=== PATIENT | male | born 1960 | race African-American/Black ===

== ENCOUNTER 2017-10-31 07:05 | Day surgery (SDC) | END 2017-10-31 13:10 | disposition home or self-care (01) ==

== ENCOUNTER 2017-12-18 07:07 | Day surgery (SDC) | END 2017-12-18 14:07 | disposition home or self-care (01) ==

== ENCOUNTER 2018-04-20 05:42 | Inpatient (IN) | END 2018-04-23 11:38 | disposition home health service (06) | DRG 291 ==

== ENCOUNTER 2018-04-30 14:33 | Emergency (ER) | END 2018-04-30 17:45 | disposition home or self-care (01) ==

== ENCOUNTER 2018-05-12 17:09 | Emergency (ER) | END 2018-05-12 18:34 | disposition left against medical advice (07) ==

== ENCOUNTER 2018-05-13 12:03 | Inpatient (IN) | END 2018-05-15 13:28 | disposition home or self-care (01) | DRG 64 ==

== ENCOUNTER 2018-07-08 15:55 | Inpatient (IN) | payer BC ==
[~2018-07-08] VITALS: Ht 170.2 cm; Wt 121.0 kg
[~2018-07-08 15:55] MED LIST: ATOR-2 PO; CAPE500T17 PO; CARAS PO; CARV3.1260 PO; CLOP75TA19 PO; FURO40TA4 PO; LEVO500T48 PO; PANT40TA4 PO; POTA10TA37 PO; TEMA15CA PO; TRA100 PO
[2018-07-08 20:19] VITALS: PULSE 95
--- NOTE | 2018-07-08 20:56 | HP ---
Date/Time of Note Date/Time of Note DATE: 07/08/18 TIME: 20:54 Assessment/Plan VTE Prophylaxis Pharmacological prophylaxis: heparin Assessment/Plan Hospital Course This is a 57-year-old male who was being admitted to the telemetry floor for: #1 acute on chronic systolic CHF exacerbation: At the current time we will continue IV diuresis with Lasix 40 mg daily. Monitor urine output. Strict I's and O's. Fluid restriction. #2 Ischemic cardia myopathy: Patient has an ejection fraction of approximately 25% which was considered to be likely chemo induced. This echo rating is based on the transfer documentation as an echo had been performed at the transferring facility in April. #3 AICD/pacemaker: Was interrogated at the transferring facility and there was no reported dysfunction. #4 colon cancer: With metastasis to the liver, follow-up with hematology as an outpatient. 5. Transaminitis: Likely secondary to underlying liver metastasis and passive congestion, continue diuresis, hold any chemical chemical DVT prophylaxis at the current time given patient's underlying liver disease. 6. Hallucinations: At the current time will give patient Haldol IM 5 mg. May need to give a dose of risperidone 1 mg p.o. as well. We will need to consult psychiatry in the a.m. 7. Chronic kidney disease: Appears to be stage III. Avoid nephrotoxic agents, avoid NSAIDs continue to monitor next 8. Obesity: We will check hemoglobin A1c, lipid panel, TSH 9. History of a pulmonary nodule: Follow-up as outpatient DVT GI prophylaxis: heparin, Protonix HPI/ROS Admit Date/Time Admit Date/Time Jul 08, 2018 at 19:53 Hx of Present Illness Chief complaint: Shortness of breath This is a 57-year-old male with a past medical history of CAD s/p PCI, HTN, ischemic CM, colon ca on PO chemo, h/o GI bleed, morbid obesity, and anemia, Acute left occipital lobe infarct who presented to [facility] with complaints of shortness of breath on 07/06/2018. Patient had reported at that time that he was having shortness of breath times 1 day and palpitations and some possible chest pain. He had been on lower doses of Lasix according to him prior. He was reporting chest pressure and orthopnea but denied any fevers or cough, he did state that he was only able to walk approximately 30 feet before getting shortness of breath. 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 rodrigo lynn. He was admitted in the hospital and started on diuresis and given daily potassium and Spironolactone. He was continued on his home medications. Patient also had his pacemaker interrogated and there was no reported dysfunction. Patient was subsequently transferred to [facility] for insurance purposes. Currently at the bedside the patient is reporting hearing voices in his head. His is with him at the bedside who states that approximately 1 week ago he started reporting that he was noises in his head. His denies that this has occurred before. He does have a history of stage IV cancer which is being treated for. He has a history of general anxiety as well and was on home temazepam Xanax and trazodone. Pertinent laboratory findings from the transfer facility please see chart for full details Hemoglobin 10.7 Magnesium 1.6 Potassium 3.7 Creatinine 1.3 is 9 next INR 1.93 platelets 294 next Chest x-ray: Enlarged cardiac silhouette, vascular prominence consistent with mild pulmonary venous hypertension Bilateral lower extremity ultrasound no evidence of DVT Allergies: NKDA Medications: See SEP ROS Const: As per HPI Eyes : No pain discharge or redness or change in visual acuity ENT: No pain, sore throat, congestion, congestion, dysphagia or discharge Respiratory: As per HPI Cardiovascular: As per HPI GI : no change in appetite, abdominal pain, nausea, vomiting, diarrhea, constipation, or change in the color his stool Genitourinary: No dysuria, hematuria, flank pain , discharge or CVA tenderness Musculoskeletal: No joint pain, back pain, neck pain, restricted range of motion in neck or joints Skin: No rash, bruising or hives Neuro: No headache, dizziness, syncope, seizure, focal weakness Endocrine: No polyuria, polydipsia, temperature intolerance Psych: As per HPI, denies any suicidal thoughts or homicidal thoughts PMH/Family/Social Past Medical History coronary artery disease, hypertension, ischemic CM, Colon Ca with mets to liver, GI bleed, obesity, anemia, CVA Coded Allergies: No Known Allergy (Unverified , 05/13/18) Past Surgical History portacath placement, AICD placement, angioplasty, colon resection, cholecystectomy, hernia repair Past Surgical Hx: other Family History Significant Family History: no pertinent family hx Social History Alcohol Use: none Smoking Status: Never smoker Drug Use: none Exam/Review of Systems Exam Exam General: Patient is currently lying in bed, he contently reports that he wants noises in his head. HEENT: Atraumatic, normocephalic. The pupils are equal, round and reactive. Extraocular motor are intact Neck: Supple with full range of motion. No rigidity or meningismus Chest: Nontender Lungs: Crackles/rales at the bases bilaterally Heart: Normal S1-S2, Regular rhythm and rate. Questionable JVD Abdomen: Obese, soft , nontender, nondistended , bowel sounds are present. No guarding no rebound tenderness , No masses or organomegaly. No costovertebral temporal angle mass Extremities: Normal to inspection, no edema no cyanosis Neurologic: He is alert and oriented, he is reporting noises in his head and he wants him to stop, speech normal, cranial nerves II through XII are intact, motor and sensory are intact, GEORGIE ORTIZ Jul 08, 2018 20:56
[2018-07-08 21:00] VITALS: Ht 170.2 cm; Wt 121.0 kg
[2018-07-08] MEDS ORDERED: ONDANSETRON 4 MG INJ IV PRN (21:00)
[2018-07-08] MEDS ORDERED: DOCUSATE SODIUM 100 MG CAP PO PRN (21:00)
[2018-07-08] MEDS ORDERED: BISACODYL (EC) 5 MG TAB PO PRN (21:00)
[2018-07-08] MEDS ORDERED: NACL 0.9% 3 ML SYG IV SCH (21:00)
[2018-07-08] MEDS ORDERED: BENA40TA56 PO (21:45)
[2018-07-08] MEDS ORDERED: TRAM50TA PO (21:45)
[2018-07-08] MEDS ORDERED: DIAZ5TAB4 PO (21:45)
[2018-07-08] MEDS ORDERED: SPIR100T4 PO (21:45)
[2018-07-08] MEDS ORDERED: ZOLP10TA PO (21:45)
[2018-07-08] MEDS: DIAZEPAM 5 MG TAB PO PRN (22:42)
[2018-07-08 23:55] VITALS: BP 124/79; RESP 18
[2018-07-09] VITALS (47 sets, daily range): BP systolic 75–187; BP diastolic 50–120; PULSE 78–130; RESP 18–52
[2018-07-09] MEDS ORDERED: HALOPERIDOL 5 MG INJ IM ONE ×2 (00:30→02:00)
[2018-07-09] MEDS ORDERED: RISPERIDONE 1 MG TAB PO ONE (01:00)
[2018-07-09] MEDS ORDERED: LORAZEPAM 2 MG INJ IV ONE ×3 (02:00→20:30)
[2018-07-09] MEDS ORDERED: ACETYLCYSTEINE 20% 4 ML VIAL NEB ONE (03:46)
[2018-07-09] MEDS: FUROSEMIDE 40 MG INJ IV SCH (03:54)
[2018-07-09] MEDS: LEVALBUTEROL (NEB) 1.25 MG/0.5 ML AMP HHN PRN (03:59)
--- NOTE | 2018-07-09 04:44 | QN ---
Documentation Comment Patient became noticeably agitated and continued to hallucinate from before. He was given Haldol followed with Ativan. It did help him settle down for a short period of time. He later on continue to become agitated and he was given 1 mg of risperidone. Patient kept trying to get out of bed. Sometime later patient was noted to be more agitated and respiratory distress. He was given a breathing treatment as well. He maintained his saturations near 97% on 2 L. However given his increased work of breathing and agitation patient was brought down to the ICU. I did speak to the Natalie who stated that he was doing very similar things at the transferring facility where he was being given meds and still was fighting them. I did state that we may need to intubate the patient if his respiratory distress become worse and she is on board with him being full code. GEORGIE ORTIZ Jul 09, 2018 04:44
[2018-07-09] MEDS ORDERED: ALBUMIN HUMAN 25% 100 ML IV ONE (05:00)
[2018-07-09] MEDS ORDERED: FUROSEMIDE 40 MG INJ IV ONE ×2 (05:00→20:30)
--- NOTE | 2018-07-09 05:00 | NUR ---
Rechecked pt. sitter at bedside. Patient was short of breath, cold clammy skin, oxygen sat down to78 %. Called Dr. Yeung notified pt's condition with order to transfer to ICU. Report given to [facility] ICU,pt's cellphone and belongings endorsed.
--- NOTE | 2018-07-09 06:23 | NUR ---
Confused & kept trying to get out of bed; hospitalist was notified and restraint was ordered; tachypnea and tachycardia (HR 120S); on high flow FiO2 70%; crackles on bibasilar lungs without edema x4 extremities; urine output 500 ml in the last 2 hours; continue to monitor and provide total care.
[2018-07-09] MEDS: PANTOPRAZOLE (EC) 40 MG TAB PO SCH (07:05)
--- NOTE | 2018-07-09 07:46 | CONS ---
Date/Time of Note Date/Time of Note DATE: 07/09/18 TIME: 07:42 Assessment/Plan Assessment/Plan Additional Assessment/Plan Chest x-ray showing mild pulmonary edema. Mediport in right chest wall. Pacemaker in left chest wall. Assessment recommendations; 1. Patient with history of metastatic stage IV lung cancer admitted for CHF exacerbation with hypoxemia. Doing moderately well on high flow nasal cannula. Patient refusing to use BiPAP. 2. Anemia. 3. Chronic mild renal insufficiency. 4. Lung nodule of uncertain diagnosis at this point. 5. History of hypertension, CAD. 6. History of cardiac arrhythmia. 7. History of depression. Continue current supportive care. Continue diuretic regimen. Monitor for any clinical decompensation. The patient does decompensate he likely will need to be intubated. Consultation Date/Type/Reason Admit Date/Time Jul 08, 2018 at 19:53 Date of Consultation: Jul 09, 2018 Type of Consult Pulmonary/critical care Reason for Consultation Pulmonary consult requested for evaluation of shortness of breath. Patient transferred from another hospital for insurance reasons. History of presenting illness; patient is a 57-year-old male who has been transferred over from [facility] for further care. The patient was admitted over there for shortness of breath, patient had a chest x-ray done which showed congestive heart failure pattern with high BNP level. The time I saw the patient the patient is mildly tachypneic but did appear awake and alert and was able to answer questions. Past medical history; 1. Metastatic stage IV colon cancer. 2. History of cardiac arrhythmia, status post pacemaker placement. 3. History of chronic renal insufficiency. 4. History of pulmonary nodule of uncertain etiology at this time. 5. Chronic anemia. 6. History of CAD with intervention in the past. 7. History of hypertension. 8. History of herniorrhaphy and cholecystectomy. 9. History of depression. Medications; reviewed. Allergies; none. Social history; noncontributory. Occupational history; patient is on disability. Review of systems; denies any headache, seizures. Denies any chest pain, complains of mild shortness of breath. Complains of very scant cough without any sputum production. Denies any hemoptysis. Denies any abdominal pain, nausea vomiting. Complains of mild edema. Complains of chronic dyspnea on exertion. General exam; middle-aged male, appears overweight, on high flow nasal cannula. Appearing mildly tachypneic. Past Surgical History Past Surgical Hx: other Social History Alcohol Use: none Smoking Status: Never smoker Drug Use: none Exam/Review of Systems Vital Signs Vitals Vital Signs Date Temp Pulse Resp B/P (MAP) Pulse Ox O2 O2 Flow FiO2 Time Delivery Rate 07/09/18 122 28 166/112 87 High Flow 07:00 (130) 07/09/18 70 06:20 07/09/18 98.3 04:14 07/09/18 2.0 04:00 Intake and Output 07/08/18 07/08/18 07/09/18 1515:00 23:00 07:00 IntakeIntake Total 200 ml OutputOutput Total 150 ml BalanceBalance 50 ml Exam HEENT exam; supple neck, positive JVD. No lymphadenopathy. Midline trachea. No thyromegaly. Patient has fair dentition. No neck masses. Chest exam; diminished breath sounds bilaterally. S1-S2 audible, no murmurs. Regular rhythm. Pacemaker in left chest wall. Abdomen exam; soft, protuberant. No organomegaly. Bowel sounds audible. Nont doris. Extremity exam; trace peripheral edema. PLANT TECHNICIAN/CONTROL ROOM OPERATOR exam; no focal motor deficit. Medications Medications Current Medications IV Flush (NS 3 ml) 3 ml PER PROTOCOL IV ; Start 07/08/18 at 21:00 Ondansetron HCl (Zofran Inj) 4 mg Q6H PRN IV NAUSEA AND/OR VOMITING; Start 07/08/18 at 21:00 Acetaminophen (Tylenol Tab) 650 mg Q6H PRN PO PAIN LEVEL 1-3 OR FEVER; Start 07/08/18 at 21:00 Docusate Sodium (Colace) 100 mg Q12H PRN PO CONSTIPATION; Start 07/08/18 at 21:00 Bisacodyl (Dulcolax) 5 mg DAILY PRN PO CONSTIPATION; Start 07/08/18 at 21:00 Diazepam (Valium) 5 mg BID PRN PO ANXIETY Last administered on 07/08/18at 22:42; Admin Dose 5 MG; Start 07/08/18 at 23:00 Atorvastatin Calcium (Lipitor) 80 mg QHS PO ; Start 07/09/18 at 21:00 Benazepril HCl (Lotensin) 40 mg DAILY PO ; Start 07/09/18 at 09:00 Capecitabine (Xeloda) 1,500 mg BID PO ; Start 07/09/18 at 09:00 Carvedilol (Coreg) 3.125 mg BID PO ; Start 07/09/18 at 09:00 Clopidogrel Bisulfate (plaVIX) 75 mg DAILY PO ; Start 07/09/18 at 09:00 Pantoprazole (Protonix Tab) 40 mg AC BREAKFAST PO ; Start 07/09/18 at 07:00 Potassium Chloride (Klor-Con 10) 10 meq DAILY PO ; Start 07/09/18 at 09:00 Spironolactone (Aldactone) 25 mg DAILY PO ; Start 07/09/18 at 09:00 Sucralfate (Carafate Susp) 1 gm QID PO ; Start 07/09/18 at 09:00 Furosemide (Lasix) 40 mg DAILY@0600 IV Last administered on 07/09/18at 03:54; Admin Dose 40 MG; Start 07/09/18 at 04:00 Levalbuterol (Xopenex Neb) 1.25 mg Q4H RESP THERAPY PRN HHN SHORTNESS OF BREATH Last administered on 07/09/18at 03:59; Admin Dose 1.25 MG; Start 07/09/18 at 03:45 Results Result Diagram: 07/09/18 0400 07/09/18 0400 Results 24 hrs Laboratory Tests Test 07/08/18 21:28 07/09/18 04:00 07/09/18 04:22 07/09/18 04:26 White Blood 8.9 # 9.1 Count Red Blood Count 4.46 #L 4.52 L Hemoglobin 10.5 L 10.6 L Hematocrit 34.2 L 34.4 L Mean 76.7 L 76.1 L Corpuscular Volume Mean 23.5 L 23.5 L Corpuscular Hemoglobin Mean 30.7 L 30.8 L Corpuscular Hemoglobin Conc ent Red Cell 23.9 #H 23.8 H Distribution Width Platelet Count 340 # 363 Mean Platelet 10.6 H 10.4 Volume Immature 0.300 0.400 Granulocytes % Neutrophils % 70.8 83.1 H Lymphocytes % 14.6 L 6.9 L Monocytes % 12.9 H 8.4 Eosinophils % 1.1 0.8 Basophils % 0.3 0.4 Nucleated Red 0.0 0.0 Blood Cells % Immature 0.030 0.040 H Granulocytes # Neutrophils # 6.3 7.6 H Lymphocytes # 1.3 0.6 L Monocytes # 1.2 H 0.8 Eosinophils # 0.1 0.1 Basophils # 0.0 0.0 Nucleated Red 0.0 0.0 Blood Cells # Sodium Level 135 135 Potassium Level 3.7 3.9 Chloride Level 98 94 L Carbon Dioxide 27 28 Level Anion Gap 10 13 Blood Urea 28 H 28 H Nitrogen Creatinine 1.28 H 1.24 Est Glomerular > 60 > 60 Filtrat Rate mL/min Glucose Level 132 176 Calcium Level 9.1 9.3 Magnesium Level 2.0 1.7 B-Type 3340 H Natriuretic Peptide Hemoglobin A1c 6.0 H Total Bilirubin 1.6 H Direct 0.10 Bilirubin Indirect 1.5 H Bilirubin Aspartate Amino 82 H Transf (AST/SGO T) Alanine 41 Aminotransferas e (ALT/SGPT) Alkaline 232 H Phosphatase Creatine Kinase 123 Creatine Kinase 0.2 Index Creatinine 0.27 Kinase MB (Mass) Troponin I 0.031 Total Protein 6.5 Albumin 3.4 Globulin 3.10 Albumin/Globuli 1.09 n Ratio Triglycerides 53 Level Cholesterol 164 Level LDL 127 Cholesterol, Calculated HDL Cholesterol 26 L Cholesterol/HDL 6.3 Ratio Thyroid 2.530 Stimulating Hormone (TSH) Blood Gas Blood Specimen arterial Source Arterial Blood 07/09/2018 4:3 Date Drawn 0:14 AM Arterial Blood 7.466 H pH (Temp corrected ) Arterial Blood 31.6 L pCO2 (Temp correct) Arterial Blood 84.3 pO2 (Temp corrected ) Arterial Blood 22.3 HCO3 Arterial Blood -0.7 Base Excess Arterial Blood 96.3 Oxygen Saturati on Xu Test ACCEPTAB Arterial Blood Right Radial Gas Puncture Site Arterial 0.5 Blood Carboxyhe moglobin Arterial Blood 0.3 Methemoglobin Blood Gas A-a 597.1 H O2 Differential Oxyhemoglobin 95.5 Percent Blood Gas 37.0 Temperature Blood Gas MASK - NRB Modality FiO2 100.0 Blood Gas MI Notified Whom Blood Gas 07/09/2018 4:4 Notified Time 5:56 AM Bedside Glucose 195 Test 07/09/18 06:00 Blood Gas Blood arterial Specimen Source Arterial Blood 07/09/2018 6:00 Date Drawn :18 AM Arterial Blood 7.457 H pH (Temp corrected ) Arterial Blood 35.7 pCO2 (Temp correct) Arterial Blood 82.6 pO2 (Temp corrected ) Arterial Blood 24.6 HCO3 Arterial Blood 1.0 Base Excess Arterial Blood 95.5 Oxygen Saturati on Xu Test ACCEPTAB Arterial Blood Right Radial Gas Puncture Site Arterial 0.5 Blood Carboxyhe moglobin Arterial Blood 0.2 Methemoglobin Blood Gas A-a 450.3 H O2 Differential Oxyhemoglobin 94.8 Percent Blood Gas 37.0 Temperature Blood Gas 31 Actual Respiration Rat e Blood Gas HFNC Modality FiO2 80.0 Blood Gas PAUL DICKSON Notified Whom Blood Gas 07/09/2018 6:10 Notified Time :11 AM KATHI MCKEON Jul 09, 2018 07:46
--- NOTE | 2018-07-09 08:31 | CONS ---
Date/Time of Note Date/Time of Note DATE: 07/09/18 TIME: 08:05 Assessment/Plan Assessment/Plan Chief Complaint/Hosp Course 1. Acute hypoxemic hypercapnic respiratory failure 2. 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 Severe coronary artery disease with multivessel coronary artery disease 4. History of PCI of right coronary artery in April 2018 5. History of metastatic adeno CA of the colon 6. History of hypertension 7. History of noncompliance 8. History of GI bleed 9. Dyslipidemia 10. History of sick sinus syndrome s/p pacemaker Recommendations: Plavix to be continued as much as possible given his history of recent PCI Respiratory care as per pulmonary. Patient will be tried to be placed on BiPAP and if fails it may need to be intubated. CODE STATUS is still full code I would increase her diuretics to IV Lasix twice daily. Echocardiogram will be checked. Continue with ICU care. Continue with a statin beta-casie and AN inhibitor as tolerated. more than 43 minutes critical care time was for management treatment is critically ill patient excluding any procedures Thank you for his referral. We will continue to follow along with you. ANGEL CANCINO MD [facility] Consultation Date/Type/Reason Admit Date/Time Jul 08, 2018 at 19:53 Date of Consultation: Jul 09, 2018 Type of Consult cv Reason for Consultation CHF/ CAD Requesting Provider: GEORGIE ORTIZ Hx of Present Illness Interventional cardiology consultation note Chief complaint: Shortness of breath Reason for consult: Coronary artery disease, CHF History of present illness: Thank you for this referral. History was obtained from the patient, BUT mostly from review of the old chart discussion multiple physicians staff. This is a 57-year-old gentleman with history of coronary artery disease status post PCI of his right coronary artery in apr 2018 at [place], history of GI bleed after PCI status post endoscopy by GI, colon cancer history of congestive heart failure cardiomyopathy who was initially admitted to outside facility for shortness of breath. Patient was transferred to our facility for respiratory failure and congestive heart failure due to insurance reasons. Patient was no dwight to be in increasing hypoxemia and shortness of breath and was transferred to ICU at this point he complains of shortness of breath he has been desaturating has refused BiPAP At this point patient is unable to provide reliable history to me. Allergies: No known drug allergies Medications were reviewed as per medical reconciliation sheet Family history: No early coronary artery disease Social history: + Smoking in the past Past medical history: Coronary artery disease status post PCI right coronary artery in April 2018. He was also noted to have multivessel disease at that time. Patient had GI bleed and severe anemia after his angioplasty. Has undergone endoscopy with Dr. TOLBERT. Workup has shown apparently metastatic colon cancer Hypertension ischemic cardiomyopathy obesity history of colon cancer status post surgery Review of system as above only the best I could obtain Past Surgical History Past Surgical Hx: other Social History Alcohol Use: none Smoking Status: Never smoker Drug Use: none Exam/Review of Systems Vital Signs Vitals Vital Signs Date Temp Pulse Resp B/P (MAP) Pulse Ox O2 O2 Flow FiO2 Time Delivery Rate 07/09/18 122 28 166/112 87 High Flow 07:00 (130) 07/09/18 70 06:20 07/09/18 98.3 04:14 07/09/18 2.0 04:00 Intake and Output 07/08/18 07/08/18 07/09/18 1515:00 23:00 07:00 IntakeIntake Total 300 ml OutputOutput Total 650 ml BalanceBalance -350 ml Exam General: Obese gentleman in respiratory distress HEENT: NC/AT. pupils are equal. round. NECK: NO JVD. no stridor. CV: Tachycardic. systolic murmur; no gallop or rubs. PULM: Diffuse rhonchi. GI: SOFT, NT, ND, no rebound or guarding Extremity: + B/L LE edema. no clubbing. neuro: awake Psych: Appears anxious rectal: deferred : normal EKG was personally reviewed which shows: Sinus tachycardia nonspecific T wave ab normalities Chest x-ray was personally reviewed. My personal review shows congestive heart failure. Status post permanent pacemaker Medications Medications Current Medications IV Flush (NS 3 ml) 3 ml PER PROTOCOL IV ; Start 07/08/18 at 21:00 Ondansetron HCl (Zofran Inj) 4 mg Q6H PRN IV NAUSEA AND/OR VOMITING; Start 07/08/18 at 21:00 Acetaminophen (Tylenol Tab) 650 mg Q6H PRN PO PAIN LEVEL 1-3 OR FEVER; Start 07/08/18 at 21:00 Docusate Sodium (Colace) 100 mg Q12H PRN PO CONSTIPATION; Start 07/08/18 at 21:00 Bisacodyl (Dulcolax) 5 mg DAILY PRN PO CONSTIPATION; Start 07/08/18 at 21:00 Diazepam (Valium) 5 mg BID PRN PO ANXIETY Last administered on 07/08/18at 22:42; Admin Dose 5 MG; Start 07/08/18 at 23:00 Atorvastatin Calcium (Lipitor) 80 mg QHS PO ; Start 07/09/18 at 21:00 Benazepril HCl (Lotensin) 40 mg DAILY PO ; Start 07/09/18 at 09:00 Capecitabine (Xeloda) 1,500 mg BID PO ; Start 07/09/18 at 09:00 Carvedilol (Coreg) 3.125 mg BID PO ; Start 07/09/18 at 09:00 Clopidogrel Bisulfate (plaVIX) 75 mg DAILY PO ; Start 07/09/18 at 09:00 Pantoprazole (Protonix Tab) 40 mg AC BREAKFAST PO ; Start 07/09/18 at 07:00 Potassium Chloride (Klor-Con 10) 10 meq DAILY PO ; Start 07/09/18 at 09:00 Spironolactone (Aldactone) 25 mg DAILY PO ; Start 07/09/18 at 09:00 Sucralfate (Carafate Susp) 1 gm QID PO ; Start 07/09/18 at 09:00 Furosemide (Lasix) 40 mg DAILY@0600 IV Last administered on 07/09/18at 03:54; Admin Dose 40 MG; Start 07/09/18 at 04:00 Levalbuterol (Xopenex Neb) 1.25 mg Q4H RESP THERAPY PRN HHN SHORTNESS OF BREATH Last administered on 07/09/18at 03:59; Admin Dose 1.25 MG; Start 07/09/18 at 03:45 Results Result Diagram: 07/09/18 0400 07/09/18 0400 Results 24 hrs Laboratory Tests Test 07/08/18 21:28 07/09/18 04:00 07/09/18 04:22 07/09/18 04:26 White Blood 8.9 # 9.1 Count Red Blood Count 4.46 #L 4.52 L Hemoglobin 10.5 L 10.6 L Hematocrit 34.2 L 34.4 L Mean 76.7 L 76.1 L Corpuscular Volume Mean 23.5 L 23.5 L Corpuscular Hemoglobin Mean 30.7 L 30.8 L Corpuscular Hemoglobin Conc ent Red Cell 23.9 #H 23.8 H Distribution Width Platelet Count 340 # 363 Mean Platelet 10.6 H 10.4 Volume Immature 0.300 0.400 Granulocytes % Neutrophils % 70.8 83.1 H Lymphocytes % 14.6 L 6.9 L Monocytes % 12.9 H 8.4 Eosinophils % 1.1 0.8 Basophils % 0.3 0.4 Nucleated Red 0.0 0.0 Blood Cells % Immature 0.030 0.040 H Granulocytes # Neutrophils # 6.3 7.6 H Lymphocytes # 1.3 0.6 L Monocytes # 1.2 H 0.8 Eosinophils # 0.1 0.1 Basophils # 0.0 0.0 Nucleated Red 0.0 0.0 Blood Cells # Sodium Level 135 135 Potassium Level 3.7 3.9 Chloride Level 98 94 L Carbon Dioxide 27 28 Level Anion Gap 10 13 Blood Urea 28 H 28 H Nitrogen Creatinine 1.28 H 1.24 Est Glomerular > 60 > 60 Filtrat Rate mL/min Glucose Level 132 176 Calcium Level 9.1 9.3 Magnesium Level 2.0 1.7 B-Type 3340 H Natriuretic Peptide Hemoglobin A1c 6.0 H Total Bilirubin 1.6 H Direct 0.10 Bilirubin Indirect 1.5 H Bilirubin Aspartate Amino 82 H Transf (AST/SGO T) Alanine 41 Aminotransferas e (ALT/SGPT) Alkaline 232 H Phosphatase Creatine Kinase 123 Creatine Kinase 0.2 Index Creatinine 0.27 Kinase MB (Mass) Troponin I 0.031 Total Protein 6.5 Albumin 3.4 Globulin 3.10 Albumin/Globuli 1.09 n Ratio Triglycerides 53 Level Cholesterol 164 Level LDL 127 Cholesterol, Calculated HDL Cholesterol 26 L Cholesterol/HDL 6.3 Ratio Thyroid 2.530 Stimulating Hormone (TSH) Blood Gas Blood Specimen arterial Source Arterial Blood 07/09/2018 4:3 Date Drawn 0:14 AM Arterial Blood 7.466 H pH (Temp corrected ) Arterial Blood 31.6 L pCO2 (Temp correct) Arterial Blood 84.3 pO2 (Temp corrected ) Arterial Blood 22.3 HCO3 Arterial Blood -0.7 Base Excess Arterial Blood 96.3 Oxygen Saturati on Xu Test ACCEPTAB Arterial Blood Right Radial Gas Puncture Site Arterial 0.5 Blood Carboxyhe moglobin Arterial Blood 0.3 Methemoglobin Blood Gas A-a 597.1 H O2 Differential Oxyhemoglobin 95.5 Percent Blood Gas 37.0 Temperature Blood Gas MASK - NRB Modality FiO2 100.0 Blood Gas CA Notified Whom Blood Gas 07/09/2018 4:4 Notified Time 5:56 AM Bedside Glucose 195 Test 07/09/18 06:00 Blood Gas Blood arterial Specimen Source Arterial Blood 07/09/2018 6:00 Date Drawn :18 AM Arterial Blood 7.457 H pH (Temp corrected ) Arterial Blood 35.7 pCO2 (Temp correct) Arterial Blood 82.6 pO2 (Temp corrected ) Arterial Blood 24.6 HCO3 Arterial Blood 1.0 Base Excess Arterial Blood 95.5 Oxygen Saturati on Xu Test ACCEPTAB Arterial Blood Right Radial Gas Puncture Site Arterial 0.5 Blood Carboxyhe moglobin Arterial Blood 0.2 Methemoglobin Blood Gas A-a 450.3 H O2 Differential Oxyhemoglobin 94.8 Percent Blood Gas 37.0 Temperature Blood Gas 31 Actual Respiration Rat e Blood Gas HFNC Modality FiO2 80.0 Blood Gas PAUL DICKSON Notified Whom Blood Gas 07/09/2018 6:10 Notified Time :11 AM ANGEL CANCINO MD Jul 09, 2018 08:15
[2018-07-09] MEDS: CLOPIDOGREL 75 MG TAB PO SCH (08:36)
[2018-07-09] MEDS ORDERED: POTASSIUM CHLORIDE (SR) 10 MEQ TAB PO SCH (09:00)
[2018-07-09] MEDS: CAPECITABINE 500 MG TAB PO SCH ×2 (09:00→20:56)
[2018-07-09] MEDS: BENAZEPRIL 40 MG TAB PO SCH (09:00)
[2018-07-09] MEDS ORDERED: FUROSEMIDE 40 MG INJ IV SCH (09:00)
[2018-07-09] MEDS: SUCRALFATE (100 MG/ML) 10ML CUP PO SCH ×4 (09:00→20:55)
[2018-07-09] MEDS: SPIRONOLACTONE 50 MG TAB PO SCH (09:00)
--- NOTE | 2018-07-09 09:30 | NUR ---
CT SCAN DISCUSSED ORDER OF CT SCAN WITH DR LORA. EXPLAINED THAT PT IS NOT STABLE ENOUGH TO GO, HE IS ON 100% ON BIPAP AND UNABLE TO LAY FLAT AT THIS TIME. SHE STATED THAT SHE WOULD CANCEL THE ORDER.
--- NOTE | 2018-07-09 10:23 | PN ---
Date/Time of Note Date/Time of Note DATE: 07/09/18 TIME: 10:16 Assessment/Plan VTE Prophylaxis Risk score (from Ns)>0 risk: 10 SCD applied (from Ns): Yes Pharmacological prophylaxis: heparin Pharm contraindication: other (high bleeding risk) Lines/Catheters IV C[facility]ter Type (from [facility]): PORTACATH Urinary Cath still in place: Yes Reason Cath still needed: other (indicate) Assessment/Plan Assessment/Plan 57 yo M with history of metastatic stage IV colon cancer admitted for SOB and hypoxemia 1. Acute hypoxemic hypercapnic respiratory failure requiring Bipap 2. 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 H/o Severe coronary artery disease with multivessel coronary artery disease, ACS ruled out 4. History of PCI of right coronary artery in April 2018 5. History of metastatic adeno CA of the colon s/p resection on ?palliative chemo 6. History of hypertension 7. History of noncompliance 8. History of GI bleed 9. Dyslipidemia 10. History of sick sinus syndrome s/p pacemaker -pace maker interrogated yesteray 11. Recent acute occipital CVA on chronic CVA 12. PreDM hba1C 6.0 13. Acute confusion / delirium with reports of hallucinations PLAN: continue bipap Continue diuresis with Lasix per cardiology, patient also remains on Aldactone therapy Continue Plavix Continue Xeloda for colon cancer Continue bronchodilators as well as supportive care. Overall prognosis remains guarded, continue ICU support Oncology consult DC CT of the brain for now as patient remains fairly stable, instead patient may benefit from CT of the chest, abdomen to evaluate his resp failure and new onset transaminitis and hyperbilirubinemia. Note that ammonia level was normal. Will also get oncology consultation as well as Psych when patient is clinically stable Continue supportive care Critical care time >40mins Prognosis : Guarded, high intubation risk Critical care time greater than 40 minutes. Subjective 24 Hr Interval Summary Free Text/Dictation Finally consented to bipap therapy and is now sleeping comfortably, bipap in place Exam/Review of Systems Vital Signs Vitals Vital Signs Date Temp Pulse Resp B/P (MAP) Pulse Ox O2 O2 Flow FiO2 Time Delivery Rate 07/09/18 84 33 110/71 100 BIPAP 10:00 (84) 07/09/18 98.3 08:00 07/09/18 70 06:20 07/09/18 2.0 04:00 Intake and Output 07/08/18 07/08/18 07/09/18 1515:00 23:00 07:00 IntakeIntake Total 300 ml OutputOutput Total 450 ml BalanceBalance -150 ml Exam General: sleeping comfortably HEENT: Atraumatic, normocephalic. Neck: no JVD Chest: diminished, clear Heart: Normal S1-S2, Regular rhythm and rate. Abdomen: Obese, soft , nontender, nondistended , bowel sounds are present. No guarding no rebound tenderness , No masses or organomegaly. No costovertebral temporal angle mass Extremities: Normal to inspection, no edema no cyanosis Neurologic: detailed exam deffered Medications Medications Current Medications IV Flush (NS 3 ml) 3 ml PER PROTOCOL IV ; Start 07/08/18 at 21:00 Ondansetron HCl (Zofran Inj) 4 mg Q6H PRN IV NAUSEA AND/OR VOMITING; Start 07/08/18 at 21:00 Acetaminophen (Tylenol Tab) 650 mg Q6H PRN PO PAIN LEVEL 1-3 OR FEVER; Start 07/08/18 at 21:00 Docusate Sodium (Colace) 100 mg Q12H PRN PO CONSTIPATION; Start 07/08/18 at 21:00 Bisacodyl (Dulcolax) 5 mg DAILY PRN PO CONSTIPATION; Start 07/08/18 at 21:00 Diazepam (Valium) 5 mg BID PRN PO ANXIETY Last administered on 07/08/18at 22:42; Admin Dose 5 MG; Start 07/08/18 at 23:00 Atorvastatin Calcium (Lipitor) 80 mg QHS PO ; Start 07/09/18 at 21:00 Benazepril HCl (Lotensin) 40 mg DAILY PO ; Start 07/09/18 at 09:00 Capecitabine (Xeloda) 1,500 mg BID PO ; Start 07/09/18 at 09:00 Carvedilol (Coreg) 3.125 mg BID PO ; Start 07/09/18 at 09:00 Clopidogrel Bisulfate (plaVIX) 75 mg DAILY PO Last administered on 07/09/18at 08:36; Admin Dose 75 MG; Start 07/09/18 at 09:00 Pantoprazole (Protonix Tab) 40 mg AC BREAKFAST PO ; Start 07/09/18 at 07:00 Potassium Chloride (Klor-Con 10) 10 meq DAILY PO ; Start 07/09/18 at 09:00 Spironolactone (Aldactone) 25 mg DAILY PO ; Start 07/09/18 at 09:00 Sucralfate (Carafate Susp) 1 gm QID PO ; Start 07/09/18 at 09:00 Furosemide (Lasix) 40 mg DAILY@0600 IV Last administered on 07/09/18at 03:54; Admin Dose 40 MG; Start 07/09/18 at 04:00 Levalbuterol (Xopenex Neb) 1.25 mg Q4H RESP THERAPY PRN HHN SHORTNESS OF BREATH Last administered on 07/09/18at 03:59; Admin Dose 1.25 MG; Start 07/09/18 at 03:45 Results Result Diagram: 07/09/18 0400 07/09/18 0400 Results 24 hrs Laboratory Tests Test 07/08/18 21:28 07/09/18 04:00 07/09/18 04:22 07/09/18 04:26 White Blood 8.9 # 9.1 Count Red Blood Count 4.46 #L 4.52 L Hemoglobin 10.5 L 10.6 L Hematocrit 34.2 L 34.4 L Mean 76.7 L 76.1 L Corpuscular Volume Mean 23.5 L 23.5 L Corpuscular Hemoglobin Mean 30.7 L 30.8 L Corpuscular Hemoglobin Conc ent Red Cell 23.9 #H 23.8 H Distribution Width Platelet Count 340 # 363 Mean Platelet 10.6 H 10.4 Volume Immature 0.300 0.400 Granulocytes % Neutrophils % 70.8 83.1 H Lymphocytes % 14.6 L 6.9 L Monocytes % 12.9 H 8.4 Eosinophils % 1.1 0.8 Basophils % 0.3 0.4 Nucleated Red 0.0 0.0 Blood Cells % Immature 0.030 0.040 H Granulocytes # Neutrophils # 6.3 7.6 H Lymphocytes # 1.3 0.6 L Monocytes # 1.2 H 0.8 Eosinophils # 0.1 0.1 Basophils # 0.0 0.0 Nucleated Red 0.0 0.0 Blood Cells # Sodium Level 135 135 Potassium Level 3.7 3.9 Chloride Level 98 94 L Carbon Dioxide 27 28 Level Anion Gap 10 13 Blood Urea 28 H 28 H Nitrogen Creatinine 1.28 H 1.24 Est Glomerular > 60 > 60 Filtrat Rate mL/min Glucose Level 132 176 Calcium Level 9.1 9.3 Magnesium Level 2.0 1.7 B-Type 3340 H Natriuretic Peptide Hemoglobin A1c 6.0 H Total Bilirubin 1.6 H Direct 0.10 Bilirubin Indirect 1.5 H Bilirubin Aspartate Amino 82 H Transf (AST/SGO T) Alanine 41 Aminotransferas e (ALT/SGPT) Alkaline 232 H Phosphatase Creatine Kinase 123 Creatine Kinase 0.2 Index Creatinine 0.27 Kinase MB (Mass) Troponin I 0.031 Total Protein 6.5 Albumin 3.4 Globulin 3.10 Albumin/Globuli 1.09 n Ratio Triglycerides 53 Level Cholesterol 164 Level LDL 127 Cholesterol, Calculated HDL Cholesterol 26 L Cholesterol/HDL 6.3 Ratio Thyroid 2.530 Stimulating Hormone (TSH) Blood Gas Blood Specimen arterial Source Arterial Blood 07/09/2018 4:3 Date Drawn 0:14 AM Arterial Blood 7.466 H pH (Temp corrected ) Arterial Blood 31.6 L pCO2 (Temp correct) Arterial Blood 84.3 pO2 (Temp corrected ) Arterial Blood 22.3 HCO3 Arterial Blood -0.7 Base Excess Arterial Blood 96.3 Oxygen Saturati on Xu Test ACCEPTAB Arterial Blood Right Radial Gas Puncture Site Arterial 0.5 Blood Carboxyhe moglobin Arterial Blood 0.3 Methemoglobin Blood Gas A-a 597.1 H O2 Differential Oxyhemoglobin 95.5 Percent Blood Gas 37.0 Temperature Blood Gas MASK - NRB Modality FiO2 100.0 Blood Gas ID Notified Whom Blood Gas 07/09/2018 4:4 Notified Time 5:56 AM Bedside Glucose 195 Test 07/09/18 06:00 07/09/18 09:30 Blood Gas Blood arterial Blood Specimen arterial Source Arterial Blood 07/09/2018 6:00 07/09/2018 9:5 Date Drawn :18 AM 6:49 AM Arterial Blood 7.457 H 7.495 H pH (Temp corrected ) Arterial Blood 35.7 32.4 L pCO2 (Temp correct) Arterial Blood 82.6 391.6 H pO2 (Temp corrected ) Arterial Blood 24.6 24.4 HCO3 Arterial Blood 1.0 1.5 Base Excess Arterial Blood 95.5 99.8 H Oxygen Saturati on Xu Test ACCEPTAB ACCEPTAB Arterial Blood Right Radial Right Radial Gas Puncture Site Arterial 0.5 0.2 Blood Carboxyhe moglobin Arterial Blood 0.2 0.2 Methemoglobin Blood Gas A-a 450.3 H 289.0 H O2 Differential Oxyhemoglobin 94.8 99.4 H Percent Blood Gas 37.0 37.0 Temperature Blood Gas 31 37 Actual Respiration Rat e Blood Gas HFNC MASK - BIPAP Modality FiO2 80.0 100.0 Blood Gas MarckPAUL COLBERT TM Notified Whom Blood Gas 07/09/2018 6:10 07/09/2018 10: Notified Time :11 AM 05:38 AM Blood Gas 24.0 Respiration Rate Blood Gas 12 Pressure Support Blood Gas 20/8 IPAP/EPAP Ratio Imaging PROCEDURE: XR Chest. CLINICAL INDICATION: pain TECHNIQUE: Single portable view of the chest was obtained COMPARISON: Yesterday FINDINGS: There is moderate cardiomegaly with worsening pulmonary vascular congestion.. The heart, lungs and mediastinum are otherwise unchanged. There is a left-sided AICD in place. There is a right-sided chest wall port in place.. RPTAT: AA IMPRESSION: Moderate cardiomegaly with worsening pulmonary vascular congestion. Worsening bilateral upper lobe and lower lobe infiltrates. No other significant change. .Aravind Sanchez MD, MD Date Time Electronically viewed and signed by .Aravind Sanchez MD, MD on 07/09/2018 08:03 .S/ CC: GEORGIE ORTIZ [id number] ASIA LORA Jul 09, 2018 10:23
--- NOTE | 2018-07-09 10:41 | NUR ---
PHONE CALL RECEIVED PHONE CALL FROM PATIENTS . UPDATE GIVEN. SHE STATED THAT PTS PRIMARY DOCTOR HAD GIVEN PT A PRESCRIPTION TO GO SEE A PSYCHIATRIST LAST WEEK DUE TO "HAVING OR HAD A MENTAL BREAKDOWN" SHE STATED THAT THE PATIENT IS ADDICTED TO OXYGEN AT HOME. STATED THAT HE DOESN'T NEED IT BUT PANICS IF HE DOESN'T HAVE IT. I EXPLAINED THAT I WOULD LET DR LORA KNOW THIS AND MAYBE WE COULD HAVE HIM EVALUATED HERE. MESSAGED DR LORA ALL OF ABOVE.
--- NOTE | 2018-07-09 11:30 | NUR ---
NOTIFY NOTIFIED DR LORA OF PTS ONCOLOGIST: DR ANGELIQUE SOMERS
--- NOTE | 2018-07-09 12:00 | NUR ---
FAMILY PTS AND DAUGHTER AT BEDSIDE. UPDATE GIVEN. PT SLEEPING THEY DID NOT WANT TO WAKE PATIENT UP.
[2018-07-09] MEDS ORDERED: DIPHENHYDRAMINE 50 MG INJ IV ONE (13:30)
[2018-07-09] MEDS: DIAZEPAM 5 MG TAB PO PRN (15:45)
[2018-07-09] MEDS ORDERED: DIPHENHYDRAMINE 25 MG CAP PO PRN (16:30)
--- NOTE | 2018-07-09 19:49 | RADRPT ---
Echocardiogram Report Patient Name: JD MYERS Gender: Male Date: 1960 Study Date: 09-Jul-2018 Manager Bar: Jake Frances RDCS Location: 109 Ref. Physician: ANGEL CHAPARRO Quality: Adequate Procedures: Transthoracic echocardiogram with complete 2D, M-Mode, and doppler examination. Indications: Congestive Heart Failure. 2D/M Mode Doppler Measurement Value Normal Ranges Measurement Value Normal Ranges LVIDd 2D 5.7 3.5 - 5.6 cm AV Peak Reinier 1.3 m/sec LVIDs 2D 4.5 2.1 - 4.1 cm AV Peak PG 6.0 mmHg FS 2D 22.1 % LVOT Peak Reinier 1.0 m/sec LVPWd 2D 1.3 0.6 - 1.1 cm LVOT Peak PG 4.0 mmHg IVSd 2D 1.3 0.6 - 1.1 cm MV E Peak Reinier 0.7 m/sec IVS/LVPW 2D 1.0 MV A Peak Reinier 0.4 m/sec AoR Diam 2D 3.2 2.0 - 3.7 cm MV E/A 1.6 LA/Ao 2D 1 0 - 1 MV Decel Time 183 msec EDV 2D 189.0 cm3 MV E/A 1.6 ESV 2D 89.3 cm3 TR Peak Reinier 2.3 m/sec LA Dimen 2D 3.9 2.3 - 4.0 cm TR Peak PG 21.0 mmHg RVSP 31.0 mmHg RA Pressure 10.0 Findings Left Ventricle: Mild concentric left ventricular hypertrophy. Mild enlargement of left ventricle cavity. Moderate global left ventricular systolic dysfunction. Ejection fraction is visually estimated at 2530 %. Right Ventricle: Normal right ventricular size. Mild right ventricular systolic dysfunction. Linear artifact in right ventricle suggestive of catheter, pacer lead, or ICD lead. Left Atrium: The left atrium is normal in size. Right Atrium: The right atrium is normal in size. Mitral Valve: Mild mitral leaflet calcification. Mild mitral annular calcification. Trace mitral regurgitation. Aortic Valve: No significant aortic stenosis or insufficiency. Aortic cusps appear mildly calcified. Tricuspid Valve: Normal appearance of the tricuspid valve. Estimated peak PA systolic pressure 31 mmHg. There is mild tricuspid regurgitation. Pulmonic Valve: Pulmonic valve not well visualized. Pericardium: Normal pericardium with no significant pericardial effusion. Aorta: Normal aortic root. IVC: Normal size and normal respiratory collapse consistent with normal right atrial pressure. Conclusions Mild concentric left ventricular hypertrophy. Mild enlargement of left ventricle cavity. Moderate global left ventricular systolic dysfunction. Ejection fraction is visually estimated at 25-30 %. Mild mitral leaflet calcification. Mild mitral annular calcification. Trace mitral regurgitation. No significant aortic stenosis or insufficiency. Aortic cusps appear mildly calcified. Normal appearance of the tricuspid valve. Estimated peak PA systolic pressure 31 mmHg. There is mild tricuspid regurgitation. Electronically Signed By: Angel Chaparro 09-Jul-2018 19:49:03 -0800 Patient Name: JD MYERS Study Date: 09-Jul-[id number]
[2018-07-09] MEDS ORDERED: LORAZEPAM 2 MG INJ ONE (20:19)
--- NOTE | 2018-07-09 20:21 | NUR ---
DR ORTIZ CONTACTED REGARDING PT'S SOB, UNABLE TO TOLERATE BIPAP, PT BREATHING RR 40-50'S. DR ORTIZ CAME TO SEE PT. ORDERS FOR ATIVAN 1 MG IV X1, AND STAT CXR AND ABG.
[2018-07-09] MEDS: CEFEPIME 1GM/50 ML (PMX) 50 ML IVPB SCH (20:23)
[2018-07-09] MEDS ORDERED: HEPARIN 5,000 UNIT/0.5 ML VIAL ONE (20:29)
[2018-07-09] MEDS: ATORVASTATIN 80 MG TAB PO SCH (20:56)
[2018-07-09] MEDS: HEPARIN 5,000 UNIT/1 ML VIAL SC SCH (21:00)
[2018-07-09] MEDS ORDERED: traZODone 100 MG TAB PO SCH (21:00)
[2018-07-09] MEDS ORDERED: PROPOFOL 100 ML ONE (21:21)
--- NOTE | 2018-07-09 21:30 | NUR ---
Dr Harvey contacted regarding the ABG results, CXR was done and pt only diuresed 40cc. pt still in distress RR 40's. agitated. Dr harvey contacted ER MD , RSI performed, with ETomidate and Succs, pt intubated with 7.5 ETT, 25 cm at the lip, AC 16, 500, 60%, PEEP 10. pt sedated with Propofol. family contacted by Dr Harvey, and I talked to regarding plan of care. titrating to RASS of -2.
--- NOTE | 2018-07-09 21:48 | EN ---
Date/Time of Note Date/Time of Note DATE: 07/09/18 TIME: 21:46 ER Progress Note I was called to the ICU for a patient in respiratory distress. When I entered the room I saw the patient was tachypneic and tachycardic and in moderate respiratory distress on the BiPAP. The patient was altered and his primary care physician Dr. Yeung had spoken with the patient's family members in regards to intubation. Patient's family members were comfortable with the plan for intubation. The patient was given 20 mg of etomidate, 100 mill grams of succinylcholine and I did intubate this patient without difficulty. Please see intubation note. The patient's oxygen saturation has improved and he is doing better clinically. Endotracheal Intubation by me: Pre assessment performed. See preceding note for details. Pre-oxygenation performed with 100% oxygen RSI: Performed w/o complication or hypoxic events. Medications as ordered. Blade: [Mac 4] ET Tube: 7.5 cm Depth: 23 cm at the lip Intubation confirmed by colorimetric CO2, equal breath sounds, quiet over the stomach. Chest X-ray 1V Interpreted by me: 3 cm above the tab ET tube. Normal soft tissue, No pneumothorax. RAYRAY AGUIRRE DO Jul 09, 2018 21:48
[2018-07-09] MEDS: PROPOFOL 100 ML IV SCH (21:50)
--- NOTE | 2018-07-09 22:43 | NUR ---
Dr harvey informed of results of CXR s/p intubation. change in vent settings, and stat CHEST CT noncontrast ordered.
[2018-07-09] MEDS ORDERED: MIDAZOLAM (DRIP) 50 mg/50 mL 50 ML IV ONE (23:45)
[2018-07-09] MEDS: MIDAZOLAM (DRIP) 50 mg/50 mL 50 ML IV SCH (23:56)
--- NOTE | 2018-07-09 23:56 | NUR ---
ORDERS RECEIVED TO ADD VERSED ON TOP OF PROPOFOL BECAUSE PATIENT BP DROPPING TO LOW 80S SBP WHEN ON PROPOFOL AND HE IS BREATHING AGAINST THE VENT. SO ORDERS RECEIVED FOR VERSED AND STARTED AT 5 MG/HR AND PROPOFOL AT 10MCG/KG/HR
[2018-07-10] VITALS (55 sets, daily range): BP systolic 87–122; BP diastolic 56–82; PULSE 74–107; RESP 0–28
--- NOTE | 2018-07-10 00:30 | NUR ---
CT SCAN OF CHEST ( NON CONTRAST) PT TRANSPORTED VIA ALS WITH RN AND RT, FOR CT SCAN OF CHEST. PT TOLERATED WELL WITHOUT INCIDENT. PT REMAINS ON PROPOFOL @ 10 , AND VERSED @ 5 MG/HR.
[2018-07-10] MEDS ORDERED: VANCOMYCIN IV PER PHARMACY XX SCH (04:00)
[2018-07-10] MEDS ORDERED: PIPER-TAZO 3.375 GM IV (PMX) 100 ML IVPB SCH (04:01)
[2018-07-10] MEDS: PROPOFOL 100 ML IV SCH ×2 (04:48→15:49)
[2018-07-10] MEDS: FUROSEMIDE 40 MG INJ IV SCH (06:14)
[2018-07-10] MEDS ORDERED: VANCOMYCIN 2 GM in SOD CHLORIDE 0.9% 500 ML IVPB ONE (07:00)
[2018-07-10] MEDS: PANTOPRAZOLE (EC) 40 MG TAB PO SCH (07:05)
[2018-07-10] MEDS: MIDAZOLAM (DRIP) 50 mg/50 mL 50 ML IV SCH ×2 (07:22→18:56)
--- NOTE | 2018-07-10 08:44 | CONS ---
Date/Time of Note Date/Time of Note DATE: 07/10/18 TIME: 08:40 Assessment/Plan Assessment/Plan Additional Assessment/Plan Chest x-ray showing bilateral infiltrates. Ventilator setting; AC of 18, tidal volume 500, PEEP of 5, 40% FiO2. Patient is currently on propofol 10 mics per kilogram per minute, Versed 5 mg/h. Assessment recommendations; 1 patient admitted with CHF exacerbation with superimposed pneumonia, required intubation yesterday. Patient failed BiPAP after initially tolerating it for 2 hours. 2. Stage IV colon cancer. 3. History of cardiac arrhythmia, status post pacemaker placement in the past. 4. Mild chronic renal insufficiency. 5. History of depression. 6. History of hypertension. 7. Anemia. Continue current supportive care. Obtain follow-up chest x-ray 24 hours. Start tube feeding. Prognosis is guarded. 35 minutes of critical care time was spent in evaluating the patient. Consultation Date/Type/Reason Admit Date/Time Jul 08, 2018 at 19:53 Initial Consult Date 07/09/18 Type of Consult Pulmonary/critical care Requesting Provider: GEORGIE ORTIZ 24 HR Interval Summary Free Text/Dictation Patient's condition remains critical. Had to be intubated yesterday for respiratory failure. General exam; middle-aged male, orally intubated, sedated, currently no distress. Exam/Review of Systems Vital Signs Vitals Vital Signs Date Temp Pulse Resp B/P (MAP) Pulse Ox O2 O2 Flow FiO2 Time Delivery Rate 07/10/18 77 16 98/68 (78) 96 06:00 07/10/18 40 04:47 07/10/18 98.0 04:00 07/09/18 Mechanical 23:45 Ventilator 07/09/18 2.0 04:00 Intake and Output 07/09/18 07/09/18 07/10/18 1515:00 23:00 07:00 IntakeIntake Total 100 ml 50 ml 387 ml OutputOutput Total 655 ml 305 ml 85 ml BalanceBalance -555 ml -255 ml 302 ml Exam HEENT exam; supple neck, positive JVD. Orally intubated. Pupils are small bilaterally. Patient has fair dentition. No neck masses. Chest exam; diminished but clear breath sounds. S1-S2 audible, no murmurs. Regular rhythm. MediPort in right chest wall. Abdomen exam; soft, no organomegaly. Bowel sounds audible. Extremity exam; no edema. 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 Medications Medications Current Medications IV Flush (NS 3 ml) 3 ml PER PROTOCOL IV ; Start 07/08/18 at 21:00 Ondansetron HCl (Zofran Inj) 4 mg Q6H PRN IV NAUSEA AND/OR VOMITING; Start 07/08/18 at 21:00 Acetaminophen (Tylenol Tab) 650 mg Q6H PRN PO PAIN LEVEL 1-3 OR FEVER; Start 07/08/18 at 21:00 Docusate Sodium (Colace) 100 mg Q12H PRN PO CONSTIPATION; Start 07/08/18 at 21:00 Bisacodyl (Dulcolax) 5 mg DAILY PRN PO CONSTIPATION; Start 07/08/18 at 21:00 Diazepam (Valium) 5 mg BID PRN PO ANXIETY Last administered on 07/09/18at 15: 45; Admin Dose 5 MG; Start 07/08/18 at 23:00 Atorvastatin Calcium (Lipitor) 80 mg QHS PO ; Start 07/09/18 at 21:00 Benazepril HCl (Lotensin) 40 mg DAILY PO ; Start 07/09/18 at 09:00 Capecitabine (Xeloda) 1,500 mg BID PO ; Start 07/09/18 at 09:00 Carvedilol (Coreg) 3.125 mg BID PO ; Start 07/09/18 at 09:00 Clopidogrel Bisulfate (plaVIX) 75 mg DAILY PO Last administered on 07/09/18at 08:36; Admin Dose 75 MG; Start 07/09/18 at 09:00 Pantoprazole (Protonix Tab) 40 mg AC BREAKFAST PO ; Start 07/09/18 at 07:00 Spironolactone (Aldactone) 25 mg DAILY PO ; Start 07/09/18 at 09:00 Sucralfate (Carafate Susp) 1 gm QID PO ; Start 07/09/18 at 09:00 Furosemide (Lasix) 40 mg DAILY@0600 IV Last administered on 07/10/18at 06:14; Admin Dose 40 MG; Start 07/09/18 at 04:00 Levalbuterol (Xopenex Neb) 1.25 mg Q4H RESP THERAPY PRN HHN SHORTNESS OF BREATH Last administered on 07/09/18at 03:59; Admin Dose 1.25 MG; Start 07/09/18 at 03:45 Cefepime HCl 50 ml @ 100 mls/hr Q12 IVPB Last administered on 07/09/18at 20:23; Admin Dose 100 MLS/HR; Start 07/09/18 at 21:00 Heparin Sodium (Porcine) (Heparin (5000 Units/1ml)) 5,000 unit BID SC Last administered on 07/09/18at 21:00; Admin Dose 5,000 UNIT; Start 07/09/18 at 21:00 Diphenhydramine HCl (Benadryl) 25 mg Q8H PRN PO ITCHING Last administered on 07/09/18at 17:11; Admin Dose 25 MG; Start 07/09/18 at 16:30 Propofol 100 ml @ 3.63 mls/hr Q12H IV Last administered on 07/10/18at 04:48; Admin Dose 7.26 MLS/HR; Start 07/09/18 at 22:00 Midazolam HCl 50 ml @ 1 mls/hr TITRATE IV Last administered on 07/10/18at 07:22; Admin Dose 5 MLS/HR; Start 07/10/18 at 00:00 Vancomycin HCl (Vanco Iv Per Pharmacy) VANCOMYCIN PER PHARMACY PER PROTOCOL XX ; Start 07/10/18 at 04:00 Piperacillin Sod/ Tazobactam Sod 100 ml @ 200 mls/hr Q6 IVPB Last administered on 07/10/18at 04:31; Admin Dose 200 MLS/HR; Start 07/10/18 at 04:01 Vancomycin HCl 2 gm/Sodium Chloride 500 ml @ 125 mls/hr ONCE ONCE IVPB Last administered on 07/10/18at 06:15; Admin Dose 125 MLS/HR; Start 07/10/18 at 07:00; Stop 07/10/18 at 10:59 Potassium Chloride (Potassium Chloride Pwd/Soln) 10 meq DAILY NGT ; Start 07/10/18 at 09:00 Vancomycin HCl 1.25 gm/Sodium Chloride 250 ml @ 83.333 mls/ hr Q12H IVPB ; Start 07/10/18 at 18:00 Miscellaneous Information (*Rx Drug Level Order Reminder*) VANC TR AT 1700 ONCE ONCE XX ; Start 07/11/18 at 17:00; Stop 07/11/18 at 17:01 Results Result Diagram: 07/10/18 0430 07/10/18 0430 Results 24 hrs Laboratory Tests Test 07/09/18 09:30 07/09/18 12:50 07/09/18 20:33 07/09/18 23:00 Blood Gas Blood arterial Blood Blood Specimen arterial arterial Source Arterial Blood 07/09/2018 9:56 07/09/2018 8:5 07/09/2018 11: Date Drawn :49 AM 5:10 PM 40:27 PM Arterial Blood 7.495 H 7.430 7.452 H pH (Temp corrected ) Arterial Blood 32.4 L 33.6 L 36.3 pCO2 (Temp correct) Arterial Blood 391.6 H 67.9 L 101.4 H pO2 (Temp corrected ) Arterial Blood 24.4 21.8 L 24.8 HCO3 Arterial Blood 1.5 -1.8 1.0 Base Excess Arterial Blood 99.8 H 92.6 L 97.5 Oxygen Saturati on Xu Test ACCEPTAB N/A ACCEPTAB Arterial Blood Right Radial Right Radial Right Radial Gas Puncture Site Arterial 0.2 0.6 0.3 Blood Carboxyhe moglobin Arterial Blood 0.2 0.2 0.2 Methemoglobin Blood Gas A-a 289.0 H 250.8 H 286.5 H O2 Differential Oxyhemoglobin 99.4 H 91.9 L 97.0 Percent Blood Gas 37.0 37.0 37.0 Temperature Blood Gas 24.0 24.0 18.0 Respiration Rate Blood Gas 37 43 24 Actual Respiration Rat e Blood Gas MASK - BIPAP MASK - BIPAP VENT - AC Modality FiO2 100.0 50.0 60.0 Blood Gas 12 Pressure Support Blood Gas 20/8 20/8 IPAP/EPAP Ratio Blood Gas S.H. ADALI Notified Whom Blood Gas 07/09/2018 10:0 07/09/2018 9:0 07/09/2018 11: Notified Time 5:38 AM 0:25 PM 53:24 PM Creatine Kinase 109 Creatine Kinase 0.3 Index Creatinine 0.28 Kinase MB (Mass) Troponin I 0.031 Blood Gas Tidal 458.0 500.0 Volume Blood Gas Low 5.0 PEEP Setting Test 07/10/18 04:30 07/10/18 07:00 White Blood 10.8 Count Red Blood Count 4.07 L Hemoglobin 9.4 L Hematocrit 31.1 L Mean 76.4 L Corpuscular Volume Mean 23.1 L Corpuscular Hemoglobin Mean 30.2 L Corpuscular Hemoglobin Conc ent Red Cell 23.8 H Distribution Width Platelet Count 336 Mean Platelet 10.5 H Volume Immature 0.600 H Granulocytes % Neutrophils % 83.7 H Lymphocytes % 6.8 L Monocytes % 8.7 Eosinophils % 0.0 Basophils % 0.2 Nucleated Red 0.0 Blood Cells % Immature 0.060 H Granulocytes # Neutrophils # 9.0 H Lymphocytes # 0.7 L Monocytes # 0.9 Eosinophils # 0.0 Basophils # 0.0 Nucleated Red 0.0 Blood Cells # Sodium Level 141 Potassium Level 3.6 Chloride Level 99 Carbon Dioxide 30 Level Anion Gap 12 Blood Urea 31 H Nitrogen Creatinine 1.26 H Est Glomerular > 60 Filtrat Rate mL/min Glucose Level 124 # Calcium Level 8.8 Phosphorus 5.0 H Level Magnesium Level 1.9 Total Bilirubin 1.2 Direct 0.00 Bilirubin Indirect 1.2 H Bilirubin Aspartate Amino 75 H Transf (AST/SGO T) Alanine 35 Aminotransferas e (ALT/SGPT) Alkaline 170 H Phosphatase Total Protein 6.2 Albumin 3.0 L Globulin 3.20 Albumin/Globuli 0.93 n Ratio Blood Gas Blood Specimen arterial Source Arterial Blood 07/10/2018 7:1 Date Drawn 3:36 AM Arterial Blood 7.466 H pH (Temp corrected ) Arterial Blood 39.7 pCO2 (Temp correct) Arterial Blood 98.9 pO2 (Temp corrected ) Arterial Blood 28.0 H HCO3 Arterial Blood 4.0 H Base Excess Arterial Blood 97.3 Oxygen Saturati on Xu Test ACCEPTAB Arterial Blood Right Radial Gas Puncture Site Arterial 0 Blood Carboxyhe moglobin Arterial Blood 0.2 Methemoglobin Blood Gas A-a 140.6 H O2 Differential Oxyhemoglobin 97.1 Percent Blood Gas 37.0 Temperature Blood Gas 18.0 Respiration Rate Blood Gas 19 Actual Respiration Rat e Blood Gas VENT - AC Modality FiO2 40.0 Blood Gas Tidal 500.0 Volume Blood Gas Low 5.0 PEEP Setting Blood Gas TM Notified Whom Blood Gas 07/10/2018 7:2 Notified Time 2:13 AM KATHI MCKEON Jul 10, 2018 08:44
--- NOTE | 2018-07-10 08:55 | PN ---
Date/Time of Note Date/Time of Note DATE: 07/10/18 TIME: 08:49 Assessment/Plan VTE Prophylaxis Risk score (from Nsg)>0 risk: 5 SCD applied (from Nsg): Yes Pharmacological prophylaxis: heparin Lines/Catheters IV Catheter Type (from Nrsg): PORTACATH Urinary Cath still in place: Yes Reason Cath still needed: other (indicate) Assessment/Plan Assessment/Plan 57 yo M with history of metastatic stage IV colon cancer admitted for SOB and hypoxemia 1. Acute hypoxemic hypercapnic respiratory failure -failed bipap, now intubated and vent dependent 2. 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 Maurisio Pneumonia with probable underlying pulmonary nodules 3. H/o Severe coronary artery disease with multivessel coronary artery disease, ACS ruled out 4. History of PCI of right coronary artery in April 2018 5. History of metastatic adeno CA of the colon s/p resection on ?palliative chemo, ?liver mets 6. History of hypertension 7. History of noncompliance 8. History of GI bleed 9. Dyslipidemia 10. History of sick sinus syndrome s/p pacemaker -pace maker interrogated 07/08/18 at [facility] 11. Recent acute occipital CVA on chronic CVA 12. PreDM hba1C 6.0 13. Acute confusion / delirium with reports of hallucinations -likely effect of recent CVA and chronic disease PLAN: Vent management and weaning as tolerated, Continue diuresis with Lasix per cardiology, patient also remains on Aldactone therapy Continue Plavix Continue Xeloda for colon cancer Continue bronchodilators as well as supportive care. Overall prognosis remains guarded, continue ICU support Oncology consult DC CT of the brain for now as patient remains fairly stable, Chest CT noted, will get CT abd/pelvis Will also get oncology consultation as well as Psych when patient is clinically stable Continue supportive care Critical care time >40mins Subjective 24 Hr Interval Summary Free Text/Dictation patient was intuabted yesterday due to worsening resp status. Currently comfortably sedated Exam/Review of Systems Vital Signs Vitals Vital Signs Date Temp Pulse Resp B/P (MAP) Pulse Ox O2 O2 Flow FiO2 Time Delivery Rate 07/10/18 77 16 98/68 (78) 96 06:00 07/10/18 40 04:47 07/10/18 98.0 04:00 07/09/18 Mechanical 23:45 Ventilator 07/09/18 2.0 04:00 Intake and Output 07/09/18 07/09/18 07/10/18 1515:00 23:00 07:00 IntakeIntake Total 100 ml 50 ml 387 ml OutputOutput Total 655 ml 305 ml 85 ml BalanceBalance -555 ml -255 ml 302 ml Exam GENERAL: Intubated and comfortably sedated HEENT: BRITTNI, Intubated, Vent settings noted , LUNGS: diffusely diminished and coarse BS HEART: S1, S2. No murmur, gallops or rubs. Tachycardic ABDOMEN: Soft, non distended, Normoactive bowel sounds. GENITOURINARY: Normal male external genitalia, Winters to bedside drainage EXTREMITIES: Mild 1+ nonpitting edema bilaterally, also some hand edema bilaterally NEUROLOGIC: The patient is currently sedated. SKIN: Otherwise, unremarkable. Medications Medications Current Medications IV Flush (NS 3 ml) 3 ml PER PROTOCOL IV ; Start 07/08/18 at 21:00 Ondansetron HCl (Zofran Inj) 4 mg Q6H PRN IV NAUSEA AND/OR VOMITING; Start 07/08/18 at 21:00 Acetaminophen (Tylenol Tab) 650 mg Q6H PRN PO PAIN LEVEL 1-3 OR FEVER; Start 07/08/18 at 21:00 Docusate Sodium (Colace) 100 mg Q12H PRN PO CONSTIPATION; Start 07/08/18 at 21:00 Bisacodyl (Dulcolax) 5 mg DAILY PRN PO CONSTIPATION; Start 07/08/18 at 21:00 Diazepam (Valium) 5 mg BID PRN PO ANXIETY Last administered on 07/09/18at 15:45; Admin Dose 5 MG; Start 07/08/18 at 23:00 Atorvastatin Calcium (Lipitor) 80 mg QHS PO ; Start 07/09/18 at 21:00 Benazepril HCl (Lotensin) 40 mg DAILY PO ; Start 07/09/18 at 09:00 Capecitabine (Xeloda) 1,500 mg BID PO ; Start 07/09/18 at 09:00 Carvedilol (Coreg) 3.125 mg BID PO ; Start 07/09/18 at 09:00 Clopidogrel Bisulfate (plaVIX) 75 mg DAILY PO Last administered on 07/09/18at 08:36; Admin Dose 75 MG; Start 07/09/18 at 09:00 Pantoprazole (Protonix Tab) 40 mg AC BREAKFAST PO ; Start 07/09/18 at 07:00 Spironolactone (Aldactone) 25 mg DAILY PO ; Start 07/09/18 at 09:00 Sucralfate (Carafate Susp) 1 gm QID PO ; Start 07/09/18 at 09:00 Furosemide (Lasix) 40 mg DAILY@0600 IV Last administered on 07/10/18at 06:14; Admin Dose 40 MG; Start 07/09/18 at 04:00 Levalbuterol (Xopenex Neb) 1.25 mg Q4H RESP THERAPY PRN HHN SHORTNESS OF BREATH Last administered on 07/09/18 03:59; Admin Dose 1.25 MG; Start 07/09/18 at 03:45 Cefepime HCl 50 ml @ 100 mls/hr Q12 IVPB Last administered on 07/09/18at 20:23; Admin Dose 100 MLS/HR; Start 07/09/18 at 21:00 Heparin Sodium (Porcine) (Heparin (5000 Units/1ml)) 5,000 unit BID SC Last administered on 07/09/18at 21:00; Admin Dose 5,000 UNIT; Start 07/09/18 at 21: 00 Diphenhydramine HCl (Benadryl) 25 mg Q8H PRN PO ITCHING Last administered on 07/09/18at 17:11; Admin Dose 25 MG; Start 07/09/18 at 16:30 Propofol 100 ml @ 3.63 mls/hr Q12H IV Last administered on 07/10/18at 04:48; Admin Dose 7.26 MLS/HR; Start 07/09/18 at 22:00 Midazolam HCl 50 ml @ 1 mls/hr TITRATE IV Last administered on 07/10/18at 07:22; Admin Dose 5 MLS/HR; Start 07/10/18 at 00:00 Vancomycin HCl (Vanco Iv Per Pharmacy) VANCOMYCIN PER PHARMACY PER PROTOCOL XX ; Start 07/10/18 at 04:00 Piperacillin Sod/ Tazobactam Sod 100 ml @ 200 mls/hr Q6 IVPB Last administered on 07/10/18at 04:31; Admin Dose 200 MLS/HR; Start 07/10/18 at 04:01 Vancomycin HCl 2 gm/Sodium Chloride 500 ml @ 125 mls/hr ONCE ONCE IVPB Last administered on 07/10/18at 06:15; Admin Dose 125 MLS/HR; Start 07/10/18 at 07:00; Stop 07/10/18 at 10:59 Potassium Chloride (Potassium Chloride Pwd/Soln) 10 meq DAILY NGT ; Start 07/10/18 at 09:00 Vancomycin HCl 1.25 gm/Sodium Chloride 250 ml @ 83.333 mls/ hr Q12H IVPB ; Start 07/10/18 at 18:00 Miscellaneous Information (*Rx Drug Level Order Reminder*) VANC TR AT 1700 ONCE ONCE XX ; Start 07/11/18 at 17:00; Stop 07/11/18 at 17:01 Results Result Diagram: 07/10/18 0430 07/10/18 0430 Results 24 hrs Laboratory Tests Test 07/09/18 09:30 07/09/18 12:50 07/09/18 20:33 07/09/18 23:00 Blood Gas Blood arterial Blood Blood Specimen arterial arterial Source Arterial Blood 07/09/2018 9:56 07/09/2018 8:5 07/09/2018 11: Date Drawn :49 AM 5:10 PM 40:27 PM Arterial Blood 7.495 H 7.430 7.452 H pH (Temp corrected ) Arterial Blood 32.4 L 33.6 L 36.3 pCO2 (Temp correct) Arterial Blood 391.6 H 67.9 L 101.4 H pO2 (Temp corrected ) Arterial Blood 24.4 21.8 L 24.8 HCO3 Arterial Blood 1.5 -1.8 1.0 Base Excess Arterial Blood 99.8 H 92.6 L 97.5 Oxygen Saturati on Xu Test ACCEPTAB N/A ACCEPTAB Arterial Blood Right Radial Right Radial Right Radial Gas Puncture Site Arterial 0.2 0.6 0.3 Blood Carboxyhe moglobin Arterial Blood 0.2 0.2 0.2 Methemoglobin Blood Gas A-a 289.0 H 250.8 H 286.5 H O2 Differential Oxyhemoglobin 99.4 H 91.9 L 97.0 Percent Blood Gas 37.0 37.0 37.0 Temperature Blood Gas 24.0 24.0 18.0 Respiration Rate Blood Gas 37 43 24 Actual Respiration Rat e Blood Gas MASK - BIPAP MASK - BIPAP VENT - AC Modality FiO2 100.0 50.0 60.0 Blood Gas 12 Pressure Support Blood Gas 16/03 20/8 IPAP/EPAP Ratio Blood Gas TM S.H. ADALI Notified Whom Blood Gas 07/09/2018 10:0 07/09/2018 9:0 07/09/2018 11: Notified Time 5:38 AM 0:25 PM 53:24 PM Creatine Kinase 109 Creatine Kinase 0.3 Index Creatinine 0.28 Kinase MB (Mass) Troponin I 0.031 Blood Gas Tidal 458.0 500.0 Volume Blood Gas Low 5.0 PEEP Setting Test 07/10/18 04:30 07/10/18 07:00 White Blood 10.8 Count Red Blood Count 4.07 L Hemoglobin 9.4 L Hematocrit 31.1 L Mean 76.4 L Corpuscular Volume Mean 23.1 L Corpuscular Hemoglobin Mean 30.2 L Corpuscular Hemoglobin Conc ent Red Cell 23.8 H Distribution Width Platelet Count 336 Mean Platelet 10.5 H Volume Immature 0.600 H Granulocytes % Neutrophils % 83.7 H Lymphocytes % 6.8 L Monocytes % 8.7 Eosinophils % 0.0 Basophils % 0.2 Nucleated Red 0.0 Blood Cells % Immature 0.060 H Granulocytes # Neutrophils # 9.0 H Lymphocytes # 0.7 L Monocytes # 0.9 Eosinophils # 0.0 Basophils # 0.0 Nucleated Red 0.0 Blood Cells # Sodium Level 141 Potassium Level 3.6 Chloride Level 99 Carbon Dioxide 30 Level Anion Gap 12 Blood Urea 31 H Nitrogen Creatinine 1.26 H Est Glomerular > 60 Filtrat Rate mL/min Glucose Level 124 # Calcium Level 8.8 Phosphorus 5.0 H Level Magnesium Level 1.9 Total Bilirubin 1.2 Direct 0.00 Bilirubin Indirect 1.2 H Bilirubin Aspartate Amino 75 H Transf (AST/SGO T) Alanine 35 Aminotransferas e (ALT/SGPT) Alkaline 170 H Phosphatase Total Protein 6.2 Albumin 3.0 L Globulin 3.20 Albumin/Globuli 0.93 n Ratio Blood Gas Blood Specimen arterial Source Arterial Blood 07/10/2018 7:1 Date Drawn 3:36 AM Arterial Blood 7.466 H pH (Temp corrected ) Arterial Blood 39.7 pCO2 (Temp correct) Arterial Blood 98.9 pO2 (Temp corrected ) Arterial Blood 28.0 H HCO3 Arterial Blood 4.0 H Base Excess Arterial Blood 97.3 Oxygen Saturati on Xu Test ACCEPTAB Arterial Blood Right Radial Gas Puncture Site Arterial 0 Blood Carboxyhe moglobin Arterial Blood 0.2 Methemoglobin Blood Gas A-a 140.6 H O2 Differential Oxyhemoglobin 97.1 Percent Blood Gas 37.0 Temperature Blood Gas 18.0 Respiration Rate Blood Gas 19 Actual Respiration Rat e Blood Gas VENT - AC Modality FiO2 40.0 Blood Gas Tidal 500.0 Volume Blood Gas Low 5.0 PEEP Setting Blood Gas TM Notified Whom Blood Gas 07/10/2018 7:2 Notified Time 2:13 AM ASIA LORA Jul 10, 2018 08:55
[2018-07-10] MEDS: CAPECITABINE 500 MG TAB PO SCH ×2 (09:00→21:00)
[2018-07-10] MEDS: BENAZEPRIL 40 MG TAB PO SCH (09:00)
[2018-07-10] MEDS ORDERED: HEPARIN 5,000 UNIT/0.5 ML VIAL ONE ×2 (09:20→21:58)
[2018-07-10] MEDS: CEFEPIME 1GM/50 ML (PMX) 50 ML IVPB SCH ×2 (09:33→22:04)
[2018-07-10] MEDS: POTASSIUM CHLORIDE 20 MEQ POWDER FOR ORAL SOLN NGT SCH (09:34)
[2018-07-10] MEDS: CLOPIDOGREL 75 MG TAB PO SCH (09:35)
[2018-07-10] MEDS: SUCRALFATE (100 MG/ML) 10ML CUP PO SCH ×4 (09:35→22:03)
[2018-07-10] MEDS: SPIRONOLACTONE 50 MG TAB PO SCH (09:35)
[2018-07-10] MEDS: HEPARIN 5,000 UNIT/1 ML VIAL SC SCH ×2 (09:36→22:05)
--- NOTE | 2018-07-10 10:03 | NUR ---
XELODA NOT GIVEN THIS AM DUE NOT BEING ABLE TO CRUSH MEDS PER [address] LORA NOTIFIED.
--- NOTE | 2018-07-10 11:24 | CONS ---
Date/Time of Note Date/Time of Note DATE: 07/10/18 TIME: 11:09 Assessment/Plan Assessment/Plan Chief Complaint/Hosp Course 57 yo man with Stage IV colon cancer who is admitted for ischemic heart disease and CHF. There may be an element of pneumonitis as well. His says that the tumors have shrunk and that the CEA has come down modestly as well. However, his heart failure has been a serious problem and he goes to the ER about twice a week. Unfortunately the cardiac issues have been difficult to treat and are unlikely to improve significantly. We discussed that if any family wants to see him alive, they should come soon. She relates that he has been progressively more depressed since the cardiac problems occured and he realized that he was not going to get back to being the same as before the illness. I have told her that his prognosis is very poor and that she should talk to the glueline worker. However, I would consider a NO CODE status. No treatment for the colon cancer is suggested since this issue is not the significant problem now. Consultation Date/Type/Reason Admit Date/Time Jul 08, 2018 at 19:53 Date of Consultation: Jul 10, 2018 Type of Consult Oncology Reason for Consultation Colon Cancer Requesting Provider: ASIA LORA Hx of Present Illness 57 yo man with history of colon cancer. He is intubated and sedated but is well informed. She relates that he had surgery for colon cancer about a year ago. He was found to have hepatic and carly metastases and received oxaliplatin and Xeloda beginning about September. In March he was found to have heart failure and sick sinus syndrome. Pacemaker has been placed and the oxaliplatin stopped. (Oxaliplatin as a cause of cardiac failure is rare but was felt to be the cause in his case.) His says that the ejection fraction was down to 15%. Xeloda has been continued as a single agent. Since the cardiac issues were discovered, his also says that his behavior has become erratic and he is confused more. Other medical problems included hypertension, obesity, and mild azotemia. Past Surgical History Past Surgical Hx: other Social History Alcohol Use: none Smoking Status: Never smoker Drug Use: none Exam/Review of Systems Vital Signs Vitals Vital Signs Date Temp Pulse Resp B/P (MAP) Pulse Ox O2 O2 Flow FiO2 Time Delivery Rate 07/10/18 74 18 102/71 98 Mechanical 10:00 (81) Ventilator 07/10/18 98.2 08:00 07/10/18 40 04:47 07/09/18 2.0 04:00 Intake and Output 07/09/18 07/09/18 07/10/18 1515:00 23:00 07:00 IntakeIntake Total 100 ml 50 ml 387 ml OutputOutput Total 655 ml 305 ml 85 ml BalanceBalance -555 ml -255 ml 302 ml Exam Constitutional: other (sedated and on a respirator.) Head: normocephalic Eyes: other (pallor) ENMT: other (ET tube in place) Respiratory: clear to auscultation, diminished breath sounds Cardiovascular: regular rate and rhythm Gastrointestinal: soft, non-tender Neurological: other (sedated) Medications Medications Current Medications IV Flush (NS 3 ml) 3 ml PER PROTOCOL IV ; Start 07/08/18 at 21:00 Ondansetron HCl (Zofran Inj) 4 mg Q6H PRN IV NAUSEA AND/OR VOMITING; Start 07/08/18 at 21:00 Acetaminophen (Tylenol Tab) 650 mg Q6H PRN PO PAIN LEVEL 1-3 OR FEVER; Start 07/08/18 at 21:00 Docusate Sodium (Colace) 100 mg Q12H PRN PO CONSTIPATION; Start 07/08/18 at 21:00 Bisacodyl (Dulcolax) 5 mg DAILY PRN PO CONSTIPATION; Start 07/08/18 at 21:00 Diazepam (Valium) 5 mg BID PRN PO ANXIETY Last administered on 07/09/18at 15:45; Admin Dose 5 MG; Start 07/08/18 at 23:00 Atorvastatin Calcium (Lipitor) 80 mg QHS PO ; Start 07/09/18 at 21:00 Benazepril HCl (Lotensin) 40 mg DAILY PO ; Start 07/09/18 at 09:00 Capecitabine (Xeloda) 1,500 mg BID PO ; Start 07/09/18 at 09:00 Carvedilol (Coreg) 3.125 mg BID PO ; Start 07/09/18 at 09:00 Clopidogrel Bisulfate (plaVIX) 75 mg DAILY PO Last administered on 07/10/18at 09:35; Admin Dose 75 MG; Start 07/09/18 at 09:00 Pantoprazole (Protonix Tab) 40 mg AC BREAKFAST PO ; Start 07/09/18 at 07:00 Spironolactone (Aldactone) 25 mg DAILY PO Last administered on 07/10/18 09:35; Admin Dose 25 MG; Start 07/09/18 at 09:00 Sucralfate (Carafate Susp) 1 gm QID PO Last administered on 07/10/18 09:35; Admin Dose 1 GM; Start 07/09/18 at 09:00 Furosemide (Lasix) 40 mg DAILY@0600 IV Last administered on 07/10/18 06:14; Admin Dose 40 MG; Start 07/09/18 at 04:00 Levalbuterol (Xopenex Neb) 1.25 mg Q4H RESP THERAPY PRN HHN SHORTNESS OF BREATH Last administered on 07/09/18 03:59; Admin Dose 1.25 MG; Start 07/09/18 at 03:45 Cefepime HCl 50 ml @ 100 mls/hr Q12 IVPB Last administered on 07/10/18 09:33; Admin Dose 100 MLS/HR; Start 07/09/18 at 21:00 Heparin Sodium (Porcine) (Heparin (5000 Units/1ml)) 5,000 unit BID SC Last administered on 07/10/18 09:36; Admin Dose 5,000 UNIT; Start 07/09/18 at 21:00 Diphenhydramine HCl (Benadryl) 25 mg Q8H PRN PO ITCHING Last administered on 07/09/18 17:11; Admin Dose 25 MG; Start 07/09/18 at 16:30 Propofol 100 ml @ 3.63 mls/hr Q12H IV Last administered on 07/10/18 04:48; Admin Dose 7.26 MLS/HR; Start 07/09/18 at 22:00 Midazolam HCl 50 ml @ 1 mls/hr TITRATE IV Last administered on 07/10/18 07:22; Admin Dose 5 MLS/HR; Start 07/10/18 at 00:00 Vancomycin HCl (Vanco Iv Per Pharmacy) VANCOMYCIN PER PHARMACY PER PROTOCOL XX ; Start 07/10/18 at 04:00 Potassium Chloride (Potassium Chloride Pwd/Soln) 10 meq DAILY NGT Last administered on 07/10/18 09:34; Admin Dose 10 MEQ; Start 07/10/18 at 09:00 Vancomycin HCl 1.25 gm/Sodium Chloride 250 ml @ 83.333 mls/ hr Q12H IVPB ; Start 07/10/18 at 18:00 Miscellaneous Information (*Rx Drug Level Order Reminder*) VANC TR AT 1700 ONCE ONCE XX ; Start 07/11/18 at 17:00; Stop 07/11/18 at 17:01 Results Result Diagram: 07/10/18 0430 07/10/18 0430 Results 24 hrs Laboratory Tests Test 07/09/18 12:50 07/09/18 20:33 07/09/18 23:00 07/10/18 04:30 Creatine Kinase 109 Creatine Kinase 0.3 Index Creatinine 0.28 Kinase MB (Mass) Troponin I 0.031 Blood Gas Blood Blood Specimen arterial arterial Source Arterial Blood 07/09/2018 8:5 07/09/2018 11: Date Drawn 5:10 PM 40:27 PM Arterial Blood 7.430 7.452 H pH (Temp corrected ) Arterial Blood 33.6 L 36.3 pCO2 (Temp correct) Arterial Blood 67.9 L 101.4 H pO2 (Temp corrected ) Arterial Blood 21.8 L 24.8 HCO3 Arterial Blood -1.8 1.0 Base Excess Arterial Blood 92.6 L 97.5 Oxygen Saturati on Xu Test N/A ACCEPTAB Arterial Blood Right Radial Right Radial Gas Puncture Site Arterial 0.6 0.3 Blood Carboxyhe moglobin Arterial Blood 0.2 0.2 Methemoglobin Blood Gas A-a 250.8 H 286.5 H O2 Differential Oxyhemoglobin 91.9 L 97.0 Percent Blood Gas 37.0 37.0 Temperature Blood Gas 24.0 18.0 Respiration Rate Blood Gas 43 24 Actual Respiration Rat e Blood Gas MASK - BIPAP VENT - AC Modality FiO2 50.0 60.0 Blood Gas Tidal 458.0 500.0 Volume Blood Gas 20/8 IPAP/EPAP Ratio Blood Gas S.H. ADALI Notified Whom Blood Gas 07/09/2018 9:0 07/09/2018 11: Notified Time 0:25 PM 53:24 PM Blood Gas Low 5.0 PEEP Setting White Blood 10.8 Count Red Blood Count 4.07 L Hemoglobin 9.4 L Hematocrit 31.1 L Mean 76.4 L Corpuscular Volume Mean 23.1 L Corpuscular Hemoglobin Mean 30.2 L Corpuscular Hemoglobin Conc ent Red Cell 23.8 H Distribution Width Platelet Count 336 Mean Platelet 10.5 H Volume Immature 0.600 H Granulocytes % Neutrophils % 83.7 H Lymphocytes % 6.8 L Monocytes % 8.7 Eosinophils % 0.0 Basophils % 0.2 Nucleated Red 0.0 Blood Cells % Immature 0.060 H Granulocytes # Neutrophils # 9.0 H Lymphocytes # 0.7 L Monocytes # 0.9 Eosinophils # 0.0 Basophils # 0.0 Nucleated Red 0.0 Blood Cells # Sodium Level 141 Potassium Level 3.6 Chloride Level 99 Carbon Dioxide 30 Level Anion Gap 12 Blood Urea 31 H Nitrogen Creatinine 1.26 H Est Glomerular > 60 Filtrat Rate mL/min Glucose Level 124 # Calcium Level 8.8 Phosphorus 5.0 H Level Magnesium Level 1.9 Total Bilirubin 1.2 Direct 0.00 Bilirubin Indirect 1.2 H Bilirubin Aspartate Amino 75 H Transf (AST/SGO T) Alanine 35 Aminotransferas e (ALT/SGPT) Alkaline 170 H Phosphatase Total Protein 6.2 Albumin 3.0 L Globulin 3.20 Albumin/Globuli 0.93 n Ratio Test 07/10/18 07:00 Blood Gas Blood arterial Specimen Source Arterial Blood 07/10/2018 7:13 Date Drawn :36 AM Arterial Blood 7.466 H pH (Temp corrected ) Arterial Blood 39.7 pCO2 (Temp correct) Arterial Blood 98.9 pO2 (Temp corrected ) Arterial Blood 28.0 H HCO3 Arterial Blood 4.0 H Base Excess Arterial Blood 97.3 Oxygen Saturati on Xu Test ACCEPTAB Arterial Blood Right Radial Gas Puncture Site Arterial 0 Blood Carboxyhe moglobin Arterial Blood 0.2 Methemoglobin Blood Gas A-a 140.6 H O2 Differential Oxyhemoglobin 97.1 Percent Blood Gas 37.0 Temperature Blood Gas 18.0 Respiration Rate Blood Gas 19 Actual Respiration Rat e Blood Gas VENT - AC Modality FiO2 40.0 Blood Gas Tidal 500.0 Volume Blood Gas Low 5.0 PEEP Setting Blood Gas TM Notified Whom Blood Gas 07/10/2018 7:22 Notified Time :13 AM MARIA INES GOLDSTEIN MD Jul 10, 2018 11:24
--- NOTE | 2018-07-10 11:49 | NUR ---
NUTRITION NOTE: PATIENT ORALLY INTUBATED, SEDATED WITH LIPID BASED PROPOFOL PROVIDING 1.1 SANGEETHA/ML. HGB AIC 6.0, POC GLUCOSE WNL. OBESE. IF REMAIN INTUBATED AND MEDICALLY ABLE TO START TUBE FEEDING, MAY CONSIDER REPLETE @ 20 ML/HR TO GOAL OF 50 MLHR, INCREASED BY 10 ML Q 8 HOURS. WATER FLUSHES 50 ML Q 6 HOURS OR PER .
--- NOTE | 2018-07-10 12:30 | NUR ---
SS NOTE: CONSULT PT'S REQUESTED TO SPEAK WITH SW. THIS SW MET WITH PT'S , AARON MYERS . CALLED PT'S MOTHER, GILDARDO THEODORE AND HAD HER ON THE SPEAKER PHONE DURING THE MEETING. PT'S MOTHER REQUESTED UPDATE ON PT'S CONDITION. PT'S EXPLAINED TO HER THAT SPOKE WITH HER AND EXPLAINED THAT AT THIS TIME, PT'S MAIN CONCERN IS HIS HEART FAILURE AND PNA. PT IS CURRENTLY INTUBATED AND WILL NEED TIME TO COME OFF THE VENTILATOR. PT'S MOTHER INQUIRED WHEN PT WILL BE EXTUBATED. SW EXPLAINED THAT MD AND NURSES WILL CONTINUOUSLY EVALUATE PT AND WHEN PT IS READY, THEY WILL SLOWLY WEAN HIM OFF THE VENT. PT'S MOTHER REPORTED THAT SHE WILL BE VISITING PT ON FRIDAY AND PLANS TO STAY FOR FEW DAYS. SW WILL F/U TO MEET WITH PT'S MOTHER WHEN SHE ARRIVES. SW MET WITH PT'S ALONE. EXPRESSED FEELING STRESSED. STATED THAT PT HAS BEEN FEELING HOPELESS. STATED THAT PT HAS NOT BEEN GETTING A LOT OF SUPPORT FROM HIS MOTHER AND THAT HAS EFFECTED THE WAY HE FEELS ABOUT HIS OWN TREATMENT. PER , PT AND FAMILY HAVE STARTED ATTENDING SUPPORT GROUPS AT "[facility]". PROVIDED MORE HX ON PT'S RELATIONSHIP WITH HIS MOTHER AND HOW IT HAS EFFECTED HIM AND THEIR RELATIONSHIP. STATED THAT AT THIS TIME SHE WANTS TO FIGHT FOR PT TO GET BETTER. STATED THAT SHE DOES NOT FEEL THAT "THIS IS THE END FOR HIM". SW PROVIDED EMOTIONAL SUPPORT. EXPLAINED TO THAT PLAN AT THIS TIME WOULD BE TO TRY TO WEAN PT OFF THE VENT. REPORTED THAT THEIR 20Y/O DTR IS FINISHING HER FINALS THIS WEEK AND AFTER THAT SHE WILL BE MORE PRESENT. SW ENCOURAGED TO CONTINUE SPEAKING WITH THE DOCTORS ABOUT THE PT'S TREATMENT PLANS. NO OTHER ISSUES PRESENT AT THIS TIME. SW WILL CONTINUE TO F/U WITH PT AND FAMILY FOR SUPPORT AND INFO.
[2018-07-10] MEDS: VANCOMYCIN 1.25 GM in SOD CHLORIDE 0.9% 250 ML IVPB SCH (17:43)
--- NOTE | 2018-07-10 18:23 | CONS ---
Date/Time of Note Date/Time of Note DATE: 07/10/18 TIME: 18:18 Consult Date/Type/Reason Admit Date/Time Jul 08, 2018 at 19:53 Initial Consult Date 07/10/18 Requesting Provider: ASIA LORA Subjective Interventional cardiology follow-up progress note Subjective: Discussed with the staff and physicians. Events noted. Patient had to be intubated on 07/09/2018 due to increasing and worsening respiratory failure. He is currently intubated on the vent. He is hypotensive with blood pressure has remained stable enough not to be on pressors Patient has been mostly in sinus rhythm. Objective: General: Obese gentleman status post intubation on the vent now HEENT: NC/AT. pupils are equal. round. NECK: NO JVD. no stridor. CV: Regular rate and rhythm. systolic murmur; no gallop or rubs. PULM: Diffuse rhonchi. GI: SOFT, NT, ND, no rebound or guarding Extremity: + B/L LE edema. no clubbing. neuro: Sedated Psych: Calm rectal: deferred : normal EKG was personally reviewed which shows: Sinus tachycardia nonspecific T wave abnormalities Cardiogram done 07/09/2018 which was personally reviewed shows: Mild concentric left ventricular hypertrophy. Mild enlargement of left ventricle cavity. Moderate global left ventricular systolic dysfunction. Ejection fraction is visually estimated at 25-30 %. Mild mitral leaflet calcification. Mild mitral annular calcification. Trace mitral regurgitation. No significant aortic stenosis or insufficiency. Aortic cusps appear mildly calcified. Normal appearance of the tricuspid valve. Estimated peak PA systolic pressure 31 mmHg. There is mild tricuspid regurgitation. Chest CT done 07/10/2018 shows: Multifocal areas of consolidation throughout the lungs bilaterally, most notable within the upper lobes. Findings are likely infectious in nature. Please note that this obscures previously seen pulmonary nodules on prior CT. Objective Vital Signs Date Temp Pulse Resp B/P (MAP) Pulse Ox O2 O2 Flow FiO2 Time Delivery Rate 07/10/18 21 103/63 98 Mechanical 18:00 (76) Ventilator 07/10/18 88 40 17:16 07/10/18 98.3 16:00 07/09/18 2.0 04:00 Intake and Output 07/09/18 07/09/18 07/10/18 1414:59 22:59 06:59 IntakeIntake Total 200 ml 50 ml 219 ml OutputOutput Total 890 ml 340 ml 115 ml BalanceBalance -690 ml -290 ml 104 ml Results/Medications Result Diagram: 07/10/18 0430 07/10/18 0430 Results 24 hrs Laboratory Tests Test 07/09/18 20:33 07/09/18 23:00 07/10/18 04:30 07/10/18 07:00 Blood Gas Blood arterial Blood Blood Specimen arterial arterial Source Arterial Blood 07/09/2018 8:55 07/09/2018 11: 07/10/2018 7:1 Date Drawn :10 PM 40:27 PM 3:36 AM Arterial Blood 7.430 7.452 H 7.466 H pH (Temp corrected ) Arterial Blood 33.6 L 36.3 39.7 pCO2 (Temp correct) Arterial Blood 67.9 L 101.4 H 98.9 pO2 (Temp corrected ) Arterial Blood 21.8 L 24.8 28.0 H HCO3 Arterial Blood -1.8 1.0 4.0 H Base Excess Arterial Blood 92.6 L 97.5 97.3 Oxygen Saturati on Xu Test N/A ACCEPTAB ACCEPTAB Arterial Blood Right Radial Right Radial Right Radial Gas Puncture Site Arterial 0.6 0.3 0 Blood Carboxyhe moglobin Arterial Blood 0.2 0.2 0.2 Methemoglobin Blood Gas A-a 250.8 H 286.5 H 140.6 H O2 Differential Oxyhemoglobin 91.9 L 97.0 97.1 Percent Blood Gas 37.0 37.0 37.0 Temperature Blood Gas 24.0 18.0 18.0 Respiration Rate Blood Gas 43 24 19 Actual Respiration Rat e Blood Gas MASK - BIPAP VENT - AC VENT - AC Modality FiO2 50.0 60.0 40.0 Blood Gas Tidal 458.0 500.0 500.0 Volume Blood Gas 20/8 IPAP/EPAP Ratio Blood Gas S.H. ADALI TM Notified Whom Blood Gas 07/09/2018 9:00 07/09/2018 11: 07/10/2018 7:2 Notified Time :25 PM 53:24 PM 2:13 AM Blood Gas Low 5.0 5.0 PEEP Setting White Blood 10.8 Count Red Blood Count 4.07 L Hemoglobin 9.4 L Hematocrit 31.1 L Mean 76.4 L Corpuscular Volume Mean 23.1 L Corpuscular Hemoglobin Mean 30.2 L Corpuscular Hemoglobin Conc ent Red Cell 23.8 H Distribution Width Platelet Count 336 Mean Platelet 10.5 H Volume Immature 0.600 H Granulocytes % Neutrophils % 83.7 H Lymphocytes % 6.8 L Monocytes % 8.7 Eosinophils % 0.0 Basophils % 0.2 Nucleated Red 0.0 Blood Cells % Immature 0.060 H Granulocytes # Neutrophils # 9.0 H Lymphocytes # 0.7 L Monocytes # 0.9 Eosinophils # 0.0 Basophils # 0.0 Nucleated Red 0.0 Blood Cells # Sodium Level 141 Potassium Level 3.6 Chloride Level 99 Carbon Dioxide 30 Level Anion Gap 12 Blood Urea 31 H Nitrogen Creatinine 1.26 H Est Glomerular > 60 Filtrat Rate mL/min Glucose Level 124 # Calcium Level 8.8 Phosphorus 5.0 H Level Magnesium Level 1.9 Total Bilirubin 1.2 Direct 0.00 Bilirubin Indirect 1.2 H Bilirubin Aspartate Amino 75 H Transf (AST/SGO T) Alanine 35 Aminotransferas e (ALT/SGPT) Alkaline 170 H Phosphatase Total Protein 6.2 Albumin 3.0 L Globulin 3.20 Albumin/Globuli 0.93 n Ratio Medications Current Medications IV Flush (NS 3 ml) 3 ml PER PROTOCOL IV ; Start 07/08/18 at 21:00 Ondansetron HCl (Zofran Inj) 4 mg Q6H PRN IV NAUSEA AND/OR VOMITING; Start 07/08/18 at 21:00 Acetaminophen (Tylenol Tab) 650 mg Q6H PRN PO PAIN LEVEL 1-3 OR FEVER; Start 07/08/18 at 21:00 Docusate Sodium (Colace) 100 mg Q12H PRN PO CONSTIPATION; Start 07/08/18 at 21:00 Bisacodyl (Dulcolax) 5 mg DAILY PRN PO CONSTIPATION; Start 07/08/18 at 21:00 Diazepam (Valium) 5 mg BID PRN PO ANXIETY Last administered on 07/09/18at 15:45; Admin Dose 5 MG; Start 07/08/18 at 23:00 Atorvastatin Calcium (Lipitor) 80 mg QHS PO ; Start 07/09/18 at 21:00 Benazepril HCl (Lotensin) 40 mg DAILY PO ; Start 07/09/18 at 09:00 Capecitabine (Xeloda) 1,500 mg BID PO ; Start 07/09/18 at 09:00 Carvedilol (Coreg) 3.125 mg BID PO ; Start 07/09/18 at 09:00 Clopidogrel Bisulfate (plaVIX) 75 mg DAILY PO Last administered on 07/10/18 09:35; Admin Dose 75 MG; Start 07/09/18 at 09:00 Pantoprazole (Protonix Tab) 40 mg AC BREAKFAST PO ; Start 07/09/18 at 07:00 Spironolactone (Aldactone) 25 mg DAILY PO Last administered on 07/10/18 09:35; Admin Dose 25 MG; Start 07/09/18 at 09:00 Sucralfate (Carafate Susp) 1 gm QID PO Last administered on 07/10/18 17:42; Admin Dose 1 GM; Start 07/09/18 at 09:00 Furosemide (Lasix) 40 mg DAILY@0600 IV Last administered on 07/10/18 06:14; Admin Dose 40 MG; Start 07/09/18 at 04:00 Levalbuterol (Xopenex Neb) 1.25 mg Q4H RESP THERAPY PRN HHN SHORTNESS OF BREATH Last administered on 07/09/18 03:59; Admin Dose 1.25 MG; Start 07/09/18 at 03:45 Cefepime HCl 50 ml @ 100 mls/hr Q12 IVPB Last administered on 07/10/18 09:33; Admin Dose 100 MLS/HR; Start 07/09/18 at 21:00 Heparin Sodium (Porcine) (Heparin (5000 Units/1ml)) 5,000 unit BID SC Last a dministered on 07/10/18 09:36; Admin Dose 5,000 UNIT; Start 07/09/18 at 21:00 Diphenhydramine HCl (Benadryl) 25 mg Q8H PRN PO ITCHING Last administered on 07/09/18 17:11; Admin Dose 25 MG; Start 07/09/18 at 16:30 Propofol 100 ml @ 3.63 mls/hr Q12H IV Last administered on 07/10/18 15:49; A dmin Dose 7.26 MLS/HR; Start 07/09/18 at 22:00 Midazolam HCl 50 ml @ 1 mls/hr TITRATE IV Last administered on 07/10/18 07:22; Admin Dose 5 MLS/HR; Start 07/10/18 at 00:00 Vancomycin HCl (Vanco Iv Per Pharmacy) VANCOMYCIN PER PHARMACY PER PROTOCOL XX ; Start 07/10/18 at 04:00 Potassium Chloride (Potassium Chloride Pwd/Soln) 10 meq DAILY NGT Last administered on 07/10/18at 09:34; Admin Dose 10 MEQ; Start 07/10/18 at 09:00 Vancomycin HCl 1.25 gm/Sodium Chloride 250 ml @ 83.333 mls/ hr Q12H IVPB Last administered on 07/10/18at 17:43; Admin Dose 83.333 MLS/HR; Start 07/10/18 at 18:00 Miscellaneous Information (*Rx Drug Level Order Reminder*) VANC TR AT 1700 ONCE ONCE XX ; Start 07/11/18 at 17:00; Stop 07/11/18 at 17:01 Assessment/Plan Chief Complaint/Hosp Course 1. Acute hypoxemic hypercapnic respiratory failure 2. 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 Severe coronary artery disease with multivessel coronary artery disease 4. History of PCI of right coronary artery in April 2018 5. History of metastatic adeno CA of the colon 6. History of hypertension 7. Extensive pneumonia 8. History of GI bleed 9. Dyslipidemia 10. History of sick sinus syndrome s/p pacemaker Recommendations: Plavix to be continued as much as possible given his history of recent PCI I will decrease the AN inhibitor dose to avoid hypotension Respiratory care as per pulmonary. Patient is currently on the vent and intubated Diuresis as tolerated Echocardiogram reviewed that showed severe LV dysfunction Continue with ICU care. Continue with a statin beta-casie and AN inhibitor as tolerated. more than 36 minutes critical care time was for management treatment is critically ill patient excluding any procedures Thank you for his referral. We will continue to follow along with you. ANGEL CANCINO MD [facility] ANGEL CANCINO MD Jul 10, 2018 18:23
--- NOTE | 2018-07-10 18:32 | NUR ---
EOSS: PATIENT SHIFT WAS UNEVENTFUL. PATIENT WENT TO CT TODAY AT 1230, PATIENT REMAINED STABLE DURING CT. PATIENT REMAINED STABLE AND VENTED DURING THIS SHIFT. PATIENT'S WAS AT BEDSIDE THIS AM AND SPOKE TO PATIENT'S MOTHER THIS AM WHO PLANS ON VISITING PATIENT FROM [place]. PATIENT CHECKED ON HOURLY AND PRN BY NURSING STAFF.
[2018-07-10] MEDS ORDERED: VANCOMYCIN 1.5 GM in SOD CHLORIDE 0.9% 250 ML IVPB SCH (19:00)
--- NOTE | 2018-07-10 19:53 | RADRPT ---
Vent Rate: 115 bpm RR Interval: 0 msec UT Interval: 172 msec QRS Duration: 90 msec QT Interval: 322 msec QTC Interval: 445 msec P-R-T Rufus: 44 - 25 - 55 degrees Sinus tachycardia Otherwise normal ECG Electronically Signed By: Aubrey Chaparro [id number]
[2018-07-10] MEDS: ATORVASTATIN 80 MG TAB PO SCH (22:03)
[2018-07-11] VITALS (54 sets, daily range): BP systolic 101–145; BP diastolic 60–101; PULSE 83–99; RESP 0–26
[2018-07-11] MEDS: PROPOFOL 100 ML IV SCH ×2 (03:50→22:00)
[2018-07-11] MEDS: MIDAZOLAM (DRIP) 50 mg/50 mL 50 ML IV SCH (03:50)
[2018-07-11] MEDS ORDERED: PANTOPRAZOLE 40 MG INJ IV SCH (06:00)
[2018-07-11] MEDS: FUROSEMIDE 40 MG INJ IV SCH (06:02)
[2018-07-11] MEDS: VANCOMYCIN 1.25 GM in SOD CHLORIDE 0.9% 250 ML IVPB SCH ×2 (06:02→18:00)
--- NOTE | 2018-07-11 06:58 | NUR ---
EOSS: PT remains orally intubated on sedation. VSS throughout shift. Bed bath completed. Repositioned q2h, bed brakes activated bed in lowest position.
--- NOTE | 2018-07-11 08:12 | CONS ---
Date/Time of Note Date/Time of Note DATE: 07/11/18 TIME: 08:11 Assessment/Plan Assessment/Plan Additional Assessment/Plan 1. Acute hypoxemic hypercapnic respiratory failure 2. 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 Severe coronary artery disease with multivessel coronary artery disease 4. History of PCI of right coronary artery in April 2018 5. History of metastatic adeno CA of the colon 6. History of hypertension 7. Extensive pneumonia 8. History of GI bleed 9. Dyslipidemia 10. History of sick sinus syndrome s/p pacemaker Recommendations: Plavix to be continued as much as possible given his history of recent PCI Respiratory care as per pulmonary. Patient is currently on the vent and intubated Diuresis as tolerated Echocardiogram showed severe LV dysfunction Continue with ICU care. Continue with a statin beta-casie and AN inhibitor as tolerated. Consultation Date/Type/Reason Admit Date/Time Jul 08, 2018 at 19:53 Initial Consult Date 07/10/18 Requesting Provider: ASIA LORA 24 HR Interval Summary Free Text/Dictation The patient with no change Exam/Review of Systems Vital Signs Vitals Vital Signs Date Temp Pulse Resp B/P (MAP) Pulse Ox O2 O2 Flow FiO2 Time Delivery Rate 07/11/18 86 11 112/66 97 Mechanical 06:00 (81) Ventilator 07/11/18 40 05:35 07/11/18 98.9 04:00 07/09/18 2.0 04:00 Intake and Output 07/10/18 07/10/18 07/11/18 1414:59 22:59 06:59 IntakeIntake Total 796.32 ml 150.82 ml 187.19 ml OutputOutput Total 325 ml 580 ml 330 ml BalanceBalance 471.32 ml -429.18 ml -142.81 ml Medications Medications Current Medications IV Flush (NS 3 ml) 3 ml PER PROTOCOL IV ; Start 07/08/18 at 21:00 Ondansetron HCl (Zofran Inj) 4 mg Q6H PRN IV NAUSEA AND/OR VOMITING; Start 07/08/18 at 21:00 Acetaminophen (Tylenol Tab) 650 mg Q6H PRN PO PAIN LEVEL 1-3 OR FEVER; Start 07/08/18 at 21:00 Docusate Sodium (Colace) 100 mg Q12H PRN PO CONSTIPATION; Start 07/08/18 at 21:00 Bisacodyl (Dulcolax) 5 mg DAILY PRN PO CONSTIPATION; Start 07/08/18 at 21:00 Diazepam (Valium) 5 mg BID PRN PO ANXIETY Last administered on 07/09/18at 15: 45; Admin Dose 5 MG; Start 07/08/18 at 23:00 Atorvastatin Calcium (Lipitor) 80 mg QHS PO Last administered on 07/10/18 22:03; Admin Dose 80 MG; Start 07/09/18 at 21:00 Capecitabine (Xeloda) 1,500 mg BID PO ; Start 07/09/18 at 09:00 Carvedilol (Coreg) 3.125 mg BID PO Last administered on 07/10/18 22:03; Admin Dose 3.125 MG; Start 07/09/18 at 09:00 Clopidogrel Bisulfate (plaVIX) 75 mg DAILY PO Last administered on 07/10/18 09:35; Admin Dose 75 MG; Start 07/09/18 at 09:00 Spironolactone (Aldactone) 25 mg DAILY PO Last administered on 07/10/18 09:35; Admin Dose 25 MG; Start 07/09/18 at 09:00 Sucralfate (Carafate Susp) 1 gm QID PO Last administered on 07/10/18 22:03; Admin Dose 1 GM; Start 07/09/18 at 09:00 Furosemide (Lasix) 40 mg DAILY@0600 IV Last administered on 07/11/18 06:02; Admin Dose 40 MG; Start 07/09/18 at 04:00 Levalbuterol (Xopenex Neb) 1.25 mg Q4H RESP THERAPY PRN HHN SHORTNESS OF BREATH Last administered on 07/09/18 03:59; Admin Dose 1.25 MG; Start 07/09/18 at 03:45 Cefepime HCl 50 ml @ 100 mls/hr Q12 IVPB Last administered on 07/10/18 22:0 4; Admin Dose 100 MLS/HR; Start 07/09/18 at 21:00 Heparin Sodium (Porcine) (Heparin (5000 Units/1ml)) 5,000 unit BID SC Last administered on 07/10/18 22:05; Admin Dose 5,000 UNIT; Start 07/09/18 at 21:00 Diphenhydramine HCl (Benadryl) 25 mg Q8H PRN PO ITCHING Last administered on 07/09/18at 17:11; Admin Dose 25 MG; Start 07/09/18 at 16:30 Propofol 100 ml @ 3.63 mls/hr Q12H IV Last administered on 07/11/18at 03:50; Admin Dose 3.63 MLS/HR; Start 07/09/18 at 22:00 Midazolam HCl 50 ml @ 1 mls/hr TITRATE IV Last administered on 07/11/18at 03:50; Admin Dose 5 MLS/HR; Start 07/10/18 at 00:00 Vancomycin HCl (Vanco Iv Per Pharmacy) VANCOMYCIN PER PHARMACY PER PROTOCOL XX ; Start 07/10/18 at 04:00 Potassium Chloride (Potassium Chloride Pwd/Soln) 10 meq DAILY NGT Last administered on 07/10/18at 09:34; Admin Dose 10 MEQ; Start 07/10/18 at 09:00 Vancomycin HCl 1.25 gm/Sodium Chloride 250 ml @ 83.333 mls/ hr Q12H IVPB Last administered on 07/11/18at 06:02; Admin Dose 83.333 MLS/HR; Start 07/10/18 at 18:00 Miscellaneous Information (*Rx Drug Level Order Reminder*) VANC TR AT 1700 ONCE ONCE XX ; Start 07/11/18 at 17:00; Stop 07/11/18 at 17:01 Benazepril HCl (Lotensin) 5 mg DAILY PO ; Start 07/11/18 at 09:00 Lansoprazole (Prevacid) 30 mg DAILY@06 NGT ; Start 07/12/18 at 06:00 Results Result Diagram: 07/11/18 0430 07/11/18 0430 Results 24 hrs Laboratory Tests Test 07/11/18 04:30 White Blood Count 10.9 H Red Blood Count 4.22 L Hemoglobin 9.8 L Hematocrit 32.7 L Mean Corpuscular Volume 77.5 L Mean Corpuscular Hemoglobin 23.2 L Mean Corpuscular Hemoglobin Concent 30.0 L Red Cell Distribution Width 23.6 H Platelet Count 353 Mean Platelet Volume 10.6 H Immature Granulocytes % 0.600 H Neutrophils % 77.1 H Lymphocytes % 8.4 L Monocytes % 12.6 H Eosinophils % 1.0 Basophils % 0.3 Nucleated Red Blood Cells % 0.0 Immature Granulocytes # 0.060 H Neutrophils # 8.4 H Lymphocytes # 0.9 Monocytes # 1.4 H Eosinophils # 0.1 Basophils # 0.0 Nucleated Red Blood Cells # 0.0 Sodium Level 141 Potassium Level 3.7 Chloride Level 102 Carbon Dioxide Level 29 Anion Gap 10 Blood Urea Nitrogen 38 H Creatinine 2.10 H Est Glomerular Filtrat Rate mL/min 40 L Glucose Level 97 Calcium Level 8.9 Total Bilirubin 1.6 H Direct Bilirubin 0.60 #H Indirect Bilirubin 1.0 Aspartate Amino Transf (AST/SGOT) 131 #H Alanine Aminotransferase (ALT/SGPT) 46 Alkaline Phosphatase 172 H Total Protein 6.1 Albumin 2.9 L Globulin 3.20 Albumin/Globulin Ratio 0.90 FIDENCIO SWAN MD Jul 11, 2018 08:12
[2018-07-11] MEDS ORDERED: HEPARIN 5,000 UNIT/0.5 ML VIAL ONE ×2 (08:28→20:23)
[2018-07-11] MEDS: CEFEPIME 1GM/50 ML (PMX) 50 ML IVPB SCH ×2 (08:41→21:12)
[2018-07-11] MEDS: POTASSIUM CHLORIDE 20 MEQ POWDER FOR ORAL SOLN NGT SCH (08:42)
[2018-07-11] MEDS: SPIRONOLACTONE 50 MG TAB PO SCH (08:43)
[2018-07-11] MEDS: SUCRALFATE (100 MG/ML) 10ML CUP PO SCH ×4 (08:43→21:12)
[2018-07-11] MEDS: CLOPIDOGREL 75 MG TAB PO SCH (08:44)
[2018-07-11] MEDS: HEPARIN 5,000 UNIT/1 ML VIAL SC SCH ×2 (08:45→21:16)
[2018-07-11] MEDS ORDERED: BENAZEPRIL 5 MG TAB PO SCH (09:00)
[2018-07-11] MEDS: CAPECITABINE 500 MG TAB PO SCH ×2 (09:00→21:00)
--- NOTE | 2018-07-11 10:07 | CONS ---
Date/Time of Note Date/Time of Note DATE: 07/11/18 TIME: 10:04 Assessment/Plan Assessment/Plan Additional Assessment/Plan Ventilator setting; AC of 18, tidal volume 500, PEEP of 5, 40% FiO2. Patient is currently on propofol 10 mics per kilogram per minute, Versed 5 mg/h. Assessment recommendations; 1. Patient with history of stage IV colon cancer admitted with respiratory failure due to bilateral pneumonia as well as pulmonary edema. Clinically improving. 2. History of cardiac arrhythmia, status post pacemaker placement in the past. 3. Chronic renal insufficiency. 4. Anemia. 5. History of hypertension. Hold further sedation. Once patient is awake he will be assessed for possible weaning from ventilator. Patient is unable to be extubated today, tube feeding will be started. 35 minutes of critical care time was spent evaluating the patient. Consultation Date/Type/Reason Admit Date/Time Jul 08, 2018 at 19:53 Initial Consult Date 07/09/18 Type of Consult Pulmonary/critical care Requesting Provider: ASIA LORA 24 HR Interval Summary Free Text/Dictation Patient's condition remains critical. Patient however has remained hemodynamically stable. General exam; middle-aged male, orally intubated, sedated, currently in no distress. Exam/Review of Systems Vital Signs Vitals Vital Signs Date Temp Pulse Resp B/P (MAP) Pulse Ox O2 O2 Flow FiO2 Time Delivery Rate 07/11/18 85 19 108/66 99 Mechanical 09:00 (80) Ventilator 07/11/18 99.9 08:00 07/11/18 40 05:35 07/09/18 2.0 04:00 Intake and Output 07/10/18 07/10/18 07/11/18 1515:00 23:00 07:00 IntakeIntake Total 640.58 ml 250.82 ml 87.19 ml OutputOutput Total 525 ml 430 ml 280 ml BalanceBalance 115.58 ml -179.18 ml -192.81 ml Exam HEENT exam; supple neck, no JVD. No lymphadenopathy. Midline trachea. No thyromegaly. Patient has fair dentition. Orally intubated. No neck masses. Chest exam; diminished but clear breath sounds. S1-S2 audible, no murmurs. Regular rhythm. MediPort in right chest wall. Abdomen exam; soft, no organomegaly. Nondistended. Bowel sounds audible. Extremity exam; no peripheral edema. INSERTING OPERATOR exam; patient is sedated. Medications Medications Current Medications IV Flush (NS 3 ml) 3 ml PER PROTOCOL IV ; Start 07/08/18 at 21:00 Ondansetron HCl (Zofran Inj) 4 mg Q6H PRN IV NAUSEA AND/OR VOMITING; Start 07/08/18 at 21:00 Acetaminophen (Tylenol Tab) 650 mg Q6H PRN PO PAIN LEVEL 1-3 OR FEVER; Start 07/08/18 at 21:00 Docusate Sodium (Colace) 100 mg Q12H PRN PO CONSTIPATION; Start 07/08/18 at 21:00 Bisacodyl (Dulcolax) 5 mg DAILY PRN PO CONSTIPATION; Start 07/08/18 at 21:00 Atorvastatin Calcium (Lipitor) 80 mg QHS PO Last administered on 07/10/18at 22:03; Admin Dose 80 MG; Start 07/09/18 at 21:00 Capecitabine (Xeloda) 1,500 mg BID PO ; Start 07/09/18 at 09:00 Carvedilol (Coreg) 3.125 mg BID PO Last administered on 07/11/18at 08:43; Admin Dose 3.125 MG; Start 07/09/18 at 09:00 Clopidogrel Bisulfate (plaVIX) 75 mg DAILY PO Last administered on 07/11/18at 08:44; Admin Dose 75 MG; Start 07/09/18 at 09:00 Spironolactone (Aldactone) 25 mg DAILY PO Last administered on 07/11/18at 08:43; Admin Dose 25 MG; Start 07/09/18 at 09:00 Sucralfate (Carafate Susp) 1 gm QID PO Last administered on 07/11/18at 08:43; Admin Dose 1 GM; Start 07/09/18 at 09:00 Furosemide (Lasix) 40 mg DAILY@0600 IV Last administered on 07/11/18at 06:02; Admin Dose 40 MG; Start 07/09/18 at 04:00 Levalbuterol (Xopenex Neb) 1.25 mg Q4H RESP THERAPY PRN HHN SHORTNESS OF BREATH Last administered on 07/09/18at 03:59; Admin Dose 1.25 MG; Start 07/09/18 at 03:45 Cefepime HCl 50 ml @ 100 mls/hr Q12 IVPB Last administered on 07/11/18at 08:41; Admin Dose 100 MLS/HR; Start 07/09/18 at 21:00 Heparin Sodium (Porcine) (Heparin (5000 Units/1ml)) 5,000 unit BID SC Last administered on 07/11/18at 08:45; Admin Dose 5,000 UNIT; Start 07/09/18 at 21:00 Diphenhydramine HCl (Benadryl) 25 mg Q8H PRN PO ITCHING Last administered on 07/09/18at 17:11; Admin Dose 25 MG; Start 07/09/18 at 16:30 Propofol 100 ml @ 3.63 mls/hr Q12H IV Last administered on 07/11/18at 03:50; Admin Dose 3.63 MLS/HR; Start 07/09/18 at 22:00 Midazolam HCl 50 ml @ 1 mls/hr TITRATE IV Last administered on 07/11/18at 03:50; Admin Dose 5 MLS/HR; Start 07/10/18 at 00:00 Vancomycin HCl (Vanco Iv Per Pharmacy) VANCOMYCIN PER PHARMACY PER PROTOCOL XX ; Start 07/10/18 at 04:00 Potassium Chloride (Potassium Chloride Pwd/Soln) 10 meq DAILY NGT Last administered on 07/11/18at 08:42; Admin Dose 10 MEQ; Start 07/10/18 at 09:00 Vancomycin HCl 1.25 gm/Sodium Chloride 250 ml @ 83.333 mls/ hr Q12H IVPB Last administered on 07/11/18at 06:02; Admin Dose 83.333 MLS/HR; Start 07/10/18 at 18:00 Miscellaneous Information (*Rx Drug Level Order Reminder*) VANC TR AT 1700 ONCE ONCE XX ; Start 07/11/18 at 17:00; Stop 07/11/18 at 17:01 Lansoprazole (Prevacid) 30 mg DAILY@06 NGT ; Start 07/12/18 at 06:00 Results Result Diagram: 07/11/18 0430 07/11/18 0430 Results 24 hrs Laboratory Tests Test 07/11/18 04:30 White Blood Count 10.9 H Red Blood Count 4.22 L Hemoglobin 9.8 L Hematocrit 32.7 L Mean Corpuscular Volume 77.5 L Mean Corpuscular Hemoglobin 23.2 L Mean Corpuscular Hemoglobin Concent 30.0 L Red Cell Distribution Width 23.6 H Platelet Count 353 Mean Platelet Volume 10.6 H Immature Granulocytes % 0.600 H Neutrophils % 77.1 H Lymphocytes % 8.4 L Monocytes % 12.6 H Eosinophils % 1.0 Basophils % 0.3 Nucleated Red Blood Cells % 0.0 Immature Granulocytes # 0.060 H Neutrophils # 8.4 H Lymphocytes # 0.9 Monocytes # 1.4 H Eosinophils # 0.1 Basophils # 0.0 Nucleated Red Blood Cells # 0.0 Sodium Level 141 Potassium Level 3.7 Chloride Level 102 Carbon Dioxide Level 29 Anion Gap 10 Blood Urea Nitrogen 38 H Creatinine 2.10 H Est Glomerular Filtrat Rate mL/min 40 L Glucose Level 97 Calcium Level 8.9 Total Bilirubin 1.6 H Direct Bilirubin 0.60 #H Indirect Bilirubin 1.0 Aspartate Amino Transf (AST/SGOT) 131 #H Alanine Aminotransferase (ALT/SGPT) 46 Alkaline Phosphatase 172 H Total Protein 6.1 Albumin 2.9 L Globulin 3.20 Albumin/Globulin Ratio 0.90 KATHI MCKEON Jul 11, 2018 10:07
--- NOTE | 2018-07-11 11:13 | PN ---
Date/Time of Note Date/Time of Note DATE: 07/11/18 TIME: 11:06 Assessment/Plan VTE Prophylaxis Risk score (from Ns)>0 risk: 11 SCD applied (from Ns): Yes Pharmacological prophylaxis: heparin Lines/Catheters IV Catheter Type (from [facility]): PORTACATH Urinary Cath still in place: Yes Reason Cath still needed: other (indicate) (coma) Assessment/Plan Hospital Course 57 yo man with Stage IV colon cancer who is admitted for ischemic heart disease and CHF. There may be an element of pneumonitis as well. His says that the tumors have shrunk and that the CEA has come down modestly as well. However, his heart failure has been a serious problem and he goes to the ER about twice a week. Unfortunately the cardiac issues have been difficult to treat and are unlikely to improve significantly. We discussed that if any family wants to see him alive, they should come soon. She relates that he has been progressively more depressed since the cardiac problems occured and he realized that he was not going to get back to being the same as before the illness. I have told her that his prognosis is very poor and that she should talk to the clay thrower. However, I would consider a NO CODE status. No treatment for the colon cancer is suggested since this issue is not the significant problem now. Assessment/Plan Pt remains unresponsive although sedation stopped a couple of hours ago. It is not clear whether his level of alertness is going to improve as drug sedation wears off or if this could be due to recent stroke/anoxic brain damage. Please note that his cancer had been slowly improving on chemotherapy but the cardiac function has been the reason for his frequent medical problems over the last four months, according to the . At this point, effort to see if he can be extubated is being made. If he does not improve, issues of CODE status should be addressed. I did start that discussion yesterday with his . Note that the cancer is not the reason for his deterioration, so input from others would be helpful. Perhaps his usual clay thrower would be willing to get involved. Subjective 24 Hr Interval Summary Free Text/Dictation Pt remains unresponsive. Discussed with nurse. Exam/Review of Systems Vital Signs Vitals Vital Signs Date Temp Pulse Resp B/P (MAP) Pulse Ox O2 O2 Flow FiO2 Time Delivery Rate 07/11/18 85 19 108/66 99 Mechanical 09:00 (80) Ventilator 07/11/18 40 08:00 07/11/18 99.9 08:00 07/09/18 2.0 04:00 Intake and Output 07/10/18 07/10/18 07/11/18 1515:00 23:00 07:00 IntakeIntake Total 640.58 ml 250.82 ml 87.19 ml OutputOutput Total 525 ml 430 ml 280 ml BalanceBalance 115.58 ml -179.18 ml -192.81 ml Exam Constitutional: other (obtunded.) Head: normocephalic Eyes: other (pallor) ENMT: intubated Neck: supple Respiratory: clear to auscultation Cardiovascular: regular rate and rhythm Gastrointestinal: soft, non-tender Neurological: unresponsive Medications Medications Current Medications IV Flush (NS 3 ml) 3 ml PER PROTOCOL IV ; Start 07/08/18 at 21:00 Ondansetron HCl (Zofran Inj) 4 mg Q6H PRN IV NAUSEA AND/OR VOMITING; Start 07/08/18 at 21:00 Acetaminophen (Tylenol Tab) 650 mg Q6H PRN PO PAIN LEVEL 1-3 OR FEVER; Start 07/08/18 at 21:00 Docusate Sodium (Colace) 100 mg Q12H PRN PO CONSTIPATION; Start 07/08/18 at 21:00 Bisacodyl (Dulcolax) 5 mg DAILY PRN PO CONSTIPATION; Start 07/08/18 at 21:00 Atorvastatin Calcium (Lipitor) 80 mg QHS PO Last administered on 07/10/18at 22:03; Admin Dose 80 MG; Start 07/09/18 at 21:00 Capecitabine (Xeloda) 1,500 mg BID PO ; Start 07/09/18 at 09:00 Carvedilol (Coreg) 3.125 mg BID PO Last administered on 07/11/18at 08:43; Admin Dose 3.125 MG; Start 07/09/18 at 09:00 Clopidogrel Bisulfate (plaVIX) 75 mg DAILY PO Last administered on 07/11/18at 08:44; Admin Dose 75 MG; Start 07/09/18 at 09:00 Spironolactone (Aldactone) 25 mg DAILY PO Last administered on 07/11/18at 08:43; Admin Dose 25 MG; Start 07/09/18 at 09:00 Sucralfate (Carafate Susp) 1 gm QID PO Last administered on 07/11/18 08:43; Admin Dose 1 GM; Start 07/09/18 at 09:00 Furosemide (Lasix) 40 mg DAILY@0600 IV Last administered on 07/11/18 06:02; Admin Dose 40 MG; Start 07/09/18 at 04:00 Levalbuterol (Xopenex Neb) 1.25 mg Q4H RESP THERAPY PRN HHN SHORTNESS OF BREATH Last administered on 07/09/18 03:59; Admin Dose 1.25 MG; Start 07/09/18 at 03:45 Cefepime HCl 50 ml @ 100 mls/hr Q12 IVPB Last administered on 07/11/18 08:41; Admin Dose 100 MLS/HR; Start 07/09/18 at 21:00 Heparin Sodium (Porcine) (Heparin (5000 Units/1ml)) 5,000 unit BID SC Last administered on 07/11/18 08:45; Admin Dose 5,000 UNIT; Start 07/09/18 at 21:00 Diphenhydramine HCl (Benadryl) 25 mg Q8H PRN PO ITCHING Last administered on 07/09/18 17:11; Admin Dose 25 MG; Start 07/09/18 at 16:30 Propofol 100 ml @ 3.63 mls/hr Q12H IV Last administered on 07/11/18 03:50; Admin Dose 3.63 MLS/HR; Start 07/09/18 at 22:00 Midazolam HCl 50 ml @ 1 mls/hr TITRATE IV Last administered on 07/11/18 03:50; Admin Dose 5 MLS/HR; Start 07/10/18 at 00:00 Vancomycin HCl (Vanco Iv Per Pharmacy) VANCOMYCIN PER PHARMACY PER PROTOCOL XX ; Start 07/10/18 at 04:00 Potassium Chloride (Potassium Chloride Pwd/Soln) 10 meq DAILY NGT Last administered on 07/11/18 08:42; Admin Dose 10 MEQ; Start 07/10/18 at 09:00 Vancomycin HCl 1.25 gm/Sodium Chloride 250 ml @ 83.333 mls/ hr Q12H IVPB Last administered on 07/11/18 06:02; Admin Dose 83.333 MLS/HR; Start 07/10/18 at 18:00 Miscellaneous Information (*Rx Drug Level Order Reminder*) VANC TR AT 1700 ONCE ONCE XX ; Start 07/11/18 at 17:00; Stop 07/11/18 at 17:01 Lansoprazole (Prevacid) 30 mg DAILY@06 NGT ; Start 07/12/18 at 06:00 Results Result Diagram: 07/11/18 0430 07/11/18 0430 Results 24 hrs Laboratory Tests Test 07/11/18 04:30 White Blood Count 10.9 H Red Blood Count 4.22 L Hemoglobin 9.8 L Hematocrit 32.7 L Mean Corpuscular Volume 77.5 L Mean Corpuscular Hemoglobin 23.2 L Mean Corpuscular Hemoglobin Concent 30.0 L Red Cell Distribution Width 23.6 H Platelet Count 353 Mean Platelet Volume 10.6 H Immature Granulocytes % 0.600 H Neutrophils % 77.1 H Lymphocytes % 8.4 L Monocytes % 12.6 H Eosinophils % 1.0 Basophils % 0.3 Nucleated Red Blood Cells % 0.0 Immature Granulocytes # 0.060 H Neutrophils # 8.4 H Lymphocytes # 0.9 Monocytes # 1.4 H Eosinophils # 0.1 Basophils # 0.0 Nucleated Red Blood Cells # 0.0 Sodium Level 141 Potassium Level 3.7 Chloride Level 102 Carbon Dioxide Level 29 Anion Gap 10 Blood Urea Nitrogen 38 H Creatinine 2.10 H Est Glomerular Filtrat Rate mL/min 40 L Glucose Level 97 Calcium Level 8.9 Total Bilirubin 1.6 H Direct Bilirubin 0.60 #H Indirect Bilirubin 1.0 Aspartate Amino Transf (AST/SGOT) 131 #H Alanine Aminotransferase (ALT/SGPT) 46 Alkaline Phosphatase 172 H Total Protein 6.1 Albumin 2.9 L Globulin 3.20 Albumin/Globulin Ratio 0.90 MARIA INES GOLDSTEIN MD Jul 11, 2018 11:13
--- NOTE | 2018-07-11 15:15 | PN ---
Date/Time of Note Date/Time of Note DATE: 07/11/18 TIME: 15:11 Assessment/Plan VTE Prophylaxis Risk score (from Nsg)>0 risk: 11 SCD applied (from Nsg): Yes Pharmacological prophylaxis: heparin Lines/Catheters IV Catheter Type (from Nrsg): PORTACATH Urinary Cath still in place: Yes Reason Cath still needed: other (indicate) (intubated) Assessment/Plan Assessment/Plan 57 yo M with history of metastatic stage IV colon cancer admitted for SOB and hypoxemia 1. Acute hypoxemic hypercapnic respiratory failure -failed bipap, now intubated and vent dependent 2. 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 Maurisio Pneumonia with probable underlying pulmonary nodules 3. H/o Severe coronary artery disease with multivessel coronary artery disease, ACS ruled out 4. History of PCI of right coronary artery in April 2018 5. History of metastatic adeno CA of the colon s/p resection on ?palliative chemo, ?liver mets 6. History of hypertension 7. History of noncompliance 8. History of GI bleed 9. Dyslipidemia 10. History of sick sinus syndrome s/p pacemaker -pace maker interrogated 07/08/18 at [facility] 11. Recent acute occipital CVA on chronic CVA 12. PreDM hba1C 6.0 13. Acute confusion / delirium with reports of hallucinations -likely effect of recent CVA and chronic disease PLAN: Vent management and weaning per pulmonary. Continue diuresis with Lasix per cardiology, patient also remains on Aldactone therapy Continue Plavix Continue Xeloda for colon cancer Continue bronchodilators as well as supportive care. Overall prognosis remains guarded, continue ICU support Oncology consult DC CT of the brain for now as patient remains fairly stable, Chest CT noted, will get CT abd/pelvis Patient has an advance directive; will review when brings it tomorrow. Continue supportive care Critical care time >40mins Subjective 24 Hr Interval Summary Free Text/Dictation No acute overnight events. Sedation stopped around 9:30 this morning On my exam 15:00 the patient is opening eyes to voice, moving both hands, not yet following commands. His mother and were at bedside. I updated them on his status. According to the ; patient had done an advance directive "where he wouldn't want everything done". No copy was sent from [facility], patient was full code there. says she will bring the paperwork tomorrow. Exam/Review of Systems Vital Signs Vitals Vital Signs Date Temp Pulse Resp B/P (MAP) Pulse Ox O2 O2 Flow FiO2 Time Delivery Rate 07/11/18 91 12:00 07/11/18 19 108/66 99 Mechanical 09:00 (80) Ventilator 07/11/18 40 08:00 07/11/18 99.9 08:00 07/09/18 2.0 04:00 Intake and Output 07/10/18 07/10/18 07/11/18 1515:00 23:00 07:00 IntakeIntake Total 640.58 ml 250.82 ml 87.19 ml OutputOutput Total 525 ml 430 ml 280 ml BalanceBalance 115.58 ml -179.18 ml -192.81 ml Exam GENERAL: Intubated and comfortably sedated HEENT: BRITTNI, Intubated, ET tube in place LUNGS: diffusely diminished and coarse BS HEART: S1, S2. No murmur, gallops or rubs. Tachycardic ABDOMEN: Soft, non distended, Normoactive bowel sounds. GENITOURINARY: Normal male external genitalia, Winters to bedside drainage EXTREMITIES: Mild 1+ nonpitting edema bilaterally, also some hand edema bilaterally NEUROLOGIC: The patient is currently sedated. SKIN: Otherwise, unremarkable. Medications Medications Current Medications IV Flush (NS 3 ml) 3 ml PER PROTOCOL IV ; Start 07/08/18 at 21:00 Ondansetron HCl (Zofran Inj) 4 mg Q6H PRN IV NAUSEA AND/OR VOMITING; Start 07/08/18 at 21:00 Acetaminophen (Tylenol Tab) 650 mg Q6H PRN PO PAIN LEVEL 1-3 OR FEVER; Start 07/08/18 at 21:00 Docusate Sodium (Colace) 100 mg Q12H PRN PO CONSTIPATION; Start 07/08/18 at 21:00 Bisacodyl (Dulcolax) 5 mg DAILY PRN PO CONSTIPATION; Start 07/08/18 at 21:00 Atorvastatin Calcium (Lipitor) 80 mg QHS PO Last administered on 07/10/18at 22:03; Admin Dose 80 MG; Start 07/09/18 at 21:00 Capecitabine (Xeloda) 1,500 mg BID PO ; Start 07/09/18 at 09:00 Carvedilol (Coreg) 3.125 mg BID PO Last administered on 07/11/18 08:43; Admin Dose 3.125 MG; Start 07/09/18 at 09:00 Clopidogrel Bisulfate (plaVIX) 75 mg DAILY PO Last administered on 07/11/18 08:44; Admin Dose 75 MG; Start 07/09/18 at 09:00 Spironolactone (Aldactone) 25 mg DAILY PO Last administered on 07/11/18 08:43; Admin Dose 25 MG; Start 07/09/18 at 09:00 Sucralfate (Carafate Susp) 1 gm QID PO Last administered on 07/11/18 12:41; Admin Dose 1 GM; Start 07/09/18 at 09:00 Furosemide (Lasix) 40 mg DAILY@0600 IV Last administered on 07/11/18 06:02; Admin Dose 40 MG; Start 07/09/18 at 04:00 Levalbuterol (Xopenex Neb) 1.25 mg Q4H RESP THERAPY PRN HHN SHORTNESS OF BREATH Last administered on 07/09/18 03:59; Admin Dose 1.25 MG; Start 07/09/18 at 03:45 Cefepime HCl 50 ml @ 100 mls/hr Q12 IVPB Last administered on 07/11/18 08:41; Admin Dose 100 MLS/HR; Start 07/09/18 at 21:00 Heparin Sodium (Porcine) (Heparin (5000 Units/1ml)) 5,000 unit BID SC Last administered on 07/11/18 08:45; Admin Dose 5,000 UNIT; Start 07/09/18 at 21:00 Diphenhydramine HCl (Benadryl) 25 mg Q8H PRN PO ITCHING Last administered on 1 09/09/17 17:11; Admin Dose 25 MG; Start 07/09/18 at 16:30 Propofol 100 ml @ 3.63 mls/hr Q12H IV Last administered on 07/11/18 03:50; Admin Dose 3.63 MLS/HR; Start 07/09/18 at 22:00 Midazolam HCl 50 ml @ 1 mls/hr TITRATE IV Last administered on 07/11/18 03:50; Admin Dose 5 MLS/HR; Start 07/10/18 at 00:00 Vancomycin HCl (Vanco Iv Per Pharmacy) VANCOMYCIN PER PHARMACY PER PROTOCOL XX ; Start 07/10/18 at 04:00 Potassium Chloride (Potassium Chloride Pwd/Soln) 10 meq DAILY NGT Last admini stered on 07/11/18at 08:42; Admin Dose 10 MEQ; Start 07/10/18 at 09:00 Vancomycin HCl 1.25 gm/Sodium Chloride 250 ml @ 83.333 mls/ hr Q12H IVPB Last administered on 07/11/18at 06:02; Admin Dose 83.333 MLS/HR; Start 07/10/18 at 18:00 Miscellaneous Information (*Rx Drug Level Order Reminder*) VANC TR AT 1700 ONCE ONCE XX ; Start 07/11/18 at 17:00; Stop 07/11/18 at 17:01 Lansoprazole (Prevacid) 30 mg DAILY@06 NGT ; Start 07/12/18 at 06:00 Results Result Diagram: 07/11/18 0430 07/11/18 0430 Results 24 hrs Laboratory Tests Test 07/11/18 04:30 White Blood Count 10.9 H Red Blood Count 4.22 L Hemoglobin 9.8 L Hematocrit 32.7 L Mean Corpuscular Volume 77.5 L Mean Corpuscular Hemoglobin 23.2 L Mean Corpuscular Hemoglobin Concent 30.0 L Red Cell Distribution Width 23.6 H Platelet Count 353 Mean Platelet Volume 10.6 H Immature Granulocytes % 0.600 H Neutrophils % 77.1 H Lymphocytes % 8.4 L Monocytes % 12.6 H Eosinophils % 1.0 Basophils % 0.3 Nucleated Red Blood Cells % 0.0 Immature Granulocytes # 0.060 H Neutrophils # 8.4 H Lymphocytes # 0.9 Monocytes # 1.4 H Eosinophils # 0.1 Basophils # 0.0 Nucleated Red Blood Cells # 0.0 Sodium Level 141 Potassium Level 3.7 Chloride Level 102 Carbon Dioxide Level 29 Anion Gap 10 Blood Urea Nitrogen 38 H Creatinine 2.10 H Est Glomerular Filtrat Rate mL/min 40 L Glucose Level 97 Calcium Level 8.9 Total Bilirubin 1.6 H Direct Bilirubin 0.60 #H Indirect Bilirubin 1.0 Aspartate Amino Transf (AST/SGOT) 131 #H Alanine Aminotransferase (ALT/SGPT) 46 Alkaline Phosphatase 172 H Total Protein 6.1 Albumin 2.9 L Globulin 3.20 Albumin/Globulin Ratio 0.90 KARI VALERA MD Jul 11, 2018 15:15
--- NOTE | 2018-07-11 18:20 | NUR ---
PHARMACY CALLED FOR TROUGH LEVEL OF 26.5, PHARMACY SAID TO HOLD 1800 DOSE AND THEY WILL CHANGE DOSAGE FOR THE NEW BAG.
--- NOTE | 2018-07-11 18:23 | NUR ---
EOSS: PATIENT REMAINED STABLE THROUGHOUT THIS SHIFT. WEANING TRAIL ORDER WAS PUT IN FOR THIS AM, SEDATION VACATION STARTED AT 0930 AND PATIENT HAS NOT BEEN AWAKE ENOUGH TO BEGIN CPAP TRIAL. WILL CONTINUE TO KEEP SEDATION OFF THROUGHOUT THE NIGHT TO SEE IF PATIENT WILL BE MORE AWAKE. PATIENT'S MOTHER AND AND CAME BY TODAY. STATED THAT PATIENT HAS AN ADVANCED DIRECTIVE AND THAT SHE WILL BRING IT BY THE NEXT TIME SHE COME TO VISIT. PATIENT CHECK ON HOURLY AND PRN BY NURSING STAFF.
--- NOTE | 2018-07-11 19:09 | NUR ---
VANCO PER RX PROTOCOL: DAY #2 S/O: TEMP = 99 SCR/BUN = 2.1/38 WBC = 10.9 VANCO TR = 26.5 A/P: PT NOT CLEARING VANCO 1.25GM Q 12HR ADEQUATELY, CHANGE VANCO TO 1.25GM Q 24HR TO ENHANCE CLEARANCE. SCR ELEVATED TODAY, MONITOR RENAL FUNCT CLOSELY. SCR/BUN TOMORROW AM TO CHECK RENAL FUNCT. WILL CONTINUE TO FOLLOW.
[2018-07-11] MEDS: ATORVASTATIN 80 MG TAB PO SCH (21:13)
[2018-07-12] VITALS (35 sets, daily range): BP systolic 88–142; BP diastolic 52–87; PULSE 84–103; RESP 6–29
--- NOTE | 2018-07-12 04:52 | NUR ---
Obtunded; VSS; bedrest; pt was calm and lying comfortably without any respiratory issue; clear lung sounds, no edema x4 extremities and hypoactive bowel sound; restraint maintained to prevent pulling out ETT and IV line; SR/ST HR<110 during shift; FiO2 lower from 40% to 30% at the beginning of shift; good urine output around 60ml/hr; continue to monitor and provide total care.
[2018-07-12] MEDS: LANSOPRAZOLE 30 MG CAP NGT SCH (05:24)
[2018-07-12] MEDS: FUROSEMIDE 40 MG INJ IV SCH (05:24)
[2018-07-12] MEDS ORDERED: HEPARIN 5,000 UNIT/0.5 ML VIAL ONE ×2 (08:34→21:49)
[2018-07-12] MEDS: POTASSIUM CHLORIDE 20 MEQ POWDER FOR ORAL SOLN NGT SCH (08:45)
[2018-07-12] MEDS: CLOPIDOGREL 75 MG TAB PO SCH (08:45)
[2018-07-12] MEDS: SUCRALFATE (100 MG/ML) 10ML CUP PO SCH ×4 (08:45→21:52)
[2018-07-12] MEDS: CEFEPIME 1GM/50 ML (PMX) 50 ML IVPB SCH ×2 (08:45→21:52)
[2018-07-12] MEDS: SPIRONOLACTONE 50 MG TAB PO SCH (08:46)
[2018-07-12] MEDS: CAPECITABINE 500 MG TAB PO SCH ×2 (08:47→21:55)
[2018-07-12] MEDS: HEPARIN 5,000 UNIT/1 ML VIAL SC SCH ×2 (08:48→21:55)
--- NOTE | 2018-07-12 09:59 | CONS ---
Date/Time of Note Date/Time of Note DATE: 07/12/18 TIME: 09:57 Assessment/Plan Assessment/Plan Additional Assessment/Plan Ventilator setting; AC of 18, tidal volume 500, PEEP of 5, 30% FiO2. Chest x-ray showing minimal patchy infiltrates. Assessment recommendations; 1. Patient with history of stage IV colon cancer admitted for severe sepsis and pneumonia, radiologically improved. 2. Chronic atrial fibrillation. Rate is well controlled. 3. Anemia. 4. Chronic renal insufficiency. Continue current supportive care. Weaning from ventilator to be initiated once patient's mental status improves further. Consultation Date/Type/Reason Admit Date/Time Jul 08, 2018 at 19:53 Initial Consult Date 07/09/18 Type of Consult Pulmonary/critical care Requesting Provider: ASIA LORA 24 HR Interval Summary Free Text/Dictation Patient's condition remains critical. Patient despite being off sedation for more than 24 hours is still very lethargic and difficult to arouse. Patient however has remained hemodynamically stable. General exam; middle-aged male, orally intubated, arousable, lethargic. Currently no distress. Orally intubated. Exam/Review of Systems Vital Signs Vitals Vital Signs Date Temp Pulse Resp B/P (MAP) Pulse Ox O2 O2 Flow FiO2 Time Delivery Rate 07/12/18 85 08:00 07/12/18 21 130/75 95 [place] 06:00 (93) l Ventilato r 07/12/18 30 05:30 07/12/18 100.3 00:00 07/09/18 2.0 04:00 Intake and Output 07/11/18 07/11/18 07/12/18 1414:59 22:59 06:59 IntakeIntake Total 42.91 ml 350 ml 0 ml OutputOutput Total 625 ml 530 ml 590 ml BalanceBalance -582.09 ml -180 ml -590 ml Exam HEENT exam; supple neck, no JVD. No lymphadenopathy. Midline trachea. No thyromegaly. Patient has fair dentition. Orally intubated. Pupils are small bilaterally. Chest exam; diminished but clear breath sounds. S1-S2 audible, no murmurs. Pacemaker in left chest wall. Abdomen exam; soft, no organomegaly. Bowel sounds audible. Extremity exam; no peripheral edema or clubbing. CORN GROWER exam; patient is arousable but lethargic. Medications Medications Current Medications IV Flush (NS 3 ml) 3 ml PER PROTOCOL IV ; Start 07/08/18 at 21:00 Ondansetron HCl (Zofran Inj) 4 mg Q6H PRN IV NAUSEA AND/OR VOMITING; Start 07/08/18 at 21:00 Acetaminophen (Tylenol Tab) 650 mg Q6H PRN PO PAIN LEVEL 1-3 OR FEVER; Start 07/08/18 at 21:00 Docusate Sodium (Colace) 100 mg Q12H PRN PO CONSTIPATION; Start 07/08/18 at 21:00 Bisacodyl (Dulcolax) 5 mg DAILY PRN PO CONSTIPATION; Start 07/08/18 at 21:00 Atorvastatin Calcium (Lipitor) 80 mg QHS PO Last administered on 07/11/18at 21:13; Admin Dose 80 MG; Start 07/09/18 at 21:00 Capecitabine (Xeloda) 1,500 mg BID PO Last administered on 07/12/18at 08:47; Admin Dose 1,500 MG; Start 07/09/18 at 09:00 Carvedilol (Coreg) 3.125 mg BID PO Last administered on 07/12/18at 08:46; Admin Dose 3.125 MG; Start 07/09/18 at 09:00 Clopidogrel Bisulfate (plaVIX) 75 mg DAILY PO Last administered on 07/12/18at 08:45; Admin Dose 75 MG; Start 07/09/18 at 09:00 Spironolactone (Aldactone) 25 mg DAILY PO Last administered on 07/12/18at 0 8:46; Admin Dose 25 MG; Start 07/09/18 at 09:00 Sucralfate (Carafate Susp) 1 gm QID PO Last administered on 07/12/18at 08:45; Admin Dose 1 GM; Start 07/09/18 at 09:00 Furosemide (Lasix) 40 mg DAILY@0600 IV Last administered on 07/12/18at 05:24; Admin Dose 40 MG; Start 07/09/18 at 04:00 Levalbuterol (Xopenex Neb) 1.25 mg Q4H RESP THERAPY PRN HHN SHORTNESS OF BREATH Last administered on 07/09/18at 03:59; Admin Dose 1.25 MG; Start 07/09/18 at 03:45 Cefepime HCl 50 ml @ 100 mls/hr Q12 IVPB Last administered on 07/12/18at 08:45; Admin Dose 100 MLS/HR; Start 07/09/18 at 21:00 Heparin Sodium (Porcine) (Heparin (5000 Units/1ml)) 5,000 unit BID SC Last administered on 07/12/18at 08:48; Admin Dose 5,000 UNIT; Start 07/09/18 at 21:00 Diphenhydramine HCl (Benadryl) 25 mg Q8H PRN PO ITCHING Last administered on 07/09/18at 17:11; Admin Dose 25 MG; Start 07/09/18 at 16:30 Propofol 100 ml @ 3.63 mls/hr Q12H IV Last administered on 07/11/18at 03:50; Admin Dose 3.63 MLS/HR; Start 07/09/18 at 22:00 Midazolam HCl 50 ml @ 1 mls/hr TITRATE IV Last administered on 07/11/18at 03:50; Admin Dose 5 MLS/HR; Start 07/10/18 at 00:00 Vancomycin HCl (Vanco Iv Per Pharmacy) VANCOMYCIN PER PHARMACY PER PROTOCOL XX ; Start 07/10/18 at 04:00 Potassium Chloride (Potassium Chloride Pwd/Soln) 10 meq DAILY NGT Last administered on 07/12/18at 08:45; Admin Dose 10 MEQ; Start 07/10/18 at 09:00 Lansoprazole (Prevacid) 30 mg DAILY@06 NGT Last administered on 07/12/18at 05:24; Admin Dose 30 MG; Start 07/12/18 at 06:00 Vancomycin HCl 1.25 gm/Sodium Chloride 250 ml @ 83.333 mls/ hr Q24H IVPB ; Start 07/12/18 at 10:00 Results Result Diagram: 07/12/18 0844 07/12/18 0844 Results 24 hrs Laboratory Tests Test 07/11/18 17:23 07/12/18 04:10 07/12/18 08:44 Vancomycin Level Trough 26.5 *H Blood Urea Nitrogen 43 H 43 H Creatinine 2.17 H 2.17 H White Blood Count 11.0 H Red Blood Count 4.28 L Hemoglobin 9.9 L Hematocrit 32.7 L Mean Corpuscular Volume 76.4 L Mean Corpuscular Hemoglobin 23.1 L Mean Corpuscular 30.3 L Hemoglobin Concent Red Cell Distribution Width 24.2 H Platelet Count 332 Mean Platelet Volume 9.8 Immature Granulocytes % 0.400 Neutrophils % 80.8 H Lymphocytes % 7.4 L Monocytes % 10.7 Eosinophils % 0.4 Basophils % 0.3 Nucleated Red Blood Cells % 0.0 Immature Granulocytes # 0.040 H Neutrophils # 8.9 H Lymphocytes # 0.8 Monocytes # 1.2 H Eosinophils # 0.0 Basophils # 0.0 Nucleated Red Blood Cells # 0.0 Sodium Level 142 Potassium Level 3.5 Chloride Level 104 Carbon Dioxide Level 31 Anion Gap 7 Est Glomerular Filtrat 38 L Rate mL/min Glucose Level 135 Calcium Level 9.1 Phosphorus Level 5.0 H Magnesium Level 2.2 Total Bilirubin 2.0 H Direct Bilirubin 0.90 #H Indirect Bilirubin 1.1 Aspartate Amino 82 H Transf (AST/SGOT) Alanine 37 Aminotransferase (ALT/SGPT) Alkaline Phosphatase 147 H Total Protein 6.3 Albumin 3.1 L Globulin 3.20 Albumin/Globulin Ratio 0.96 KATHI MCKEON Jul 12, 2018 09:58
--- NOTE | 2018-07-12 10:21 | PN ---
Date/Time of Note Date/Time of Note DATE: 07/12/18 TIME: 10:18 Assessment/Plan VTE Prophylaxis Risk score (from Nsg)>0 risk: 11 SCD applied (from Nsg): Yes Pharmacological prophylaxis: heparin Lines/Catheters IV Catheter Type (from Nrsg): Portacath Urinary Cath still in place: Yes Reason Cath still needed: other (indicate) (intubated) Assessment/Plan Assessment/Plan 57 yo M with history of metastatic stage IV colon cancer admitted for SOB and hypoxemia 1. Acute hypoxemic hypercapnic respiratory failure -failed bipap, now intubated and vent dependent 2. 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 Maurisio Pneumonia with probable underlying pulmonary nodules 3. H/o Severe coronary artery disease with multivessel coronary artery disease, ACS ruled out 4. History of PCI of right coronary artery in April 2018 5. History of metastatic adeno CA of the colon s/p resection on ?palliative chemo, ?liver mets 6. History of hypertension 7. History of noncompliance 8. History of GI bleed 9. Dyslipidemia 10. History of sick sinus syndrome s/p pacemaker -pace maker interrogated 07/08/18 at [facility] 11. Recent acute occipital CVA on chronic CVA 12. PreDM hba1C 6.0 13. Acute confusion / delirium with reports of hallucinations -likely effect of recent CVA and chronic disease - Currently off sedation x24 hours, awaiting return of mental status. 14. IESHA - This may represent contrast-induced nephropathy from CT 48 hours ago. - Appears still volume overloaded, will proceed with diuresis and watch carefully. PLAN: Vent management and weaning per pulmonary. Continue diuresis with Lasix per cardiology, patient also remains on Aldactone therapy Continue Plavix Continue Xeloda for colon cancer when extubated; currently holding as the med is not crushable. Continue bronchodilators as well as supportive care. Overall prognosis remains guarded, continue ICU support Oncology consult Patient has an advance directive; will review when brings it in. Continue supportive care Critical care time >40mins Subjective 24 Hr Interval Summary Free Text/Dictation Patient has been off sedation since 9:30 AM yesterday; still very somnolent. Opens eyes slowly to voice. Does not follow commands. Exam/Review of Systems Vital Signs Vitals Vital Signs Date Temp Pulse Resp B/P (MAP) Pulse Ox O2 O2 Flow FiO2 Time Delivery Rate 07/12/18 85 08:00 07/12/18 21 130/75 95 [place] 06:00 (93) l Ventilato r 07/12/18 30 05:30 07/12/18 100.3 00:00 07/09/18 2.0 04:00 Intake and Output 07/11/18 07/11/18 07/12/18 1515:00 23:00 07:00 IntakeIntake Total 30.65 ml 350 ml 0 ml OutputOutput Total 625 ml 615 ml 505 ml BalanceBalance -594.35 ml -265 ml -505 ml Exam GENERAL: Obese man Intubated, somnolent HEENT: BRITTNI, Intubated, ET tube in place LUNGS: diffusely diminished and coarse BS HEART: S1, S2. No murmur, gallops or rubs. Tachycardic ABDOMEN: Soft, non distended, Normoactive bowel sounds. GENITOURINARY: Normal male external genitalia, Winters to bedside drainage EXTREMITIES: Mild 1+ nonpitting edema bilaterally, also some hand edema bilaterally NEUROLOGIC: Off sedation; opens eyes to voice. Does not follow commands. Grimaces to sternal rub. SKIN: Otherwise, unremarkable. Medications Medications Current Medications IV Flush (NS 3 ml) 3 ml PER PROTOCOL IV ; Start 07/08/18 at 21:00 Ondansetron HCl (Zofran Inj) 4 mg Q6H PRN IV NAUSEA AND/OR VOMITING; Start 07/08/18 at 21:00 Acetaminophen (Tylenol Tab) 650 mg Q6H PRN PO PAIN LEVEL 1-3 OR FEVER; Start 07/08/18 at 21:00 Docusate Sodium (Colace) 100 mg Q12H PRN PO CONSTIPATION; Start 07/08/18 at 21:00 Bisacodyl (Dulcolax) 5 mg DAILY PRN PO CONSTIPATION; Start 07/08/18 at 21:00 Atorvastatin Calcium (Lipitor) 80 mg QHS PO Last administered on 07/11/18at 21:13; Admin Dose 80 MG; Start 07/09/18 at 21:00 Capecitabine (Xeloda) 1,500 mg BID PO Last administered on 07/12/18at 08:47; Admin Dose 1,500 MG; Start 07/09/18 at 09:00 Carvedilol (Coreg) 3.125 mg BID PO Last administered on 07/12/18 08:46; Admin Dose 3.125 MG; Start 07/09/18 at 09:00 Clopidogrel Bisulfate (plaVIX) 75 mg DAILY PO Last administered on 07/12/18 08:45; Admin Dose 75 MG; Start 07/09/18 at 09:00 Spironolactone (Aldactone) 25 mg DAILY PO Last administered on 07/12/18 08:46; Admin Dose 25 MG; Start 07/09/18 at 09:00 Sucralfate (Carafate Susp) 1 gm QID PO Last administered on 07/12/18 08:45; Admin Dose 1 GM; Start 07/09/18 at 09:00 Furosemide (Lasix) 40 mg DAILY@0600 IV Last administered on 07/12/18 05:24; Admin Dose 40 MG; Start 07/09/18 at 04:00 Levalbuterol (Xopenex Neb) 1.25 mg Q4H RESP THERAPY PRN HHN SHORTNESS OF BREATH Last administered on 07/09/18 03:59; Admin Dose 1.25 MG; Start 07/09/18 at 03:45 Cefepime HCl 50 ml @ 100 mls/hr Q12 IVPB Last administered on 07/12/18 08:45; Admin Dose 100 MLS/HR; Start 07/09/18 at 21:00 Heparin Sodium (Porcine) (Heparin (5000 Units/1ml)) 5,000 unit BID SC Last administered on 07/12/18 08:48; Admin Dose 5,000 UNIT; Start 07/09/18 at 21:00 Diphenhydramine HCl (Benadryl) 25 mg Q8H PRN PO ITCHING Last administered on 07/09/18 17:11; Admin Dose 25 MG; Start 07/09/18 at 16:30 Propofol 100 ml @ 3.63 mls/hr Q12H IV Last administered on 07/11/18 03:50; Admin Dose 3.63 MLS/HR; Start 07/09/18 at 22:00 Midazolam HCl 50 ml @ 1 mls/hr TITRATE IV Last administered on 07/11/18 03:50; Admin Dose 5 MLS/HR; Start 07/10/18 at 00:00 Vancomycin HCl (Vanco Iv Per Pharmacy) VANCOMYCIN PER PHARMACY PER PROTOCOL XX ; Start 07/10/18 at 04:00 Potassium Chloride (Potassium Chloride Pwd/Soln) 10 meq DAILY NGT Last administered on 07/12/18at 08:45; Admin Dose 10 MEQ; Start 07/10/18 at 09:00 Lansoprazole (Prevacid) 30 mg DAILY@06 NGT Last administered on 07/12/18at 05:24; Admin Dose 30 MG; Start 07/12/18 at 06:00 Vancomycin HCl 1.25 gm/Sodium Chloride 250 ml @ 83.333 mls/ hr Q24H IVPB ; Start 07/12/18 at 10:00 Results Result Diagram: 07/12/18 0844 07/12/18 0844 Results 24 hrs Laboratory Tests Test 07/11/18 17:23 07/12/18 04:10 07/12/18 08:44 Vancomycin Level Trough 26.5 *H Blood Urea Nitrogen 43 H 43 H Creatinine 2.17 H 2.17 H White Blood Count 11.0 H Red Blood Count 4.28 L Hemoglobin 9.9 L Hematocrit 32.7 L Mean Corpuscular Volume 76.4 L Mean Corpuscular Hemoglobin 23.1 L Mean Corpuscular 30.3 L Hemoglobin Concent Red Cell Distribution Width 24.2 H Platelet Count 332 Mean Platelet Volume 9.8 Immature Granulocytes % 0.400 Neutrophils % 80.8 H Lymphocytes % 7.4 L Monocytes % 10.7 Eosinophils % 0.4 Basophils % 0.3 Nucleated Red Blood Cells % 0.0 Immature Granulocytes # 0.040 H Neutrophils # 8.9 H Lymphocytes # 0.8 Monocytes # 1.2 H Eosinophils # 0.0 Basophils # 0.0 Nucleated Red Blood Cells # 0.0 Sodium Level 142 Potassium Level 3.5 Chloride Level 104 Carbon Dioxide Level 31 Anion Gap 7 Est Glomerular Filtrat 38 L Rate mL/min Glucose Level 135 Calcium Level 9.1 Phosphorus Level 5.0 H Magnesium Level 2.2 Total Bilirubin 2.0 H Direct Bilirubin 0.90 #H Indirect Bilirubin 1.1 Aspartate Amino 82 H Transf (AST/SGOT) Alanine 37 Aminotransferase (ALT/SGPT) Alkaline Phosphatase 147 H Total Protein 6.3 Albumin 3.1 L Globulin 3.20 Albumin/Globulin Ratio 0.96 KARI VALERA MD Jul 12, 2018 10:21
[2018-07-12] MEDS: VANCOMYCIN 1.25 GM in SOD CHLORIDE 0.9% 250 ML IVPB SCH (10:39)
--- NOTE | 2018-07-12 11:25 | CONS ---
Date/Time of Note Date/Time of Note DATE: 07/12/18 TIME: 11:23 Consultation Date/Type/Reason Admit Date/Time Jul 08, 2018 at 19:53 Initial Consult Date 07/10/18 Requesting Provider: ASIA LORA 24 HR Interval Summary Free Text/Dictation 1. Acute hypoxemic hypercapnic respiratory failure 2. 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 Severe coronary artery disease with multivessel coronary artery disease 4. History of PCI of right coronary artery in April 2018 5. History of metastatic adeno CA of the colon 6. History of hypertension 7. Extensive pneumonia 8. History of GI bleed 9. Dyslipidemia 10. History of sick sinus syndrome s/p pacemaker Recommendations: Plavix to be continued as much as possible given his history of recent PCI Respiratory care as per pulmonary. Patient is currently on the vent and intubated Diuresis as tolerated Echocardiogram showed severe LV dysfunction Continue with ICU care. conitnue lasix but xlose monitoring of renal function Exam/Review of Systems Vital Signs Vitals Vital Signs Date Temp Pulse Resp B/P (MAP) Pulse Ox O2 O2 Flow FiO2 Time Delivery Rate 07/12/18 85 08:00 07/12/18 21 130/75 95 Mechanica 06:00 (93) l Ventilato r 07/12/18 30 05:30 07/12/18 100.3 00:00 07/09/18 2.0 04:00 Intake and Output 07/11/18 07/11/18 07/12/18 1515:00 23:00 07:00 IntakeIntake Total 30.65 ml 350 ml 0 ml OutputOutput Total 625 ml 615 ml 505 ml BalanceBalance -594.35 ml -265 ml -505 ml Exam intubated decreased B/S Medications Medications Current Medications IV Flush (NS 3 ml) 3 ml PER PROTOCOL IV ; Start 07/08/18 at 21:00 Ondansetron HCl (Zofran Inj) 4 mg Q6H PRN IV NAUSEA AND/OR VOMITING; Start 07/08/18 at 21:00 Acetaminophen (Tylenol Tab) 650 mg Q6H PRN PO PAIN LEVEL 1-3 OR FEVER; Start 07/08/18 at 21:00 Docusate Sodium (Colace) 100 mg Q12H PRN PO CONSTIPATION; Start 07/08/18 at 21:00 Bisacodyl (Dulcolax) 5 mg DAILY PRN PO CONSTIPATION; Start 07/08/18 at 21:00 Atorvastatin Calcium (Lipitor) 80 mg QHS PO Last administered on 07/11/18 21:13; Admin Dose 80 MG; Start 07/09/18 at 21:00 Capecitabine (Xeloda) 1,500 mg BID PO Last administered on 07/12/18 08:47; Admin Dose 1,500 MG; Start 07/09/18 at 09:00 Carvedilol (Coreg) 3.125 mg BID PO Last administered on 07/12/18 08:46; Admin Dose 3.125 MG; Start 07/09/18 at 09:00 Clopidogrel Bisulfate (plaVIX) 75 mg DAILY PO Last administered on 07/12/18 08:45; Admin Dose 75 MG; Start 07/09/18 at 09:00 Spironolactone (Aldactone) 25 mg DAILY PO Last administered on 07/12/18 08:46; Admin Dose 25 MG; Start 07/09/18 at 09:00 Sucralfate (Carafate Susp) 1 gm QID PO Last administered on 07/12/18 08:45; Admin Dose 1 GM; Start 07/09/18 at 09:00 Furosemide (Lasix) 40 mg DAILY@0600 IV Last administered on 07/12/18 05:24; Admin Dose 40 MG; Start 07/09/18 at 04:00 Levalbuterol (Xopenex Neb) 1.25 mg Q4H RESP THERAPY PRN HHN SHORTNESS OF BREATH Last administered on 07/09/18 03:59; Admin Dose 1.25 MG; Start 07/09/18 at 03:45 Cefepime HCl 50 ml @ 100 mls/hr Q12 IVPB Last administered on 07/12/18 08:45; Admin Dose 100 MLS/HR; Start 07/09/18 at 21:00 Heparin Sodium (Porcine) (Heparin (5000 Units/1ml)) 5,000 unit BID SC Last administered on 07/12/18 08:48; Admin Dose 5,000 UNIT; Start 07/09/18 at 21:00 Diphenhydramine HCl (Benadryl) 25 mg Q8H PRN PO ITCHING Last administered on 12/13/18at 17:11; Admin Dose 25 MG; Start 07/09/18 at 16:30 Propofol 100 ml @ 3.63 mls/hr Q12H IV Last administered on 07/11/18at 03:50; Admin Dose 3.63 MLS/HR; Start 07/09/18 at 22:00 Midazolam HCl 50 ml @ 1 mls/hr TITRATE IV Last administered on 07/11/18at 03:50; Admin Dose 5 MLS/HR; Start 07/10/18 at 00:00 Vancomycin HCl (Vanco Iv Per Pharmacy) VANCOMYCIN PER PHARMACY PER PROTOCOL XX ; Start 07/10/18 at 04:00 Potassium Chloride (Potassium Chloride Pwd/Soln) 10 meq DAILY NGT Last administered on 07/12/18at 08:45; Admin Dose 10 MEQ; Start 07/10/18 at 09:00 Lansoprazole (Prevacid) 30 mg DAILY@06 NGT Last administered on 07/12/18at 05:24; Admin Dose 30 MG; Start 07/12/18 at 06:00 Vancomycin HCl 1.25 gm/Sodium Chloride 250 ml @ 83.333 mls/ hr Q24H IVPB Last administered on 07/12/18at 10:39; Admin Dose 83.333 MLS/HR; Start 07/12/18 at 10:00 Results Result Diagram: 07/12/18 0844 07/12/18 0844 Results 24 hrs Laboratory Tests Test 07/11/18 17:23 07/12/18 04:10 07/12/18 08:44 Vancomycin Level Trough 26.5 *H Blood Urea Nitrogen 43 H 43 H Creatinine 2.17 H 2.17 H White Blood Count 11.0 H Red Blood Count 4.28 L Hemoglobin 9.9 L Hematocrit 32.7 L Mean Corpuscular Volume 76.4 L Mean Corpuscular Hemoglobin 23.1 L Mean Corpuscular 30.3 L Hemoglobin Concent Red Cell Distribution Width 24.2 H Platelet Count 332 Mean Platelet Volume 9.8 Immature Granulocytes % 0.400 Neutrophils % 80.8 H Lymphocytes % 7.4 L Monocytes % 10.7 Eosinophils % 0.4 Basophils % 0.3 Nucleated Red Blood Cells % 0.0 Immature Granulocytes # 0.040 H Neutrophils # 8.9 H Lymphocytes # 0.8 Monocytes # 1.2 H Eosinophils # 0.0 Basophils # 0.0 Nucleated Red Blood Cells # 0.0 Sodium Level 142 Potassium Level 3.5 Chloride Level 104 Carbon Dioxide Level 31 Anion Gap 7 Est Glomerular Filtrat 38 L Rate mL/min Glucose Level 135 Calcium Level 9.1 Phosphorus Level 5.0 H Magnesium Level 2.2 Total Bilirubin 2.0 H Direct Bilirubin 0.90 #H Indirect Bilirubin 1.1 Aspartate Amino 82 H Transf (AST/SGOT) Alanine 37 Aminotransferase (ALT/SGPT) Alkaline Phosphatase 147 H Total Protein 6.3 Albumin 3.1 L Globulin 3.20 Albumin/Globulin Ratio 0.96 STAR GUTIÉRREZ MD Jul 12, 2018 11:25
--- NOTE | 2018-07-12 12:27 | PN ---
Date/Time of Note Date/Time of Note DATE: 07/12/18 TIME: 12:25 Assessment/Plan VTE Prophylaxis Risk score (from Nsg)>0 risk: 11 SCD applied (from Nsg): Yes Pharmacological prophylaxis: heparin Lines/Catheters IV Catheter Type (from Nrsg): Portacath Urinary Cath still in place: Yes Reason Cath still needed: other (indicate) (coma) Assessment/Plan Hospital Course 57 yo man with Stage IV colon cancer who is admitted for ischemic heart disease and CHF. There may be an element of pneumonitis as well. His says that the tumors have shrunk and that the CEA has come down modestly as well. However, his heart failure has been a serious problem and he goes to the ER about twice a week. Unfortunately the cardiac issues have been difficult to treat and are unlikely to improve significantly. We discussed that if any family wants to see him alive, they should come soon. She relates that he has been progressively more depressed since the cardiac problems occured and he realized that he was not going to get back to being the same as before the illness. I have told her that his prognosis is very poor and that she should talk to the industrial psychologist. However, I would consider a NO CODE status. No treatment for the colon cancer is suggested since this issue is not the significant problem now. Assessment/Plan Pt moves slightly to pain but is not awake. Extubation cannot occur yet. No oncologic plans. A rn long term care approach should be coordinated with his industrial psychologist. Subjective 24 Hr Interval Summary Free Text/Dictation Pt remains unresponsive Exam/Review of Systems Vital Signs Vitals Vital Signs Date Temp Pulse Resp B/P (MAP) Pulse Ox O2 O2 Flow FiO2 Time Delivery Rate 07/12/18 81 18 97 30 11:30 07/12/18 130/75 Mechanica 06:00 (93) l Ventilato r 07/12/18 100.3 00:00 07/09/18 2.0 04:00 Intake and Output 07/11/18 07/11/18 07/12/18 1515:00 23:00 07:00 IntakeIntake Total 30.65 ml 350 ml 0 ml OutputOutput Total 625 ml 615 ml 505 ml BalanceBalance -594.35 ml -265 ml -505 ml Exam Constitutional: other (unresponsive) Head: normocephalic Eyes: other (pallor) ENMT: intubated Respiratory: clear to auscultation, diminished breath sounds Cardiovascular: regular rate and rhythm Gastrointestinal: soft, non-tender Medications Medications Current Medications IV Flush (NS 3 ml) 3 ml PER PROTOCOL IV ; Start 07/08/18 at 21:00 Ondansetron HCl (Zofran Inj) 4 mg Q6H PRN IV NAUSEA AND/OR VOMITING; Start 07/08/18 at 21:00 Acetaminophen (Tylenol Tab) 650 mg Q6H PRN PO PAIN LEVEL 1-3 OR FEVER; Start 07/08/18 at 21:00 Docusate Sodium (Colace) 100 mg Q12H PRN PO CONSTIPATION; Start 07/08/18 at 21:00 Bisacodyl (Dulcolax) 5 mg DAILY PRN PO CONSTIPATION; Start 07/08/18 at 21:00 Atorvastatin Calcium (Lipitor) 80 mg QHS PO Last administered on 07/11/18at 21:13; Admin Dose 80 MG; Start 07/09/18 at 21:00 Capecitabine (Xeloda) 1,500 mg BID PO Last administered on 07/12/18at 08:47; Admin Dose 1,500 MG; Start 07/09/18 at 09:00 Carvedilol (Coreg) 3.125 mg BID PO Last administered on 07/12/18at 08:46; Admin Dose 3.125 MG; Start 07/09/18 at 09:00 Clopidogrel Bisulfate (plaVIX) 75 mg DAILY PO Last administered on 07/12/18at 08:45; Admin Dose 75 MG; Start 07/09/18 at 09:00 Spironolactone (Aldactone) 25 mg DAILY PO Last administered on 07/12/18at 08:46; Admin Dose 25 MG; Start 07/09/18 at 09:00 Sucralfate (Carafate Susp) 1 gm QID PO Last administered on 07/12/18 08:45; Admin Dose 1 GM; Start 07/09/18 at 09:00 Furosemide (Lasix) 40 mg DAILY@0600 IV Last administered on 07/12/18at 05:24; Admin Dose 40 MG; Start 07/09/18 at 04:00 Levalbuterol (Xopenex Neb) 1.25 mg Q4H RESP THERAPY PRN HHN SHORTNESS OF BREATH Last administered on 07/09/18 03:59; Admin Dose 1.25 MG; Start 07/09/18 at 03:45 Cefepime HCl 50 ml @ 100 mls/hr Q12 IVPB Last administered on 07/12/18at 08:45; Admin Dose 100 MLS/HR; Start 07/09/18 at 21:00 Heparin Sodium (Porcine) (Heparin (5000 Units/1ml)) 5,000 unit BID SC Last administered on 07/12/18at 08:48; Admin Dose 5,000 UNIT; Start 07/09/18 at 21:00 Diphenhydramine HCl (Benadryl) 25 mg Q8H PRN PO ITCHING Last administered on 07/09/18 17:11; Admin Dose 25 MG; Start 07/09/18 at 16:30 Propofol 100 ml @ 3.63 mls/hr Q12H IV Last administered on 07/11/18 03:50; Admin Dose 3.63 MLS/HR; Start 07/09/18 at 22:00 Midazolam HCl 50 ml @ 1 mls/hr TITRATE IV Last administered on 07/11/18at 03:50; Admin Dose 5 MLS/HR; Start 07/10/18 at 00:00 Vancomycin HCl (Vanco Iv Per Pharmacy) VANCOMYCIN PER PHARMACY PER PROTOCOL XX ; Start 07/10/18 at 04:00 Potassium Chloride (Potassium Chloride Pwd/Soln) 10 meq DAILY NGT Last administered on 07/12/18at 08:45; Admin Dose 10 MEQ; Start 07/10/18 at 09:00 Lansoprazole (Prevacid) 30 mg DAILY@06 NGT Last administered on 07/12/18at 0 5:24; Admin Dose 30 MG; Start 07/12/18 at 06:00 Vancomycin HCl 1.25 gm/Sodium Chloride 250 ml @ 83.333 mls/ hr Q24H IVPB Last administered on 07/12/18at 10:39; Admin Dose 83.333 MLS/HR; Start 07/12/18 at 10:00 Results Result Diagram: 07/12/18 0844 07/12/18 0844 Results 24 hrs Laboratory Tests Test 07/11/18 17:23 07/12/18 04:10 07/12/18 08:44 Vancomycin Level Trough 26.5 *H Blood Urea Nitrogen 43 H 43 H Creatinine 2.17 H 2.17 H White Blood Count 11.0 H Red Blood Count 4.28 L Hemoglobin 9.9 L Hematocrit 32.7 L Mean Corpuscular Volume 76.4 L Mean Corpuscular Hemoglobin 23.1 L Mean Corpuscular 30.3 L Hemoglobin Concent Red Cell Distribution Width 24.2 H Platelet Count 332 Mean Platelet Volume 9.8 Immature Granulocytes % 0.400 Neutrophils % 80.8 H Lymphocytes % 7.4 L Monocytes % 10.7 Eosinophils % 0.4 Basophils % 0.3 Nucleated Red Blood Cells % 0.0 Immature Granulocytes # 0.040 H Neutrophils # 8.9 H Lymphocytes # 0.8 Monocytes # 1.2 H Eosinophils # 0.0 Basophils # 0.0 Nucleated Red Blood Cells # 0.0 Sodium Level 142 Potassium Level 3.5 Chloride Level 104 Carbon Dioxide Level 31 Anion Gap 7 Est Glomerular Filtrat 38 L Rate mL/min Glucose Level 135 Calcium Level 9.1 Phosphorus Level 5.0 H Magnesium Level 2.2 Total Bilirubin 2.0 H Direct Bilirubin 0.90 #H Indirect Bilirubin 1.1 Aspartate Amino 82 H Transf (AST/SGOT) Alanine 37 Aminotransferase (ALT/SGPT) Alkaline Phosphatase 147 H Total Protein 6.3 Albumin 3.1 L Globulin 3.20 Albumin/Globulin Ratio 0.96 MARIA INES GOLDSTEIN MD Jul 12, 2018 12:27
--- NOTE | 2018-07-12 15:40 | NUR ---
NUTRITION CONSULT: PATIENT INTUBATED, PROPOFOL ON HOLD AT VISIT, PLAN START NGT FEEDING. CONSIDER PREVIOUS RECOMMENDATION TO START REPLETE @ 20 ML/HER WITH GOAL OF 50 ML/HR TO PROVIDE 1200 SANGEETHA/ 76 GM. PROT/ 1008 ML FREE WATER. WATER FLUSHES 50 ML Q 6 HOURS OR PER MD. NO MAINTENANCE IVF NOTED. URINE OUTPUT >1.0 LITER ON DIURETIC. BUN/S.CREAT ELEVATED POSSIBLE 2/2 DIURESIS. NO STOOLING SINCE 07/07, COLACE RXD PRN NOT GIVEN. PHOSPHATE BINDER MAYBE CONSIDERED IF PERSISTENT ELEVATED PHOSPHORUS.
--- NOTE | 2018-07-12 19:04 | NUR ---
EOSS: No significant events throughout shift. VSS. Tube feeds started. No residuals. low grade temp, Dr. More aware. Pt still lethargic/obtunded. Opens eyes to voice & will on occasion follow simple commands, but not consistent. POC updated & continued.
[2018-07-12] MEDS: ATORVASTATIN 80 MG TAB PO SCH (21:53)
[2018-07-13] VITALS (36 sets, daily range): BP systolic 88–149; BP diastolic 52–103; PULSE 82–113; RESP 17–54
[2018-07-13] MEDS: FUROSEMIDE 40 MG INJ IV SCH (05:07)
[2018-07-13] MEDS: LANSOPRAZOLE 30 MG CAP NGT SCH (05:08)
--- NOTE | 2018-07-13 06:47 | NUR ---
EOS: pt with sr thoughout the night. noted large amt of clear secretions. blood Temp 97.0 applied more blanketssugar 74 at midnight no coverage.
--- NOTE | 2018-07-13 08:48 | CONS ---
Date/Time of Note Date/Time of Note DATE: 07/13/18 TIME: 08:46 Assessment/Plan Assessment/Plan Additional Assessment/Plan Ventilator setting; AC of 18, tidal volume 500, PEEP of 5, 30% FiO2. Patient has been off sedation for more than 48 hours. Assessment recommendations; 1. Patient admitted for respiratory failure due to bilateral pneumonia and pulmonary edema with significant radiological improvement. 2. Stage IV colon cancer. 3. Chronic atrial fibrillation. 4. Prior placement of AICD. 5. Anemia. 6. Chronic renal insufficiency. 7. Encephalopathy with interval improvement. Switch the patient to CPAP mode with pressure support of 10. Meanwhile continue other supportive measures. Weaning from ventilator with depend upon how the patient handles CPAP mode. Overall prognosis is guarded. 35 minutes of critical care time was spent evaluating the patient. Consultation Date/Type/Reason Admit Date/Time Jul 08, 2018 at 19:53 Initial Consult Date 07/09/18 Type of Consult Pulmonary/critical care Requesting Provider: ASIA LORA 24 HR Interval Summary Free Text/Dictation Patient's condition is critical. Patient however is much more responsive now mentally. Has remained hemodynamically stable. General exam; middle-aged male, orally intubated, readily arousable. Currently no distress. Exam/Review of Systems Vital Signs Vitals Vital Signs Date Temp Pulse Resp B/P (MAP) Pulse Ox O2 O2 Flow FiO2 Time Delivery Rate 07/13/18 83 19 108/67 96 Mechanical 06:00 (81) Ventilator 07/13/18 30 05:30 07/13/18 99.4 04:00 Intake and Output 07/12/18 07/12/18 07/13/18 1515:00 23:00 07:00 IntakeIntake Total 550 ml 370 ml 310 ml OutputOutput Total 825 ml 440 ml 360 ml BalanceBalance -275 ml -70 ml -50 ml Exam H EENT exam; supple neck, no JVD. No lymphadenopathy. Midline trachea. No thyromegaly. Patient has fair dentition. Orally intubated. Pupils are small bilaterally. No neck masses. Chest exam; diminished but clear breath sounds. S1-S2 audible, no murmurs. Irregular rhythm. Pacemaker in left chest wall. Abdomen exam; soft, no organomegaly. Bowel sounds audible. Extremity exam; no peripheral edema or clubbing. Pulses 1+. 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 Opens eyes on command. Medications Medications Current Medications IV Flush (NS 3 ml) 3 ml PER PROTOCOL IV ; Start 07/08/18 at 21:00 Ondansetron HCl (Zofran Inj) 4 mg Q6H PRN IV NAUSEA AND/OR VOMITING; Start 07/08/18 at 21:00 Acetaminophen (Tylenol Tab) 650 mg Q6H PRN PO PAIN LEVEL 1-3 OR FEVER; Start 07/08/18 at 21:00 Docusate Sodium (Colace) 100 mg Q12H PRN PO CONSTIPATION; Start 07/08/18 at 21:00 Bisacodyl (Dulcolax) 5 mg DAILY PRN PO CONSTIPATION; Start 07/08/18 at 21:00 Atorvastatin Calcium (Lipitor) 80 mg QHS PO Last administered on 07/12/18 21:53; Admin Dose 80 MG; Start 07/09/18 at 21:00 Capecitabine (Xeloda) 1,500 mg BID PO Last administered on 07/12/18 21:55; Admin Dose 1,500 MG; Start 07/09/18 at 09:00 Carvedilol (Coreg) 3.125 mg BID PO Last administered on 07/12/18 21:53; Admin Dose 3.125 MG; Start 07/09/18 at 09:00 Clopidogrel Bisulfate (plaVIX) 75 mg DAILY PO Last administered on 07/12/18at 08:45; Admin Dose 75 MG; Start 07/09/18 at 09:00 Spironolactone (Aldactone) 25 mg DAILY PO Last administered on 07/12/18at 08:46; Admin Dose 25 MG; Start 07/09/18 at 09:00 Sucralfate (Carafate Susp) 1 gm QID PO Last administered on 07/12/18 21:52; Admin Dose 1 GM; Start 07/09/18 at 09:00 Furosemide (Lasix) 40 mg DAILY@0600 IV Last administered on 07/13/18 05:07; Admin Dose 40 MG; Start 07/09/18 at 04:00 Levalbuterol (Xopenex Neb) 1.25 mg Q4H RESP THERAPY PRN HHN SHORTNESS OF BREATH Last administered on 07/09/18at 03:59; Admin Dose 1.25 MG; Start 07/09/18 at 03:45 Cefepime HCl 50 ml @ 100 mls/hr Q12 IVPB Last administered on 07/12/18at 21:52; Admin Dose 100 MLS/HR; Start 07/09/18 at 21:00 Heparin Sodium (Porcine) (Heparin (5000 Units/1ml)) 5,000 unit BID SC Last administered on 07/12/18at 21:55; Admin Dose 5,000 UNIT; Start 07/09/18 at 21:00 Diphenhydramine HCl (Benadryl) 25 mg Q8H PRN PO ITCHING Last administered on at 17:11; Admin Dose 25 MG; Start 07/09/18 at 16:30 Propofol 100 ml @ 3.63 mls/hr Q12H IV Last administered on 07/11/18at 03:50; Admin Dose 3.63 MLS/HR; Start 07/09/18 at 22:00 Midazolam HCl 50 ml @ 1 mls/hr TITRATE IV Last administered on 07/11/18at 03:50; Admin Dose 5 MLS/HR; Start 07/10/18 at 00:00 Vancomycin HCl (Vanco Iv Per Pharmacy) VANCOMYCIN PER PHARMACY PER PROTOCOL XX ; Start 07/10/18 at 04:00 Potassium Chloride (Potassium Chloride Pwd/Soln) 10 meq DAILY NGT Last adminis tered on 07/12/18at 08:45; Admin Dose 10 MEQ; Start 07/10/18 at 09:00 Lansoprazole (Prevacid) 30 mg DAILY@06 NGT Last administered on 07/13/18at 05:08; Admin Dose 30 MG; Start 07/12/18 at 06:00 Vancomycin HCl 1.25 gm/Sodium Chloride 250 ml @ 83.333 mls/ hr Q24H IVPB Last administered on 07/12/18at 10:39; Admin Dose 83.333 MLS/HR; Start 07/12/18 at 10:00 Results Result Diagram: 07/13/18 0500 07/13/18 0500 Results 24 hrs Laboratory Tests Test 07/13/18 05:00 White Blood Count 10.0 Red Blood Count 4.30 L Hemoglobin 9.9 L Hematocrit 32.9 L Mean Corpuscular Volume 76.5 L Mean Corpuscular Hemoglobin 23.0 L Mean Corpuscular Hemoglobin Concent 30.1 L Red Cell Distribution Width 24.2 H Platelet Count 327 Mean Platelet Volume 10.2 Immature Granulocytes % 0.300 Neutrophils % 79.3 H Lymphocytes % 8.0 L Monocytes % 10.7 Eosinophils % 1.3 Basophils % 0.4 Nucleated Red Blood Cells % 0.0 Immature Granulocytes # 0.030 Neutrophils # 7.9 H Lymphocytes # 0.8 Monocytes # 1.1 H Eosinophils # 0.1 Basophils # 0.0 Nucleated Red Blood Cells # 0.0 Sodium Level 144 Potassium Level 3.6 Chloride Level 107 Carbon Dioxide Level 30 Anion Gap 7 Blood Urea Nitrogen 52 H Creatinine 2.06 H Est Glomerular Filtrat Rate mL/min 41 L Glucose Level 157 Calcium Level 9.2 Phosphorus Level 4.2 Magnesium Level 2.5 KATHI MCKEON Jul 13, 2018 08:48
[2018-07-13] MEDS ORDERED: HEPARIN 5,000 UNIT/0.5 ML VIAL ONE (08:52)
[2018-07-13] MEDS: CLOPIDOGREL 75 MG TAB PO SCH (09:02)
[2018-07-13] MEDS: CEFEPIME 1GM/50 ML (PMX) 50 ML IVPB SCH ×2 (09:02→20:48)
[2018-07-13] MEDS: POTASSIUM CHLORIDE 20 MEQ POWDER FOR ORAL SOLN NGT SCH (09:02)
[2018-07-13] MEDS: SUCRALFATE (100 MG/ML) 10ML CUP PO SCH ×4 (09:02→20:48)
[2018-07-13] MEDS: SPIRONOLACTONE 50 MG TAB PO SCH (09:03)
[2018-07-13] MEDS: CAPECITABINE 500 MG TAB PO SCH (09:05)
[2018-07-13] MEDS: HEPARIN 5,000 UNIT/1 ML VIAL SC SCH ×2 (09:05→20:53)
[2018-07-13] MEDS: VANCOMYCIN 1.25 GM in SOD CHLORIDE 0.9% 250 ML IVPB SCH (11:01)
--- NOTE | 2018-07-13 11:01 | PN ---
Date/Time of Note Date/Time of Note DATE: 07/13/18 TIME: 10:28 Assessment/Plan VTE Prophylaxis Risk score (from Nsg)>0 risk: 9 SCD applied (from Nsg): Yes Pharmacological prophylaxis: heparin Lines/Catheters IV Catheter Type (from Nrsg): port a cath Urinary Cath still in place: Yes Reason Cath still needed: urinary retention Assessment/Plan Hospital Course S: CPAP trial attempted this morning, but patient unable to pass. Off of sedation, more responsive today per nursing staff. Seen by pulmonary team this morning. O: VS - see below PE: GENERAL: Obese man intubated, somnolent HEENT: BRITTNI, Intubated, ET tube in place LUNGS: diffusely diminished and coarse BS HEART: S1, S2. No murmur, gallops or rubs. ABDOMEN: Soft, non distended, Normoactive bowel sounds. EXTREMITIES: Mild 1+ nonpitting edema bilaterally, also some hand edema bilaterally NEUROLOGIC: Off sedation; opens eyes to voice. Does not follow commands. Gr imaces to sternal rub. SKIN: Otherwise, unremarkable ECHO 07/09/18: Conclusions Mild concentric left ventricular hypertrophy. Mild enlargement of left ventricle cavity. Moderate global left ventricular systolic dysfunction. Ejection fraction is visually estimated at 25-30 %. Mild mitral leaflet calcification. Mild mitral annular calcification. Trace mitral regurgitation. No significant aortic stenosis or insufficiency. Aortic cusps appear mildly calcified. Normal appearance of the tricuspid valve. Estimated peak PA systolic pressure 31 mmHg. There is mild tricuspid regurgitation Assessment/Plan: 57 yo M with history of metastatic stage IV colon cancer admitted for SOB and hypoxemia, intubated. 1. Acute hypoxemic hypercapnic respiratory failure -failed bipap, now intubated and vent dependent. Secondary to CHF also with signs of Maurisio Pneumonia with probable underlying pulmonary nodules. -Continue vent management and weaning per pulmonary. -Continue broad-spectrum antibiotics for now, will add antifungal given Rosalina growth findings in the respiratory culture 2. Congestive heart failure acute on chronic secondary systolic and diastolic heart failure -patient has history of AICD - Continue diuresis with Lasix per cardiology, patient also remains on Aldactone therapy 3. H/o Severe coronary artery disease with multivessel coronary artery disease, ACS ruled out -Continue Plavix, follow-up cardiology rec's 4. History of PCI of right coronary artery in April 2018 - see # 3 5. History of metastatic adeno CA of the colon s/p resection -has been on Xeloda (palliative chemo?), ?liver mets -For now we will try to continue Xeloda for colon cancer when extubated; currently holding as the med is not crushable. -Follow hematology oncology recommendations 6. History of hypertension -Stable, continue Aldactone for now 7. History of noncompliance -Educate on the importance of taking medicines when patient is extubated 8. History of GI bleed -hemoglobin stable, no present signs of any upper or lower GI bleeding. -Monitor 9. Dyslipidemia - monitor 10. History of sick sinus syndrome s/p pacemaker-pace maker interrogated 07/08/18 [facility] -Monitor heart rate, follow-up cardiology recommendations 11. Recent acute occipital CVA on chronic CVA - monitor for now 12. PreDM hba1C 6.0 - monitor sugars 13. Acute confusion / delirium with reports of hallucinations -likely effect of recent CVA and chronic disease- Currently off sedation x 48 hours, awaiting return of mental status. - monitor 14. IESHA- This may represent contrast-induced nephropathy from CT 48-72 hours ago? (Although both CT scans performed on this admission appear to be done without contrast ) -there are some signs of volume overload as well -For now will proceed with diuresis and watch carefully, presently urine out put is adequate -Since creatinine is still somewhat elevated will obtain renal consult as well Dispo: Continue bronchodilators as well as supportive care. Overall prognosis remains guarded, continue ICU support. Apparently patient has an advance directive; will review when brings it in. Continue supportive care Critical care time today = 50 mins Exam/Review of Systems Vital Signs Vitals Vital Signs Date Temp Pulse Resp B/P (MAP) Pulse Ox O2 O2 Flow FiO2 Time Delivery Rate 07/13/18 102 08:00 07/13/18 19 108/67 96 Mechanical 06:00 (81) Ventilator 07/13/18 30 05:30 07/13/18 99.4 04:00 Intake and Output 07/12/18 07/12/18 07/13/18 1515:00 23:00 07:00 IntakeIntake Total 550 ml 370 ml 310 ml OutputOutput Total 825 ml 440 ml 360 ml BalanceBalance -275 ml -70 ml -50 ml Medications Medications Current Medications IV Flush (NS 3 ml) 3 ml PER PROTOCOL IV ; Start 07/08/18 at 21:00 Ondansetron HCl (Zofran Inj) 4 mg Q6H PRN IV NAUSEA AND/OR VOMITING; Start 07/08/18 at 21:00 Acetaminophen (Tylenol Tab) 650 mg Q6H PRN PO PAIN LEVEL 1-3 OR FEVER; Start 07/08/18 at 21:00 Docusate Sodium (Colace) 100 mg Q12H PRN PO CONSTIPATION; Start 07/08/18 at 21:00 Bisacodyl (Dulcolax) 5 mg DAILY PRN PO CONSTIPATION; Start 07/08/18 at 21:00 Atorvastatin Calcium (Lipitor) 80 mg QHS PO Last administered on 07/12/18at 21:53; Admin Dose 80 MG; Start 07/09/18 at 21:00 Capecitabine (Xeloda) 1,500 mg BID PO Last administered on 07/13/18 09:05; Admin Dose 1,500 MG; Start 07/09/18 at 09:00 Carvedilol (Coreg) 3.125 mg BID PO Last administered on 07/13/18at 09:03; Admin Dose 3.125 MG; Start 07/09/18 at 09:00 Clopidogrel Bisulfate (plaVIX) 75 mg DAILY PO Last administered on 07/13/18 09:02; Admin Dose 75 MG; Start 07/09/18 at 09:00 Spironolactone (Aldactone) 25 mg DAILY PO Last administered on 07/13/18at 09:03; Admin Dose 25 MG; Start 07/09/18 at 09:00 Sucralfate (Carafate Susp) 1 gm QID PO Last administered on 07/13/18at 09:02; Admin Dose 1 GM; Start 07/09/18 at 09:00 Furosemide (Lasix) 40 mg DAILY@0600 IV Last administered on 07/13/18 05:07; Admin Dose 40 MG; Start 07/09/18 at 04:00 Levalbuterol (Xopenex Neb) 1.25 mg Q4H RESP THERAPY PRN HHN SHORTNESS OF BREATH Last administered on 07/09/18at 03:59; Admin Dose 1.25 MG; Start 07/09/18 at 03:45 Cefepime HCl 50 ml @ 100 mls/hr Q12 IVPB Last administered on 12/17/18at 09:02; Admin Dose 100 MLS/HR; Start 07/09/18 at 21:00 Heparin Sodium (Porcine) (Heparin (5000 Units/1ml)) 5,000 unit BID SC Last administered on 07/13/18at 09:05; Admin Dose 5,000 UNIT; Start 07/09/18 at 21:00 Diphenhydramine HCl (Benadryl) 25 mg Q8H PRN PO ITCHING Last administered on 07/09/18at 17:11; Admin Dose 25 MG; Start 07/09/18 at 16:30 Propofol 100 ml @ 3.63 mls/hr Q12H IV Last administered on 07/11/18at 03:50; Admin Dose 3.63 MLS/HR; Start 07/09/18 at 22:00 Midazolam HCl 50 ml @ 1 mls/hr TITRATE IV Last administered on 07/11/18at 03:50; Admin Dose 5 MLS/HR; Start 07/10/18 at 00:00 Vancomycin HCl (Vanco Iv Per Pharmacy) VANCOMYCIN PER PHARMACY PER PROTOCOL XX ; Start 07/10/18 at 04:00 Potassium Chloride (Potassium Chloride Pwd/Soln) 10 meq DAILY NGT Last administered on 07/13/18at 09:02; Admin Dose 10 MEQ; Start 07/10/18 at 09:00 Lansoprazole (Prevacid) 30 mg DAILY@06 NGT Last administered on 07/13/18at 05:08; Admin Dose 30 MG; Start 07/12/18 at 06:00 Vancomycin HCl 1.25 gm/Sodium Chloride 250 ml @ 83.333 mls/ hr Q24H IVPB Last administered on 07/12/18at 10:39; Admin Dose 83.333 MLS/HR; Start 07/12/18 at 10:00 Results Result Diagram: 07/13/18 0500 07/13/18 0500 Results 24 hrs Laboratory Tests Test 07/13/18 05:00 White Blood Count 10.0 Red Blood Count 4.30 L Hemoglobin 9.9 L Hematocrit 32.9 L Mean Corpuscular Volume 76.5 L Mean Corpuscular Hemoglobin 23.0 L Mean Corpuscular Hemoglobin Concent 30.1 L Red Cell Distribution Width 24.2 H Platelet Count 327 Mean Platelet Volume 10.2 Immature Granulocytes % 0.300 Neutrophils % 79.3 H Lymphocytes % 8.0 L Monocytes % 10.7 Eosinophils % 1.3 Basophils % 0.4 Nucleated Red Blood Cells % 0.0 Immature Granulocytes # 0.030 Neutrophils # 7.9 H Lymphocytes # 0.8 Monocytes # 1.1 H Eosinophils # 0.1 Basophils # 0.0 Nucleated Red Blood Cells # 0.0 Sodium Level 144 Potassium Level 3.6 Chloride Level 107 Carbon Dioxide Level 30 Anion Gap 7 Blood Urea Nitrogen 52 H Creatinine 2.06 H Est Glomerular Filtrat Rate mL/min 41 L Glucose Level 157 Calcium Level 9.2 Phosphorus Level 4.2 Magnesium Level 2.5 RAÚL SOLIMAN Jul 13, 2018 10:39
--- NOTE | 2018-07-13 11:10 | NUR ---
CPAP TRIAL: Pt placed on CPAP at 10:50. Pt only tolerated for approx 11 minutes. RR in the high 50's low 60's. Pt placed back on AC setting.
[2018-07-13] MEDS: FLUCONAZOLE 100 MG/50 ML (PMX) 50 ML IVPB SCH (11:56)
--- NOTE | 2018-07-13 14:46 | CONS ---
DATE OF ADMISSION: 07/08/2018 DATE OF CONSULTATION: 07/13/2018 TYPE OF CONSULTATION: Nephrology. REASON FOR CONSULTATION: Acute kidney injury. REQUESTING PHYSICIAN: Raúl Soliman MD HISTORY OF PRESENT ILLNESS: This is a 57-year-old male with a past medical history of ischemic cardi omyopathy with ejection fraction 25%, history of arrhythmia, status post pacemaker, history of colon cancer with known mets to liver, history of chronic kidney disease with a previous baseline creatinin e of 1.3 m/dL, who presents to the [facility] with complaints of shortness of breat h on 07/06/2018. The patient upon arrival was having palpitations, shortness of breath. The patie nt was also complaining of chest pain and chest pressure. The patient in the Emergency Room was star dwight on diuretic therapy and admitted to telemetry. The patient while on the telemetry floor, decompe nsated requiring intubation and was transferred to intensive care unit. While in intensive care unit , the patient has been receiving diuretic therapy for underlying heart failure as well as antibiotic therapy for possible pneumonia. In terms of patient's renal history, on admission the patient noted to have a creatinine of 1.28 mg/d L. The patient's creatinine has increased to 2.2 mg/dL. During this time as stated above, the jeanna nt has been receiving diuretic therapy, antibiotic therapy for significant hemodynamic fluctuations. There have been no reports of hemoptysis, hematemesis or hematochezia. PAST MEDICAL HISTORY: 1. As stated above, history of coronary artery disease, hypertension, cardiomyopathy, colon cancer o n oral chemotherapy, history of GI bleed 2. History of morbid obesity. 3. Anemia. PAST SURGICAL HISTORY: Status post ICD placement, status post colon cancer resection, status post ch olecystectomy, status post hernia repair. FAMILY HISTORY: No family history of kidney disease. SOCIAL HISTORY: Does not actively drink, smoke or do drugs. MEDICATIONS: The patient's medications have been reviewed. REVIEW OF SYSTEMS: Unable to get accurate review of systems as patient is obtunded, intubated. Pert inent positives as obtained by reviewing medical records, speaking to hospital staff, stated in HPI, otherwise negative. PHYSICAL EXAMINATION: VITAL SIGNS: Blood pressure is 131/89, respiration 18, pulse 100, temperature 99.8. HEENT: Head is normocephalic. NECK: Supple. HEART: Regular rate. LUNGS: Show diminished breath sounds at the base. ABDOMEN: Soft, nontender to palpation without rebound or guarding. EXTREMITIES: Negative for clubbing, cyanosis, no edema. DERMATOLOGIC: No rashes. MUSCULOSKELETAL: No joint effusion. NEUROLOGIC: No focal deficits. MEDICATIONS: Have been reviewed. LABORATORY DATA: Shows sodium 144, potassium 3.6, chloride 106, BUN 52, creatinine 2.06. White coun t 10.0, hemoglobin 9.9, platelet count 242. Imaging studies were reviewed. CT scan of abdomen and pelvis was reviewed, showed evidence of bibasi lar infiltrates. CT scan of the chest on 07/10/2018 was reviewed, showed multifocal consolidations o f the lungs. ASSESSMENT AND PLAN: This is a 57-year-old male who presents with problem: 1. Nonoliguric acute kidney injury on top of chronic kidney disease with previous baseline creatinin e of 1.3 mg/dL. Etiology of acute kidney injury is multifactorial secondary to hemodynamics, diureti cs, possible tubular injury. Other possibilities including nephrotoxicity from chemotherapy, , interstitial nephritis are considerations. Less likely acute glomerulonephritis or vasculitis. Plan at this point is to check a UA with microanalysis. Will check urine electrolytes and calculate a FE Na, fraction excretion of urea. We will get a renal ultrasound to evaluate renal parenchyma. Would otherwise continue current treatment plan. Continue antibiotic therapy. We will consider deescalati ng diuretic therapy if renal function continues to decline. Otherwise, he will continue supportive c are, renally dose all meds, avoid nephrotoxins. 2. Anemia. Monitor hemoglobin and hematocrit levels, check iron panel, stool for occult blood. 3. Mineral bone disorder, monitor calcium and phosphorus levels. 4. Respiratory failure. The patient's vent settings and arterial blood gas was reviewed. Will cont inue to monitor. Follow up with pulmonary. 5. Acute systolic heart failure/ischemic cardiomyopathy. We will continue current medical managemen t. Continue diuretic therapy for now, monitor closely. Follow up with cardiology. 6. Sepsis secondary to bilateral pneumonia. Continue current antibiotic regimen. 7. History of coronary artery disease. Continue medical management. 8. History of metastatic adenocarcinoma of the colon, status post resection. The patient is on ____ _ chemotherapy. Continue to monitor closely. Follow up with oncology. 9. Hypertension. 10. Dysphagia. Continue tube feeding. 11. History of gastrointestinal bleed. 12. Dyslipidemia. Continue statin therapy. 13. History of sick sinus syndrome, status post pacemaker. 14. Acute cerebrovascular accident. Continue medical management. 15. Acute encephalopathy, possibly secondary to cerebrovascular accident. Continue to monitor. Thank you, Dr. Soliman for this interesting consult. Please note I spent over 40 minutes of critical care time with this patient. Dictated By: BROOK DEGROOT DO NR/NTS Conf#: [id number] DID#: [id number] CC: BROOKE FELDMAN MD; ASIA LORA MD; RAÚL SOLIMAN;*EndCC*
--- NOTE | 2018-07-13 18:10 | CONS ---
Date/Time of Note Date/Time of Note DATE: 07/13/18 TIME: 18:07 Consult Date/Type/Reason Admit Date/Time Jul 08, 2018 at 19:53 Initial Consult Date 07/10/18 Requesting Provider: ASIA LORA Subjective Interventional cardiology follow-up progress note Subjective: Discussed with the staff and physicians. d./w Better and follow commands now but is still remains intubated on the vent Patient has been mostly in sinus rhythm. Events noted. Patient had to be intubated on 07/09/2018 due to increasing and worsening respiratory failure. He is currently intubated on the vent. Objective: General: Obese gentleman status post intubation on the vent now HEENT: NC/AT. pupils are equal. round. NECK: NO JVD. no stridor. CV: Regular rate and rhythm. systolic murmur; no gallop or rubs. PULM: + rhonchi. GI: SOFT, NT, ND, no rebound or guarding Extremity: + B/L LE edema. no clubbing. neuro: Awake and follows commands Psych: Calm rectal: deferred : normal EKG was personally reviewed which shows: Sinus tachycardia nonspecific T wave abnormalities Cardiogram done 07/09/2018 which was personally reviewed shows: Mild concentric left ventricular hypertrophy. Mild enlargement of left ventricle cavity. Moderate global left ventricular systolic dysfunction. Ejection fraction is visually estimated at 25-30 %. Mild mitral leaflet calcification. Mild mitral annular calcification. Trace mitral regurgitation. No significant aortic stenosis or insufficiency. Aortic cusps appear mildly calcified. Normal appearance of the tricuspid valve. Estimated peak PA systolic pressure 31 mmHg. There is mild tricuspid regurgitation. Chest CT done 07/10/2018 shows: Multifocal areas of consolidation throughout the lungs bilaterally, most notable within the upper lobes. Findings are likely infectious in nature. Please note that this obscures previously seen pulmonary nodules on prior CT. Chest x-ray done on 07/12/2018 shows:Endotracheal tube and right-sided central venous port appear properly positioned. Bibasilar pulmonary opacities with small pleural effusions, left greater than right. Heart size is stable with cardiac pacer wires. Objective Vital Signs Date Temp Pulse Resp B/P (MAP) Pulse Ox O2 O2 Flow FiO2 Time Delivery Rate 07/13/18 102 28 99 30 17:10 07/13/18 131/89 Mechanical 11:00 (103) Ventilator 12/17/18 99.8 08:00 Intake and Output 07/12/18 07/12/18 07/13/18 1515:00 23:00 07:00 IntakeIntake Total 550 ml 370 ml 310 ml OutputOutput Total 825 ml 440 ml 360 ml BalanceBalance -275 ml -70 ml -50 ml Results/Medications Result Diagram: 07/13/18 0500 07/13/18 0500 Results 24 hrs Laboratory Tests Test 07/13/18 05:00 07/13/18 12:40 White Blood Count 10.0 Red Blood Count 4.30 L Hemoglobin 9.9 L Hematocrit 32.9 L Mean Corpuscular Volume 76.5 L Mean Corpuscular Hemoglobin 23.0 L Mean Corpuscular Hemoglobin Concent 30.1 L Red Cell Distribution Width 24.2 H Platelet Count 327 Mean Platelet Volume 10.2 Immature Granulocytes % 0.300 Neutrophils % 79.3 H Lymphocytes % 8.0 L Monocytes % 10.7 Eosinophils % 1.3 Basophils % 0.4 Nucleated Red Blood Cells % 0.0 Immature Granulocytes # 0.030 Neutrophils # 7.9 H Lymphocytes # 0.8 Monocytes # 1.1 H Eosinophils # 0.1 Basophils # 0.0 Nucleated Red Blood Cells # 0.0 Sodium Level 144 Potassium Level 3.6 Chloride Level 107 Carbon Dioxide Level 30 Anion Gap 7 Blood Urea Nitrogen 52 H Creatinine 2.06 H Est Glomerular Filtrat Rate mL/min 41 L Glucose Level 157 Calcium Level 9.2 Phosphorus Level 4.2 Magnesium Level 2.5 Urine Color LIVIA Urine Clarity CLOUDY A Urine pH 5.0 Urine Specific Plummer 1.014 Urine Ketones NEGATIVE Urine Nitrite NEGATIVE Urine Bilirubin NEGATIVE Urine Urobilinogen NEGATIVE Urine Leukocyte Esterase NEGATIVE Urine Microscopic RBC > 182 H Urine Microscopic WBC 9 H Urine Amorphous Crystals MODERATE Urine Bacteria FEW A Urine Mucus FEW A Urine Hemoglobin 3+ H Urine Random Creatinine 116.44 Urine Random Sodium < 13 L Urine Glucose NEGATIVE Urine Total Protein 62.0 H Medications Current Medications IV Flush (NS 3 ml) 3 ml PER PROTOCOL IV ; Start 07/08/18 at 21:00 Ondansetron HCl (Zofran Inj) 4 mg Q6H PRN IV NAUSEA AND/OR VOMITING; Start 07/08/18 at 21:00 Acetaminophen (Tylenol Tab) 650 mg Q6H PRN PO PAIN LEVEL 1-3 OR FEVER; Start 07/08/18 at 21:00 Docusate Sodium (Colace) 100 mg Q12H PRN PO CONSTIPATION; Start 07/08/18 at 21:00 Atorvastatin Calcium (Lipitor) 80 mg QHS PO Last administered on 07/12/18at 21:53; Admin Dose 80 MG; Start 07/09/18 at 21:00 Capecitabine (Xeloda) 1,500 mg BID PO Last administered on 07/13/18at 09:05; Admin Dose 1,500 MG; Start 07/09/18 at 09:00; Status Hold Carvedilol (Coreg) 3.125 mg BID PO Last administered on 07/13/18 09:03; Admin Dose 3.125 MG; Start 07/09/18 at 09:00 Clopidogrel Bisulfate (plaVIX) 75 mg DAILY PO Last administered on 07/13/18 09:02; Admin Dose 75 MG; Start 07/09/18 at 09:00 Spironolactone (Aldactone) 25 mg DAILY PO Last administered on 07/13/18 09:03; Admin Dose 25 MG; Start 07/09/18 at 09:00 Sucralfate (Carafate Susp) 1 gm QID PO Last administered on 07/13/18 16:59; Admin Dose 1 GM; Start 07/09/18 at 09:00 Furosemide (Lasix) 40 mg DAILY@0600 IV Last administered on 07/13/18 05:07; Admin Dose 40 MG; Start 07/09/18 at 04:00 Levalbuterol (Xopenex Neb) 1.25 mg Q4H RESP THERAPY PRN HHN SHORTNESS OF BREATH Last administered on 07/09/18at 03:59; Admin Dose 1.25 MG; Start 07/09/18 at 03:45 Cefepime HCl 50 ml @ 100 mls/hr Q12 IVPB Last administered on 07/13/18 09:02; Admin Dose 100 MLS/HR; Start 07/09/18 at 21:00 Heparin Sodium (Porcine) (Heparin (5000 Units/1ml)) 5,000 unit BID SC Last administered on 07/13/18 09:05; Admin Dose 5,000 UNIT; Start 07/09/18 at 21:00 Diphenhydramine HCl (Benadryl) 25 mg Q8H PRN PO ITCHING Last administered on 07/09/18at 17:11; Admin Dose 25 MG; Start 07/09/18 at 16:30 Propofol 100 ml @ 3.63 mls/hr Q12H IV Last administered on 07/11/18at 03:50; Admin Dose 3.63 MLS/HR; Start 07/09/18 at 22:00 Midazolam HCl 50 ml @ 1 mls/hr TITRATE IV Last administered on 07/11/18at 03:50; Admin Dose 5 MLS/HR; Start 07/10/18 at 00:00 Vancomycin HCl (Vanco Iv Per Pharmacy) VANCOMYCIN PER PHARMACY PER PROTOCOL XX ; Start 07/10/18 at 04:00 Potassium Chloride (Potassium Chloride Pwd/Soln) 10 meq DAILY NGT Last administered on 07/13/18at 09:02; Admin Dose 10 MEQ; Start 07/10/18 at 09:00 Lansoprazole (Prevacid) 30 mg DAILY@06 NGT Last administered on 07/13/18at 05:08; Admin Dose 30 MG; Start 07/12/18 at 06:00 Vancomycin HCl 1.25 gm/Sodium Chloride 250 ml @ 83.333 mls/ hr Q24H IVPB Last administered on 07/13/18at 11:01; Admin Dose 83.333 MLS/HR; Start 07/12/18 at 10:00 Fluconazole/ Sodium Chloride 50 ml @ 50 mls/hr Q24H IVPB Last administered on 07/13/18at 11:56; Admin Dose 50 MLS/HR; Start 07/13/18 at 11:00 Alprazolam (Xanax) 0.25 mg DAILY NGT ; Start 07/14/18 at 09:00 Alprazolam (Xanax) 0.25 mg QHS PRN PO ANXIETY; Start 07/13/18 at 15:30 Assessment/Plan Chief Complaint/Hosp Course 1. Acute hypoxemic hypercapnic respiratory failure 2. 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 Severe coronary artery disease with multivessel coronary artery disease 4. History of PCI of right coronary artery in April 2018 5. History of metastatic adeno CA of the colon 6. History of hypertension 7. Extensive pneumonia 8. History of GI bleed 9. Dyslipidemia 10. History of sick sinus syndrome s/p pacemaker 11. Acute renal failure Recommendations: Plavix to be continued as much as possible given his history of recent PCI off the AN inhibitor due to acute renal failure Respiratory care as per pulmonary. Patient is currently on the vent and intubated I will stop the Lasix given his acute renal failure monitor Echocardiogram reviewed that showed severe LV dysfunction Continue with ICU care. Continue with a statin beta-casie and AN inhibitor as tolerated. more than 35 minutes critical care time was for management treatment is critically ill patient excluding any procedures Thank you for his referral. We will continue to follow along with you. ANGEL CANCINO MD [facility] ANGEL CANCINO MD Jul 13, 2018 18:10
--- NOTE | 2018-07-13 19:41 | NUR ---
EOSS: NO SIGNIFICANT EVENTS THROUGHOUT SHIFT. VSS. PT MORE AWAKE, FOLLOWING COMMANDS. FAILED CPAP AFTER 11 MINUTES. FAMILY AWARE. WILL TRY AGAIN TOMORROW WITH CPAP. LOW GRADE TEMP, 99.8 T-MAX, AWARE. RENAL U/S PERFORMED, URINE SENT. POC UPDATED & CONTINUED.
[2018-07-13] MEDS: ATORVASTATIN 80 MG TAB PO SCH (20:49)
[2018-07-13] MEDS: PROPOFOL 100 ML IV SCH ×2 (20:55→22:00)
--- NOTE | 2018-07-13 22:40 | PN ---
DATE: 07/13/2018 SUBJECTIVE: The patient is said to have been more awake today. He has been off propofol. He is how ever now sleeping. The patient remains intubated and ventilator dependent. OBJECTIVE: GENERAL: The patient is a well-developed, chronically ill-appearing male, in no acute distress. VITAL SIGNS: Temperature 99 axillary, pulse 98 per minute and regular, respirations 20, blood pressu re 112/69, pulse oximetry 97% with FiO2 of 30%. SKIN: No ecchymosis. No petechiae or rashes. HEENT: Normocephalic. No evidence of trauma. Pupils equal, round, react to light and accommodation . Sclerae are minimally icteric. The patient does have an endotracheal tube in place. NECK: There is a mild jugular venous distention. CHEST: Diffuse rhonchi. HEART: Regular sinus rhythm. No S3, S4, or murmurs. No rubs. ABDOMEN: Soft. No masses. No ascites. EXTREMITIES: There is 1+ bilateral lower extremity edema. No clubbing or cyanosis. NEUROLOGIC: No focal neurologic abnormalities. LABORATORY DATA: Sodium 144, potassium 3.6, creatinine 2.06, BUN 41, calcium 9.2. White blood cell count 10,000 with an absolute neutrophil count of 7900, hemoglobin 9.9, hematocrit 32.9, MCV 76.5, an d platelet count is 327,000. ASSESSMENT: 1. Ischemic cardiomyopathy, likely related to use of oxaliplatin, causing congestive heart failure. 2. Respiratory failure, may be secondary to congestive heart failure, but should also consider pneum onitis caused by oxaliplatin as well. At this time, there are no new oncologic therapies suggested. The patient may be able to tolerate ot her agents such as capecitabine. Other underlying genomic studies are unknown. It is not clear if the patient is KRAS wild type or in fact does have high microsatellite instability. In the latter case, the patient may be a candidate for a "checkpoint inhibitor." However, this would certainly be contraindicated if the patient already has a drug-induced pneumonitis. Dictated By: HALEY GUADARRAMA MD SR/NTS Conf#: [id number] DID#: [id number] CC: ASIA LORA MD;*EndCC*
[2018-07-14] VITALS (40 sets, daily range): BP systolic 103–156; BP diastolic 67–108; PULSE 88–119; RESP 12–35
[2018-07-14] MEDS: LANSOPRAZOLE 30 MG CAP NGT SCH (05:01)
--- NOTE | 2018-07-14 05:49 | NUR ---
EOSS: no significant change of condition. with low grade fever T99.2 , cooling measures provided. suctioned ETT with moderate thin secretions, oral care provided, pt. still on restraint bilateral soft limb , restraint care provided. pt. still has episodes of trying to pull out tubes and lines. no BM. pt. with deepika cath at right chest , asymptomatic. all needs attended, all nursing care rendered.
--- NOTE | 2018-07-14 07:15 | CONS ---
Date/Time of Note Date/Time of Note DATE: 07/14/18 TIME: 07:12 Consult Date/Type/Reason Admit Date/Time Jul 08, 2018 at 19:53 Initial Consult Date 07/10/18 Type of Consultation: cv Requesting Provider: ASIA LORA Subjective Interventional cardiology follow-up progress note Subjective: Discussed with the staff and physicians. tele was reviewed. pt remains in NSR with demand pacing his neuro status is stable and and follow commands now but is still remains intubated on the vent min secretions failed weaning yesterday Events noted. Patient had to be intubated on 07/09/2018 due to increasing and worsening respiratory failure. He is currently intubated on the vent. Objective: General: Obese gentleman status post intubation on the vent now HEENT: NC/AT. pupils are equal. round. NECK: NO JVD. no stridor. CV: Regular rate and rhythm. systolic murmur; no gallop or rubs. PULM: + rhonchi. GI: SOFT, NT, ND, no rebound or guarding Extremity: + B/L LE edema. no clubbing. neuro: Awake and follows commands Psych: Calm rectal: deferred : normal EKG was personally reviewed which shows: Sinus tachycardia nonspecific T wave abnormalities Cardiogram done 07/09/2018 which was personally reviewed shows: Mild concentric left ventricular hypertrophy. Mild enlargement of left ventricle cavity. Moderate global left ventricular systolic dysfunction. Ejection fraction is visually estimated at 25-30 %. Mild mitral leaflet calcification. Mild mitral annular calcification. Trace mitral regurgitation. No significant aortic stenosis or insufficiency. Aortic cusps appear mildly calcified. Normal appearance of the tricuspid valve. Estimated peak PA systolic pressure 31 mmHg. There is mild tricuspid regurgitation. Chest CT done 07/10/2018 shows: Multifocal areas of consolidation throughout the lungs bilaterally, most notable within the upper lobes. Findings are likely infectious in nature. Please note that this obscures previously seen pulmonary nodules on prior CT. Chest x-ray done on 07/12/2018 shows:Endotracheal tube and right-sided central venous port appear properly positioned. Bibasilar pulmonary opacities with small pleural effusions, left greater than right. Heart size is stable with cardiac pacer wires. Objective Vital Signs Date Temp Pulse Resp B/P (MAP) Pulse Ox O2 O2 Flow FiO2 Time Delivery Rate 07/14/18 91 18 121/69 94 Mechanical 05:00 (86) Ventilator 07/14/18 30 04:55 07/14/18 99.2 04:00 Intake and Output 07/13/18 07/13/18 07/14/18 1515:00 23:00 07:00 IntakeIntake Total 890 ml 560 ml 350 ml OutputOutput Total 525 ml 520 ml 350 ml BalanceBalance 365 ml 40 ml 0 ml Results/Medications Result Diagram: 07/14/18 0500 07/14/18 0500 Results 24 hrs Laboratory Tests Test 07/13/18 12:40 07/14/18 05:00 Urine Color LIVIA Urine Clarity CLOUDY A Urine pH 5.0 Urine Specific [place] 1.014 Urine Ketones NEGATIVE Urine Nitrite NEGATIVE Urine Bilirubin NEGATIVE Urine Urobilinogen NEGATIVE Urine Leukocyte Esterase NEGATIVE Urine Microscopic RBC > 182 H Urine Microscopic WBC 9 H Urine Amorphous Crystals MODERATE Urine Bacteria FEW A Urine Mucus FEW A Urine Hemoglobin 3+ H Urine Random Creatinine 116.44 Urine Random Sodium < 13 L Urine Glucose NEGATIVE Urine Total Protein 62.0 H White Blood Count 9.9 Red Blood Count 3.99 L Hemoglobin 9.2 L Hematocrit 31.3 L Mean Corpuscular Volume 78.4 L Mean Corpuscular Hemoglobin 23.1 L Mean Corpuscular Hemoglobin Concent 29.4 L Red Cell Distribution Width 24.0 H Platelet Count 323 Mean Platelet Volume 10.5 H Immature Granulocytes % 0.300 Neutrophils % 77.4 H Lymphocytes % 9.7 L Monocytes % 10.4 Eosinophils % 1.8 Basophils % 0.4 Nucleated Red Blood Cells % 0.0 Immature Granulocytes # 0.030 Neutrophils # 7.7 H Lymphocytes # 1.0 Monocytes # 1.0 H Eosinophils # 0.2 Basophils # 0.0 Nucleated Red Blood Cells # 0.0 Sodium Level 147 H Potassium Level 3.8 Chloride Level 109 Carbon Dioxide Level 31 Anion Gap 7 Blood Urea Nitrogen 55 H Creatinine 1.86 H Est Glomerular Filtrat Rate mL/min 46 L Glucose Level 152 Calcium Level 9.3 Medications Current Medications IV Flush (NS 3 ml) 3 ml PER PROTOCOL IV ; Start 07/08/18 at 21:00 Ondansetron HCl (Zofran Inj) 4 mg Q6H PRN IV NAUSEA AND/OR VOMITING; Start 07/08/18 at 21:00 Acetaminophen (Tylenol Tab) 650 mg Q6H PRN PO PAIN LEVEL 1-3 OR FEVER; Start 07/08/18 at 21:00 Docusate Sodium (Colace) 100 mg Q12H PRN PO CONSTIPATION; Start 07/08/18 at 21:00 Atorvastatin Calcium (Lipitor) 80 mg QHS PO Last administered on 07/13/18 20:49; Admin Dose 80 MG; Start 07/09/18 at 21:00 Capecitabine (Xeloda) 1,500 mg BID PO Last administered on 07/13/18 09:05; Admin Dose 1,500 MG; Start 07/09/18 at 09:00; Status Hold Carvedilol (Coreg) 3.125 mg BID PO Last administered on 07/13/18 20:54; Admin Dose 3.125 MG; Start 07/09/18 at 09:00 Clopidogrel Bisulfate (plaVIX) 75 mg DAILY PO Last administered on 07/13/18 09:02; Admin Dose 75 MG; Start 07/09/18 at 09:00 Spironolactone (Aldactone) 25 mg DAILY PO Last administered on 07/13/18 09:03; Admin Dose 25 MG; Start 07/09/18 at 09:00 Sucralfate (Carafate Susp) 1 gm QID PO Last administered on 07/13/18 20:48; Admin Dose 1 GM; Start 07/09/18 at 09:00 Levalbuterol (Xopenex Neb) 1.25 mg Q4H RESP THERAPY PRN HHN SHORTNESS OF BREATH Last administered on 07/09/18 03:59; Admin Dose 1.25 MG; Start 07/09/18 at 03:45 Cefepime HCl 50 ml @ 100 mls/hr Q12 IVPB Last administered on 07/13/18 20:48; Admin Dose 100 MLS/HR; Start 07/09/18 at 21:00 Heparin Sodium (Porcine) (Heparin (5000 Units/1ml)) 5,000 unit BID SC Last administered on 07/13/18 20:53; Admin Dose 5,000 UNIT; Start 07/09/18 at 21:00 Diphenhydramine HCl (Benadryl) 25 mg Q8H PRN PO ITCHING Last administered on 07/09/18 17:11; Admin Dose 25 MG; Start 07/09/18 at 16:30 Propofol 100 ml @ 3.63 mls/hr Q12H IV Last administered on 07/11/18at 03:50; Admin Dose 3.63 MLS/HR; Start 07/09/18 at 22:00 Midazolam HCl 50 ml @ 1 mls/hr TITRATE IV Last administered on 07/11/18at 03:50; Admin Dose 5 MLS/HR; Start 07/10/18 at 00:00 Vancomycin HCl (Vanco Iv Per Pharmacy) VANCOMYCIN PER PHARMACY PER PROTOCOL XX ; Start 07/10/18 at 04:00 Lansoprazole (Prevacid) 30 mg DAILY@06 NGT Last administered on 07/14/18at 05:01; Admin Dose 30 MG; Start 07/12/18 at 06:00 Vancomycin HCl 1.25 gm/Sodium Chloride 250 ml @ 83.333 mls/ hr Q24H IVPB Last administered on 07/13/18at 11:01; Admin Dose 83.333 MLS/HR; Start 07/12/18 at 10:00 Fluconazole/ Sodium Chloride 50 ml @ 50 mls/hr Q24H IVPB Last administered on 07/13/18at 11:56; Admin Dose 50 MLS/HR; Start 07/13/18 at 11:00 Alprazolam (Xanax) 0.25 mg DAILY NGT ; Start 07/14/18 at 09:00 Alprazolam (Xanax) 0.25 mg QHS PRN PO ANXIETY; Start 07/13/18 at 15:30 Assessment/Plan Chief Complaint/Hosp Course 1. Acute hypoxemic hypercapnic respiratory failure 2. 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 Severe coronary artery disease with multivessel coronary artery disease 4. History of PCI of right coronary artery in April 2018 5. History of metastatic adeno CA of the colon 6. History of hypertension 7. Extensive pneumonia 8. History of GI bleed 9. Dyslipidemia 10. History of sick sinus syndrome s/p pacemaker 11. Acute renal failure Recommendations: Plavix to be continued as much as possible given his history of recent PCI off the AN inhibitor due to acute renal failure Respiratory care as per pulmonary. Patient is currently on the vent and intubated. weaning as / if tolerated I have stopped the Lasix given his acute renal failure. will monitor and resume prn Echocardiogram reviewed that showed severe LV dysfunction Continue with ICU care. Continue with a statin beta-casie and AN inhibitor as tolerated. more than 33 minutes critical care time was for management treatment is critically ill patient excluding any procedures Thank you for his referral. We will continue to follow along with you. ANGEL CANCINO MD [facility] ANGEL CANCINO MD Jul 14, 2018 07:15
--- NOTE | 2018-07-14 07:58 | PN ---
DATE: 07/14/2018 SUBJECTIVE: The patient remains in serous, but stable condition. The patient is on full ventilatory support. The patient had adequate urinary output. OBJECTIVE: VITAL SIGNS: Blood pressure is 156/104, pulse 102, respirations 14, saturating 98%. HEENT: Head is normocephalic. NECK: Supple. HEART: Regular rate. LUNGS: Show diminished breath sounds at the base. ABDOMEN: Soft, nontender to palpation. No rebound or guarding. EXTREMITIES: Negative for clubbing, cyanosis, no edema. DERMATOLOGIC: No rashes. MUSCULOSKELETAL: No joint effusion. NEUROLOGIC: No change in exam. MEDICATIONS: Reviewed. LABORATORY DATA: Shows white count 9.9, hemoglobin 9.2, platelet count is 323. Sodium is 147, potas sium 3.8, BUN 55, creatinine 1.86. The patient's urine study shows FENa less than 1%, protein creati nine ratio approximately 500 mg per gram of creatinine. The patient's renal ultrasound was unremarka ble. ASSESSMENT AND PLAN: 1. Nonoliguric acute kidney injury on top of chronic kidney disease with a previous baseline creatin ine of 1.3 mg/dL. Etiology of acute kidney injury is secondary to hemodynamics, diuretics, possible cardiorenal syndrome. The patient's FENa is less than 1% suggestive of prerenal etiology. The patie nt appears euvolemic on exam. Renal function has improved in the last 24 hours after diuretics were deescalated. Recommendation would be to continue current treatment plan. Continue to hold diuretic therapy. Continue antibiotic therapy. Otherwise, continue to renally dose all medicines, avoid neph rotoxins. 2. Hypernatremia. The patient has a free water deficit approximately 2 liters. We will increase fr ee water flushes at 200 mL q.4h. 3. Anemia. Continue to monitor hemoglobin and hematocrit levels. Check iron panel. 4. Mineral bone disorder, monitor calcium and phosphorus levels. 5. Ventilator-dependent respiratory failure. Vent settings and ABG was reviewed. Continue to monit or. Follow up with Cardiology. 6. Acute systolic heart failure, ischemic cardiomyopathy. The patient has ejection fraction of 20-2 5%. The patient appears compensated. Continue to monitor, holding diuretic therapy. 7. Sepsis secondary to bilateral pneumonia. Continue current antibiotic regimen. 8. History of coronary artery disease. Continue medical management. 9. Metastatic adenocarcinoma of the colon, status post resection. The patient is on chemotherapy. Monitor closely. 10. Dysphagia. Continue tube feeding. 11. Hypertension. 12. History of gastrointestinal bleed. 13. Dyslipidemic. Continue statin therapy. 14. Sick sinus syndrome, status post pacemaker. 15. Acute cerebrovascular accident. Continue medical management. 16. Acute encephalopathy, possibly due to cerebrovascular accident. Continue to monitor. Please note I spent over 40 minutes of critical care time with this patient. Dictated By: BROOK DEGROOT DO NR/NTS Conf#: [id number] DID#: [id number] CC: BROOKE FELDMAN MD; RAÚL SOLIMAN; ASIA LORA MD;*EndCC*
--- NOTE | 2018-07-14 08:09 | PN ---
Date/Time of Note Date/Time of Note DATE: 07/14/18 TIME: 08:05 Assessment/Plan VTE Prophylaxis Risk score (from Ns)>0 risk: 9 SCD applied (from Ns): Yes Pharmacological prophylaxis: heparin Lines/Catheters IV Catheter Type (from [facility]): deepika cath Urinary Cath still in place: Yes Reason Cath still needed: other (indicate) (coma) Assessment/Plan Hospital Course 57 yo man with Stage IV colon cancer who is admitted for ischemic heart disease and CHF. There may be an element of pneumonitis as well. His says that the tumors have shrunk and that the CEA has come down modestly as well. However, his heart failure has been a serious problem and he goes to the ER about twice a week. Unfortunately the cardiac issues have been difficult to treat and are unlikely to improve significantly. We discussed that if any family wants to see him alive, they should come soon. She relates that he has been progressively more depressed since the cardiac problems occured and he realized that he was not going to get back to being the same as before the illness. I have told her that his prognosis is very poor and that she should talk to the fire prevention bureau captain. However, I would consider a NO CODE status. No treatment for the colon cancer is suggested since this issue is not the significant problem now. Assessment/Plan Pt remains on respirator having fail effort to wean off respirator yesterday. Note that Xeloda has been held until PO intake can be done. However, his clinical deterioration is due to cardiac issues and not his cancer. Continue current plans but prognosis is grim. Subjective 24 Hr Interval Summary Free Text/Dictation Pt intubated and non-responsive Exam/Review of Systems Vital Signs Vitals Vital Signs Date Temp Pulse Resp B/P (MAP) Pulse Ox O2 O2 Flow FiO2 Time Delivery Rate 07/14/18 102 14 156/104 99 Mechanical 07:00 (121) Ventilator 07/14/18 30 04:55 07/14/18 99.2 04:00 Intake and Output 07/13/18 07/13/18 07/14/18 1515:00 23:00 07:00 IntakeIntake Total 890 ml 560 ml 450 ml OutputOutput Total 525 ml 520 ml 550 ml BalanceBalance 365 ml 40 ml -100 ml Exam Constitutional: other (intubated) Head: normocephalic Eyes: other (pallor) ENMT: other (ET tube in place) Neck: supple Respiratory: other (on respirator support) Cardiovascular: regular rate and rhythm Gastrointestinal: soft, non-tender Lymph: nl lymph nodes Medications Medications Current Medications IV Flush (NS 3 ml) 3 ml PER PROTOCOL IV ; Start 07/08/18 at 21:00 Ondansetron HCl (Zofran Inj) 4 mg Q6H PRN IV NAUSEA AND/OR VOMITING; Start 07/08/18 at 21:00 Acetaminophen (Tylenol Tab) 650 mg Q6H PRN PO PAIN LEVEL 1-3 OR FEVER; Start 07/08/18 at 21:00 Docusate Sodium (Colace) 100 mg Q12H PRN PO CONSTIPATION; Start 07/08/18 at 21:00 Atorvastatin Calcium (Lipitor) 80 mg QHS PO Last administered on 07/13/18at 20:49; Admin Dose 80 MG; Start 07/09/18 at 21:00 Capecitabine (Xeloda) 1,500 mg BID PO Last administered on 07/13/18 09:05; Admin Dose 1,500 MG; Start 07/09/18 at 09:00; Status Hold Carvedilol (Coreg) 3.125 mg BID PO Last administered on 07/13/18 20:54; Admin Dose 3.125 MG; Start 07/09/18 at 09:00 Clopidogrel Bisulfate (plaVIX) 75 mg DAILY PO Last administered on 07/13/18 09:02; Admin Dose 75 MG; Start 07/09/18 at 09:00 Spironolactone (Aldactone) 25 mg DAILY PO Last administered on 07/13/18 09:03; Admin Dose 25 MG; Start 07/09/18 at 09:00 Sucralfate (Carafate Susp) 1 gm QID PO Last administered on 07/13/18 20:48; Admin Dose 1 GM; Start 07/09/18 at 09:00 Levalbuterol (Xopenex Neb) 1.25 mg Q4H RESP THERAPY PRN HHN SHORTNESS OF BREATH Last administered on 07/09/18 03:59; Admin Dose 1.25 MG; Start 07/09/18 at 03:45 Cefepime HCl 50 ml @ 100 mls/hr Q12 IVPB Last administered on 12/17/18at 20:48; Admin Dose 100 MLS/HR; Start 07/09/18 at 21:00 Heparin Sodium (Porcine) (Heparin (5000 Units/1ml)) 5,000 unit BID SC Last administered on 07/13/18at 20:53; Admin Dose 5,000 UNIT; Start 07/09/18 at 21:00 Diphenhydramine HCl (Benadryl) 25 mg Q8H PRN PO ITCHING Last administered on 07/09/18at 17:11; Admin Dose 25 MG; Start 07/09/18 at 16:30 Propofol 100 ml @ 3.63 mls/hr Q12H IV Last administered on 07/11/18at 03:50; Admin Dose 3.63 MLS/HR; Start 07/09/18 at 22:00 Midazolam HCl 50 ml @ 1 mls/hr TITRATE IV Last administered on 07/11/18at 03:50; Admin Dose 5 MLS/HR; Start 07/10/18 at 00:00 Vancomycin HCl (Vanco Iv Per Pharmacy) VANCOMYCIN PER PHARMACY PER PROTOCOL XX ; Start 07/10/18 at 04:00 Lansoprazole (Prevacid) 30 mg DAILY@06 NGT Last administered on 07/14/18at 05:01; Admin Dose 30 MG; Start 07/12/18 at 06:00 Vancomycin HCl 1.25 gm/Sodium Chloride 250 ml @ 83.333 mls/ hr Q24H IVPB Last administered on 07/13/18at 11:01; Admin Dose 83.333 MLS/HR; Start 07/12/18 at 10:00 Fluconazole/ Sodium Chloride 50 ml @ 50 mls/hr Q24H IVPB Last administered on 07/13/18at 11:56; Admin Dose 50 MLS/HR; Start 07/13/18 at 11:00 Alprazolam (Xanax) 0.25 mg DAILY NGT ; Start 07/14/18 at 09:00 Alprazolam (Xanax) 0.25 mg QHS PRN PO ANXIETY; Start 07/13/18 at 15:30 Results Result Diagram: 07/14/18 0500 07/14/18 0500 Results 24 hrs Laboratory Tests Test 07/13/18 12:40 07/14/18 05:00 Urine Color LIVIA Urine Clarity CLOUDY A Urine pH 5.0 Urine Specific [place] 1.014 Urine Ketones NEGATIVE Urine Nitrite NEGATIVE Urine Bilirubin NEGATIVE Urine Urobilinogen NEGATIVE Urine Leukocyte Esterase NEGATIVE Urine Microscopic RBC > 182 H Urine Microscopic WBC 9 H Urine Amorphous Crystals MODERATE Urine Bacteria FEW A Urine Mucus FEW A Urine Hemoglobin 3+ H Urine Random Creatinine 116.44 Urine Random Sodium < 13 L Urine Glucose NEGATIVE Urine Total Protein 62.0 H White Blood Count 9.9 Red Blood Count 3.99 L Hemoglobin 9.2 L Hematocrit 31.3 L Mean Corpuscular Volume 78.4 L Mean Corpuscular Hemoglobin 23.1 L Mean Corpuscular Hemoglobin Concent 29.4 L Red Cell Distribution Width 24.0 H Platelet Count 323 Mean Platelet Volume 10.5 H Immature Granulocytes % 0.300 Neutrophils % 77.4 H Lymphocytes % 9.7 L Monocytes % 10.4 Eosinophils % 1.8 Basophils % 0.4 Nucleated Red Blood Cells % 0.0 Immature Granulocytes # 0.030 Neutrophils # 7.7 H Lymphocytes # 1.0 Monocytes # 1.0 H Eosinophils # 0.2 Basophils # 0.0 Nucleated Red Blood Cells # 0.0 Sodium Level 147 H Potassium Level 3.8 Chloride Level 109 Carbon Dioxide Level 31 Anion Gap 7 Blood Urea Nitrogen 55 H Creatinine 1.86 H Est Glomerular Filtrat Rate mL/min 46 L Glucose Level 152 Calcium Level 9.3 MARIA INES GOLDSTEIN MD Jul 14, 2018 08:09
--- NOTE | 2018-07-14 09:25 | CONS ---
Date/Time of Note Date/Time of Note DATE: 07/14/18 TIME: 09:23 Assessment/Plan Assessment/Plan Additional Assessment/Plan Ventilator setting; AC of 18, tidal volume 500, PEEP of 5, 30% FiO2. Assessment recommendations; 1. Patient with history of stage IV colon cancer admitted for pneumonia as well as cardiomyopathy with significant radiological and clinical improvement. Patient however failed a CPAP trial yesterday. 2. Anemia. 3. Mild chronic renal insufficiency. 4. History of cardiac arrhythmia. Status post placement of AICD in the past. 5. History of hypertension. 6. Chronic atrial fibrillation. 7. Critical illness neuropathy/myopathy. Switch the patient to SIMV mode with a rate of 12, pressure support of 10 as tolerated. Another weaning trial will be performed in 24 hours. Meanwhile continue current supportive care. Prognosis is guarded. Consultation Date/Type/Reason Admit Date/Time Jul 08, 2018 at 19:53 Initial Consult Date 07/09/18 Type of Consult Pulmonary/critical care Requesting Provider: ASIA LORA 24 HR Interval Summary Free Text/Dictation Patient's condition remains critical but has improved in the sense that the patient is more awake and responsive. Patient has remained hemodynamically stable. General exam; middle-aged male, orally intubated, responsive, currently in no distress. Exam/Review of Systems Vital Signs Vitals Vital Signs Date Temp Pulse Resp B/P (MAP) Pulse Ox O2 O2 Flow FiO2 Time Delivery Rate 07/14/18 88 19 109/71 100 Mechanical 09:00 (84) Ventilator 07/14/18 30 08:00 07/14/18 99.6 08:00 Intake and Output 07/13/18 07/13/18 07/14/18 1515:00 23:00 07:00 IntakeIntake Total 890 ml 560 ml 450 ml OutputOutput Total 525 ml 520 ml 550 ml BalanceBalance 365 ml 40 ml -100 ml Exam HEENT exam; supple neck, positive JVD. No lymphadenopathy. Midline trachea. No thyromegaly. Orally intubated. Patient has fair dentition. No neck masses. Chest exam; diminished but clear breath sounds. S1-S2 audible, no murmurs. Regular rhythm. Abdomen exam; soft, no organomegaly. Bowel sounds audible. Nontender. Extremity exam; no edema or clubbing. SPLUNK DEVELOPER exam; no focal deficit. Medications Medications Current Medications IV Flush (NS 3 ml) 3 ml PER PROTOCOL IV ; Start 07/08/18 at 21:00 Ondansetron HCl (Zofran Inj) 4 mg Q6H PRN IV NAUSEA AND/OR VOMITING; Start 07/08/18 at 21:00 Acetaminophen (Tylenol Tab) 650 mg Q6H PRN PO PAIN LEVEL 1-3 OR FEVER; Start 07/08/18 at 21:00 Docusate Sodium (Colace) 100 mg Q12H PRN PO CONSTIPATION; Start 07/08/18 at 21:00 Atorvastatin Calcium (Lipitor) 80 mg QHS PO Last administered on 07/13/18at 20:49; Admin Dose 80 MG; Start 07/09/18 at 21:00 Capecitabine (Xeloda) 1,500 mg BID PO Last administered on 07/13/18 09:05; Admin Dose 1,500 MG; Start 07/09/18 at 09:00; Status Hold Carvedilol (Coreg) 3.125 mg BID PO Last administered on 07/13/18at 20:54; Admin Dose 3.125 MG; Start 07/09/18 at 09:00 Clopidogrel Bisulfate (plaVIX) 75 mg DAILY PO Last administered on 07/13/18 09:02; Admin Dose 75 MG; Start 07/09/18 at 09:00 Spironolactone (Aldactone) 25 mg DAILY PO Last administered on 07/13/18 09:03; Admin Dose 25 MG; Start 07/09/18 at 09:00 Sucralfate (Carafate Susp) 1 gm QID PO Last administered on 07/13/18at 20:48; Admin Dose 1 GM; Start 07/09/18 at 09:00 Levalbuterol (Xopenex Neb) 1.25 mg Q4H RESP THERAPY PRN HHN SHORTNESS OF BREATH Last administered on 07/09/18 03:59; Admin Dose 1.25 MG; Start 07/09/18 at 03:45 Cefepime HCl 50 ml @ 100 mls/hr Q12 IVPB Last administered on 07/13/18 20:48; Admin Dose 100 MLS/HR; Start 07/09/18 at 21:00 Heparin Sodium (Porcine) (Heparin (5000 Units/1ml)) 5,000 unit BID SC Last administered on 07/13/18at 20:53; Admin Dose 5,000 UNIT; Start 07/09/18 at 21:00 Diphenhydramine HCl (Benadryl) 25 mg Q8H PRN PO ITCHING Last administered on 07/09/18at 17:11; Admin Dose 25 MG; Start 07/09/18 at 16:30 Propofol 100 ml @ 3.63 mls/hr Q12H IV Last administered on 07/11/18at 03:50; Admin Dose 3.63 MLS/HR; Start 07/09/18 at 22:00 Midazolam HCl 50 ml @ 1 mls/hr TITRATE IV Last administered on 07/11/18at 03:50; Admin Dose 5 MLS/HR; Start 07/10/18 at 00:00 Vancomycin HCl (Vanco Iv Per Pharmacy) VANCOMYCIN PER PHARMACY PER PROTOCOL XX ; Start 07/10/18 at 04:00 Lansoprazole (Prevacid) 30 mg DAILY@06 NGT Last administered on 07/14/18at 05:01; Admin Dose 30 MG; Start 07/12/18 at 06:00 Vancomycin HCl 1.25 gm/Sodium Chloride 250 ml @ 83.333 mls/ hr Q24H IVPB Last administered on 07/13/18at 11:01; Admin Dose 83.333 MLS/HR; Start 07/12/18 at 10:00 Fluconazole/ Sodium Chloride 50 ml @ 50 mls/hr Q24H IVPB Last administered on 07/13/18at 11:56; Admin Dose 50 MLS/HR; Start 07/13/18 at 11:00 Alprazolam (Xanax) 0.25 mg DAILY NGT ; Start 07/14/18 at 09:00 Alprazolam (Xanax) 0.25 mg QHS PRN PO ANXIETY; Start 07/13/18 at 15:30 Results Result Diagram: 07/14/18 0500 07/14/18 0500 Results 24 hrs Laboratory Tests Test 07/13/18 12:40 07/14/18 05:00 07/14/18 05:10 Urine Color LIVIA Urine Clarity CLOUDY A Urine pH 5.0 Urine Specific [place] 1.014 Urine Ketones NEGATIVE Urine Nitrite NEGATIVE Urine Bilirubin NEGATIVE Urine Urobilinogen NEGATIVE Urine Leukocyte Esterase NEGATIVE Urine Microscopic RBC > 182 H Urine Microscopic WBC 9 H Urine Amorphous Crystals MODERATE Urine Bacteria FEW A Urine Mucus FEW A Urine Hemoglobin 3+ H Urine Random Creatinine 116.44 Urine Random Sodium < 13 L Urine Glucose NEGATIVE Urine Total Protein 62.0 H White Blood Count 9.9 Red Blood Count 3.99 L Hemoglobin 9.2 L Hematocrit 31.3 L Mean Corpuscular Volume 78.4 L Mean Corpuscular Hemoglobin 23.1 L Mean Corpuscular 29.4 L Hemoglobin Concent Red Cell Distribution Width 24.0 H Platelet Count 323 Mean Platelet Volume 10.5 H Immature Granulocytes % 0.300 Neutrophils % 77.4 H Lymphocytes % 9.7 L Monocytes % 10.4 Eosinophils % 1.8 Basophils % 0.4 Nucleated Red Blood Cells % 0.0 Immature Granulocytes # 0.030 Neutrophils # 7.7 H Lymphocytes # 1.0 Monocytes # 1.0 H Eosinophils # 0.2 Basophils # 0.0 Nucleated Red Blood Cells # 0.0 Sodium Level 147 H Potassium Level 3.8 Chloride Level 109 Carbon Dioxide Level 31 Anion Gap 7 Blood Urea Nitrogen 55 H Creatinine 1.86 H Est Glomerular Filtrat 46 L Rate mL/min Glucose Level 152 Calcium Level 9.3 Phosphorus Level 3.5 Magnesium Level 2.6 H KATHI MCKEON Jul 14, 2018 09:25
[2018-07-14] MEDS: SUCRALFATE (100 MG/ML) 10ML CUP PO SCH ×4 (09:46→22:15)
[2018-07-14] MEDS: HEPARIN 5,000 UNIT/1 ML VIAL SC SCH ×2 (09:46→22:18)
[2018-07-14] MEDS: CEFEPIME 1GM/50 ML (PMX) 50 ML IVPB SCH ×2 (09:46→22:16)
[2018-07-14] MEDS: CLOPIDOGREL 75 MG TAB PO SCH (09:47)
[2018-07-14] MEDS: ALPRAZOLAM 0.25 MG TAB NGT SCH (09:47)
[2018-07-14] MEDS: SPIRONOLACTONE 50 MG TAB PO SCH (09:47)
--- NOTE | 2018-07-14 10:19 | PN ---
Date/Time of Note Date/Time of Note DATE: 07/14/18 TIME: 10:17 Assessment/Plan VTE Prophylaxis Risk score (from Ns)>0 risk: 9 SCD applied (from Ns): Yes Pharmacological prophylaxis: heparin Lines/Catheters IV C[facility]ter Type [facility]from [facility] port-a-cath Urinary Cath still in place: Yes Reason Cath still needed: urinary retention Assessment/Plan Hospital Course S: Patient still intubated, seen by pulmonary team this morning. As well as hematology oncology team. O: VS - see below PE: GENERAL: Obese man intubated, somnolent HEENT: BRITTNI, Intubated, ET tube in place LUNGS: diffusely diminished and coarse BS HEART: S1, S2. No murmur, gallops or rubs. ABDOMEN: Soft, non distended, Normoactive bowel sounds. EXTREMITIES: Mild 1+ nonpitting edema bilaterally, also some hand edema bilaterally NEUROLOGIC: Off sedation; opens eyes to voice. Does not follow commands. Grimaces to sternal rub. SKIN: Otherwise, unremarkable ECHO 07/09/18: Conclusions Mild concentric left ventricular hypertrophy. Mild enlargement of left ventricle cavity. Moderate global left ventricular systolic dysfunction. Ejection fraction is visually estimated at 25-30 %. Mild mitral leaflet calcification. Mild mitral annular calcification. Trace mitral regurgitation. No significant aortic stenosis or insufficiency. Aortic cusps appear mildly calcified. Normal appearance of the tricuspid valve. Estimated peak PA systolic pressure 31 mmHg. There is mild tricuspid regurgitation Assessment/Plan: 57 yo M with history of metastatic stage IV colon cancer admitted for SOB and hypoxemia, intubated. 1. Acute hypoxemic hypercapnic respiratory failure -failed bipap, now intubated and vent dependent. Secondary to CHF also with signs of Maurisio Pneumonia with probable underlying pulmonary nodules. -Continue vent management and weaning per pulmonary -Continue broad-spectrum antibiotics for now, including fluconazole given Rosalina growth findings in the respiratory culture 2. 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 3. H/o Severe coronary artery disease with multivessel coronary artery disease, ACS ruled out -Continue Plavix, follow-up cardiology rec's 4. History of PCI of right coronary artery in April 2018 - see # 3 5. History of metastatic adeno CA of the colon s/p resection -has been on Xeloda (palliative chemo?), ?liver mets -For now holding Xeloda as the med is not crushable. -Follow up hematology oncology recommendations 6. History of hypertension -Stable, continue Aldactone for now 7. History of noncompliance -Educate on the importance of taking medicines when patient is extubated 8. History of GI bleed -hemoglobin stable, no present signs of any upper or lower GI bleeding. -Monitor 9. Dyslipidemia - monitor 10. History of sick sinus syndrome s/p pacemaker-pace maker interrogated 07/08/18 at [facility] -Monitor heart rate, follow-up cardiology recommendations 11. Recent acute occipital CVA on chronic CVA - monitor for now 12. PreDM hba1C 6.0 - monitor sugars 13. Acute confusion / delirium with reports of hallucinations -likely effect of recent CVA and chronic disease- Currently off sedation x 48 hours, awaiting return of mental status. - monitor 14. IESHA-appreciate renal recommendations -Monitor urine output -Follow-up renal recommendations Dispo: Continue bronchodilators as well as supportive care. Overall prognosis remains guarded, continue ICU support. Apparently patient has an advance directive; will review when brings it in. Continue supportive care Critical care time today = 40 mins Exam/Review of Systems Vital Signs Vitals Vital Signs Date Temp Pulse Resp B/P (MAP) Pulse Ox O2 O2 Flow FiO2 Time Delivery Rate 07/14/18 30 10:00 07/14/18 88 19 109/71 100 Mechanical 09:00 (84) Ventilator 07/14/18 99.6 08:00 Intake and Output 07/13/18 07/13/18 07/14/18 1515:00 23:00 07:00 IntakeIntake Total 890 ml 560 ml 450 ml OutputOutput Total 525 ml 520 ml 550 ml BalanceBalance 365 ml 40 ml -100 ml Medications Medications Current Medications IV Flush (NS 3 ml) 3 ml PER PROTOCOL IV ; Start 07/08/18 at 21:00 Ondansetron HCl (Zofran Inj) 4 mg Q6H PRN IV NAUSEA AND/OR VOMITING; Start 07/08/18 at 21:00 Acetaminophen (Tylenol Tab) 650 mg Q6H PRN PO PAIN LEVEL 1-3 OR FEVER; Start 07/08/18 at 21:00 Docusate Sodium (Colace) 100 mg Q12H PRN PO CONSTIPATION; Start 07/08/18 at 21:00 Atorvastatin Calcium (Lipitor) 80 mg QHS PO Last administered on 07/13/18 20:49; Admin Dose 80 MG; Start 07/09/18 at 21:00 Capecitabine (Xeloda) 1,500 mg BID PO Last administered on 07/13/18 09:05; Admin Dose 1,500 MG; Start 07/09/18 at 09:00; Status Hold Carvedilol (Coreg) 3.125 mg BID PO Last administered on 07/14/18 09:47; Admin Dose 3.125 MG; Start 07/09/18 at 09:00 Clopidogrel Bisulfate (plaVIX) 75 mg DAILY PO Last administered on 07/14/18 09:47; Admin Dose 75 MG; Start 07/09/18 at 09:00 Spironolactone (Aldactone) 25 mg DAILY PO Last administered on 07/14/18 09:47; Admin Dose 25 MG; Start 07/09/18 at 09:00 Sucralfate (Carafate Susp) 1 gm QID PO Last administered on 07/14/18 09:46; Admin Dose 1 GM; Start 07/09/18 at 09:00 Levalbuterol (Xopenex Neb) 1.25 mg Q4H RESP THERAPY PRN HHN SHORTNESS OF BREATH Last administered on 07/09/18 03:59; Admin Dose 1.25 MG; Start 07/09/18 at 03:45 Cefepime HCl 50 ml @ 100 mls/hr Q12 IVPB Last administered on 07/14/18 09:46; Admin Dose 100 MLS/HR; Start 07/09/18 at 21:00 Heparin Sodium (Porcine) (Heparin (5000 Units/1ml)) 5,000 unit BID SC Last administered on 07/14/18 09:46; Admin Dose 5,000 UNIT; Start 07/09/18 at 21:00 Diphenhydramine HCl (Benadryl) 25 mg Q8H PRN PO ITCHING Last administered on 07/09/18 17:11; Admin Dose 25 MG; Start 07/09/18 at 16:30 Propofol 100 ml @ 3.63 mls/hr Q12H IV Last administered on 07/11/18 03:50; Admin Dose 3.63 MLS/HR; Start 07/09/18 at 22:00 Midazolam HCl 50 ml @ 1 mls/hr TITRATE IV Last administered on 07/11/18at 03:50; Admin Dose 5 MLS/HR; Start 07/10/18 at 00:00 Vancomycin HCl (Vanco Iv Per Pharmacy) VANCOMYCIN PER PHARMACY PER PROTOCOL XX ; Start 07/10/18 at 04:00 Lansoprazole (Prevacid) 30 mg DAILY@06 NGT Last administered on 07/14/18at 05:01; Admin Dose 30 MG; Start 07/12/18 at 06:00 Vancomycin HCl 1.25 gm/Sodium Chloride 250 ml @ 83.333 mls/ hr Q24H IVPB Last administered on 07/13/18at 11:01; Admin Dose 83.333 MLS/HR; Start 07/12/18 at 10:00 Fluconazole/ Sodium Chloride 50 ml @ 50 mls/hr Q24H IVPB Last administered on 07/13/18at 11:56; Admin Dose 50 MLS/HR; Start 07/13/18 at 11:00 Alprazolam (Xanax) 0.25 mg DAILY NGT Last administered on 07/14/18at 09:47; Admin Dose 0.25 MG; Start 07/14/18 at 09:00 Alprazolam (Xanax) 0.25 mg QHS PRN PO ANXIETY; Start 07/13/18 at 15:30 Results Result Diagram: 07/14/18 0500 07/14/18 0500 Results 24 hrs Laboratory Tests Test 07/13/18 12:40 07/14/18 05:00 07/14/18 05:10 Urine Color LIVIA Urine Clarity CLOUDY A Urine pH 5.0 Urine Specific [place] 1.014 Urine Ketones NEGATIVE Urine Nitrite NEGATIVE Urine Bilirubin NEGATIVE Urine Urobilinogen NEGATIVE Urine Leukocyte Esterase NEGATIVE Urine Microscopic RBC > 182 H Urine Microscopic WBC 9 H Urine Amorphous Crystals MODERATE Urine Bacteria FEW A Urine Mucus FEW A Urine Hemoglobin 3+ H Urine Random Creatinine 116.44 Urine Random Sodium < 13 L Urine Glucose NEGATIVE Urine Total Protein 62.0 H White Blood Count 9.9 Red Blood Count 3.99 L Hemoglobin 9.2 L Hematocrit 31.3 L Mean Corpuscular Volume 78.4 L Mean Corpuscular Hemoglobin 23.1 L Mean Corpuscular 29.4 L Hemoglobin Concent Red Cell Distribution Width 24.0 H Platelet Count 323 Mean Platelet Volume 10.5 H Immature Granulocytes % 0.300 Neutrophils % 77.4 H Lymphocytes % 9.7 L Monocytes % 10.4 Eosinophils % 1.8 Basophils % 0.4 Nucleated Red Blood Cells % 0.0 Immature Granulocytes # 0.030 Neutrophils # 7.7 H Lymphocytes # 1.0 Monocytes # 1.0 H Eosinophils # 0.2 Basophils # 0.0 Nucleated Red Blood Cells # 0.0 Sodium Level 147 H Potassium Level 3.8 Chloride Level 109 Carbon Dioxide Level 31 Anion Gap 7 Blood Urea Nitrogen 55 H Creatinine 1.86 H Est Glomerular Filtrat 46 L Rate mL/min Glucose Level 152 Calcium Level 9.3 Phosphorus Level 3.5 Magnesium Level 2.6 H RAÚL SOLIMAN. Jul 14, 2018 10:19
[2018-07-14] MEDS: VANCOMYCIN 1.25 GM in SOD CHLORIDE 0.9% 250 ML IVPB SCH (10:55)
[2018-07-14] MEDS: FLUCONAZOLE 100 MG/50 ML (PMX) 50 ML IVPB SCH (10:55)
--- NOTE | 2018-07-14 18:51 | NUR ---
EOSS: NO SIGNIFICANT EVENTS THROUGHOUT SHIFT. PT PLACED ON SIMV TODAY IN ATTEMPT TO WEAN FROM VENT. PT TOLERATED GOING FROM RATE OF 14 TO 12, TACHYPNEIC AT TIMES. MD AWARE. LOW GRADE TEMP CONTINUES, MD AWARE. FAMILY UPDATED ON PT CONDITION. POC UPDATED & CONTINUED.
[2018-07-14] MEDS: ATORVASTATIN 80 MG TAB PO SCH (22:15)
[2018-07-15] VITALS (44 sets, daily range): BP systolic 85–141; BP diastolic 49–103; PULSE 76–108; RESP 15–35
[2018-07-15] MEDS: LANSOPRAZOLE 30 MG CAP NGT SCH (06:41)
--- NOTE | 2018-07-15 06:52 | NUR ---
EOSS: no significant change of condition. afebrile, suctioned ETT with moderate thin secretions, oral care provided, pt. tolerated well the SIMV 10 , FIo2 30% , TV 500, PS 10. pt. still on restraint bilateral soft limb , restraint care provided. pt. still has episodes of trying to pull out tubes and lines. had 1 BM today. pt. with deepika cath at right chest , asymptomatic. all needs attended, all nursing care rendered.
--- NOTE | 2018-07-15 07:19 | CONS ---
Date/Time of Note Date/Time of Note DATE: 07/15/18 TIME: 07:17 Consult Date/Type/Reason Admit Date/Time Jul 08, 2018 at 19:53 Initial Consult Date 07/10/18 Type of Consultation: cv Requesting Provider: ASIA LORA Subjective Interventional cardiology follow-up progress note/critical care note Subjective: Discussed with the staff and physicians. tele was reviewed. pt remains in NSR /sinus tachy with demand pacing his neuro status is stable and and follow commands now but is still remains intubated on the vent. on SIMV now. minimal secretions Events noted. Patient had to be intubated on 07/09/2018 due to increasing and worsening respiratory failure. He is currently intubated on the vent. Objective: General: Obese gentleman status post intubation on the vent now HEENT: NC/AT. pupils are equal. round. NECK: NO JVD. no stridor. CV: Regular rate and rhythm. systolic murmur; no gallop or rubs. PULM: + rhonchi. GI: SOFT, NT, ND, no rebound or guarding Extremity: + trace B/L LE edema. no clubbing. neuro: Awake and follows commands Psych: Calm rectal: deferred : normal EKG was personally reviewed which shows: Sinus tachycardia nonspecific T wave abnormalities Cardiogram done 07/09/2018 which was personally reviewed shows: Mild concentric left ventricular hypertrophy. Mild enlargement of left ventricle cavity. Moderate global left ventricular systolic dysfunction. Ejection fraction is visually estimated at 25-30 %. Mild mitral leaflet calcification. Mild mitral annular calcification. Trace mitral regurgitation. No significant aortic stenosis or insufficiency. Aortic cusps appear mildly calcified. Normal appearance of the tricuspid valve. Estimated peak PA systolic pressure 31 mmHg. There is mild tricuspid regurgitation. Chest CT done 07/10/2018 shows: Multifocal areas of consolidation throughout the lungs bilaterally, most notable within the upper lobes. Findings are likely infectious in nature. Please note that this obscures previously seen pulmonary nodules on prior CT. Chest x-ray done on 07/12/2018 shows:Endotracheal tube and right-sided central v enous port appear properly positioned. Bibasilar pulmonary opacities with small pleural effusions, left greater than right. Heart size is stable with cardiac pacer wires. Objective Vital Signs Date Temp Pulse Resp B/P (MAP) Pulse Ox O2 O2 Flow FiO2 Time Delivery Rate 12/19/18 90 21 110/73 96 Mechanical 06:00 (85) Ventilator 07/15/18 24 05:41 07/15/18 98.1 04:00 Intake and Output 07/14/18 07/14/18 07/15/18 1515:00 23:00 07:00 IntakeIntake Total 1250 ml 1110 ml 550 ml OutputOutput Total 490 ml 425 ml 350 ml BalanceBalance 760 ml 685 ml 200 ml Results/Medications Result Diagram: 07/15/18 0525 07/15/18 0526 Results 24 hrs Laboratory Tests Test 07/15/18 05:25 07/15/18 05:26 White Blood Count 10.3 Red Blood Count 4.17 L Hemoglobin 9.4 L Hematocrit 33.0 L Mean Corpuscular Volume 79.1 L Mean Corpuscular Hemoglobin 22.5 L Mean Corpuscular Hemoglobin Concent 28.5 L Red Cell Distribution Width 24.2 H Platelet Count 303 Mean Platelet Volume 10.6 H Immature Granulocytes % 0.600 H Neutrophils % 76.5 Lymphocytes % 10.8 L Monocytes % 10.0 Eosinophils % 1.8 Basophils % 0.3 Nucleated Red Blood Cells % 0.0 Immature Granulocytes # 0.060 H Neutrophils # 7.9 H Lymphocytes # 1.1 Monocytes # 1.0 H Eosinophils # 0.2 Basophils # 0.0 Nucleated Red Blood Cells # 0.0 Sodium Level 148 H Potassium Level 4.5 Chloride Level 109 Carbon Dioxide Level 30 Anion Gap 9 Blood Urea Nitrogen 62 H Creatinine 1.76 H Est Glomerular Filtrat Rate mL/min 49 L Glucose Level 133 Calcium Level 9.2 Phosphorus Level 4.4 Magnesium Level 2.8 H Medications Current Medications IV Flush (NS 3 ml) 3 ml PER PROTOCOL IV ; Start 07/08/18 at 21:00 Ondansetron HCl (Zofran Inj) 4 mg Q6H PRN IV NAUSEA AND/OR VOMITING; Start 07/08/18 at 21:00 Acetaminophen (Tylenol Tab) 650 mg Q6H PRN PO PAIN LEVEL 1-3 OR FEVER; Start 07/08/18 at 21:00 Docusate Sodium (Colace) 100 mg Q12H PRN PO CONSTIPATION; Start 07/08/18 at 21:00 Atorvastatin Calcium (Lipitor) 80 mg QHS PO Last administered on 07/14/18 22:15; Admin Dose 80 MG; Start 07/09/18 at 21:00 Capecitabine (Xeloda) 1,500 mg BID PO Last administered on 07/13/18 09:05; Admin Dose 1,500 MG; Start 07/09/18 at 09:00; Status Hold Carvedilol (Coreg) 3.125 mg BID PO Last administered on 07/14/18 22:15; Admin Dose 3.125 MG; Start 07/09/18 at 09:00 Clopidogrel Bisulfate (plaVIX) 75 mg DAILY PO Last administered on 07/14/18 09:47; Admin Dose 75 MG; Start 07/09/18 at 09:00 Spironolactone (Aldactone) 25 mg DAILY PO Last administered on 07/14/18 09:47; Admin Dose 25 MG; Start 07/09/18 at 09:00 Sucralfate (Carafate Susp) 1 gm QID PO Last administered on 07/14/18 22:15; Admin Dose 1 GM; Start 07/09/18 at 09:00 Levalbuterol (Xopenex Neb) 1.25 mg Q4H RESP THERAPY PRN HHN SHORTNESS OF BREATH Last administered on 07/09/18 03:59; Admin Dose 1.25 MG; Start 07/09/18 at 03:45 Cefepime HCl 50 ml @ 100 mls/hr Q12 IVPB Last administered on 07/14/18 22:16; Admin Dose 100 MLS/HR; Start 07/09/18 at 21:00 Heparin Sodium (Porcine) (Heparin (5000 Units/1ml)) 5,000 unit BID SC Last administered on 07/14/18 22:18; Admin Dose 5,000 UNIT; Start 07/09/18 at 21:00 Diphenhydramine HCl (Benadryl) 25 mg Q8H PRN PO ITCHING Last administered on 07/09/18 17:11; Admin Dose 25 MG; Start 07/09/18 at 16:30 Lansoprazole (Prevacid) 30 mg DAILY@06 NGT Last administered on 07/15/18 06:41; Admin Dose 30 MG; Start 07/12/18 at 06:00 Fluconazole/ Sodium Chloride 50 ml @ 50 mls/hr Q24H IVPB Last administered on 07/14/18at 10:55; Admin Dose 50 MLS/HR; Start 07/13/18 at 11:00 Alprazolam (Xanax) 0.25 mg DAILY NGT Last administered on 07/14/18at 09:47; Admin Dose 0.25 MG; Start 07/14/18 at 09:00 Alprazolam (Xanax) 0.25 mg QHS PRN PO ANXIETY; Start 07/13/18 at 15:30 Assessment/Plan Chief Complaint/Hosp Course 1. Acute hypoxemic hypercapnic respiratory failure 2. 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 Severe coronary artery disease with multivessel coronary artery disease 4. History of PCI of right coronary artery in April 2018 5. History of metastatic adeno CA of the colon 6. History of hypertension 7. Extensive pneumonia 8. History of GI bleed 9. Dyslipidemia 10. History of sick sinus syndrome s/p pacemaker 11. Acute renal failure Recommendations: Plavix to be continued as much as possible given his history of recent PCI off the AN inhibitor due to acute renal failure Respiratory care as per pulmonary. Patient is currently on the vent and intubated. weaning as / if tolerated I have stopped the Lasix given his acute renal failure. will monitor and resume prn Echocardiogram reviewed that showed severe LV dysfunction Continue with ICU care. Continue with a statin beta-casie and AN inhibitor as tolerated. more than 33 minutes critical care time was for management treatment is critically ill patient excluding any procedures Thank you for his referral. We will continue to follow along with you. ANGEL CANCINO MD [facility] ANGEL CANCINO MD Jul 15, 2018 07:19
[2018-07-15] MEDS ORDERED: PROPOFOL 100 ML ONE (07:59)
[2018-07-15] MEDS: PROPOFOL 100 ML IV SCH ×2 (08:12→11:46)
[2018-07-15] MEDS: SUCRALFATE (100 MG/ML) 10ML CUP PO SCH ×4 (08:16→20:50)
[2018-07-15] MEDS: CLOPIDOGREL 75 MG TAB PO SCH (08:16)
[2018-07-15] MEDS: CEFEPIME 1GM/50 ML (PMX) 50 ML IVPB SCH ×2 (08:17→20:49)
[2018-07-15] MEDS: SPIRONOLACTONE 50 MG TAB PO SCH (08:17)
[2018-07-15] MEDS: HEPARIN 5,000 UNIT/1 ML VIAL SC SCH ×2 (08:25→21:04)
[2018-07-15] MEDS: ALPRAZOLAM 0.25 MG TAB NGT SCH (08:31)
--- NOTE | 2018-07-15 08:33 | PN ---
DATE: 07/15/2018 SUBJECTIVE: The patient is in serious, but stable condition. No other acute events overnight noted. OBJECTIVE: VITAL SIGNS: Blood pressure is 110/73, respirations 21, pulse 90, temperature 98.1. HEENT: Head is normocephalic. NECK: Supple. HEART: Regular rate. LUNGS: Show diminished breath sounds at the base. ABDOMEN: Soft, nontender to palpation. No rebound or guarding. EXTREMITIES: Negative for clubbing, cyanosis, no edema. DERMATOLOGIC: No rashes. MUSCULOSKELETAL: No joint effusion. NEUROLOGIC: No change in exam. MEDICATIONS: The patient's medications have been reviewed. LABORATORY DATA: Show sodium 148, BUN 62, creatinine 0.76, magnesium 2.8, potassium 4.5. White coun t 10.3, hemoglobin 9.4, platelet count is 303. IMAGING STUDIES: Reviewed. ASSESSMENT AND PLAN: 1. Nonoliguric acute kidney injury on top of chronic kidney disease with previous baseline creatinin e of 1.3 mg/dL. Etiology of acute kidney injury is secondary to hemodynamics, diuretics, possible ca rdiorenal syndrome, possible tubular injury. The patient's renal function appears to be improving. At this point, continue current treatment plans, supportive care, renally dose all medicines. We christina l would continue to hold diuretic therapy. Continue antibiotic therapy. 2. Hypernatremia. The patient has a free water deficit approximately 2.5 liters improved. We will increase free water flushes to 300 mL q.4 hours. Continue to monitor serial sodium levels. 3. Anemia. Continue to monitor Hemoglobin and hematocrit levels. 4. Mineral bone disorder. Monitor calcium and phosphorus levels. 5. Ventilator-dependent respiratory failure. Vent settings and ABG was reviewed. Continue to monit or. 6. Acute systolic heart failure/ischemic cardiomyopathy. The patient appears compensated. Continue to monitor. 7. Sepsis secondary to bilateral pneumonia. Continue antibiotic therapy. 8. History of coronary artery disease. Continue medical management. 9. Metastatic adenocarcinoma of the colon, status post resection. The patient is on chemotherapy. Continue to monitor. 10. Dysphagia. Continue tube feeding. 11. Dyslipidemia. Continue statin therapy. 12. Sick sinus syndrome, status post pacemaker. 13. Acute cerebrovascular accident. Continue medical management. 14. Acute encephalopathy secondary to cerebrovascular accident. Continue to monitor. 15. History of gastrointestinal bleed. Dictated By: BROOK DEGROOT DO NR/NTS Conf#: [id number] [facility]#: [id number] CC: ASIA LORA MD; RAÚL SOLIMAN; BROOKE FELDMAN MD;*EndCC*
--- NOTE | 2018-07-15 08:38 | CONS ---
Date/Time of Note Date/Time of Note DATE: 07/15/18 TIME: 08:34 Assessment/Plan Assessment/Plan Additional Assessment/Plan Ventilator setting; SIMV of 10, pressure support 10, tidal volume 500, PEEP of 5, 30% FiO2. Assessment and recommendations; 1. Patient with history of metastatic colon cancer stage IV admitted for sepsis due to bilateral pneumonia with significant radiological improvement. 2. Acute encephalopathy with interval resolution. 3. Prior history of cardiac arrhythmia, status post pacemaker placement in the past. 4. Mild chronic renal insufficiency. 5. History of hypertension. 6. CHF with cardiomyopathy. 7. Significant secretions from endotracheal tube and patient not handling any weaning from the ventilator at this point. Revert the patient back to assist control mode. Patient's respiratory rate immediately decreased to high teens. Will resume low-dose propofol drip for sedation. Perform another weaning trial in 24 hours. Give Lasix 40 mg IV push x1. Obtain follow-up chest x-ray. 35 minutes of critical care time was spent evaluating the patient. Consultation Date/Type/Reason Admit Date/Time Jul 08, 2018 at 19:53 Initial Consult Date 07/09/18 Type of Consult Pulmonary/critical care Requesting Provider: ASIA LORA 24 HR Interval Summary Free Text/Dictation Patient's condition is critical but stable. Patient is markedly more awake now and follows simple commands. Patient however has failed multiple weaning trials and also is failing SIMV mode with persistent tachypnea. He denies any shortness breath, chest pain. Having significant secretions from endotracheal tube. General exam; middle-aged male, awake alert, orally intubated. Currently no distress. Exam/Review of Systems Vital Signs Vitals Vital Signs Date Temp Pulse Resp B/P (MAP) Pulse Ox O2 O2 Flow FiO2 Time Delivery Rate 07/15/18 100 20 141/103 100 07:00 (116) 07/15/18 Mechanical 06:00 Ventilator 07/15/18 24 05:41 07/15/18 98.1 04:00 Intake and Output 07/14/18 07/14/18 07/15/18 1515:00 23:00 07:00 IntakeIntake Total 1250 ml 1110 ml 800 ml OutputOutput Total 490 ml 425 ml 400 ml BalanceBalance 760 ml 685 ml 400 ml Exam HEENT exam; supple neck, positive JVD. No lymphadenopathy. Midline trachea. No thyromegaly. Orally intubated. Patient has fair dentition. Pupils are small bilaterally. Chest exam; diminished but clear breath sounds. S1-S2 audible, no murmurs. Regular rhythm. Pacemaker in left chest wall. Abdomen exam; soft, no organomegaly. Bowel sounds audible. Nontender. Extremity exam; no edema or clubbing. 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 KATHI MCKEON Jul 15, 2018 08:38
[2018-07-15] MEDS: FUROSEMIDE 40 MG INJ IV SCH (09:00)
--- NOTE | 2018-07-15 09:58 | PN ---
Date/Time of Note Date/Time of Note DATE: 07/15/18 TIME: 09:56 Assessment/Plan VTE Prophylaxis Risk score (from Ns)>0 risk: 9 SCD applied (from Ns): Yes Pharmacological prophylaxis: heparin Lines/Catheters IV Catheter Type (from [facility] [place]): port-a-cath Urinary Cath still in place: Yes Reason Cath still needed: urinary retention Assessment/Plan Hospital Course S: Patient still intubated (did not pass CPAP trial), seen by pulmonary team and renal team. O: VS - see below PE: GENERAL: Obese man intubated, somnolent HEENT: BRITTNI, Intubated, ET tube in place LUNGS: diffusely diminished and coarse BS HEART: S1, S2. No murmur, gallops or rubs. ABDOMEN: Soft, non distended, Normoactive bowel sounds. EXTREMITIES: Mild 1+ nonpitting edema bilaterally, also some hand edema bilaterally NEUROLOGIC: Off sedation; opens eyes to voice. Does not follow commands. Grimaces to sternal rub. SKIN: Otherwise, unremarkable ECHO 07/09/18: Conclusions Mild concentric left ventricular hypertrophy. Mild enlargement of left ventricle cavity. Moderate global left ventricular systolic dysfunction. Ejection fraction is visually estimated at 25-30 %. Mild mitral leaflet calcification. Mild mitral annular calcification. Trace mitral regurgitation. No significant aortic stenosis or insufficiency. Aortic cusps appear mildly calcified. Normal appearance of the tricuspid valve. Estimated peak PA systolic pressure 31 mmHg. There is mild tricuspid regurgitation Assessment/Plan: 57 yo M with history of metastatic stage IV colon cancer admitted for SOB and hypoxemia, intubated. 1. Acute hypoxemic hypercapnic respiratory failure -failed bipap, now intubated and vent dependent. Secondary to CHF also with signs of Maurisio Pneumonia with p robable underlying pulmonary nodules. -Continue vent management and weaning per pulmonary -Continue broad-spectrum antibiotics for now, including fluconazole given Rosalina growth findings in the respiratory culture 2. Congestive heart failure acute on chronic secondary systolic and diastolic heart failure -patient has history of AICD -Monitor, follow-up cardiology recommendations 3. H/o Severe coronary artery disease with multivessel coronary artery disease, ACS ruled out -Continue Plavix, follow-up cardiology rec's 4. History of PCI of right coronary artery in April 2018 - see # 3 5. History of metastatic adeno CA of the colon s/p resection -has been on Xeloda (palliative chemo?), ?liver mets -For now holding Xeloda as the med is not crushable. -Follow up hematology oncology recommendations 6. History of hypertension -Stable, continue Aldactone for now 7. History of noncompliance -Educate on the importance of taking medicines when patient is extubated 8. History of GI bleed -hemoglobin stable, no present signs of any upper or lower GI bleeding. -Monitor 9. Dyslipidemia - monitor 10. History of sick sinus syndrome s/p pacemaker-pace maker interrogated 07/08/18 at [facility] -Monitor heart rate, follow-up cardiology recommendations 11. Recent acute occipital CVA on chronic CVA - monitor for now 12. PreDM hba1C 6.0 - monitor sugars 13. Acute confusion / delirium with reports of hallucinations -likely effect of recent CVA and chronic disease- Currently off sedation x 48 hours, awaiting return of mental status. - monitor 14. IESHA-appreciate renal recommendations, patient also with slightly increased hypernatremia today sodium 148 -Monitor urine output, continue free water as ordered by renal team -Follow-up renal recommendations, monitor BMP in the a.m. Dispo: Continue bronchodilators as well as supportive care. Overall prognosis remains guarded, continue ICU support. Critical care time today = 40 mins Exam/Review of Systems Vital Signs Vitals Vital Signs Date Temp Pulse Resp B/P (MAP) Pulse Ox O2 O2 Flow FiO2 Time Delivery Rate 07/15/18 79 18 92/59 (70) 100 Mechanica 09:00 l Ventilato r 07/15/18 100.3 08:00 07/15/18 24 05:41 Intake and Output 07/14/18 07/14/18 07/15/18 1515:00 23:00 07:00 IntakeIntake Total 1250 ml 1110 ml 800 ml OutputOutput Total 490 ml 425 ml 400 ml BalanceBalance 760 ml 685 ml 400 ml RAÚL SOLIMAN Jul 15, 2018 09:58
[2018-07-15] MEDS: FLUCONAZOLE 100 MG/50 ML (PMX) 50 ML IVPB SCH (11:46)
--- NOTE | 2018-07-15 14:03 | NUR ---
Case Management Note: MERE spoke with Dawn @ [facility] [employer] @ [phone]. She addressed the concerns of the regarding the physicians plan of care faxed update to [phone]. Call to Johann @ 1502 and discussed a family conference per request of the . Johann has been speaking with the family and their concerns I conveyed this information to Dawn. Continue to follow for additional needs and assistance
--- NOTE | 2018-07-15 15:34 | NUR ---
SS NOTE: F/U SPOKE WITH DELON SEVERINO AND WAS INFORMED THAT FAMILY HAS CONCERNS ABOUT COMMUNICATION WITH MD. TALI MET WITH PT'S MOTHER, GILDARDO AT PT'S BEDSIDE. GILDARDO REPORTED THAT FAMILY IS VERY GRATEFUL FOR PT'S CARE AND THAT NURSING STAFF HAS BEEN UPDATING THEM REGULARLY. SHE STATED THAT THERE WAS A CONCERN THAT PT'S WOULD LIKE TO DISCUSS. TALI CALLED AND SPOKE WITH PT'S , AARON . TEARFUL AND EMOTIONAL. STATED THAT SHE WAS HOPING FOR PT TO BE WEANED OFF THE VENT. STATED THAT HE WAS DOING A LOT BETTER BUT THERE WAS AN INCIDENT WITH ONE OF THE CONSULTANTS WHO WAS NOT HOPEFUL ABOUT PT'S CONDITION AND HAD EXPRESSED HIS THOUGHTS IN FRONT OF PT AND THAT HAD CAUSED PT TO BECOME VERY AGITATED AND HOPELESS AND CAUSED PT TO GO BACK ON THE VENT AND NEEDING TO BE SEDATED. STATED THAT SHE HAS BEEN WAITING FOR THE ATTENDING MD TO CALL HER SHE WANTS UPDATES ON PT'S CONDITION AND PLAN OF CARE. SHE ALSO INQUIRED IF MD WOULD BE ABLE TO COMMUNICATE WITH PT'S PCP IN [place] TO OBTAIN ADDITIONAL INFO RE: PT'S CARE. SW PROVIDED EMOTIONAL SUPPORT. INFORMED AARON THAT THIS SW WILL COMMUNICATE WITH DR. SOLIMAN THAT WANTS TO SPEAK WITH HER. SW ALSO EXPLAINED THAT FAMILY HAS THE OPTION OF REQUESTING A DIFFERENT FUND MANAGER IF THEY LIKE. SW INQUIRED IF AT ANY TIME FAMILY HAD STATED THAT THEY WOULD LIKE FOR PT TO BE TRANSFERRED TO ANOTHER HOSPITAL. STATED THAT SHE DOES NOT WANT PT TO BE TRANSFERRED BUT SHE WANTS MD TO SPEAK WITH PT'S PCP WHO HAS BEEN TREATING PT OUTSIDE OF THE HOSPITAL. TALI SPOKE WITH DR. SOLIMAN. PROVIDED HIM WITH 'S CONTACT NUMBER AND UPDATED HIM ON HER CONCERNS. MD WILL F/U WITH PT'S . SW WILL CONTINUE TO REMAIN AVAILABLE.
--- NOTE | 2018-07-15 17:17 | PN ---
DATE: 07/15/2018 SUBJECTIVE: The patient remains on ventilator, apparently failed attempt to wean. The patient is pr esently sedated with propofol. OBJECTIVE: GENERAL: The patient is a well-developed, seriously ill-appearing male who is sedated as mentioned. VITAL SIGNS: Temperature 100.3 axillary, pulse 84 per minute and regular, respirations 18, blood pre ssure is 95/62, pulse oximetry is 100% on FiO2 of 30. SKIN: No ecchymoses, no petechiae or rashes. HEENT: Normocephalic. No evidence of trauma. Pupils are equal, round, react to light and accommoda tion. Sclerae are nonicteric. There is a nasogastric tube in place and endotracheal tube in place. NECK: Supple. No jugular venous distention or thyroid enlargement. CHEST: Diffuse rhonchi. No rubs. HEART: Regular sinus rhythm. No S3, S4 or murmurs. No rubs. ABDOMEN: No masses or ascites. EXTREMITIES: No clubbing, edema or cyanosis. No palpable cords or Homans sign. NEUROLOGIC: Reveals that the patient is sedated with propofol. LABORATORY DATA: Sodium 148, potassium 4.5, creatinine 1.76, BUN 62. White count 10,300 with absolu te neutrophil count of 7900, hemoglobin 9.4, hematocrit 33.3, MCV 79.1 and platelet count 303,000. All cultures thus far are negative. ASSESSMENT: 1. Ischemic cardiomyopathy, likely related to oxaliplatin with resultant congestive heart failure. 2. Respiratory failure secondary to congestive heart failure with some evidence of pneumonitis which may also be related to use of oxaliplatin. 3. Metastatic colorectal carcinoma. The patient at this time is not a candidate for any type of therapy. It has been stated however that there has been some objective response to the present therapy that th e patient is receiving. If cardiopulmonary problems are related to oxaliplatin, he may still be able to respond to capecitabine. Otherwise, no new oncologic suggestions at this time. Dictated By: HALEY GUADARRAMA MD SR/NTS Conf#: [id number] DID#: [id number] CC: ASIA LORA MD; BROOKE FELDMAN MD; RAÚL SOLIMAN;*EndCC*
--- NOTE | 2018-07-15 18:24 | NUR ---
EOSS Patient was restless and agitated upon starting shift. Dr. Cabrera saw patient and switched to vent mode AC. Propofol started, currently running at 10; was titrated down due to SBP running low. Lasix held due to BP. Patient was SR throughout shift. Soft wrist restraints are still in use due to pt's attempt to pull out tubes/lines. Tube feedings tolerated well. Oral care done per protocol, turned Q2h. All needs attended to, care plans updated and completed
[2018-07-15] MEDS: ALPRAZOLAM 0.25 MG TAB PO PRN (20:50)
[2018-07-15] MEDS: ATORVASTATIN 80 MG TAB PO SCH (20:50)
[2018-07-16] VITALS (62 sets, daily range): BP systolic 89–136; BP diastolic 57–115; PULSE 85–108; RESP 0–26
[2018-07-16] MEDS: PROPOFOL 100 ML IV SCH ×2 (02:34→20:00)
[2018-07-16] MEDS: LANSOPRAZOLE 30 MG CAP NGT SCH (05:44)
--- NOTE | 2018-07-16 06:18 | NUR ---
EOSS: No significant changes throughout shift. Pt remains sedated on propofol at 10mcg/kg/min, opens eyes to voice, does track, Restraints are in place due to patient attempting to remove ETT after lengthy conversation about the importance of ETT. UA sent out per order. Pt has low grade temp of 99*F, cooling measures initiated. Full bed bath completed, all linens changed. Pt repositioned q2hs, oral care completed q2hs, bed in lowest position.
--- NOTE | 2018-07-16 08:43 | CONS ---
Date/Time of Note Date/Time of Note DATE: 07/16/18 TIME: 08:40 Assessment/Plan Assessment/Plan Additional Assessment/Plan Chest x-ray showing cardiomegaly with mild pulmonary vascular congestion. Ventilator setting; AC of 14, tidal volume 500, PEEP of 5, 30% FiO2. Patient is currently on propofol at 5 mics per kilo per minute. Assessment and recommendations; 1. Patient admitted with sepsis due to pneumonia as well as CHF exacerbation due to underlying cardiomyopathy. 2. Persistent pulmonary edema on chest x-ray. 3. Failure to be weaned from ventilator due to significant secretions from endotracheal tube likely due to underlying pulmonary edema and CHF. 4. Stage IV colon cancer. 5. History of cardiac arrhythmia, status post pacemaker placement in the past. 6. Anemia. 7. Chronic renal insufficiency. 8. History of hypertension. 9. Marked improvement in encephalopathy. Hold further sedation to reassess for possible weaning from ventilator. Continue other supportive measures. Prognosis is guarded. 35 minutes of critical care time was spent evaluating the patient. Consultation Date/Type/Reason Admit Date/Time Jul 08, 2018 at 19:53 Initial Consult Date 07/09/18 Type of Consult Pulmonary/critical care Requesting Provider: ASIA LORA 24 HR Interval Summary Free Text/Dictation Patient's condition remains critical. Has failed numerous weaning trials from ventilator. Patient however has remained hemodynamically stable. General exam; middle-aged male, orally intubated, awake and responsive. Currently in no distress. Exam/Review of Systems Vital Signs Vitals Vital Signs Date Temp Pulse Resp B/P (MAP) Pulse Ox O2 O2 Flow FiO2 Time Delivery Rate 07/16/18 97 17 122/81 08:30 (95) 07/16/18 30 08:00 07/16/18 101.2 Mechanica 08:00 l Ventilato r 07/16/18 94 07:30 Intake and Output 07/15/18 07/15/18 07/16/18 1515:00 23:00 07:00 IntakeIntake Total 177.85 ml 508.08 ml 754.45 ml OutputOutput Total 495 ml 350 ml 275 ml BalanceBalance -317.15 ml 158.08 ml 479.45 ml Exam H EENT exam; supple neck, positive JVD. No lymphadenopathy. Midline trachea. No thyromegaly. Patient has fair dentition. Orally intubated. No neck masses. Pupils are small bilaterally. Chest exam; diminished but clear breath sounds. S1-S2 audible, no murmurs. Regular rhythm. Pacemaker in left chest wall. Abdomen exam; soft, no organomegaly. Nontender. Bowel sounds audible. Nondistended. Extremity exam; no peripheral edema or clubbing. 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 KATHI MCKEON Jul 16, 2018 08:43
[2018-07-16] MEDS: SUCRALFATE (100 MG/ML) 10ML CUP PO SCH ×4 (08:46→20:56)
[2018-07-16] MEDS: ALPRAZOLAM 0.25 MG TAB NGT SCH (08:46)
[2018-07-16] MEDS: FUROSEMIDE 40 MG INJ IV SCH (08:47)
[2018-07-16] MEDS: SPIRONOLACTONE 50 MG TAB PO SCH (08:47)
[2018-07-16] MEDS: CEFEPIME 1GM/50 ML (PMX) 50 ML IVPB SCH (08:47)
[2018-07-16] MEDS: CLOPIDOGREL 75 MG TAB PO SCH (08:47)
--- NOTE | 2018-07-16 08:47 | EN ---
Date/Time of Note Date/Time of Note DATE: 07/16/18 TIME: 08:46 Event Note Cardiology Cardiology Event Note I was notified by Dr. Navas that the patient family/ has requested patient to be evaluated by other deployment engineer. I will sign off on the case. Thank you ANGEL CANCINO MD [facility] ANGEL CANCINO MD Jul 16, 2018 08:47
[2018-07-16] MEDS: HEPARIN 5,000 UNIT/1 ML VIAL SC SCH ×2 (08:49→21:00)
[2018-07-16] MEDS ORDERED: METOLAZONE 2.5 MG TAB PO ONE (09:00)
--- NOTE | 2018-07-16 09:50 | PN ---
Date/Time of Note Date/Time of Note DATE: 07/16/18 TIME: 09:41 Assessment/Plan VTE Prophylaxis Risk score (from Nsg)>0 risk: 10 SCD applied (from Nsg): Yes Pharmacological prophylaxis: heparin Lines/Catheters IV Catheter Type (from Nrsg): PORTACATH Urinary Cath still in place: Yes Reason Cath still needed: urinary retention Assessment/Plan Hospital Course S: Patient undergoing CPAP trial this morning. Patient with an increased frequency of fevers in the last 24 hours. O: VS - see below PE: GENERAL: Obese man intubated, somnolent HEENT: BRITTNI, Intubated, ET tube in place LUNGS: diffusely diminished and coarse BS HEART: S1, S2. No murmur, gallops or rubs. ABDOMEN: Soft, non distended, Normoactive bowel sounds. EXTREMITIES: Mild 1+ nonpitting edema bilaterally, also some hand edema bilaterally NEUROLOGIC: Off sedation; opens eyes to voice. Does not follow commands. Gr imaces to sternal rub. SKIN: Otherwise, unremarkable ECHO 07/09/18: Conclusions Mild concentric left ventricular hypertrophy. Mild enlargement of left ventricle cavity. Moderate global left ventricular systolic dysfunction. Ejection fraction is visually estimated at 25-30 %. Mild mitral leaflet calcification. Mild mitral annular calcification. Trace mitral regurgitation. No significant aortic stenosis or insufficiency. Aortic cusps appear mildly calcified. Normal appearance of the tricuspid valve. Estimated peak PA systolic pressure 31 mmHg. There is mild tricuspid regurgitation Assessment/Plan: 57 yo M with history of metastatic stage IV colon cancer admitted for SOB and hypoxemia, intubated. 1. Acute hypoxemic hypercapnic respiratory failure -failed bipap, now intubated and vent dependent. Secondary to CHF also with signs of Maurisio Pneumonia with probable underlying pulmonary nodules. -Continue vent management and weaning per pulmonary -again undergoing CPAP trial this morning -Continue broad-spectrum antibiotics for now, including fluconazole given Rosalina growth findings in the respiratory culture -Given increasing fevers and slight increase in the white blood cell count, will order for new fever workup. Will consider ID consult as well. 2. Congestive heart failure acute on chronic secondary systolic and diastolic heart failure -patient has history of AICD -Monitor, follow-up cardiology recommendations 3. H/o Severe coronary artery disease with multivessel coronary artery disease, ACS ruled out -Continue Plavix, follow-up cardiology rec's -At the request of family, will obtain new cardiology consult as well 4. History of PCI of coronary artery in April 2018 -secondary to LAD stenosis, per family - see # 3 5. History of metastatic adeno CA of the colon s/p resection -has been on Xeloda (palliative chemo?), ?liver mets -For now holding Xeloda as the med is not crushable. -Follow up hematology oncology recommendations -they are holding off on chemotherapy for now 6. History of hypertension -Stable, continue Aldactone for now 7. History of noncompliance -Educate on the importance of taking medicines when patient is extubated 8. History of GI bleed -hemoglobin stable, no present signs of any upper or lower GI bleeding. -Monitor 9. Dyslipidemia - monitor 10. History of sick sinus syndrome s/p pacemaker-pace maker interrogated 07/08/18 at [facility] -Monitor heart rate, follow-up cardiology recommendations 11. Recent acute occipital CVA on chronic CVA - monitor for now 12. PreDM hba1C 6.0 - monitor sugars 13. Acute confusion / delirium with reports of hallucinations -likely effect of recent CVA and chronic disease - monitor, per discussion with patient's , will likely obtain psychiatry eval once patient is extubated for further evaluation of this 14. IESHA-appreciate renal recommendations, patient having adequate urine output, creatinine slightly higher today -Monitor urine output -Follow-up renal recommendations, monitor BMP in the a.m. Dispo: Continue bronchodilators as well as supportive care. Overall prognosis remains guarded, continue ICU support. Case discussed with extensively yesterday, again we are obtaining another cardiology consult at the family request. Critical care time today = 40 mins Exam/Review of Systems Vital Signs Vitals Vital Signs Date Temp Pulse Resp B/P (MAP) Pulse Ox O2 O2 Flow FiO2 Time Delivery Rate 07/16/18 97 17 122/81 08:30 (95) 07/16/18 30 08:00 07/16/18 101.2 Mechanica 08:00 l Ventilato r 07/16/18 94 07:30 Intake and Output 07/15/18 07/15/18 07/16/18 1515:00 23:00 07:00 IntakeIntake Total 177.85 ml 508.08 ml 804.45 ml OutputOutput Total 495 ml 350 ml 305 ml BalanceBalance -317.15 ml 158.08 ml 499.45 ml RAHI,RAÚL S. Jul 16, 2018 09:50
[2018-07-16] MEDS: ACETAMINOPHEN 325 MG TAB PO PRN ×2 (11:09→21:37)
[2018-07-16] MEDS: FLUCONAZOLE 100 MG/50 ML (PMX) 50 ML IVPB SCH (11:33)
--- NOTE | 2018-07-16 12:53 | PN ---
DATE: 07/16/2018 SUBJECTIVE: The patient remains in serious condition on full ventilatory support. Urinary output pozo s been minimal in the last 12 hours. No other events noted. OBJECTIVE: VITAL SIGNS: Blood pressure is 115/76, respiration 18, pulse 91, temperature 98.6. I's and O's have been reviewed. HEENT: Head is normocephalic. NECK: Supple. HEART: Regular rate. LUNGS: Show diminished breath sounds at the base. ABDOMEN: Soft, nontender to palpation without rebound or guarding. EXTREMITIES: Negative for clubbing, cyanosis, no edema. DERMATOLOGIC: No rashes. MUSCULOSKELETAL: No joint effusion. NEUROLOGIC: No change in exam. MEDICATIONS: The patient's medications have been reviewed. IMAGING STUDIES: Chest x-ray shows worsening pulmonary vascular congestion. LABORATORY DATA: Shows sodium 144, potassium 4.3, BUN 60, creatinine 2.01. White count 11.3, hemogl obin 9.5, platelet count is 349. ASSESSMENT AND PLAN: 1. Nonoliguric acute kidney injury on top of chronic kidney disease, with previous baseline creatini ne of 1.3 mg/dL. Etiology of IESHA is secondary to hemodynamics, possible cardiorenal syndrome. Renal function has declined in last 24 hours. The patient's renal function has declined last 24 hours, de creased urinary output. Recent chest x-ray shows worsening pulmonary vascular congestion. At this p oint, we will reintroduce diuretic therapy. We will monitor renal function closely. Continue suppor tive care, renally dose all meds. 2. Hypernatremia. The patient's sodium levels have been improving. Continue free water flushes. 3. Acute systolic heart failure, ischemic cardiomyopathy. The patient has an ejection fraction 25%. The patient's chest x-ray shows worsening congestion. Will give Lasix 40 mg IV x1, monitor I's and O's closely. 4. Anemia. Continue to monitor hemoglobin and hematocrit levels. 5. Mineral bone disorder, monitor calcium and phosphorus levels. 6. Ventilator dependent respiratory failure. Vent settings and arterial blood gas was reviewed. Co ntinue to monitor. 7. Sepsis secondary to bilateral pneumonia. Continue current antibiotic regimen. 8. History of coronary artery disease. 9. Metastatic adenocarcinoma of the colon, status post resection. The patient is on chemotherapy. Continue to monitor. 10. Dysphagia. Continue tube feeding. 11. Dyslipidemia. Continue statin therapy. 12. Sick sinus syndrome. The patient is status post pacemaker. 13. Acute cerebrovascular accident. Continue medical management. 14. Encephalopathy, acute. Etiology secondary to cerebrovascular accident. Continue to monitor. 15. History of GI bleed. Please note I spent over 30 minutes of critical care time with this patient. Dictated By: BROOK DEGROOT DO NR/NTS Conf#: [id number] DID#: [id number] CC: ASIA LORA MD;*EndCC*
--- NOTE | 2018-07-16 13:59 | NUR ---
pt been off sedation since 0800. will attempt a cpap trial this afternoon once patient is more awake.
[2018-07-16] MEDS: ALPRAZOLAM 0.25 MG TAB PO PRN (14:17)
--- NOTE | 2018-07-16 16:41 | NUR ---
pt started cpap around 1500. pt extremely sleepy, was taking several shallow breaths and failed cpap. put him back on AC at 1600. Dr. Navas informed.
--- NOTE | 2018-07-16 17:07 | CONS ---
DATE OF ADMISSION: 07/08/2018 DATE OF CONSULTATION: 07/16/2018 TYPE OF CONSULTATION: Infectious disease. REASON FOR CONSULTATION: Antibiotic management. HISTORY OF PRESENT ILLNESS: Bj Beatty is a 57-year-old male who was admitted with numerous prob lems and is being seen for antibiotic management. His problems include: 1. Coronary artery disease status post PCI. 2. Hypertension. 3. Ischemic cardiomyopathy. 4. Colon cancer, on p.o. chemotherapy. 5. History of GI bleed. 6. Morbid obesity. 7. Anemia. 8. Acute left occipital lobe infarct. The patient presented to [facility] with complaints of shortness of breath on 07/06/2018. A t that time, he has the shortness of breath for 1 day with palpitations and chest pain. He has been on lower doses of Lasix prior to this. He had chest pressure and orthopnea without fever or cough. He was supposed to have the pacemaker adjustment by Dr. Cem Rowland and was admitted in the hospit al and started on diuresis and given potassium and spironolactone. His pacemaker was checked. There was no reported dysfunction. He was transferred to [facility] for insurance purposes. Araceli roximately 1 week ago, he started reporting noises in his head and hearing voices. He has a history of stage IV cancer, colon cancer with metastasis to the liver. He has problems as noted. He also pozo s chronic renal disease stage III. He has obesity and a history of pulmonary nodule. He had Port-A- Cath placement, cholecystectomy and hernia repair as well. On admission, his white count was 8.9, H and H of 10.5 and 34.2, platelet count of 340,000. His chest x-ray on 07/08/2018 showed low lung vol umes, borderline cardiomegaly with congestive heart failure and peribronchial edema. A CT scan on without contrast of the chest and the abdomen showed multifocal areas of consolidation throu ghout the lungs bilaterally, most notably within the upper lobes. Findings are likely infectious in nature. He has pulmonary nodules on prior CT, but these infiltrates obscured pulmonary nodules. The re is no evidence for pneumothorax. The heart is enlarged with coronary artery calcifications. He h as a left-sided pacemaker without right atrial and ventricular leads. The thoracic aorta and main pu lmonary artery are normal in caliber. There are atherosclerotic changes in the aorta. HOSPITAL COURSE: The patient required intubation on 07/09/2018 at 21:46 for respiratory distress. H e was tachypneic and tachycardic on BiPAP. The patient is currently undergoing CPAP trial this [facility]. He has increased frequency of fevers over the last 24 hours. A 2D echocardiogram was done which showed left ventricular hypertrophy, ejection fraction of 25% to 30%, trace mitral regurgitation. PAST MEDICAL HISTORY: Operations as outlined. FAMILY HISTORY: Noncontributory. SOCIAL HISTORY: He does not smoke, drink or abuse drugs. ALLERGIES: NONE TO PENICILLIN, SULFA OR FOODS. MEDICATIONS: Per chart. REVIEW OF SYSTEMS: As per HPI. PHYSICAL EXAMINATION: GENERAL: The patient is an obese male who is intubated on a respirator, somnolent. SKIN: Without generalized rash. HEENT: Within normal limits. NECK: Supple. LYMPH NODES: None palpable. CHEST: Decreased breath sounds at the bases. HEART: Without murmur or gallop. ABDOMEN: Soft, nontender, nondistended without organosplenomegaly or masses. EXTREMITIES: He has 1+ nonpitting edema. RECTAL AND GENITAL: Deferred per RN. NEUROLOGICAL: The patient is sedated. IMPRESSION AND PLAN: The patient comes in now with acute hypoxemic, hypercapnic respiratory failure, intubated and ventilator dependent, has congestive heart failure, severe coronary artery disease, me tastatic adenocarcinoma of the colon, status post resection. He has been on Xeloda for palliative ch emotherapy. He has an acute renal insufficiency, confusion, history of gastrointestinal bleed, histo ry of noncompliance and numerous other problems. The patient currently has a temperature today of 10 1.2. His white count is 11.3, H and H of 9.5 and 31.9, platelet count 349,000. BUN and creatinine i s 68/2. Urine is positive for hematuria, but is negative for leukocyte esterase or urinary nitrite a nd he has 12 white cells per high powered field. The patient is currently on vancomycin. He is on f luconazole. Cefepime was discontinued on 07/16/2018. Since he is currently febrile and his cefepime was discontinued, we will actually order 2 sets of blood cultures and start him on meropenem 1 gram q.12 depending on his renal function. We will continue to follow him. I want to thank the [facility] and the aforementioned consultants for asking us to see this unfortunate gentleman. Dictated By: SKYE MCCARTHY MD, JD/TOR Conf#: [id number] DID#: [id number] CC: ASIA LORA MD; RAÚL SOLIMAN; MARIANA WALLS MD;*EndCC*
--- NOTE | 2018-07-16 18:23 | CONS ---
Date/Time of Note Date/Time of Note DATE: 07/16/18 TIME: 18:14 Assessment/Plan Assessment/Plan Chief Complaint/Hosp Course Assessment: Acute hypoxic respiratory failure - intubated and on mechanical ventilation Pneumonia Acute on chronic systolic heart failure Ischemic cardiomyopathy, LVEF 25-30% Severe multi-vessel coronary artery disease, status post recent PCI to right coronary artery (April 2018) Hypertension Dyslipidemia Sick sinus syndrome, status post permanent pacemaker - currently not pacer dependent History of stroke Stage IV colon cancer History of gastrointestinal bleeding Acute kidney injury Recommendations: -continue Lasix 40mg IV daily -continue clopidogrel 75mg daily as able given recent PCI -continue atorvastatin 80mg daily -continue carvedilol 3.125mg BID Consultation Date/Type/Reason Admit Date/Time Jul 08, 2018 at 19:53 Type of Consult Cardiology Reason for Consultation congestive heart failure Requesting Provider: RAÚL SOLIMAN Hx of Present Illness The patient is a 57 year-old male with stage IV colon cancer, chronic systolic heart failure, and ischemic cardiomyopathy who has been admitted to the ICU with pneumonia and acute hypoxic respiratory failure. He is intubated and on mechanical ventilation. From 07/09/2018, EKG showed sinus tachycardia without other acute abnormalities. Troponins were negative x 2, and BNP was elevated at 3340. A transthoracic echocardiogram showed a left ventricular ejection fraction of 25-30%. A second opinion cardiology consultation has been requested by the patient's . Unable to obtain review of systems, patient is intubated. Past Medical History Chronic systolic heart failure Ischemic cardiomyopathy Severe multi-vessel coronary artery disease, status post recent PCI to right coronary artery (April 2018) Hypertension Dyslipidemia Sick sinus syndrome, status post permanent pacemaker History of stroke Stage IV colon cancer History of gastrointestinal bleeding Medications Current Medications IV Flush (NS 3 ml) 3 ml PER PROTOCOL IV ; Start 07/08/18 at 21:00 Ondansetron HCl (Zofran Inj) 4 mg Q6H PRN IV NAUSEA AND/OR VOMITING; Start 07/08/18 at 21:00 Acetaminophen (Tylenol Tab) 650 mg Q6H PRN PO PAIN LEVEL 1-3 OR FEVER Last administered on 07/16/18at 11:09; Admin Dose 650 MG; Start 07/08/18 at 21:00 Docusate Sodium (Colace) 100 mg Q12H PRN PO CONSTIPATION; Start 07/08/18 at 21:00 Atorvastatin Calcium (Lipitor) 80 mg QHS PO Last administered on 07/15/18 20:50; Admin Dose 80 MG; Start 07/09/18 at 21:00 Capecitabine (Xeloda) 1,500 mg BID PO Last administered on 07/13/18 09:05; Admin Dose 1,500 MG; Start 07/09/18 at 09:00; Status Hold Carvedilol (Coreg) 3.125 mg BID PO Last administered on 07/16/18 08:46; Admin Dose 3.125 MG; Start 07/09/18 at 09:00 Clopidogrel Bisulfate (plaVIX) 75 mg DAILY PO Last administered on 07/16/18 08:47; Admin Dose 75 MG; Start 07/09/18 at 09:00 Spironolactone (Aldactone) 25 mg DAILY PO Last administered on 07/16/18 08:47; Admin Dose 25 MG; Start 07/09/18 at 09:00 Sucralfate (Carafate Susp) 1 gm QID PO Last administered on 07/16/18 17:19; Admin Dose 1 GM; Start 07/09/18 at 09:00 Levalbuterol (Xopenex Neb) 1.25 mg Q4H RESP THERAPY PRN HHN SHORTNESS OF BREATH Last administered on 07/09/18 03:59; Admin Dose 1.25 MG; Start 07/09/18 at 03:45 Heparin Sodium (Porcine) (Heparin (5000 Units/1ml)) 5,000 unit BID SC Last administered on 07/16/18 08:49; Admin Dose 5,000 UNIT; Start 07/09/18 at 21:00 Diphenhydramine HCl (Benadryl) 25 mg Q8H PRN PO ITCHING Last administered on 17:11; Admin Dose 25 MG; Start 07/09/18 at 16:30 Lansoprazole (Prevacid) 30 mg DAILY@06 NGT Last administered on 07/16/18 05:44; Admin Dose 30 MG; Start 07/12/18 at 06:00 Fluconazole/ Sodium Chloride 50 ml @ 50 mls/hr Q24H IVPB Last administered on 07/16/18 11:33; Admin Dose 50 MLS/HR; Start 07/13/18 at 11:00 Alprazolam (Xanax) 0.25 mg DAILY NGT Last administered on 07/16/18at 08:46; Admin Dose 0.25 MG; Start 07/14/18 at 09:00 Alprazolam (Xanax) 0.25 mg QHS PRN PO ANXIETY Last administered on 07/16/18at 14:17; Admin Dose 0.25 MG; Start 07/13/18 at 15:30 Propofol 100 ml @ 3.63 mls/hr Q12H IV Last administered on 07/16/18at 02:34; Admin Dose 7.26 MLS/HR; Start 07/15/18 at 08:00 Furosemide (Lasix) 40 mg DAILY IV Last administered on 07/16/18at 08:47; Admin Dose 40 MG; Start 07/15/18 at 09:00 Meropenem/Sodium Chloride 50 ml @ 100 mls/hr Q12 IVPB ; Start 07/16/18 at 21:00 Allergies: Coded Allergies: No Known Allergy (Unverified , 05/13/18) Past Surgical History Past Surgical Hx: other (colon resection) Family History Significant Family History: no pertinent family hx Social History Smoking Status: Never smoker Exam/Review of Systems Vital Signs Vitals Vital Signs Date Temp Pulse Resp B/P (MAP) Pulse Ox O2 O2 Flow FiO2 Time Delivery Rate 07/16/18 106 22 100 30 17:30 07/16/18 134/90 Mechanical 17:00 (105) Ventilator 07/16/18 98.7 16:00 Intake and Output 07/15/18 07/15/18 07/16/18 1515:00 23:00 07:00 IntakeIntake Total 177.85 ml 508.08 ml 804.45 ml OutputOutput Total 495 ml 350 ml 305 ml BalanceBalance -317.15 ml 158.08 ml 499.45 ml Exam Constitutional: other (intubated); No alert, No oriented Psych: confusion Head: normocephalic, atraumatic ENMT: nl external ears & nose, nl nasal mucosa & septum Neck: supple, non-tender Respiratory: crackles/rales Cardiovascular: regular rate and rhythm Gastrointestinal: soft, distended Musculoskeletal: swelling Extremities: edema; No cyanosis, No clubbing Neurological: No nl mental status, No nl speech HALEY BOSWELL MD Jul 16, 2018 18:23
--- NOTE | 2018-07-16 19:19 | NUR ---
EOSS PT STABLE ON VENTILATOR. SEDATION OFF THROUGHOUT SHIFT, CPAP FAILED D/T PT EXTREMELY SLEEPY. AND MOTHER CAME BY AND STAYED THROUGHOUT SHIFT; WANTS TO BE THERE TOMORROW IF PT ATTEMPTS CPAP AGAIN PER MD ORDER. URINE OUTPUT ADEQUATE, 30-40 ML/HR. SPIKED A LOW GRADE FEVER EARLY ON IN SHIFT; INITIATED COOLING MEASURES AND GAVE TYLENOL PRN. NO GASTRIC RESIDUALS, PT TOLERATING FEEDS WELL. RESTRAINTS RENEWED. PORTACATH DRESSING AND SETUP; STILL NOT DRAWING. ALL INFORMATION ENDORSED TO COFFEE GROWER NURSE.
[2018-07-16] MEDS: MEROPENEM 1 GM/50ML(PMX) 50 ML IVPB SCH (20:54)
[2018-07-16] MEDS: ATORVASTATIN 80 MG TAB PO SCH (20:58)
[2018-07-17] VITALS (44 sets, daily range): BP systolic 83–131; BP diastolic 48–72; PULSE 84–100; RESP 16–26
[2018-07-17] MEDS: LANSOPRAZOLE 30 MG CAP NGT SCH (05:19)
--- NOTE | 2018-07-17 06:21 | NUR ---
EOSS: Pt stable on ventilator. No acute events overnight. Pt repositioned q2h, oral care provided q2h. Full bed bath completed, all linens changed. Pt off sedation throughout night. Opens eyes when spoken to, follows simple commands. VSS throughout shift. Bed in lowest position, brakes activated, side rails up.
[2018-07-17] MEDS: PROPOFOL 100 ML IV SCH ×2 (08:00→20:00)
--- NOTE | 2018-07-17 09:35 | CONS ---
Date/Time of Note Date/Time of Note DATE: 07/17/18 TIME: 09:31 Assessment/Plan Assessment/Plan Additional Assessment/Plan Ventilator setting; AC of 14, tidal volume 500, PEEP of 5, 30% FiO2. Assessment recommendations; 1. Patient with history of stage IV lung cancer admitted for severe sepsis due to pneumonia, currently on appropriate antimicrobial regimen. 2. Underlying severe cardia myopathy. With persistent pulmonary edema. Lasix is on hold because of worsening renal function. 3. Chronic renal insufficiency. 4. History of cardiac arrhythmia, status post pacemaker/defibrillator placement in the past. 5. History of hypertension. 6. Improving encephalopathy. 7. Critical illness neuropathy/myopathy. Continue current supportive care. Patient currently is not in a position to be weaned off from invasive mechanical ventilation. Family still wants full code. May possibly require tracheostomy. Consultation Date/Type/Reason Admit Date/Time Jul 08, 2018 at 19:53 Initial Consult Date 07/09/18 Type of Consult Pulmonary/critical care Requesting Provider: RAÚL SOLIMAN 24 HR Interval Summary Free Text/Dictation Patient's condition remains critical. Patient has failed multiple weaning attempts from ventilator. Patient however has remained hemodynamically stable. General exam; middle-aged male, orally intubated, awake and responsive but lethargic. Currently in no distress. Exam/Review of Systems Vital Signs Vitals Vital Signs Date Temp Pulse Resp B/P (MAP) Pulse Ox O2 O2 Flow FiO2 Time Delivery Rate 07/17/18 87 08:01 07/17/18 20 94/61 (72) 99 Mechanical 06:00 Ventilator 07/17/18 30 04:55 07/17/18 99.6 04:00 Intake and Output 07/16/18 07/16/18 07/17/18 1515:00 23:00 07:00 IntakeIntake Total 1125 ml 750 ml 1100 ml OutputOutput Total 320 ml 280 ml 210 ml BalanceBalance 805 ml 470 ml 890 ml Exam H EENT exam; supple neck, no lymphadenopathy. Positive JVD. No neck masses. Orally intubated. Patient has fair dentition. Pupils are small bilaterally. Chest exam; diminished but clear breath sounds. S1-S2 audible, no murmurs. R egular rhythm. MediPort in right chest wall. Abdomen exam; soft, no organomegaly. Bowel sounds audible. Extremity exam; no edema or clubbing. Pulses 1+. BEADING INSTALLER exam; patient is awake and responsive but lethargic. KATHI MCKEON Jul 17, 2018 09:35
--- NOTE | 2018-07-17 09:58 | PN ---
Date/Time of Note Date/Time of Note DATE: 07/17/18 TIME: 09:49 Assessment/Plan VTE Prophylaxis Risk score (from Ns)>0 risk: 9 SCD applied (from Nsg): Yes Pharmacological prophylaxis: heparin Lines/Catheters IV Catheter [facility]from [facility] PORTACATH Urinary Cath still in place: Yes Reason Cath still needed: urinary retention Assessment/Plan Hospital Course S: Patient had weaning trial attempted yesterday, but not able to be extubated. Seen by pulmonary team this morning, and infectious disease and cardiology teams yesterday. Still with positive fevers last night. O: VS - see below PE: GENERAL: Obese man intubated, somnolent HEENT: BRITTNI, Intubated, ET tube in place LUNGS: diffusely diminished and coarse BS HEART: S1, S2. No murmur, gallops or rubs. ABDOMEN: Soft, non distended, Normoactive bowel sounds. EXTREMITIES: Mild 1+ nonpitting edema bilaterally, also some hand edema bilaterally NEUROLOGIC: Off sedation; opens eyes to voice. Does not follow commands. Grimaces to sternal rub. SKIN: Otherwise, unremarkable ECHO 07/09/18: Conclusions Mild concentric left ventricular hypertrophy. Mild enlargement of left ventricle cavity. Moderate global left ventricular systolic dysfunction. Ejection fraction is visually estimated at 25-30 %. Mild mitral leaflet calcification. Mild mitral annular calcification. Trace mitral regurgitation. No significant aortic stenosis or insufficiency. Aortic cusps appear mildly calcified. Normal appearance of the tricuspid valve. Estimated peak PA systolic pressure 31 mmHg. There is mild tricuspid regurgitation Assessment/Plan: 57 yo M with history of metastatic stage IV colon cancer admitted for SOB and hypoxemia, intubated. 1. Acute hypoxemic hypercapnic respiratory failure -failed bipap, now intubated and vent dependent. Secondary to CHF also with signs of Maurisio Pneumonia with probable underlying pulmonary nodules. Also now with increased frequency of fevers in the last 24-48 hours -Continue vent management and weaning per pulmonary -for another possible CPAP trial this morning -Continue broad-spectrum antibiotics for now, including meropenem, fluconazole given Rosalina growth findings in the respiratory culture, follow-up repeat culture test results - pending -Follow-up recommendations from ID consult as well. 2. Congestive heart failure acute on chronic secondary systolic and diastolic heart failure -patient has history of AICD -Monitor, follow-up cardiology recommendations 3. H/o Severe coronary artery disease with multivessel coronary artery disease, ACS ruled out -Continue Plavix -Continue Coreg, follow-up cardiology recommendations 4. History of PCI of coronary artery in April 2018 -secondary to LAD stenosis, per family - see # 3 5. History of metastatic adeno CA of the colon s/p resection -has been on Xeloda (palliative chemo?), ?liver mets -For now holding Xeloda as the med is not crushable. -Follow up hematology oncology recommendations -they are holding off on chemotherapy for now 6. History of hypertension -Stable, continue Aldactone for now 7. History of noncompliance -Educate on the importance of taking medicines when patient is extubated 8. History of GI bleed -hemoglobin stable, no present signs of any upper or lower GI bleeding. -Monitor 9. Dyslipidemia - monitor 10. History of sick sinus syndrome s/p pacemaker-pace maker interrogated 07/08/[address] [facility] -Monitor heart rate, follow-up cardiology recommendations 11. Recent acute occipital CVA on chronic CVA - monitor for now 12. PreDM hba1C 6.0 - monitor sugars 13. Acute confusion / delirium with reports of hallucinations -likely effect of recent CVA and chronic disease - monitor, per discussion with patient's , will likely obtain psychiatry eval once patient is extubated for further evaluation of this 14. IESHA-appreciate renal recommendations, creatinine more elevated today, patient still making urine -Monitor urine output -Follow-up renal recommendations, monitor BMP in the a.m. Dispo: Continue bronchodilators as well as supportive care. Overall prognosis remains guarded, continue ICU support. Case discussed with extensively 2 days ago Critical care time today = 40 mins Exam/Review of Systems Vital Signs Vitals Vital Signs Date Temp Pulse Resp B/P (MAP) Pulse Ox O2 O2 Flow FiO2 Time Delivery Rate 07/17/18 87 08:01 07/17/18 20 94/61 (72) 99 Mechanical 06:00 Ventilator 07/17/18 30 04:55 07/17/18 99.6 04:00 Intake and Output 07/16/18 07/16/18 07/17/18 1515:00 23:00 07:00 IntakeIntake Total 1125 ml 750 ml 1100 ml OutputOutput Total 320 ml 280 ml 210 ml BalanceBalance 805 ml 470 ml 890 ml RAÚL SOLIMAN. Jul 17, 2018 09:58
[2018-07-17] MEDS: ALPRAZOLAM 0.25 MG TAB NGT SCH (10:50)
[2018-07-17] MEDS: MEROPENEM 1 GM/50ML(PMX) 50 ML IVPB SCH ×2 (10:50→22:02)
[2018-07-17] MEDS: CLOPIDOGREL 75 MG TAB PO SCH (10:51)
[2018-07-17] MEDS: SUCRALFATE (100 MG/ML) 10ML CUP PO SCH ×4 (10:51→22:02)
[2018-07-17] MEDS: HEPARIN 5,000 UNIT/1 ML VIAL SC SCH ×2 (10:55→22:04)
--- NOTE | 2018-07-17 12:00 | NUR ---
Case Management note Spoke to jaron with [facility] @ [phone] gave verbal update Patients current condition and Plan Temp 101 increase in WBC
[2018-07-17] MEDS: FLUCONAZOLE 100 MG/50 ML (PMX) 50 ML IVPB SCH (13:05)
--- NOTE | 2018-07-17 13:45 | PN ---
DATE: 07/17/2018 SUBJECTIVE: Patient remains on the ventilator. He is not presently receiving sedation. OBJECTIVE: GENERAL: The patient is a well-developed, chronically ill-appearing male who is in no acute distress . VITAL SIGNS: Temperature 99.6 orally, pulse 87 per minute regular, respirations 18, blood pressure 9 4/61, pulse oximetry 99% on mechanical ventilator with FIO2 of 30%. SKIN: No ecchymosis, no petechiae or rashes. HEENT: Normocephalic. No evidence of trauma. No scleral icterus. There is an endotracheal tube in place as well as a nasogastric tube in place. No tube feeding infusing. NECK: Supple. No jugular venous distention or thyroid enlargement. CHEST: Clear to auscultation and percussion. No rhonchi, wheezes, rales or rubs. NODES: No palpable lymphadenopathy in any lymph node bearing area. HEART: Regular sinus rhythm, no S3, S4 or murmurs. ABDOMEN: Soft, no masses, no ascites. EXTREMITIES: No clubbing, edema or cyanosis. NEUROLOGIC: No focal neurologic abnormalities. The patient is unresponsive. LABS: White count 12,700 with an absolute neutrophil count of 9500, hemoglobin 9.4, hematocrit 32.0 and platelet count 302,000. Sodium 142, potassium 4.4, creatinine 2.41, BUN 78. ASSESSMENT: 1. Ischemic cardiomyopathy, likely related to chemotherapy with resultant congestive failure. 2. Respiratory failure secondary to congestive failure with possible pneumonitis. Again, possibly r elated to chemotherapy. 3. Metastatic colorectal carcinoma. PLAN: The patient's problems at this time are not directly related to patient's malignancy, but rath er to possible side effects of previous chemotherapy. The patient will continue on vent on present s upportive care. We will monitor the patient. If there is any improvement, and the patient can recei ve further chemotherapy, will then reevaluate. We will see intermittently. Dictated By: HALEY GUADARRAMA MD SR/NTS Conf#: [id number] DID#: [id number] CC: ASIA LORA MD;*EndCC*
--- NOTE | 2018-07-17 14:37 | PN ---
DATE: 07/17/2018 SUBJECTIVE: The patient remains critically ill on full ventilatory support. No acute events noted. The patient's urinary output has been marginal. OBJECTIVE: VITAL SIGNS: Blood pressure is 96/61, respirations 20, pulse 88, temperature 99.6. HEENT: Head is normocephalic. NECK: Supple. HEART: Regular rate. LUNGS: Show diminished breath sounds at base. ABDOMEN: Soft, nontender to palpation without rebound or guarding. EXTREMITIES: Negative for clubbing, cyanosis. Positive edema. DERMATOLOGIC: No rashes. MUSCULOSKELETAL: No joint effusion. NEUROLOGIC: No change in exam. MEDICATIONS: Have been reviewed. LABORATORY DATA: Have been reviewed and showed a sodium 142, potassium 4.2, BUN 78, creatinine 2.41. White count 12.7, platelet count 302. Repeat urinalysis was reviewed. ASSESSMENT AND PLAN: 1. Nonoliguric acute kidney injury on top of chronic kidney disease with previous baseline creatinin e of 1.3 mg/dL. Etiology of acute kidney injury is secondary to hemodynamics, cardiorenal syndrome, possible superimposed tubular injury. The patient's renal function has declined in the last 72 hours . The patient has been on diuretic therapy without clinical improvement. At this point, we would ho ld diuretic therapy to enable fluid to mobilize. Otherwise, continue supportive care, renally dose m eds, avoid nephrotoxins. 2. Hypernatremia, improved. Continue free water flushes. 3. Acute systolic heart failure/ischemic cardiomyopathy. The patient appears decompensated. Howeve r with worsening renal function, we will hold diuretic therapy for brief period to enable fluid to mo bilize. Monitor I's and O's closely. 4. Anemia. Monitor hemoglobin and hematocrit levels 5. Mineral bone disorder. Monitor calcium and phosphorus levels. 6. Ventilator dependent respiratory failure. Vent settings and ABG have been reviewed. Continue to monitor. 7. Sepsis secondary to pneumonia. Continue current antibiotic regimen. 8. History of coronary artery disease. 9. Metastatic adenocarcinoma of the colon, status post resection. The patient is on chemotherapy. Continue to monitor. 10. Dysphagia. Continue tube feeding. 11. Dyslipidemia. Continue statin therapy. 12. Sick sinus syndrome. The patient is status post pacemaker. 13. Acute cerebrovascular accident. Continue medical management. 14. Acute encephalopathy. Etiology is secondary to cerebrovascular accident. Continue to monitor. 15. History of gastrointestinal bleed. Please note, I spent over 30 minutes of critical care time with this patient. Dictated By: BROOK DEGROOT DO NR/TOR Conf#: [id number] DID#: [id number] CC: MARIANA WALLS MD; ASIA LORA MD; RAÚL SOLIMAN;*EndCC*
--- NOTE | 2018-07-17 16:13 | CONS ---
Date/Time of Note Date/Time of Note DATE: 07/17/18 TIME: 16:12 Assessment/Plan Assessment/Plan Chief Complaint/Hosp Course No acute changes overnight patient is lethargic opens eyes comfortable on vent, spiking fevers with a T-max of 102.7 yesterday to current 99.6 pulse 86 respirations 16 blood pressure 86/56 saturation 97 on vent WBC 12.7 H&H 9.4 and 32 platelets 302 neutrophils 75.2 BUN 78 creatinine 2.41 microbiology: Endotracheal aspirate growing Rosalina albicans Antimicrobials: Meropenem fluconazole Chest x-ray this morning revealed right lung base opacity may represent atelectasis versus infiltrate Indwelling: Endotracheal tube NG tube cardiac pacemaker, Winters catheter, right Port-A-Cath Physical examination: This is an obese well-developed middle-aged man who is intubated in no distress. Head atraumatic normocephalic sclera nonicteric. Neck is supple. Chest rise symmetrical breath sounds diminished bases. Heart: S1-S2. Abdomen soft bowel sounds present. Extremities with trace edema. Assessment: 1. Sepsis with ongoing fevers 2. Healthcare associated pneumonia 3. Acute kidney failure 4. Metastatic lung cancer 5. Severe cardiomyopathy 6. Acute encephalopathy Plan: Patient is clinically stable, pending urine and blood cultures, continue on current antibiotics, vent management per pulmonary Consultation Date/Type/Reason Admit Date/Time Jul 08, 2018 at 19:53 Initial Consult Date 07/10/18 Type of Consult ID Requesting Provider: RAÚL SOLIMAN Exam/Review of Systems Vital Signs Vitals Vital Signs Date Temp Pulse Resp B/P (MAP) Pulse Ox O2 O2 Flow FiO2 Time Delivery Rate 07/17/18 100 16:01 07/17/18 20 98 30 15:20 07/17/18 109/68 15:00 (82) 07/17/18 100.9 Mechanica 12:00 l Ventilato r Intake and Output 07/16/18 07/16/18 07/17/18 1515:00 23:00 07:00 IntakeIntake Total 1125 ml 750 ml 1100 ml OutputOutput Total 320 ml 280 ml 210 ml BalanceBalance 805 ml 470 ml 890 ml ELIDA SUNG NP Jul 17, 2018 16:13
--- NOTE | 2018-07-17 16:27 | NUR ---
SS NOTE: F/U MET WITH PT'S . SHE REPORTED THAT SHE MET WITH DR. MCKEON THIS MORNING. PLAN AT THIS TIME IS TO CONTINUE WITH WEANING TRIALS. REPORTED THAT SHE THIS IS "NOT HIS TIME TO GO" AND THAT SHE "WILL NOT GIVE UP". STATED THAT SHE FEELS THAT PT MIGHT DO BETTER WITH HIS WEANING TRIALS IF HE IS MORE AWAKE AND STRONGER. STATED THAT HIS MOTHER WILL BE GOING BACK HOME THIS WEEKEND AND THAT PT'S ATTITUDE MIGHT CHANGE AT THAT TIME. SW PROVIDED EMOTIONAL SUPPORT. WILL CONTINUE TO F/U WITH PT AND FAMILY FOR SUPPORT AND INFO NEEDED.
[2018-07-17] MEDS ORDERED: IBUPROFEN 600 MG TAB GTB PRN (16:30)
[2018-07-17] MEDS: ACETAMINOPHEN 325 MG TAB PO PRN (16:30)
[2018-07-17] MEDS ORDERED: VANCOMYCIN IV PER PHARMACY XX SCH (17:00)
--- NOTE | 2018-07-17 18:30 | NUR ---
Feeds on hold. Yellow emesis noted. NG hooked up to intermittent suction. Will monitor
--- NOTE | 2018-07-17 19:17 | NUR ---
Report given to oncoming nurse. VSS
[2018-07-17] MEDS ORDERED: LORAZEPAM 4 MG/ML VIAL IV PRN (20:00)
[2018-07-17] MEDS ORDERED: VANCOMYCIN 2 GM in SOD CHLORIDE 0.9% 500 ML IVPB ONE (20:00)
--- NOTE | 2018-07-17 20:03 | NUR ---
VANCOMYCIN PER RX Current ABXs: VANCOMYCIN, MERREM, DIFLUCAN IV Levels/Significant Labs: 07/17 SCR 2.41; WBC 12.7 Comments/Plan: VANCO 2 GM IV X 1, THEN START VANCO 1.25 GM IV Q24H. Addendum: 07/18/18 at 0812 by ANGELICA RODRIGUEZ [facility] Addendum~ Scr increased to 2.89 A/P: Decrease dose to Vancomycin 1.5 grams IVPB q36h. Monitor renal function. Pharmacy to follow.
[2018-07-17] MEDS: ATORVASTATIN 80 MG TAB PO SCH (22:02)
[2018-07-18] VITALS (36 sets, daily range): BP systolic 77–109; BP diastolic 50–69; PULSE 74–98; RESP 13–27
[2018-07-18] MEDS: LANSOPRAZOLE 30 MG CAP NGT SCH (06:13)
[2018-07-18] MEDS: ALBUMIN HUMAN 25% 100 ML IV SCH ×3 (07:43→22:46)
[2018-07-18] MEDS: PROPOFOL 100 ML IV SCH ×2 (08:00→20:00)
[2018-07-18] MEDS ORDERED: LORAZEPAM 4 MG/ML VIAL IV PRN (09:00)
--- NOTE | 2018-07-18 09:00 | PN ---
Date/Time of Note Date/Time of Note DATE: 07/18/18 TIME: 08:51 Assessment/Plan VTE Prophylaxis Risk score (from Ns)>0 risk: 12 SCD applied (from Nsg): Yes Pharmacological prophylaxis: heparin Lines/Catheters IV Catheter Type (from [facility]): Nicole Cath Urinary Cath still in place: Yes Reason Cath still needed: urinary retention Assessment/Plan Hospital Course S: Patient had fever again last night. Still intubated. Needed Ativan last night and lethargic this morning as well. Having low blood pressure this morning, received albumin order for that. O: VS - see below PE: GENERAL: Obese man intubated, somnolent HEENT: BRITTNI, Intubated, ET tube in place LUNGS: Some diminished and coarse BS HEART: S1, S2. No murmur, gallops or rubs. ABDOMEN: Soft, non distended, Normoactive bowel sounds. EXTREMITIES: Mild 1+ nonpitting edema bilaterally, also some hand edema bilaterally NEUROLOGIC: Off sedation; opens eyes to voice. Does not follow commands. Grimaces to sternal rub. SKIN: Otherwise, unremarkable ECHO 07/09/18: Conclusions Mild concentric left ventricular hypertrophy. Mild enlargement of left ventricle cavity. Moderate global left ventricular systolic dysfunction. Ejection fraction is visually estimated at 25-30 %. Mild mitral leaflet calcification. Mild mitral annular calcification. Trace mitral regurgitation. No significant aortic stenosis or insufficiency. Aortic cusps appear mildly calcified. Normal appearance of the tricuspid valve. Estimated peak PA systolic pressure 31 mmHg. There is mild tricuspid regurgitation Assessment/Plan: 57 yo M with history of metastatic stage IV colon cancer admitted for SOB and hypoxemia, intubated. 1. Acute hypoxemic hypercapnic respiratory failure -failed bipap, now intubated and vent dependent. Secondary to CHF also with signs of Maurisio Pneumonia with probable underlying pulmonary nodules. Also now with increased frequency of fevers in the last 48 hours -Continue vent management and weaning per pulmonary -for another possible CPAP trial this morning -Continue broad-spectrum antibiotics for now, including meropenem, now vancomycin, fluconazole given Rosalina growth findings in the respiratory culture, follow-up repeat culture test results - pending -Follow-up recommendations from ID consult as well. -We will also hold the Xanax daily medication, and decreased the dose and frequency of the Ativan as needed 2. Congestive heart failure acute on chronic secondary systolic and diastolic heart failure -patient has history of AICD -Monitor, follow-up cardiology recommendations 3. H/o Severe coronary artery disease with multivessel coronary artery disease, ACS ruled out -Continue Plavix -Continue Coreg, follow-up cardiology recommendations 4. History of PCI of coronary artery in April 2018 -secondary to LAD stenosis, per family - see # 3 5. History of metastatic adeno CA of the colon s/p resection -has been on Xeloda (palliative chemo?), ?liver mets -For now holding Xeloda as the med is not crushable. -Follow up hematology oncology recommendations -they are holding off on chemotherapy for now 6. History of hypertension -Stable, continue Aldactone for now 7. History of noncompliance -Educate on the importance of taking medicines when patient is extubated 8. History of GI bleed -hemoglobin stable, no present signs of any upper or lower GI bleeding. -Monitor 9. Dyslipidemia - monitor 10. History of sick sinus syndrome s/p pacemaker-pace maker interrogated 07/08/18 at [facility] -Monitor heart rate, follow-up cardiology recommendations 11. Recent acute occipital CVA on chronic CVA - monitor for now 12. PreDM hba1C 6.0 - monitor sugars 13. Acute confusion / delirium with reports of hallucinations -likely effect of recent CVA and chronic disease - monitor, per discussion with patient's , will likely obtain psychiatry eval once patient is extubated for further evaluation of this 14. IESHA-appreciate renal recommendations, creatinine more elevated today again, patient still making some urine, but diuretics were stopped yesterday -Monitor urine output -Follow-up renal recommendations, monitor BMP in the a.m. Dispo: Continue bronchodilators as well as supportive care. Overall prognosis remains guarded, continue ICU support. Case discussed with extensively yesterday and 3 days ago. Critical care time today = 45 mins Exam/Review of Systems Vital Signs Vitals Vital Signs Date Temp Pulse Resp B/P (MAP) Pulse Ox O2 O2 Flow FiO2 Time Delivery Rate 07/18/18 102.0 06:15 07/18/18 95 23 98 30 05:33 07/18/18 105/67 04:00 (80) 07/17/18 Mechanica 12:00 l Ventilato r Intake and Output 07/17/18 07/17/18 07/18/18 1515:00 23:00 07:00 IntakeIntake Total 0 ml 700 ml 700 ml OutputOutput Total 230 ml 140 ml 140 ml BalanceBalance -230 ml 560 ml 560 ml RAÚL SOLIMAN Jul 18, 2018 09:00
--- NOTE | 2018-07-18 09:21 | CONS ---
Date/Time of Note Date/Time of Note DATE: 07/18/18 TIME: 09:18 Assessment/Plan Assessment/Plan Additional Assessment/Plan Ventilator setting; AC of 14, tidal volume 500, PEEP of 5, 30% FiO2. Assessment recommendations; 1. Patient with history of stage IV colon cancer admitted for sepsis due to bilateral pneumonia with significant radiological improvement. 2. CHF. 3. Chronic renal insufficiency. 4. Encephalopathy with waxing and waning mental status. 5. 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 6. Patient has failed numerous weaning trials from ventilator. 7. Anemia. Continue current supportive care. Continue to hold Lasix due to increased serum creatinine. I did have a very detailed discussion with the patient's at bedside yesterday. I answered all her questions. Prognosis appears guarded. Patient likely will need to either have a tracheostomy versus terminal extubati on. 35 minutes of critical care time was spent evaluating the patient. Consultation Date/Type/Reason Admit Date/Time Jul 08, 2018 at 19:53 Initial Consult Date 07/09/18 Type of Consult Pulmonary/critical care Requesting Provider: RAÚL SOLIMAN 24 HR Interval Summary Free Text/Dictation Patient's condition remains critical. Patient remains lethargic. Has failed multiple weaning trials from ventilator. General exam; middle-aged male, orally intubated, lethargic, currently no distress. Minimally responsive. Exam/Review of Systems Vital Signs Vitals Vital Signs Date Temp Pulse Resp B/P (MAP) Pulse Ox O2 O2 Flow FiO2 Time Delivery Rate 07/18/18 102.0 06:15 07/18/18 95 23 98 30 05:33 07/18/18 105/67 04:00 (80) 07/17/18 Mechanica 12:00 l Ventilato r Intake and Output 07/17/18 07/17/18 07/18/18 1515:00 23:00 07:00 IntakeIntake Total 0 ml 700 ml 700 ml OutputOutput Total 230 ml 140 ml 140 ml BalanceBalance -230 ml 560 ml 560 ml Exam HEENT exam; supple neck, positive JVD. No lymphadenopathy. Midline trachea. No thyromegaly. Orally intubated. Patient has fair dentition. Pupils are small bilaterally. No neck masses. Chest exam; diminished breath sounds bilaterally. S1-S2 audible, no murmurs. Regular rhythm. Pacemaker in left chest wall. Abdomen exam; soft, nondistended. No organomegaly. Bowel sounds audible. Extremity exam; edema clubbing. Pulses 1+. VESSEL ENGINEER exam; patient is unresponsive currently. KATHI MCKEON Jul 18, 2018 09:21
[2018-07-18] MEDS: CLOPIDOGREL 75 MG TAB PO SCH (09:45)
[2018-07-18] MEDS: MEROPENEM 1 GM/50ML(PMX) 50 ML IVPB SCH ×2 (09:45→20:51)
[2018-07-18] MEDS: HEPARIN 5,000 UNIT/1 ML VIAL SC SCH ×2 (09:49→21:09)
--- NOTE | 2018-07-18 10:57 | PN ---
DATE: 07/18/2018 SUBJECTIVE: The patient remains unresponsive, remains intubated and on mechanical ventilator. OBJECTIVE: GENERAL: The patient is a well-developed but chronically ill-appearing male who is unresponsive. VITAL SIGNS: Temperature 100.2, pulse 95 per minute and regular, respirations 22 per minute, blood p ressure 105/67, pulse oximetry 98% on mechanical ventilator with FIO2 of 30%. SKIN: No ecchymosis, no petechiae or rashes but pale. HEENT: Normocephalic. No evidence of trauma. There is no scleral icterus. The patient does have a nasogastric tube in place and endotracheal tube in place. NECK: Supple. No jugular venous distention or thyroid enlargement. CHEST: No rhonchi, wheezes, rales or rubs. There is a Port-A-Cath in place in the right anterior ch est wall as well as a pacemaker/AICD in left anterior chest wall. HEART: Regular sinus rhythm, no S3, S4 or murmurs. ABDOMEN: Mildly distended but no distinct masses or ascites. Bowel sounds are decreased. There is no succussion splash. EXTREMITIES: No clubbing, edema or cyanosis. No palpable cords or Homans' sign. NEUROLOGIC: The patient is unresponsive. LABORATORY DATA: Sodium 140, potassium 4.6, creatinine 2.89, and BUN 92. WBC 12,400 with absolute n eutrophil count 9900, hemoglobin 8.8, hematocrit 28.3, MCV 75.3, MCH 23.3, MCHC 31, RDW 24, platelet count 317,000. ASSESSMENT: 1. Ischemic cardiomyopathy, likely related to previous chemotherapy. 2. Respiratory failure due to congestive heart failure as well as possible pneumonitis, which may al so be related to previous chemotherapy. 3. Metastatic colorectal carcinoma. 4. Worsening renal failure. 5. Fever, probable sepsis. DISCUSSION: As previously noted, the present problems are not primarily related to patient's metasta tic colon carcinoma. The patient is becoming slowly more anemic. Much of this is related to underlying renal disease and other inflammatory state. Probably some degree of iron deficiency. As mentioned, renal function is continuing to deteriorate. Is being seen by Dr. Turpin. No new recommendations at this time, but will check iron studies. Dictated By: HALEY GUADARRAMA MD SR/NTS Conf#: [id number] DID#: [id number] CC: ASIA LORA MD;*[facility]*
[2018-07-18] MEDS: SUCRALFATE (100 MG/ML) 10ML CUP PO SCH ×4 (12:00→21:16)
--- NOTE | 2018-07-18 12:52 | PN ---
DATE: 07/18/2018 SUBJECTIVE: The patient has had minimal urinary output overnight. The patient's blood pressures hav e been low in the 80s. No other events noted. No hemoptysis, hematemesis or hematochezia. OBJECTIVE: VITAL SIGNS: Blood pressure is 105/67, respirations 24, pulse 98, temperature of 100.2. HEENT: Head is normocephalic. NECK: Supple. HEART: Regular rate. LUNGS: Show diminished breath sounds at base. ABDOMEN: Soft, nontender to palpation without rebound or guarding. EXTREMITIES: Negative for clubbing, cyanosis. Trace edema. DERMATOLOGIC: No rashes. MUSCULOSKELETAL: No joint effusions. NEUROLOGIC: No change in exam. INPUT AND OUTPUT: I's and O's have been reviewed. The patient has 1500 in, with 500 out. MEDICATIONS: Have been reviewed. LABORATORY DATA: Show sodium 140, potassium 4.6, BUN 92, creatinine is 2.89. Magnesium 2.7. White count 12.4, hemoglobin 9.8, platelet count is 317. DIAGNOSTIC DATA: The patient's chest x-ray from 07/17/2018 was reviewed. ASSESSMENT AND PLAN: 1. Oliguric acute kidney injury on top of chronic kidney disease with previous baseline creatinine a round 1.3 mg/dL. Etiology of acute kidney injury is likely multifactorial secondary to hemodynamics, possible cardiorenal syndrome, nephrotoxicity from antibiotics, vancomycin, chemotherapy Xeloda. Th e patient's diuretics chemotherapy has been on hold. We will discuss with infectious disease about c hanging antibiotics and discontinue vancomycin. The patient is currently hypotensive. We will give the patient gentle fluid challenge with IV albumin to help mobilize fluid from the interstitial space and intravascular space. We will hold diuretic therapy at this time as the patient remains hypotens yovani. We will continue to treat underlying pneumonia. We will continue supportive care, renally dose all meds, avoid nephrotoxins. Monitor renal function closely. We will also repeat a urinalysis and urine electrolytes. 2. Hypernatremia, resolved. Continue free water flushes. 3. Acute heart failure, ischemic cardiomyopathy. The patient's ejection fraction was 25%. The carlyle ent's chest x-ray continues to show congestion; however in the setting of hypotension, we will hold d iuretic therapy, give the patient gentle fluid challenge and monitor closely. 4. Anemia. Monitor hemoglobin and hematocrit levels. 5. Mineral bone disorder. Monitor calcium and phosphatase levels. 6. Ventilatory dependent respiratory failure. Vent settings and ABG was reviewed. Continue to [facility]. 7. Sepsis secondary to bilateral pneumonia. Continue antibiotic therapy. 8. History of coronary artery disease. 9. Metastatic adenocarcinoma of the colon. The patient is currently off chemotherapy in the setting of worsening renal function. Monitor closely. 10. Dysphagia. Continue tube feeding. 11. Dyslipidemia. Continue statin therapy. 12. Sick sinus syndrome. The patient is status post pacemaker. 13. Acute cerebrovascular accident. Continue medical management. 14. Acute encephalopathy. Etiology is toxic metabolic. 15. History of gastrointestinal bleed. Please note, I spent over 30 minutes of critical care time with this patient. Dictated By: BROOK DEGROOT DO NR/NTS Conf#: [id number] DID#: [id number] CC: MARIANA WALLS MD; ASIA LORA MD; RAÚL SOLIMAN;*EndCC*
[2018-07-18] MEDS: FLUCONAZOLE 100 MG/50 ML (PMX) 50 ML IVPB SCH (13:33)
--- NOTE | 2018-07-18 16:32 | CONS ---
Date/Time of Note Date/Time of Note DATE: 07/18/18 TIME: 16:29 Assessment/Plan Assessment/Plan Chief Complaint/Hosp Course 1130 No acute changes overnight per report, spiked fever in am, now afebrile, looks comfortable, TF at 30 cc Microbiology: Endotracheal aspirate growing Rosalina albicans, bld cx negative, urine cx pending Antimicrobials: Meropenem fluconazole Vanco Indwelling: Endotracheal tube NG tube cardiac pacemaker, Winters catheter, right Port-A-Cath Physical examination: This is an obese well-developed middle-aged man who is intubated in no distress. Head atraumatic normocephalic sclera nonicteric. Neck is supple. Chest rise symmetrical breath sounds diminished bases. Heart: S1-S2. Abdomen soft bowel sounds present. Extremities with trace edema. Assessment: 1. Sepsis with ongoing fevers 2. Healthcare associated pneumonia 3. Acute kidney failure 4. Metastatic colon cancer 5. Severe cardiomyopathy 6. Acute encephalopathy Plan: Patient is clinically unchanged, continue antibiotics, vent management per pulmonary, renal/oncology rec-s, f/u urine cx DW RN Consultation Date/Type/Reason Admit Date/Time Jul 08, 2018 at 19:53 Initial Consult Date 07/10/18 Type of Consult ID Requesting Provider: RAÚL SOLIMAN Exam/Review of Systems Vital Signs Vitals Vital Signs Date Temp Pulse Resp B/P (MAP) Pulse Ox O2 O2 Flow FiO2 Time Delivery Rate 07/18/18 73 25 100 30 13:30 07/18/18 105/61 10:00 (76) 07/18/18 98.5 08:35 07/18/18 Mechanical 08:00 Ventilator Intake and Output 07/17/18 07/17/18 07/18/18 1515:00 23:00 07:00 IntakeIntake Total 0 ml 700 ml 700 ml OutputOutput Total 230 ml 140 ml 140 ml BalanceBalance -230 ml 560 ml 560 ml ELIDA SUNG NP Jul 18, 2018 16:32
--- NOTE | 2018-07-18 19:42 | NUR ---
Report given to oncoming nurse. VSS
[2018-07-18] MEDS ORDERED: VANCOMYCIN 1.25 GM in SOD CHLORIDE 0.9% 250 ML IVPB SCH (20:00)
--- NOTE | 2018-07-18 20:39 | CONS ---
Date/Time of Note Date/Time of Note DATE: 07/18/18 TIME: 20:36 Assessment/Plan Assessment/Plan Chief Complaint/Hosp Course Assessment: Acute hypoxic respiratory failure - intubated and on mechanical ventilation Pneumonia Acute on chronic systolic heart failure Ischemic cardiomyopathy, LVEF 25-30% Severe multi-vessel coronary artery disease, status post recent PCI to right coronary artery (April 2018) Hypertension Dyslipidemia Sick sinus syndrome, status post permanent pacemaker - currently not pacer dependent History of stroke Stage IV colon cancer History of gastrointestinal bleeding Acute kidney injury Recommendations: -Lasix held due to worsening renal function -continue clopidogrel 75mg daily as able given recent PCI -continue atorvastatin 80mg daily -continue carvedilol 3.125mg BID Consultation Date/Type/Reason Admit Date/Time Jul 08, 2018 at 19:53 Initial Consult Date 07/10/18 Type of Consult Cardiology 24 HR Interval Summary Free Text/Dictation Remains critically ill. Hypotensive, but responded to albumin. Failed weaning and remains intubated and on mechanical ventilation. Slightly worsening renal function. Febrile to 102 F this morning. Detailed Summary Additional Comments Unable to obtain review of systems, patient is intubated. Exam/Review of Systems Vital Signs Vitals Vital Signs Date Temp Pulse Resp B/P (MAP) Pulse Ox O2 O2 Flow FiO2 Time Delivery Rate 07/18/18 80 25 96/67 (77) 99 18:00 07/18/18 30 17:30 07/18/18 98.6 Mechanical 16:00 Ventilator Intake and Output 07/17/18 07/17/18 07/18/18 1515:00 23:00 07:00 IntakeIntake Total 0 ml 750 ml 1600 ml OutputOutput Total 230 ml 140 ml 160 ml BalanceBalance -230 ml 610 ml 1440 ml Exam Constitutional: other (intubated); No alert, No oriented Psych: confusion Head: normocephalic, atraumatic ENMT: nl external ears & nose, nl nasal mucosa & septum Neck: supple, non-tender Respiratory: crackles/rales Cardiovascular: regular rate and rhythm Gastrointestinal: soft, distended Musculoskeletal: swelling Extremities: edema; No cyanosis, No clubbing Neurological: No nl mental status, No nl speech HALEY BOSWELL MD Jul 18, 2018 20:39
[2018-07-18] MEDS: ATORVASTATIN 80 MG TAB PO SCH (21:16)
[2018-07-19] VITALS (35 sets, daily range): BP systolic 105–142; BP diastolic 64–89; PULSE 82–100; RESP 13–44
[2018-07-19] MEDS: ACETAMINOPHEN 325 MG TAB PO PRN (04:06)
--- NOTE | 2018-07-19 04:06 | NUR ---
Patient exhibits temperature of 100.4* F, Tylenol given, cooling measures initiated. Will continue to monitor.
[2018-07-19] MEDS: LANSOPRAZOLE 30 MG CAP NGT SCH (05:01)
--- NOTE | 2018-07-19 06:41 | NUR ---
EOSS: Patient alert, oriented x1, able to follow commands. Patient on 7.5 ETT, 23 at the lip. AC 14, FIO2 30% TV 500 PEEP 5. No sign of respiratory distress. OG tube placed and confirmed by xray, NG tube had been accidently snorted out by patient. Restarted tube feeding at 20 cc/hr, Goal rate 50, with water flush of 50 cc/q6h. Winters in place, with 20 cc/hr of urine output, Dr. Turpin aware. Patient exhibited temperature of 100.4*F, patient afebrile now. Patient was turned q2hrs, restraints were renewed. Will endorse to oncoming nurse.
[2018-07-19] MEDS: PROPOFOL 100 ML IV SCH ×2 (08:00→19:37)
[2018-07-19] MEDS ORDERED: VANCOMYCIN 1.5 GM in SOD CHLORIDE 0.9% 250 ML IVPB SCH (08:00)
[2018-07-19] MEDS ORDERED: ALBUMIN HUMAN 25% 100 ML IV ONE (08:30)
--- NOTE | 2018-07-19 08:47 | CONS ---
Date/Time of Note Date/Time of Note DATE: 07/19/18 TIME: 08:44 Assessment/Plan Assessment/Plan Additional Assessment/Plan Ventilator setting; AC of 16, tidal volume 500, PEEP of 5, 30% FiO2. Assessment recommendations; 1. Patient with stage IV colon cancer admitted for severe sepsis due to bilateral pneumonia and cardiac myopathy with CHF exacerbation. 2. Patient has failed numerous weaning trials ventilator due to underlying cardiomyopathy and element of pulmonary edema. 3. Chronic renal insufficiency with worsening renal function. Lasix on hold because of elevated serum creatinine. 4. Critical illness neuropathy/myopathy. 5. Anemia. 6. Significant reduction in secretions coming through endotracheal tube. Hold feeding. Continue current supportive care. Obtain follow-up chest x-ray. Perform another CPAP trial with pressure support of 12 as tolerated. Monitor renal function. I did have a detailed discussion with the patient's at bedside answered all questions. Prognosis remains guarded. 35 minutes of critical care time was spent evaluating the patient. Consultation Date/Type/Reason Admit Date/Time Jul 08, 2018 at 19:53 Initial Consult Date 07/09/18 Type of Consult Pulmonary/critical care 24 HR Interval Summary Free Text/Dictation Patient's condition remains critical. Patient however is showing markedly imp roved mental status. Has remained hemodynamically stable. General exam; middle-aged male, orally intubated, awake and alert. Currently in no distress. Exam/Review of Systems Vital Signs Vitals Vital Signs Date Temp Pulse Resp B/P (MAP) Pulse Ox O2 O2 Flow FiO2 Time Delivery Rate 07/19/18 88 19 123/76 Mechanical 07:00 (92) Ventilator 07/19/18 100 06:00 07/19/18 30 05:40 07/19/18 98.8 05:00 Intake and Output 07/18/18 07/18/18 07/19/18 1515:00 23:00 07:00 IntakeIntake Total 600 ml 300 ml 220 ml OutputOutput Total 160 ml 160 ml 82 ml BalanceBalance 440 ml 140 ml 138 ml Exam HEENT exam; supple neck, no JVD. No lymphadenopathy. Midline trachea. No thyromegaly. Orally intubated. Patient has fair dentition. Chest exam; diminished but clear breath sounds. S1-S2 audible, no murmurs. Regular rhythm. Abdomen exam; soft, no organomegaly. Nontender. Bowel sounds audible. No distention. Extremity exam; no peripheral edema or clubbing. BOG CUTTER exam; focal deficit. Patient exhibiting excellent muscular strength. KATHI MCKEON Jul 19, 2018 08:47
[2018-07-19] MEDS: SUCRALFATE (100 MG/ML) 10ML CUP PO SCH ×4 (09:09→20:19)
[2018-07-19] MEDS: CLOPIDOGREL 75 MG TAB PO SCH (09:11)
[2018-07-19] MEDS: MEROPENEM 1 GM/50ML(PMX) 50 ML IVPB SCH (09:11)
--- NOTE | 2018-07-19 10:02 | PN ---
DATE: 07/19/2018 SUBJECTIVE: Patient remains unresponsive. Remains intubated and on mechanical ventilation. OBJECTIVE: GENERAL: The patient is a well-developed, but a critically and chronically ill-appearing male who is unresponsive. VITAL SIGNS: Temperature 98.5 axillary with a T-max of 100.4 axillary. Pulse 88 per minute regular, respirations 19, blood pressure 123/76, pulse oximetry 100% by mechanical ventilator with FIO2 of 30 %. SKIN: No ecchymosis, no petechiae or rashes. There is pallor. HEENT: Normocephalic. No evidence of trauma. No scleral icterus. Nasogastric tube is in place. E ndotracheal tube in place. NECK: Supple. No jugular venous distention or thyroid enlargement. CHEST: There are some bilateral rales. Port-A-Cath in place in the right anterior chest and pacemak er/AICD in the left anterior chest wall. HEART: Regular sinus rhythm, no S3, S4 or murmurs. ABDOMEN: Mildly distended but no masses or ascites. EXTREMITIES: No clubbing, edema or cyanosis. No palpable cords or Homans sign. NEUROLOGIC: Patient remains unresponsive. WBC 11,400, hemoglobin 8.5, hematocrit 28.2 and platelet count 308,000. Sodium 144, potassium 4.5, B UN 110, creatinine 3.79. Iron 23, total iron binding capacity 194, percent saturation 12% and ferrit in is 740. ASSESSMENT: There has been no improvement in the patient's condition and certainly continuing deteri oration of renal function. Iron studies are most consistent with combined anemia of chronic disease and some iron deficiency. No oncologic intervention indicated at this time. Dictated By: HALEY GUADARRAMA MD SR/NTS Conf#: [id number] DID#: [id number] CC: MARIANA WALLS MD; ASIA LORA MD;*End*
--- NOTE | 2018-07-19 10:57 | PN ---
Date/Time of Note Date/Time of Note DATE: 07/19/18 TIME: 10:53 Assessment/Plan VTE Prophylaxis Risk score (from Nsg)>0 risk: 8 SCD applied (from Nsg): Yes Pharmacological prophylaxis: heparin Lines/Catheters IV Catheter Type (from Nrsg): Nicole Cath Urinary Cath still in place: Yes Reason Cath still needed: urinary retention Assessment/Plan Hospital Course S: Patient had fever again early this AM. Still intubated. Seen by pulm and Heme Onc teams this AM, presently undergoing CPAP trial. O: VS - see below PE: GENERAL: Obese man intubated, somnolent HEENT: BRITTNI, Intubated, ET tube in place LUNGS: Some diminished and coarse BS HEART: S1, S2. No murmur, gallops or rubs. ABDOMEN: Soft, non distended, Normoactive bowel sounds. EXTREMITIES: Mild 1+ nonpitting edema bilaterally, also some hand edema bilaterally NEUROLOGIC: Off sedation; opens eyes to voice. Does not follow commands. Grimaces to sternal rub. SKIN: Otherwise, unremarkable ECHO 07/09/18: Conclusions Mild concentric left ventricular hypertrophy. Mild enlargement of left ventricle cavity. Moderate global left ventricular systolic dysfunction. Ejection fraction is visually estimated at 25-30 %. Mild mitral leaflet calcification. Mild mitral annular calcification. Trace mitral regurgitation. No significant aortic stenosis or insufficiency. Aortic cusps appear mildly calcified. Normal appearance of the tricuspid valve. Estimated peak PA systolic pressure 31 mmHg. There is mild tricuspid regurgitation Assessment/Plan: 57 yo M with history of metastatic stage IV colon cancer admitted for SOB and hypoxemia, intubated. 1. Acute hypoxemic hypercapnic respiratory failure -failed bipap, now intubated and vent dependent. Secondary to CHF also with signs of Maurisio Pneumonia with probable underlying pulmonary nodules. Also now with increased frequency of fevers in the last 2-3 days. -Continue vent management and weaning per pulmonary -for another possible CPAP trial this morning -Continue broad-spectrum antibiotics for now, including meropenem, now vancomycin, fluconazole given Rosalina growth findings in the respiratory culture, follow-up repeat culture test results - pending -Follow-up recommendations from ID consult as well. -If not able to be extubated in the next few days, tracheostomy placement needs to be considered -holding Xanax daily medication, continue Ativan as needed 2. Congestive heart failure acute on chronic secondary systolic and diastolic heart failure -patient has history of AICD -Monitor, follow-up cardiology recommendations 3. H/o Severe coronary artery disease with multivessel coronary artery disease, ACS ruled out -Continue Plavix -Continue Coreg, follow-up cardiology recommendations 4. History of PCI of coronary artery in April 2018 -secondary to LAD stenosis, per family - see # 3 5. History of metastatic adeno CA of the colon s/p resection -has been on Xeloda (palliative chemo?), ?liver mets -For now holding Xeloda as the med is not crushable. -Follow up hematology oncology recommendations -they are holding off on chemotherapy for now 6. History of hypertension -Stable, continue Aldactone for now 7. History of noncompliance -Educate on the importance of taking medicines when patient is extubated 8. History of GI bleed -hemoglobin stable, no present signs of any upper or lower GI bleeding. -Monitor 9. Dyslipidemia - monitor 10. History of sick sinus syndrome s/p pacemaker-pace maker interrogated 07/08/18 at [facility] -Monitor heart rate, follow-up cardiology recommendations 11. Recent acute occipital CVA on chronic CVA - monitor for now 12. PreDM hba1C 6.0 - monitor sugars 13. Acute confusion / delirium with reports of hallucinations -likely effect of recent CVA and chronic disease - monitor, per discussion with patient's , will likely obtain psychiatry eval once patient is extubated for further evaluation of this -We will start trazodone 50 mg as well, patient history of depression 14. IESHA-appreciate renal recommendations, creatinine more elevated today again, diuretic stopped 2 days ago -Monitor urine output, creatinine levels -Follow-up renal recommendations, monitor BMP in the a.m. Dispo: Continue bronchodilators as well as supportive care. Overall prognosis remains guarded, continue ICU support. May need to consider tracheostomy placement in the next few days if the patient cannot be extubated. Case dewayne scussed with the last few days. Critical care time today = 40 mins Exam/Review of Systems Vital Signs Vitals Vital Signs Date Temp Pulse Resp B/P (MAP) Pulse Ox O2 O2 Flow FiO2 Time Delivery Rate 07/19/18 91 15 129/83 Mechanical 10:00 (98) Ventilator 07/19/18 30 08:30 07/19/18 79 08:00 07/19/18 98.8 05:00 Intake and Output 07/18/18 07/18/18 07/19/18 1515:00 23:00 07:00 IntakeIntake Total 600 ml 300 ml 220 ml OutputOutput Total 160 ml 160 ml 82 ml BalanceBalance 440 ml 140 ml 138 ml RAÚL SOLIMAN Jul 19, 2018 10:57
[2018-07-19] MEDS: FLUCONAZOLE 100 MG/50 ML (PMX) 50 ML IVPB SCH (11:26)
[2018-07-19] MEDS: HEPARIN 5,000 UNIT/1 ML VIAL SC SCH ×2 (11:32→20:24)
--- NOTE | 2018-07-19 11:50 | PN ---
DATE: 07/19/2018 SUBJECTIVE: The patient remains in serious condition, febrile overnight. Urinary output has been ol iguric, only 400 mL in the last 24 hours. No other events noted. OBJECTIVE: VITAL SIGNS: Blood pressure is 123/76, respiration 19, pulse 88, temperature 98.5. HEENT: Head is normocephalic. NECK: Supple. HEART: Regular rate. LUNGS: Show diminished breath sounds at the base. ABDOMEN: Soft, nontender to palpation without rebound or guarding. EXTREMITIES: Negative for clubbing, cyanosis, no edema. DERMATOLOGIC: No rashes. MUSCULOSKELETAL: No joint effusion. NEUROLOGIC: No change in exam. IMAGING STUDIES: Chest x-ray was reviewed. LABORATORY DATA: Shows white count 11.7, hemoglobin 9.5, platelet count 308. Sodium 144, potassium 4.5, chloride 103, BUN 110, creatinine 3.79, phosphorus 5.5, magnesium 3.0. Iron studies were review ed. MEDICATIONS: The patient's medications have been reviewed. ASSESSMENT AND PLAN: 1. Acute kidney injury on top of chronic kidney disease with previous baseline creatinine of 1.3 mg/ dL. Etiology of acute kidney injury is multifactorial secondary to hemodialysis, cardiorenal pathoph ysiology with likely superimposed acute tubular necrosis due to nephrotoxicity from antibiotics, hemo dynamics and chemotherapy. The patient remains in injury phase of acute kidney injury as renal funct ion continues to decline. Urinary output has been marginal. Recommendation at this point is to cont inue gentle volume expansion with IV albumin. Continue holding diuretic therapy. We will discuss ag ain with infectious disease about changing antibiotics and discontinuing vancomycin. Will otherwise continue current treatment plan, supportive care, renally dose all meds. If renal function should co ntinue to decline in the next 24 to 48 hours, would consider starting patient on hemodialysis. 2. Hypernatremia, resolved. Continue free water flushes. 3. Acute heart failure, ischemic cardiomyopathy. The patient's ejection fraction is approximately 2 5%. Chest x-ray shows mild congestion. We will continue to hold diuretic therapy in the setting of worsening renal function. Continue gentle volume expansion with IV albumin to help mobilize fluid fr om the interstitial space to the intravascular space. 4. Anemia. Monitor hemoglobin and hematocrit levels. 5. Mineral bone disorder, monitor calcium and phosphorus levels. 6. Ventilator-dependent respiratory failure. Vent settings and ABG reviewed. Continue to monitor. 7. Sepsis secondary to bilateral pneumonia. Continue antibiotic therapy. 8. History of coronary artery disease. 9. Metastatic adenocarcinoma of the colon. The patient is currently on chemotherapy. Continue to m onitor. 10. Dysphagia. Continue tube feeding. 11. Dyslipidemia. Continue statin therapy. 12. Sick sinus syndrome. The patient is status post pacemaker. 13. Acute cerebrovascular accident. 14. Acute encephalopathy, etiology is toxic metabolic. Continue to monitor. 14. History of GI bleed. Please note I spent over 30 minutes of critical care time with this patient. Dictated By: BROOK DEGROOT DO NR/NTS Conf#: [id number] DID#: [id number] CC: ASIA LORA MD; MARIANA WALLS MD; RAÚL SOLIMAN;*EndCC*
--- NOTE | 2018-07-19 12:47 | CONS ---
Date/Time of Note Date/Time of Note DATE: 07/19/18 TIME: 12:46 Assessment/Plan Assessment/Plan Chief Complaint/Hosp Course No acute changes overnight patient still spiking fevers with a T-max of 100.4 renal function getting worse he is oliguric current temperature 98.8 pulse 90 respirations 15 blood pressure 129/83, saturation 100% WBC 11.7 H&H 8.5 and 28.2 platelets 308 neutrophils 81.7 BUN 110 creatinine 3.79 Microbiology: Endotracheal aspirate growing Rosalina albicans, bld cx negative, urine cx pending Antimicrobials: Meropenem fluconazole Vanco Indwelling: Endotracheal tube NG tube cardiac pacemaker, Winters catheter, right Port-A-Cath Physical examination: This is an obese well-developed middle-aged man who is intubated in no distress. Head atraumatic normocephalic sclera nonicteric. Neck is supple. Chest rise symmetrical breath sounds diminished bases. Heart: S1-S2. Abdomen soft bowel sounds present. Extremities with trace edema. Assessment: 1. Sepsis with ongoing fevers 2. Healthcare associated pneumonia 3. Acute kidney failure 4. Metastatic colon cancer 5. Severe cardiomyopathy 6. Acute encephalopathy Plan: Patient is clinically unchanged, but will change vancomycin to Zyvox given worsening renal function, continue antibiotics, vent management per pulmonary, renal/oncology rec-s JOSE RN Consultation Date/Type/Reason Admit Date/Time Jul 08, 2018 at 19:53 Initial Consult Date 07/10/18 Type of Consult ID Exam/Review of Systems Vital Signs Vitals Vital Signs Date Temp Pulse Resp B/P (MAP) Pulse Ox O2 O2 Flow FiO2 Time Delivery Rate 07/19/18 30 12:00 07/19/18 91 15 129/83 Mechanical 10:00 (98) Ventilator 07/19/18 79 08:00 07/19/18 98.8 05:00 Intake and Output 07/18/18 07/18/18 07/19/18 1515:00 23:00 07:00 IntakeIntake Total 600 ml 300 ml 220 ml OutputOutput Total 160 ml 160 ml 82 ml BalanceBalance 440 ml 140 ml 138 ml ELIDA SUNG NP Jul 19, 2018 12:47
[2018-07-19] MEDS: traZODone 50 MG TAB PO SCH ×2 (15:32→20:20)
--- NOTE | 2018-07-19 16:52 | CONS ---
Date/Time of Note Date/Time of Note DATE: 07/19/18 TIME: 16:51 Assessment/Plan Assessment/Plan Chief Complaint/Hosp Course Assessment: Acute hypoxic respiratory failure - intubated and on mechanical ventilation Pneumonia Acute on chronic systolic heart failure Ischemic cardiomyopathy, LVEF 25-30% Severe multi-vessel coronary artery disease, status post recent PCI to right coronary artery (April 2018) Hypertension Dyslipidemia Sick sinus syndrome, status post permanent pacemaker - currently not pacer dependent History of stroke Stage IV colon cancer History of gastrointestinal bleeding Acute kidney injury Recommendations: -Lasix held due to worsening renal function -continue clopidogrel 75mg daily as able given recent PCI -continue atorvastatin 80mg daily -continue carvedilol 3.125mg BID Consultation Date/Type/Reason Admit Date/Time Jul 08, 2018 at 19:53 Initial Consult Date 07/10/18 Type of Consult Cardiology 24 HR Interval Summary Free Text/Dictation Remains intubated. Increasing Cr and BUN. Detailed Summary Additional Comments Unable to obtain review of systems, patient is intubated. Exam/Review of Systems Vital Signs Vitals Vital Signs Date Temp Pulse Resp B/P (MAP) Pulse Ox O2 O2 Flow FiO2 Time Delivery Rate 07/19/18 90 16:00 07/19/18 27 100 30 15:30 07/19/18 Mechanical 15:00 Ventilator 07/19/18 99.8 12:00 Intake and Output 07/18/18 07/18/18 07/19/18 1515:00 23:00 07:00 IntakeIntake Total 600 ml 300 ml 240 ml OutputOutput Total 160 ml 160 ml 92 ml BalanceBalance 440 ml 140 ml 148 ml Exam Constitutional: other (intubated); No alert, No oriented Psych: confusion Head: normocephalic, atraumatic ENMT: nl external ears & nose, nl nasal mucosa & septum Neck: supple, non-tender Respiratory: crackles/rales Cardiovascular: regular rate and rhythm Gastrointestinal: soft, distended Musculoskeletal: swelling Extremities: edema; No cyanosis, No clubbing Neurological: No nl mental status, No nl speech HALEY BOSWELL MD Jul 19, 2018 16:52
[2018-07-19] MEDS: HYDROCODONE/APAP (5/325) TAB PO PRN (17:16)
[2018-07-19] MEDS: ATORVASTATIN 80 MG TAB PO SCH (20:19)
[2018-07-19] MEDS: ZYVOX 600 MG TAB PO SCH (20:20)
[2018-07-19] MEDS: MEROPENEM 500MG/50 ML (PMX) 50 ML IVPB SCH (21:08)
[2018-07-20] VITALS (36 sets, daily range): BP systolic 98–123; BP diastolic 62–80; PULSE 82–92; RESP 12–39
[2018-07-20] MEDS: ACETAMINOPHEN 325 MG TAB PO PRN (03:17)
--- NOTE | 2018-07-20 04:33 | NUR ---
EOSS pt vitals within MD parameter. fever noted of 101.0, tylenol and cooling measures done. Low UOP, MD aware. tolerating TF well. no s/s of pain or acute distress noted. updated regarding plan of care and pt condition. Pt failed cpap twice yesterday. CPAP plan again for today. Pt turned q2h, skin care performed. Comfort and safety measure addressed, no other acute events to report.
[2018-07-20] MEDS: LANSOPRAZOLE 30 MG CAP NGT SCH (06:04)
[2018-07-20] MEDS: PROPOFOL 100 ML IV SCH ×2 (08:00→20:00)
[2018-07-20] MEDS: MEROPENEM 500MG/50 ML (PMX) 50 ML IVPB SCH ×2 (08:13→20:48)
[2018-07-20] MEDS: SUCRALFATE (100 MG/ML) 10ML CUP PO SCH ×4 (08:14→20:49)
[2018-07-20] MEDS: ZYVOX 600 MG TAB PO SCH ×2 (08:14→20:49)
[2018-07-20] MEDS: CLOPIDOGREL 75 MG TAB PO SCH (08:14)
[2018-07-20] MEDS: HEPARIN 5,000 UNIT/1 ML VIAL SC SCH ×2 (08:15→20:52)
--- NOTE | 2018-07-20 08:26 | CONS ---
Date/Time of Note Date/Time of Note DATE: 07/20/18 TIME: 08:22 Assessment/Plan Assessment/Plan Additional Assessment/Plan Chest x-ray was reviewed from yesterday evening which is totally clear. Ventilator setting; AC of 14, tidal volume 500, PEEP of 5, 30% FiO2. Assessment recommendations; 1. Patient with history of stage IV colon cancer admitted for sepsis due to pneumonia with marked radiological improvement. 2. Likely malignancy associated neuropathy/myopathy. 3. Failure to be weaned from ventilator despite multiple times. 4. Underlying cardia myopathy. 5. Chronic renal insufficiency with acute renal failure with anuria. 6. History of hypertension. 7. History of cardiac arrhythmia, status post pacemaker placement in the past. 8. Anemia. Continue current supportive care. Patient likely will need to be dialyzed. Defer any weaning attempts from ventilator at this point. And will possibly require a tracheostomy as well. Consider stopping antibiotics. 35 minutes of critical care time was spent evaluating the patient. Consultation Date/Type/Reason Admit Date/Time Jul 08, 2018 at 19:53 Initial Consult Date 07/09/18 Type of Consult Pulmonary/critical care 24 HR Interval Summary Free Text/Dictation Patient's condition is critical. Patient has failed multiple weaning trials from ventilator. General exam; middle-aged male, orally intubated, lethargic but arousable. Currently no distress. Exam/Review of Systems Vital Signs Vitals Vital Signs Date Temp Pulse Resp B/P (MAP) Pulse Ox O2 O2 Flow FiO2 Time Delivery Rate 07/20/18 87 19 112/69 99 Mechanical 06:00 (83) Ventilator 07/20/18 30 05:10 07/20/18 99.9 04:02 Intake and Output 07/19/18 07/19/18 07/20/18 1515:00 23:00 07:00 IntakeIntake Total 230 ml 210 ml 310 ml OutputOutput Total 60 ml 35 ml 50 ml BalanceBalance 170 ml 175 ml 260 ml Exam H EENT exam; supple neck, no JVD. No lymphadenopathy. Midline trachea. No thyromegaly. Patient has fair dentition. Orally intubated. No neck masses. Pupils are midsize and reactive to light. Chest exam; diminished but clear breath sounds. S1-S2 audible, no murmurs. Regular rhythm. Pacemaker in left chest wall. Mediport in right chest wall. Abdomen exam; soft, nontender. No organomegaly. Nondistended. Bowel sounds audible. Extremity exam; no peripheral edema or clubbing. Pulses 1+. HEAD OF D[employer]ISING & [employer]TEGRATION exam; patient is arousable. KATHI MCKEON Jul 20, 2018 08:25
--- NOTE | 2018-07-20 09:35 | PN ---
DATE: 07/20/2018 SUBJECTIVE: The patient remains oliguric. Renal function continues to decline. Urinary output has been marginal. No other events noted. OBJECTIVE: VITAL SIGNS: Blood pressure is 112/69, respiration 19, pulse 87, temperature 99.9. HEENT: Head is normocephalic. NECK: Supple. HEART: Regular rate. LUNGS: Show diminished breath sounds at the base. ABDOMEN: Soft, nontender to palpation without rebound or guarding. EXTREMITIES: Negative for clubbing, cyanosis. Trace edema. DERMATOLOGIC: No rashes. MUSCULOSKELETAL: No joint effusions. NEUROLOGIC: No change in exam. MEDICATIONS: Reviewed. LABORATORY DATA: Shows a sodium 145, potassium 4.9, chloride 104, BUN 116, creatinine 4.65, calcium 9.3, phosphorus 5.9, magnesium 3.2. White count 10.5, hemoglobin 8.6, platelet count is 343. Urinal ysis was reviewed. IMAGING: Chest x-ray was reviewed. ASSESSMENT AND PLAN: 1. Oligoanuric acute kidney injury on top of chronic kidney disease with previous baseline creatinin e of 1.3 mg/dL. Etiology of acute kidney injury is multifactorial secondary to hemodynamics, cardior enal syndrome, with possible superimposed acute tubular necrosis from nephrotoxicity. The patient re gustavo in injury phase of acute kidney injury. His renal function continues to decline. Urinary outp ut remains marginal. The patient has had no significant improvement despite IV hydration. At this p oint will likely need to initiate renal replacement therapy if the patient's renal function does not improve in the next 24 hours. Will continue current treatment plan, supportive care, renally dose al l meds, monitor closely. 2. Hyponatremia. Will increase free water flushes to 200 mL q.4h. 3. Acute heart failure, ischemic cardiomyopathy. The patient has a known ejection fraction of 25%. The patient's volume status remained stable. Continue to hold diuretic therapy and is any worsening renal function. The patient is status post IV albumin. 4. Anemia. Continue to monitor hemoglobin and hematocrit levels. 5. Mineral bone disorder, monitor calcium and phosphorus levels. 6. Ventilator dependent respiratory failure. Vent settings and arterial blood gas was reviewed. Co ntinue to monitor. 7. Sepsis secondary to bilateral pneumonia. Continue current antibiotic therapy. Antibiotic regime n was adjusted. Vancomycin was discontinued. Follow up with infectious disease. 8. History of coronary artery disease. 9. Metastatic adenocarcinoma of the colon. The patient's chemotherapy is currently on hold. Contin ue to monitor. 10. Dysphagia. Continue tube feeding. 11. Dyslipidemia. Continue statin therapy. 12. Restless leg syndrome. The patient is status post pacemaker placement. 13. Acute cerebrovascular accident. 14. Acute encephalopathy, etiology toxic metabolic. 15. History of gastrointestinal bleed. Please note I spent over 30 minutes of critical care time with this patient. Dictated By: BROOK DEGROOT DO NR/NTS Conf#: [id number] DID#: [id number] CC: ASIA LORA MD;*EndCC*
--- NOTE | 2018-07-20 10:20 | PN ---
Date/Time of Note Date/Time of Note DATE: 07/20/18 TIME: 10:09 Assessment/Plan VTE Prophylaxis Risk score (from Ns)>0 risk: 15 SCD applied (from Ns): Yes Pharmacological prophylaxis: heparin Lines/Catheters IV Catheter Type (from [facility]): Port-a-cath Urinary Cath still in place: Yes Reason Cath still needed: other (indicate) (oliguric renal failure) Assessment/Plan Assessment/Plan 57 yo M with history of metastatic stage IV colon cancer admitted for SOB and hypoxemia, intubated. # Acute hypoxemic hypercapnic respiratory failure - failed bipap, now intubated (07/09) and vent dependent. - Secondary to CHF also with signs of bilateral pneumonia on admission with probable underlying pulmonary nodules. - Also now with increased frequency of fevers in the last 2-3 days. - Continue vent management and weaning per pulmonary - Continue broad-spectrum antibiotics for now, including meropenem, now vancomy renetta, fluconazole given Rosalina growth findings in the respiratory culture, follow-up repeat culture test results - Follow-up recommendations from ID consult as well. - If not able to be extubated in the next few days, tracheostomy placement needs to be considered - holding Xanax daily medication, continue Ativan as needed #Oliguric IESHA - Rising Cr. May have been due to hypotensive episode a few days ago. - Small volume colloid fluid replacement per nephrology. - Likely will need dialysis within 24-48 hours. Will discuss with family. # Congestive heart failure acute on chronic secondary systolic and diastolic heart failure - patient has history of AICD - Currently on low-dose BB, holding ACEi due to IESHA. # H/o Severe coronary artery disease with multivessel coronary artery disease, ACS ruled out - Continue Plavix, statin, coreg - Had PCI of coronary artery in April 2018 secondary to LAD stenosis, per family # History of metastatic adeno CA of the colon s/p resection - has been on Xeloda (palliative chemo?), possible liver mets - For now holding Xeloda as the med is not crushable. - Follow up hematology oncology recommendations, holding off on chemotherapy for now # History of hypertension - Currently on low dose BB and aldactone # History of GI bleed - hemoglobin stable, no present signs of any upper or lower GI bleeding. # Dyslipidemia - Continue statin # History of sick sinus syndrome - s/p pacemaker-pace maker interrogated 07/08/18 at [facility] # Recent acute occipital CVA on chronic CVA - Plavix, statin. # PreDM - hba1C 6.0, not requiring insulin. # Acute confusion / delirium with reports of hallucinations - likely effect of recent CVA and chronic disease - per discussion with patient's , will likely obtain psychiatry eval if patient is extubated for further evaluation of this - We will start trazodone 50 mg as well, patient history of depression Dispo: Very poor prognosis. Respiratory failure requiring ventilator, not weanable from vent after 1 week. Now with new oliguric renal failure. Currently it sounds like the patient's is leaning towards compassionate extubation. She says tracheostomy is against patient's wishes. Will discuss with mother on Friday. Subjective 24 Hr Interval Summary Free Text/Dictation Off sedation patient opens eyes to voice, follows commands to open mouth. Drowsy. No pressors. Oliguric. Had fever to 101 last night. Spoke at length to patient's Nayla. She has been at the bedside every a fternoon; the patient's mother went back to [place] for Clear. She was very reasonable and understanding of the patient's poor condition and the medical decisions which have been made. We discussed dialysis. I explained the need to place a large bore catheter and also the process of dialysis. She wants to wait until Friday before deciding for sure; but she understands that if he develops acidosis, hyperkalemia or other emergency she will be receptive to a phone call to consent for it. We also discussed tracheostomy. I explained that leaving the ET tube in for more than two weeks causes risk of permanent damage to the vocal cords. She does not believe that prolonged reliance on mechanical ventilation is in accordance with the patient's wishes. We tentatively decided on a plan to trial extubation later this week to noninvasive CPAP. If he fails; we would NOT reintubate and instead start comfort-focused symptomatic treatment for dyspnea including morphine gtt if necessary. Prior to this she wants me to call the patient's mother and get her consent as well. I'll plan to do this Friday after the holiday. Exam/Review of Systems Vital Signs Vitals Vital Signs Date Temp Pulse Resp B/P (MAP) Pulse Ox O2 O2 Flow FiO2 Time Delivery Rate 07/20/18 30 08:00 07/20/18 98.8 88 117/80 100 Mechanical 08:00 (92) Ventilator 07/20/18 19 06:00 Intake and Output 07/19/18 07/19/18 07/20/18 1414:59 22:59 06:59 IntakeIntake Total 230 ml 200 ml 340 ml OutputOutput Total 65 ml 35 ml 55 ml BalanceBalance 165 ml 165 ml 285 ml Exam GENERAL: Obese man intubated, somnolent but arousable. HEENT: BRITTNI, Intubated, ET tube in place LUNGS: Some diminished and coarse BS HEART: S1, S2. No murmur, gallops or rubs. ABDOMEN: Soft, non distended, Normoactive bowel sounds. EXTREMITIES: Mild 1+ nonpitting edema bilaterally, also some hand edema bilaterally NEUROLOGIC: Off sedation; opens eyes to voice. Opens mouth on command. SKIN: Otherwise, unremarkable KARI VALERA MD Jul 20, 2018 10:20
[2018-07-20] MEDS: ALPRAZOLAM 0.25 MG TAB PO PRN (11:31)
[2018-07-20] MEDS: FLUCONAZOLE 100 MG/50 ML (PMX) 50 ML IVPB SCH (11:34)
[2018-07-20] MEDS: HYDROCODONE/APAP (5/325) TAB PO PRN (12:26)
--- NOTE | 2018-07-20 14:07 | CONS ---
Date/Time of Note Date/Time of Note DATE: 07/20/18 TIME: 14:05 Assessment/Plan Assessment/Plan Chief Complaint/Hosp Course No acute changes overnight, patient is on CPAP looks comfortable. He is anuric. 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 Head atraumatic normocephalic sclera nonicteric. Neck is supple. Chest rise symmetrical breath sounds diminished bases. Heart: S1-S2. Abdomen soft bowel sounds present. Extremities with trace edema. Assessment: 1. Severe sepsis with ongoing fevers 2. Healthcare associated pneumonia 3. Acute kidney failure 4. Metastatic colon cancer 5. Severe cardiomyopathy 6. Acute encephalopathy Plan: Patient is clinically unchanged, hemodynamically stable, WBC continues to trend down, continue antibiotics, follow renal/oncology rec-s, patient may require hemodialysis DW RN Consultation Date/Type/Reason Admit Date/Time Jul 08, 2018 at 19:53 Initial Consult Date 07/10/18 Type of Consult ID Exam/Review of Systems Vital Signs Vitals Vital Signs Date Temp Pulse Resp B/P (MAP) Pulse Ox O2 O2 Flow FiO2 Time Delivery Rate 07/20/18 91 12:00 07/20/18 39 99 30 11:57 07/20/18 119/75 11:00 (90) 07/20/18 Mechanical 10:00 Ventilator 07/20/18 98.8 08:00 Intake and Output 07/19/18 07/19/18 07/20/18 1515:00 23:00 07:00 IntakeIntake Total 230 ml 210 ml 340 ml OutputOutput Total 60 ml 35 ml 50 ml BalanceBalance 170 ml 175 ml 290 ml Medications Medications Current Medications IV Flush (NS 3 ml) 3 ml PER PROTOCOL IV ; Start 07/08/18 at 21:00 Ondansetron HCl (Zofran Inj) 4 mg Q6H PRN IV NAUSEA AND/OR VOMITING; Start 07/08/18 at 21:00 Acetaminophen (Tylenol Tab) 650 mg Q6H PRN PO PAIN LEVEL 1-3 OR FEVER Last administered on 07/20/18 03:17; Admin Dose 650 MG; Start 07/08/18 at 21:00 Docusate Sodium (Colace) 100 mg Q12H PRN PO CONSTIPATION; Start 07/08/18 at 21:00 Atorvastatin Calcium (Lipitor) 80 mg QHS PO Last administered on 07/19/18 20:19; Admin Dose 80 MG; Start 07/09/18 at 21:00 Capecitabine (Xeloda) 1,500 mg BID PO Last administered on 07/13/18 09:05; Admin Dose 1,500 MG; Start 07/09/18 at 09:00; Status Hold Carvedilol (Coreg) 3.125 mg BID PO Last administered on 07/20/18 08:14; Admin Dose 3.125 MG; Start 07/09/18 at 09:00 Clopidogrel Bisulfate (plaVIX) 75 mg DAILY PO Last administered on 07/20/18 08:14; Admin Dose 75 MG; Start 07/09/18 at 09:00 Sucralfate (Carafate Susp) 1 gm QID PO Last administered on 07/20/18 08:14; Admin Dose 1 GM; Start 07/09/18 at 09:00 Levalbuterol (Xopenex Neb) 1.25 mg Q4H RESP THERAPY PRN HHN SHORTNESS OF BREATH Last administered on 07/09/18at 03:59; Admin Dose 1.25 MG; Start 07/09/18 at 03:45 Heparin Sodium (Porcine) (Heparin (5000 Units/1ml)) 5,000 unit BID SC Last adm inistered on 07/20/18 08:15; Admin Dose 5,000 UNIT; Start 07/09/18 at 21:00 Diphenhydramine HCl (Benadryl) 25 mg Q8H PRN PO ITCHING Last administered on 07/09/18 17:11; Admin Dose 25 MG; Start 07/09/18 at 16:30 Lansoprazole (Prevacid) 30 mg DAILY@06 NGT Last administered on 07/20/18 06:04; Admin Dose 30 MG; Start 07/12/18 at 06:00 Fluconazole/ Sodium Chloride 50 ml @ 50 mls/hr Q24H IVPB Last administered on 07/20/18 11:34; Admin Dose 50 MLS/HR; Start 07/13/18 at 11:00 Alprazolam (Xanax) 0.25 mg DAILY NGT Last administered on 07/17/18 10:50; Admin Dose 0.25 MG; Start 07/14/18 at 09:00; Status Hold Alprazolam (Xanax) 0.25 mg QHS PRN PO ANXIETY Last administered on 07/20/18 11:31; Admin Dose 0.25 MG; Start 07/13/18 at 15:30 Propofol 100 ml @ 3.63 mls/hr Q12H IV Last administered on 07/16/18 02:34; Admin Dose 7.26 MLS/HR; Start 07/15/18 at 08:00 Furosemide (Lasix) 40 mg DAILY IV Last administered on 07/16/18 08:47; Admin Dose 40 MG; Start 07/15/18 at 09:00; Status Hold Lorazepam (Ativan) 0.5 mg Q8H PRN IV Anxiety Last administered on 07/18/18 21:10; Admin Dose 0.5 MG; Start 07/18/18 at 09:00 Meropenem/Sodium Chloride 50 ml @ 100 mls/hr Q12 IVPB Last administered on 07/20/18 08:13; Admin Dose 100 MLS/HR; Start 07/19/18 at 21:00 Trazodone HCl (Desyrel) 50 mg HS PO Last administered on 07/19/18 20:20; Admin Dose 50 MG; Start 07/19/18 at 11:00 Linezolid (Zyvox) 600 mg BID PO Last administered on 07/20/18 08:14; Admin Dose 600 MG; Start 07/19/18 at 21:00 Acetaminophen/ Hydrocodone Bitart ([place] (5/325)) 1 tab Q12H PRN PO MODERATE PAIN LEVEL 4-6 Last administered on 07/20/18 12:26; Admin Dose 1 TAB; Start 07/19/18 at 17:30 ELIDA SUNG NP Jul 20, 2018 14:07
--- NOTE | 2018-07-20 15:13 | NUR ---
CM NOTES: RECEIVED A CALL FROM THE [facility] [phone] AND INFORMED THIS CM THAT PT'S WAS CALLING HER TODAY ABOUT THE CARE OF [facility]. [facility] [phone] ALSO CALLED THIS CM AND PT'S IS INDICATING THAT NO MD IS GIVING HER UPDATE AND NO FAMILY CONFERENCE. SHE IS ALSO ACCUSING [facility] IS NOT TAKING CARE OF THE PT. PER [facility] THAT THE HAS BEEN CALLING [facility] MULTIPLE TIMES. ALL CALLS SHOULD BE FORWARDED TO [facility] SINCE THIS IS A CAP PT TO [facility]. [facility]ARMA IS CURRENTLY SPEAKING TO [facility] AND ASKED THEM TO REFER ALL CALLS FROM THE TO HER. ALSO REQUESTED [facility] MD TO SPEAK TO THE DIRECTLY AND DOCUMENTS ALL CONVERSATION IN MD PROGRESS NOTES. THIS CM S/W DR VALERA AND VAN CARTER [id number] REGARDING THE ABOVE. DR VALERA WILL SPEAK TO THE DIRECTLY AND WILL DOCUMENT THE CONVERSATION. CURRENTLY, PT HAS WORSENING KIDNEY FUNCTION PER MD NOTES AND PER VAN'S NOTES, PT'S IS "NOT GIVING UP". PT REMAINS FULL CODE. A CM WILL REMAIN AVAILABLE FOR ANY DC PLANNING NEEDS. GEOVANNA BARROSO LEAD CM [id number]
--- NOTE | 2018-07-20 16:21 | CONS ---
Date/Time of Note Date/Time of Note DATE: 07/20/18 TIME: 16:20 Assessment/Plan Assessment/Plan Chief Complaint/Hosp Course Assessment: Acute hypoxic respiratory failure - intubated and on mechanical ventilation Pneumonia Acute on chronic systolic heart failure Ischemic cardiomyopathy, LVEF 25-30% Severe multi-vessel coronary artery disease, status post recent PCI to right coronary artery (April 2018) Hypertension Dyslipidemia Sick sinus syndrome, status post permanent pacemaker - currently not pacer dependent History of stroke Stage IV colon cancer History of gastrointestinal bleeding Acute kidney injury Recommendations: -Lasix held due to worsening renal function -continue clopidogrel 75mg daily as able given recent PCI -continue atorvastatin 80mg daily -continue carvedilol 3.125mg BID Discussed with patient's at bedside. Consultation Date/Type/Reason Admit Date/Time Jul 08, 2018 at 19:53 Initial Consult Date 07/10/18 Type of Consult Cardiology 24 HR Interval Summary Free Text/Dictation On CPAP trial. Detailed Summary Additional Comments Unable to obtain review of systems, patient is intubated. Exam/Review of Systems Vital Signs Vitals Vital Signs Date Temp Pulse Resp B/P (MAP) Pulse Ox O2 O2 Flow FiO2 Time Delivery Rate 07/20/18 91 12:00 07/20/18 39 99 30 11:57 07/20/18 119/75 11:00 (90) 07/20/18 Mechanical 10:00 Ventilator 07/20/18 98.8 08:00 Intake and Output 07/19/18 07/19/18 07/20/18 1515:00 23:00 07:00 IntakeIntake Total 230 ml 210 ml 340 ml OutputOutput Total 60 ml 35 ml 50 ml BalanceBalance 170 ml 175 ml 290 ml Exam Constitutional: other (intubated); No alert, No oriented Psych: confusion Head: normocephalic, atraumatic ENMT: nl external ears & nose, nl nasal mucosa & septum Neck: supple, non-tender Respiratory: crackles/rales Cardiovascular: regular rate and rhythm Gastrointestinal: soft, distended Musculoskeletal: swelling Extremities: edema; No cyanosis, No clubbing Neurological: No nl mental status, No nl speech Medications Medications Current Medications IV Flush (NS 3 ml) 3 ml PER PROTOCOL IV ; Start 07/08/18 at 21:00 Ondansetron HCl (Zofran Inj) 4 mg Q6H PRN IV NAUSEA AND/OR VOMITING; Start 07/08/18 at 21:00 Acetaminophen (Tylenol Tab) 650 mg Q6H PRN PO PAIN LEVEL 1-3 OR FEVER Last administered on 07/20/18 03:17; Admin Dose 650 MG; Start 07/08/18 at 21:00 Docusate Sodium (Colace) 100 mg Q12H PRN PO CONSTIPATION; Start 07/08/18 at 21:00 Atorvastatin Calcium (Lipitor) 80 mg QHS PO Last administered on 07/19/18 20:19; Admin Dose 80 MG; Start 07/09/18 at 21:00 Capecitabine (Xeloda) 1,500 mg BID PO Last administered on 07/13/18 09:05; Admin Dose 1,500 MG; Start 07/09/18 at 09:00; Status Hold Carvedilol (Coreg) 3.125 mg BID PO Last administered on 07/20/18 08:14; Admin Dose 3.125 MG; Start 07/09/18 at 09:00 Clopidogrel Bisulfate (plaVIX) 75 mg DAILY PO Last administered on 07/20/18 08:14; Admin Dose 75 MG; Start 07/09/18 at 09:00 Sucralfate (Carafate Susp) 1 gm QID PO Last administered on 07/20/18 14:04; Admin Dose 1 GM; Start 07/09/18 at 09:00 Levalbuterol (Xopenex Neb) 1.25 mg Q4H RESP THERAPY PRN HHN SHORTNESS OF BREATH Last administered on 07/09/18 03:59; Admin Dose 1.25 MG; Start 07/09/18 at 03:45 Heparin Sodium (Porcine) (Heparin (5000 Units/1ml)) 5,000 unit BID SC Last administered on 07/20/18 08:15; Admin Dose 5,000 UNIT; Start 07/09/18 at 21:00 Diphenhydramine HCl (Benadryl) 25 mg Q8H PRN PO ITCHING Last administered on 07/09/18 17:11; Admin Dose 25 MG; Start 07/09/18 at 16:30 Lansoprazole (Prevacid) 30 mg DAILY@06 NGT Last administered on 07/20/18 06:04; Admin Dose 30 MG; Start 07/12/18 at 06:00 Fluconazole/ Sodium Chloride 50 ml @ 50 mls/hr Q24H IVPB Last administered on 07/20/18 11:34; Admin Dose 50 MLS/HR; Start 07/13/18 at 11:00 Alprazolam (Xanax) 0.25 mg DAILY NGT Last administered on 07/17/18 10:50; Admin Dose 0.25 MG; Start 07/14/18 at 09:00; Status Hold Alprazolam (Xanax) 0.25 mg QHS PRN PO ANXIETY Last administered on 07/20/18 11:31; Admin Dose 0.25 MG; Start 07/13/18 at 15:30 Propofol 100 ml @ 3.63 mls/hr Q12H IV Last administered on 07/16/18 02:34; Admin Dose 7.26 MLS/HR; Start 07/15/18 at 08:00 Furosemide (Lasix) 40 mg DAILY IV Last administered on 07/16/18 08:47; Admin Dose 40 MG; Start 07/15/18 at 09:00; Status Hold Lorazepam (Ativan) 0.5 mg Q8H PRN IV Anxiety Last administered on 07/18/18 21:10; Admin Dose 0.5 MG; Start 07/18/18 at 09:00 Meropenem/Sodium Chloride 50 ml @ 100 mls/hr Q12 IVPB Last administered on 07/20/18 08:13; Admin Dose 100 MLS/HR; Start 07/19/18 at 21:00 Trazodone HCl (Desyrel) 50 mg HS PO Last administered on 07/19/18 20:20; Admin Dose 50 MG; Start 07/19/18 at 11:00 Linezolid (Zyvox) 600 mg BID PO Last administered on 07/20/18 08:14; Admin Dose 600 MG; Start 07/19/18 at 21:00 Acetaminophen/ Hydrocodone Bitart ([place] (5/325)) 1 tab Q12H PRN PO MODERATE PAIN LEVEL 4-6 Last administered on 07/20/18 12:26; Admin Dose 1 TAB; Start 07/19/18 at 17:30 HALEY BOSWELL MD Jul 20, 2018 16:21
--- NOTE | 2018-07-20 19:34 | NUR ---
Patient was on SIMV for almost 3 hours this morning and then CPAP for 4 hours after that. ABG results called to Dr. Cabrera, he requested the patient be placed back on AC for the time being. Dr. Turpin spoke with patients this afternoon about kidney function and potential for dialysis. UOP remains 0-15 mls/hr and schwab catheter changed out d/t significant amount of sediment possibly blocking drainage. VSS throughout day. Treated with xanax x 1 and norco x 1 during cpap trial, patient did express pain coming from his feet/legs.
[2018-07-20] MEDS: traZODone 50 MG TAB PO SCH (20:49)
[2018-07-20] MEDS: ATORVASTATIN 80 MG TAB PO SCH (20:49)
[2018-07-21] VITALS (36 sets, daily range): BP systolic 91–122; BP diastolic 56–82; PULSE 80–91; RESP 18–29
[2018-07-21] MEDS: LANSOPRAZOLE 30 MG CAP NGT SCH (05:33)
--- NOTE | 2018-07-21 06:18 | NUR ---
EOSS: Pt remains intubated orally tolerating AC mode satisfactorily, no signs of pain, vital signs stable, afebrile , schwab w/ very scant u/o, no bladder distention noted. NGT w/; Replete , tolerating TF satisfactorily. turned and repositioned, complete bedbath rendered, due meds adm.
[2018-07-21] MEDS: PROPOFOL 100 ML IV SCH (08:00)
[2018-07-21] MEDS ORDERED: FUROSEMIDE 40 MG INJ IV ONE (08:00)
[2018-07-21] MEDS: MEROPENEM 500MG/50 ML (PMX) 50 ML IVPB SCH ×2 (08:35→21:30)
[2018-07-21] MEDS: SUCRALFATE (100 MG/ML) 10ML CUP PO SCH ×4 (08:35→21:05)
[2018-07-21] MEDS: HYDROCODONE/APAP (5/325) TAB PO PRN (08:35)
[2018-07-21] MEDS: ZYVOX 600 MG TAB PO SCH ×2 (08:36→21:05)
[2018-07-21] MEDS: CLOPIDOGREL 75 MG TAB PO SCH (08:36)
[2018-07-21] MEDS: HEPARIN 5,000 UNIT/1 ML VIAL SC SCH ×2 (08:44→21:30)
--- NOTE | 2018-07-21 08:59 | CONS ---
Date/Time of Note Date/Time of Note DATE: 07/21/18 TIME: 08:53 Assessment/Plan Assessment/Plan Additional Assessment/Plan Ventilator settings; assist control of 14, tidal volume 500, PEEP of 5, 30% FiO2. Assessment and recommendations; 1. Patient with history of stage IV colon cancer admitted for respiratory failure due to pneumonia and CHF exacerbation. 2. History of chronic renal insufficiency with now acute renal failure with anuria. 3. Fluid overload due to renal failure. 4. Underlying cardiomyopathy, exacerbated by worsening renal function. 5. Anemia. 6. 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 7. Patient has failed multiple weaning trials from ventilator. Continue current supportive care. Patient likely will need to be hemodialyzed. Currently he is not in a position to be weaned off from invasive mechanical ventilation. Consider stopping antibiotics. 35 minutes of critical care time was spent evaluating the patient. Consultation Date/Type/Reason Admit Date/Time Jul 08, 2018 at 19:53 Initial Consult Date 07/09/18 Type of Consult Pulmonary/critical care 24 HR Interval Summary Free Text/Dictation Patient's condition remains critical. Remains awake but lethargic. Patient has failed multiple weaning trials from ventilator. General exam; middle-aged male, awake, responsive, exhibiting profound generalized weakness . Currently no distress. Orally intubated. Exam/Review of Systems Vital Signs Vitals Vital Signs Date Temp Pulse Resp B/P (MAP) Pulse Ox O2 O2 Flow FiO2 Time Delivery Rate 07/21/18 90 08:00 07/21/18 22 99 30 05:00 07/21/18 112/74 Mechanical 05:00 (87) Ventilator 07/21/18 98.7 04:00 Intake and Output 07/20/18 07/20/18 07/21/18 1515:00 23:00 07:00 IntakeIntake Total 370 ml 850 ml 450 ml OutputOutput Total 60 ml 85 ml 40 ml BalanceBalance 310 ml 765 ml 410 ml Exam H EENT exam; supple neck, positive JVD. Orally intubated. Patient has fair dentition. No neck masses. Chest exam; diminished but clear breath sounds. S1-S2 audible, no murmurs. Regular rhythm. Pacemaker in left chest wall. Abdomen exam; soft, no organomegaly. Nondistended. Bowel sounds audible. Extremity exam; trace edema. EXTERMINATOR exam; patient awake follows simple commands but exhibiting profound generalized weakness. Medications Medications Current Medications IV Flush (NS 3 ml) 3 ml PER PROTOCOL IV ; Start 07/08/18 at 21:00 Ondansetron HCl (Zofran Inj) 4 mg Q6H PRN IV NAUSEA AND/OR VOMITING; Start 07/08/18 at 21:00 Acetaminophen (Tylenol Tab) 650 mg Q6H PRN PO PAIN LEVEL 1-3 OR FEVER Last administered on 07/20/18 03:17; Admin Dose 650 MG; Start 07/08/18 at 21:00 Docusate Sodium (Colace) 100 mg Q12H PRN PO CONSTIPATION; Start 07/08/18 at 21:00 Atorvastatin Calcium (Lipitor) 80 mg QHS PO Last administered on 07/20/18 20:49; Admin Dose 80 MG; Start 07/09/18 at 21:00 Capecitabine (Xeloda) 1,500 mg BID PO Last administered on 07/13/18 09:05; Admin Dose 1,500 MG; Start 07/09/18 at 09:00; Status Hold Carvedilol (Coreg) 3.125 mg BID PO Last administered on 07/21/18 08:35; Admin Dose 3.125 MG; Start 07/09/18 at 09:00 Clopidogrel Bisulfate (plaVIX) 75 mg DAILY PO Last administered on 07/21/18 08:36; Admin Dose 75 MG; Start 07/09/18 at 09:00 Sucralfate (Carafate Susp) 1 gm QID PO Last administered on 07/21/18 08:35; Admin Dose 1 GM; Start 07/09/18 at 09:00 Levalbuterol (Xopenex Neb) 1.25 mg Q4H RESP THERAPY PRN HHN SHORTNESS OF BREATH Last administered on 07/09/18 03:59; Admin Dose 1.25 MG; Start 07/09/18 at 03:45 Heparin Sodium (Porcine) (Heparin (5000 Units/1ml)) 5,000 unit BID SC Last administered on 07/21/18 08:44; Admin Dose 5,000 UNIT; Start 07/09/18 at 21:00 Diphenhydramine HCl (Benadryl) 25 mg Q8H PRN PO ITCHING Last administered on 07/09/18 17:11; Admin Dose 25 MG; Start 07/09/18 at 16:30 Lansoprazole (Prevacid) 30 mg DAILY@06 NGT Last administered on 07/21/18 05:33; Admin Dose 30 MG; Start 07/12/18 at 06:00 Fluconazole/ Sodium Chloride 50 ml @ 50 mls/hr Q24H IVPB Last administered on 07/20/18 11:34; Admin Dose 50 MLS/HR; Start 07/13/18 at 11:00 Alprazolam (Xanax) 0.25 mg DAILY NGT Last administered on 07/17/18 10:50; Admin Dose 0.25 MG; Start 07/14/18 at 09:00; Status Hold Alprazolam (Xanax) 0.25 mg QHS PRN PO ANXIETY Last administered on 07/20/18 11:31; Admin Dose 0.25 MG; Start 07/13/18 at 15:30 Propofol 100 ml @ 3.63 mls/hr Q12H IV Last administered on 07/16/18 02:34; Admin Dose 7.26 MLS/HR; Start 07/15/18 at 08:00 Furosemide (Lasix) 40 mg DAILY IV Last administered on 07/16/18 08:47; Admin Dose 40 MG; Start 07/15/18 at 09:00; Status Hold Lorazepam (Ativan) 0.5 mg Q8H PRN IV Anxiety Last administered on 07/18/18 21:10; Admin Dose 0.5 MG; Start 07/18/18 at 09:00 Meropenem/Sodium Chloride 50 ml @ 100 mls/hr Q12 IVPB Last administered on 07/21/18 08:35; Admin Dose 100 MLS/HR; Start 07/19/18 at 21:00 Trazodone HCl (Desyrel) 50 mg HS PO Last administered on 07/20/18 20:49; Ad min Dose 50 MG; Start 07/19/18 at 11:00 Linezolid (Zyvox) 600 mg BID PO Last administered on 07/21/18 08:36; Admin Dose 600 MG; Start 07/19/18 at 21:00 Acetaminophen/ Hydrocodone Bitart ([place] (5/325)) 1 tab Q12H PRN PO MODERATE PAIN LEVEL 4-6 Last administered on 07/21/18at 08:35; Admin Dose 1 TAB; Start 07/19/18 at 17:30 KATHI MCKEON Jul 21, 2018 08:59
--- NOTE | 2018-07-21 10:23 | PN ---
DATE: 07/21/2018 SUBJECTIVE: I spoke yesterday with the patient's , informing her that the patient may require hem odialysis soon. The patient's voiced understanding. The patient overnight had minimal urinary output. No other events noted. No hemoptysis, hematemesis, hematochezia. OBJECTIVE: VITAL SIGNS: Blood pressure is 112/74, respirations 22, pulse 89, temperature 98.7. HEENT: Head is normocephalic. NECK: Supple. HEART: Regular rate. LUNGS: Show diminished breath sounds at the base. ABDOMEN: Soft, nontender to palpation. No rebound or guarding. EXTREMITIES: Negative for clubbing, cyanosis, no edema. DERMATOLOGIC: No rashes. MUSCULOSKELETAL: No joint effusion. NEUROLOGIC: No change in exam. MEDICATIONS: The patient's medications have been reviewed. LABORATORY DATA: Shows sodium 143, potassium 5.1, chloride 104 and 129, creatinine 5.42, phosphorus 6.1, magnesium 3.2. White count 11.8, hemoglobin 8.5, platelet count 375. Patient's cultures have b een reviewed. Chest x-ray has been reviewed. ASSESSMENT AND PLAN: 1. Oligoanuric acute kidney injury on top of chronic kidney disease with previous baseline creatinin e of 1.3 mg/dL. Etiology of IESHA is multifactorial secondary to hemodynamics, cardiorenal syndrome wi th possible superimposed acute tubular necrosis due to nephrotoxicity. The patient remains in injury phase of acute kidney injury. Renal function continues to decline. At this point, will start the p atient on hemodialysis after consent is obtained and Marshall catheter is placed. Will discuss the ca se with the patient's if she agrees for hemodialysis. We will also place a surgery consult for placement of a Marshall catheter. The patient will be given a diuretic challenge with IV Lasix. Othe rwise, continue supportive care, renally dose meds, avoid nephrotoxins. 2. Hypernatremia. Will start the patient on free water flushes 200 mL q.4h. 3. Acute heart failure, ischemic cardiomyopathy. The patient's ejection fraction is 25%. We will r esume diuretic therapy and monitor. 4. Anemia. Continue to monitor hemoglobin and hematocrit levels. 5. Mineral bone disorder, monitor calcium and phosphorus levels. 6. Ventilatory-dependent respiratory failure. Vent settings and ABG was reviewed. Continue to fareed tor. 7. Sepsis secondary to bilateral pneumonia. Continue current antibiotic regimen. 8. History of coronary artery disease. 9. Metastatic adenocarcinoma of the colon. Continue to monitor. 10. Dysphagia. Continue tube feeding. 11. Dyslipidemia. Continue statin therapy. 12. Restless leg syndrome. 13. Acute cerebrovascular accident. 14. Acute encephalopathy, etiology toxic metabolic. 15. History of gastrointestinal bleed. Please note I spent over 30 minutes of critical care time with this patient. Dictated By: BROOK DEGROOT DO NR/NTS Conf#: [id number] DID#: [id number] CC: MARIANA WALLS MD; ASIA LORA MD; KARI VALERA MD;*EndCC*
--- NOTE | 2018-07-21 12:59 | NUR ---
SS NOTE: F/U SW WAS INFORMED THAT PT'S HAD REPORTED CONCERNS WITH COMMUNICATIONS WITH DOCTORS. PER DR. VALERA, PT'S HAD REFUSED HD AND TRACH AND WAS PLANNING ON POSSIBLE COMFORT MEASURES ON FRIDAY. SW ATTEMPTED TO ARRANGE A FAMILY CONFERENCE FOR TOMORROW AT 1100. DR. VALERA AVAILABLE. SW CALLED TO INFORM PT'S BUT SHE REPORTED THAT SHE IS NOW AGREEABLE TO START DIALYSIS AND WANTS TO HOLD OFF ON THE FAMILY CONFERENCE UNTIL AFTER FEW DAYS OF HD. STATED THAT SHE WILL BE VISITING PT LATER TODAY. STATED THAT SHE HAS BEEN SPEAKING WITH THE INSURANCE CM AND HAS BEEN DISCUSSING POSSIBLY TRANSFERRING PT TO A HIGHER LEVEL OF CARE. SW INFORMED THAT SHE WOULD NEED TO DISCUSS WITH MD IF PT IS STABLE FOR ANY TRANSFERS. VERBALIZED UNDERSTANDING. STATED THAT SHE'S NOT DOING THE TRANSFER YET. SW INFORMED RNJOE AND DR. VALERA THAT WANTS TO WAIT UNTIL AFTER HD TO HAVE A CONFERENCE. SW WILL CONTINUE TO REMAIN AVAILABLE.
[2018-07-21] MEDS: FLUCONAZOLE 100 MG/50 ML (PMX) 50 ML IVPB SCH (13:31)
--- NOTE | 2018-07-21 14:25 | CONS ---
Date/Time of Note Date/Time of Note DATE: 07/21/18 TIME: 14:24 Assessment/Plan Assessment/Plan Chief Complaint/Hosp Course No acute changes overnight patient looks comfortable he is afebrile WBC 11.8 H&H 8.5 and 28.1 platelets 375 neutrophils 80.5 Microbiology: Endotracheal aspirate growing Rosalina albicans, bld cx negative, urine cx pending Antimicrobials: Meropenem fluconazole Zyvox Indwelling: Endotracheal tube NG tube cardiac pacemaker, [place] catheter, right Port-A-Cath Physical examination: This is an obese well-developed middle-aged man who is intubated in no distress. Head atraumatic normocephalic sclera nonicteric. Neck is supple. Chest rise symmetrical breath sounds diminished bases. Heart: S1-S2. Abdomen soft bowel sounds present. Extremities with trace edema. Assessment: 1. Severe sepsis with ongoing fevers 2. Healthcare associated pneumonia 3. Acute kidney failure 4. Metastatic colon cancer 5. Severe cardiomyopathy 6. Acute encephalopathy Plan: Remains hemodynamically stable, fevers seem to get better, continue antibiotics, follow renal/oncology rec-s, patient may require hemodialysis DW RN/ at bedside Consultation Date/Type/Reason Admit Date/Time Jul 08, 2018 at 19:53 Initial Consult Date 07/10/18 Type of Consult ID Exam/Review of Systems Vital Signs Vitals Vital Signs Date Temp Pulse Resp B/P (MAP) Pulse Ox O2 O2 Flow FiO2 Time Delivery Rate 07/21/18 85 21 97/66 (76) 97 Mechanical 14:00 Ventilator 07/21/18 99.8 12:00 07/21/18 30 08:00 Intake and Output 07/20/18 07/20/18 07/21/18 1515:00 23:00 07:00 IntakeIntake Total 370 ml 850 ml 450 ml OutputOutput Total 60 ml 85 ml 40 ml BalanceBalance 310 ml 765 ml 410 ml Medications Medications Current Medications IV Flush (NS 3 ml) 3 ml PER PROTOCOL IV ; Start 07/08/18 at 21:00 Ondansetron HCl (Zofran Inj) 4 mg Q6H PRN IV NAUSEA AND/OR VOMITING; Start 07/08/18 at 21:00 Acetaminophen (Tylenol Tab) 650 mg Q6H PRN PO PAIN LEVEL 1-3 OR FEVER Last administered on 07/20/18at 03:17; Admin Dose 650 MG; Start 07/08/18 at 21:00 Docusate Sodium (Colace) 100 mg Q12H PRN PO CONSTIPATION; Start 07/08/18 at 21:00 Atorvastatin Calcium (Lipitor) 80 mg QHS PO Last administered on 07/20/18at 20:49; Admin Dose 80 MG; Start 07/09/18 at 21:00 Capecitabine (Xeloda) 1,500 mg BID PO Last administered on 07/13/18 09:05; Admin Dose 1,500 MG; Start 07/09/18 at 09:00; Status Hold Carvedilol (Coreg) 3.125 mg BID PO Last administered on 07/21/18 08:35; Admin Dose 3.125 MG; Start 07/09/18 at 09:00 Clopidogrel Bisulfate (plaVIX) 75 mg DAILY PO Last administered on 07/21/18 08:36; Admin Dose 75 MG; Start 07/09/18 at 09:00 Sucralfate (Carafate Susp) 1 gm QID PO Last administered on 07/21/18 13:31; Admin Dose 1 GM; Start 07/09/18 at 09:00 Levalbuterol (Xopenex Neb) 1.25 mg Q4H RESP THERAPY PRN HHN SHORTNESS OF BREATH Last administered on 07/09/18 03:59; Admin Dose 1.25 MG; Start 07/09/18 at 03:45 Heparin Sodium (Porcine) (Heparin (5000 Units/1ml)) 5,000 unit BID SC Last administered on 07/21/18 08:44; Admin Dose 5,000 UNIT; Start 07/09/18 at 21:00 Diphenhydramine HCl (Benadryl) 25 mg Q8H PRN PO ITCHING Last administered on 07/09/18 17:11; Admin Dose 25 MG; Start 07/09/18 at 16:30 Lansoprazole (Prevacid) 30 mg DAILY@06 NGT Last administered on 07/21/18 05:33; Admin Dose 30 MG; Start 07/12/18 at 06:00 Fluconazole/ Sodium Chloride 50 ml @ 50 mls/hr Q24H IVPB Last administered on 07/21/18 13:31; Admin Dose 50 MLS/HR; Start 07/13/18 at 11:00 Alprazolam (Xanax) 0.25 mg DAILY NGT Last administered on 07/17/18 10:50; Admin Dose 0.25 MG; Start 07/14/18 at 09:00; Status Hold Alprazolam (Xanax) 0.25 mg QHS PRN PO ANXIETY Last administered on 07/20/18 11:31; Admin Dose 0.25 MG; Start 07/13/18 at 15:30 Propofol 100 ml @ 3.63 mls/hr Q12H IV Last administered on 07/16/18 02:34; Admin Dose 7.26 MLS/HR; Start 07/15/18 at 08:00 Furosemide (Lasix) 40 mg DAILY IV Last administered on 07/16/18 08:47; Admin Dose 40 MG; Start 07/15/18 at 09:00; Status Hold Lorazepam (Ativan) 0.5 mg Q8H PRN IV Anxiety Last administered on 07/18/18 21:10; Admin Dose 0.5 MG; Start 07/18/18 at 09:00 Meropenem/Sodium Chloride 50 ml @ 100 mls/hr Q12 IVPB Last administered on 07/21/18 08:35; Admin Dose 100 MLS/HR; Start 07/19/18 at 21:00 Trazodone HCl (Desyrel) 50 mg HS PO Last administered on 07/20/18 20:49; Admin Dose 50 MG; Start 07/19/18 at 11:00 Linezolid (Zyvox) 600 mg BID PO Last administered on 07/21/18 08:36; Admin Dose 600 MG; Start 07/19/18 at 21:00 Acetaminophen/ Hydrocodone Bitart ([place] (5/325)) 1 tab Q12H PRN PO MODERATE PAIN LEVEL 4-6 Last administered on 07/21/18 08:35; Admin Dose 1 TAB; Start 07/19/18 at 17:30 ELIDA SUNG NP Jul 21, 2018 14:25
--- NOTE | 2018-07-21 15:46 | PN ---
Date/Time of Note Date/Time of Note DATE: 07/21/18 TIME: 15:39 Assessment/Plan VTE Prophylaxis Risk score (from Ns)>0 risk: 14 SCD applied (from Nsg): Yes Pharmacological prophylaxis: heparin Lines/Catheters IV Catheter Type (from Nrs): Port-a-cath Urinary Cath still in place: Yes Reason Cath still needed: other (indicate) (anuric renal failure) Assessment/Plan Assessment/Plan 57 yo M with history of metastatic stage IV colon cancer admitted for SOB and hypoxemia, intubated. # Acute hypoxemic hypercapnic respiratory failure - failed bipap, now intubated (07/09) and vent dependent. - Secondary to CHF also with signs of bilateral pneumonia on admission with probable underlying pulmonary nodules. - Continue vent management and weaning per pulmonary - Continue broad-spectrum antibiotics for now, including meropenem, now vancomycin, fluconazole given Rosalina growth findings in the respiratory culture, follow-up repeat culture test results - Follow-up recommendations from ID consult as well. - If not able to be extubated in the next few days, tracheostomy placement needs to be considered - Previously, CPAP trials have failed with patient too heavily sedated even with 1 mg Ativan. Will hold all sedatives. #Anuric IESHA - Rising Cr. May have been due to hypotensive episode a few days ago. - Plan for hemodialysis per 's decision. Dr. Navarro consulted for catheter placement. # Congestive heart failure acute on chronic secondary systolic and diastolic heart failure - patient has history of AICD - Currently on low-dose BB, holding ACEi due to IESHA. # H/o Severe coronary artery disease with multivessel coronary artery disease, ACS ruled out - Continue Plavix, statin, coreg - Had PCI of coronary artery in April 2018 secondary to LAD stenosis, per family # History of metastatic adeno CA of the colon s/p resection - has been on Xeloda (palliative chemo?), possible liver mets - For now holding Xeloda as the med is not crushable. - Follow up hematology oncology recommendations, holding off on chemotherapy for now # History of hypertension - Currently on low dose BB and aldactone # History of GI bleed - hemoglobin stable, no present signs of any upper or lower GI bleeding. # Dyslipidemia - Continue statin # History of sick sinus syndrome - s/p pacemaker-pace maker interrogated 07/08/18 at [facility] # Recent acute occipital CVA on chronic CVA - Plavix, statin. # PreDM - hba1C 6.0, not requiring insulin. # Acute confusion / delirium with reports of hallucinations - likely effect of recent CVA and chronic disease - per discussion with patient's , will likely obtain psychiatry eval if janice jeff is extubated for further evaluation of this - We will start trazodone 50 mg as well, patient history of depression Dispo: Very poor prognosis. Respiratory failure requiring ventilator, not wean able from vent after 1 week. Now with new anuric renal failure. Patient's says tracheostomy is against patient's wishes and would prefer extubation. But she is not ready for the patient to pass away. Will continue to address a plan about the airway every day. Result Diagram: 07/21/1844407/21/18444 Results 24hrs Laboratory Tests Test 07/21/18 04:45 White Blood Count 11.8 H Red Blood Count 3.76 L Hemoglobin 8.5 L Hematocrit 28.1 L Mean Corpuscular Volume 74.7 L Mean Corpuscular Hemoglobin 22.6 L Mean Corpuscular Hemoglobin Concent 30.2 L Red Cell Distribution Width 23.9 H Platelet Count 375 Mean Platelet Volume 11.3 H Immature Granulocytes % 0.700 H Neutrophils % 80.5 H Lymphocytes % 8.6 L Monocytes % 8.7 Eosinophils % 1.2 Basophils % 0.3 Nucleated Red Blood Cells % 0.0 Immature Granulocytes # 0.080 H Neutrophils # 9.5 H Lymphocytes # 1.0 Monocytes # 1.0 H Eosinophils # 0.1 Basophils # 0.0 Nucleated Red Blood Cells # 0.0 Sodium Level 143 Potassium Level 5.1 Chloride Level 104 Carbon Dioxide Level 24 Anion Gap 15 H Blood Urea Nitrogen 129 H Creatinine 5.42 H Est Glomerular Filtrat Rate mL/min 13 L Glucose Level 131 Calcium Level 9.0 Phosphorus Level 6.1 H Magnesium Level 3.2 H Subjective 24 Hr Interval Summary Free Text/Dictation Tolerated CPAP for about 4 hours yesterday; no extubation because of renal failure with plan for dialysis. No CPAP trial today. Per discussion with patient's , she agreed to hemodialysis. His said she spoke to the patient's mother, who was in agreement with terminal extubation. However after further discussion with his I'm concerned that she does not realize that extubation will likely end his life, even with BiPAP support. Will hold off until after he gets dialyzed. Exam/Review of Systems Vital Signs Vitals Vital Signs Date Temp Pulse Resp B/P (MAP) Pulse Ox O2 O2 Flow FiO2 Time Delivery Rate 07/21/18 85 21 97/66 (76) 97 Mechanical 14:00 Ventilator 07/21/18 99.8 12:00 07/21/18 30 08:00 Intake and Output 07/20/18 07/20/18 07/21/18 1515:00 23:00 07:00 IntakeIntake Total 370 ml 850 ml 450 ml OutputOutput Total 60 ml 85 ml 40 ml BalanceBalance 310 ml 765 ml 410 ml Exam GENERAL: Obese man intubated, somnolent but arousable. HEENT: BRITTNI, Intubated, ET tube in place LUNGS: Some diminished and coarse BS HEART: S1, S2. No murmur, gallops or rubs. ABDOMEN: Soft, non distended, Normoactive bowel sounds. EXTREMITIES: Mild 1+ nonpitting edema bilaterally, also some hand edema bilaterally NEUROLOGIC: Off sedation; opens eyes to voice. Opens mouth on command. SKIN: Otherwise, unremarkable Medications Medications Current Medications IV Flush (NS 3 ml) 3 ml PER PROTOCOL IV ; Start 07/08/18 at 21:00 Ondansetron HCl (Zofran Inj) 4 mg Q6H PRN IV NAUSEA AND/OR VOMITING; Start 07/08/18 at 21:00 Acetaminophen (Tylenol Tab) 650 mg Q6H PRN PO PAIN LEVEL 1-3 OR FEVER Last administered on 07/20/18at 03:17; Admin Dose 650 MG; Start 07/08/18 at 21:00 Docusate Sodium (Colace) 100 mg Q12H PRN PO CONSTIPATION; Start 07/08/18 at 21:00 Atorvastatin Calcium (Lipitor) 80 mg QHS PO Last administered on 07/20/18at 20:49; Admin Dose 80 MG; Start 07/09/18 at 21:00 Capecitabine (Xeloda) 1,500 mg BID PO Last administered on 07/13/18at 09:05; Admin Dose 1,500 MG; Start 07/09/18 at 09:00; Status Hold Carvedilol (Coreg) 3.125 mg BID PO Last administered on 07/21/18 08:35; Admin Dose 3.125 MG; Start 07/09/18 at 09:00 Clopidogrel Bisulfate (plaVIX) 75 mg DAILY PO Last administered on 07/21/18 08:36; Admin Dose 75 MG; Start 07/09/18 at 09:00 Sucralfate (Carafate Susp) 1 gm QID PO Last administered on 07/21/18 13:31; Admin Dose 1 GM; Start 07/09/18 at 09:00 Levalbuterol (Xopenex Neb) 1.25 mg Q4H RESP THERAPY PRN HHN SHORTNESS OF BREATH Last administered on 07/09/18 03:59; Admin Dose 1.25 MG; Start 07/09/18 at 03:45 Heparin Sodium (Porcine) (Heparin (5000 Units/1ml)) 5,000 unit BID SC Last administered on 07/21/18 08:44; Admin Dose 5,000 UNIT; Start 07/09/18 at 21:00 Diphenhydramine HCl (Benadryl) 25 mg Q8H PRN PO ITCHING Last administered on 07/09/18 17:11; Admin Dose 25 MG; Start 07/09/18 at 16:30 Lansoprazole (Prevacid) 30 mg DAILY@06 NGT Last administered on 07/21/18 05:33; Admin Dose 30 MG; Start 07/12/18 at 06:00 Fluconazole/ Sodium Chloride 50 ml @ 50 mls/hr Q24H IVPB Last administered on 07/21/18 13:31; Admin Dose 50 MLS/HR; Start 07/13/18 at 11:00 Alprazolam (Xanax) 0.25 mg DAILY NGT Last administered on 07/17/18 10:50; Admin Dose 0.25 MG; Start 07/14/18 at 09:00; Status Hold Alprazolam (Xanax) 0.25 mg QHS PRN PO ANXIETY Last administered on 07/20/18 11:31; Admin Dose 0.25 MG; Start 07/13/18 at 15:30 Propofol 100 ml @ 3.63 mls/hr Q12H IV Last administered on 07/16/18 02:34; Admin Dose 7.26 MLS/HR; Start 12/19/18 at 08:00 Furosemide (Lasix) 40 mg DAILY IV Last administered on 07/16/18 08:47; Admin Dose 40 MG; Start 07/15/18 at 09:00; Status Hold Lorazepam (Ativan) 0.5 mg Q8H PRN IV Anxiety Last administered on 07/18/18 21:10; Admin Dose 0.5 MG; Start 07/18/18 at 09:00 Meropenem/Sodium Chloride 50 ml @ 100 mls/hr Q12 IVPB Last administered on 07/21/18 08:35; Admin Dose 100 MLS/HR; Start 07/19/18 at 21:00 Trazodone HCl (Desyrel) 50 mg HS PO Last administered on 07/20/18 20:49; Admin Dose 50 MG; Start 07/19/18 at 11:00 Linezolid (Zyvox) 600 mg BID PO Last administered on 07/21/18 08:36; Admin Dose 600 MG; Start 07/19/18 at 21:00 Acetaminophen/ Hydrocodone Bitart ([place] (5/325)) 1 tab Q12H PRN PO MODERATE PAIN LEVEL 4-6 Last administered on 07/21/18 08:35; Admin Dose 1 TAB; Start 07/19/18 at 17:30 KARI VALERA MD Jul 21, 2018 15:46
--- NOTE | 2018-07-21 16:39 | NUR ---
SS NOTE: F/U PT'S ARRIVED AND HAD A LENGTHY DISCUSSION WITH DR. VALERA. THEY DISCUSSED PT'S CONDITION AND PLAN OF CARE. HAS AGREED AND CONFIRMED TO START PT ON DIALYSIS. DR. VALERA WILL CONTACT A CONSULT FOR HD CATHETER PLACEMENT. SW WILL CONTINUE TO REMAIN AVAILABLE.
--- NOTE | 2018-07-21 18:13 | NUR ---
VSS, no changes. Remains unsedated on the ventilator, no CPAP trial per MD. Treated with [place] x 1 after patient expressed pain when his foot is touched, MD aware. Lengthy conversations with Natalie both over the phone and at bedside. agreed to begin dialysis.
[2018-07-21] MEDS: ATORVASTATIN 80 MG TAB PO SCH (21:05)
[2018-07-21] MEDS: traZODone 50 MG TAB PO SCH (21:05)
[2018-07-22] VITALS (71 sets, daily range): BP systolic 88–142; BP diastolic 48–95; PULSE 76–104; RESP 15–31
[2018-07-22] MEDS: HYDROCODONE/APAP (5/325) TAB PO PRN (03:31)
[2018-07-22] MEDS ORDERED: morphine SULFATE/PF (2 MG/2 ML) SYG IV STA (05:34)
[2018-07-22] MEDS: LANSOPRAZOLE 30 MG CAP NGT SCH (05:55)
--- NOTE | 2018-07-22 08:59 | CONS ---
Date/Time of Note Date/Time of Note DATE: 07/22/18 TIME: 08:56 Assessment/Plan Assessment/Plan Additional Assessment/Plan Ventilator setting; AC of 14, tidal volume 500, PEEP of 5, 30% FiO2. Assessment and recommendations; 1. Patient with history of stage IV colon cancer admitted for severe sepsis r equiring intubation. 2. Acute on chronic renal failure with anuria. There is continued marked elevation in serum creatinine. 3. Encephalopathy. Likely toxic/metabolic compounded by uremia. 4. 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 5. Anemia. 6. Patient has failed multiple weaning trials from ventilator. 7. Cardiomyopathy with persistent CHF. Again compounded by renal failure. 8. History of cardiac arrhythmia, status post pacemaker placement in the past. Continue current supportive care. Obtain follow-up chest x-ray. Patient will get hemodialysis today. It is my understanding that the patient's does not want to have a tracheostomy performed. Prognosis is very guarded. 35 minutes of critical care time was spent evaluating the patient. Consultation Date/Type/Reason Admit Date/Time Jul 08, 2018 at 19:53 Initial Consult Date 07/09/18 Type of Consult Pulmonary/critical care 24 HR Interval Summary Free Text/Dictation Patient's condition remains critical. Received morphine short while ago for agitation. Has remained hemodynamically stable though. General exam; middle-aged male, orally intubated, sedated, currently in no distress. Exam/Review of Systems Vital Signs Vitals Vital Signs Date Temp Pulse Resp B/P (MAP) Pulse Ox O2 O2 Flow FiO2 Time Delivery Rate 07/22/18 76 16 88/61 (70) 97 08:30 07/22/18 98.7 Mechanical 08:00 Ventilator 07/22/18 30 08:00 Intake and Output 07/21/18 07/21/18 07/22/18 1515:00 23:00 07:00 IntakeIntake Total 900 ml 600 ml 200 ml OutputOutput Total 40 ml 10 ml 85 ml BalanceBalance 860 ml 590 ml 115 ml Exam H EENT exam; supple neck, no lymphadenopathy. Positive JVD. No neck masses. Orally intubated. Patient has fair dentition. Chest exam; diminished but clear breath sounds. S1-S2 audible, no murmurs. Regular rhythm. Pacemaker in left chest wall. Abdomen exam; soft, no organomegaly. Bowel sounds audible. Extremity exam; trace edema. Pulses 1+. GUINEA PIG BREEDER exam; patient is sedated. Medications Medications Current Medications IV Flush (NS 3 ml) 3 ml PER PROTOCOL IV ; Start 07/08/18 at 21:00 Ondansetron HCl (Zofran Inj) 4 mg Q6H PRN IV NAUSEA AND/OR VOMITING; Start 07/08/18 at 21:00 Acetaminophen (Tylenol Tab) 650 mg Q6H PRN PO PAIN LEVEL 1-3 OR FEVER Last administered on 07/20/18 03:17; Admin Dose 650 MG; Start 07/08/18 at 21:00 Docusate Sodium (Colace) 100 mg Q12H PRN PO CONSTIPATION; Start 07/08/18 at 21:00 Atorvastatin Calcium (Lipitor) 80 mg QHS PO Last administered on 07/21/18 21:05; Admin Dose 80 MG; Start 07/09/18 at 21:00 Capecitabine (Xeloda) 1,500 mg BID PO Last administered on 07/13/18at 09:05; Admin Dose 1,500 MG; Start 07/09/18 at 09:00; Status Hold Carvedilol (Coreg) 3.125 mg BID PO Last administered on 07/21/18 21:05; Admin Dose 3.125 MG; Start 07/09/18 at 09:00 Clopidogrel Bisulfate (plaVIX) 75 mg DAILY PO Last administered on 07/21/18 08:36; Admin Dose 75 MG; Start 07/09/18 at 09:00 Sucralfate (Carafate Susp) 1 gm QID PO Last administered on 07/21/18 21:05; Admin Dose 1 GM; Start 07/09/18 at 09:00 Levalbuterol (Xopenex Neb) 1.25 mg Q4H RESP THERAPY PRN HHN SHORTNESS OF BREATH Last administered on 07/09/18 03:59; Admin Dose 1.25 MG; Start 07/09/18 at 03:45 Heparin Sodium (Porcine) (Heparin (5000 Units/1ml)) 5,000 unit BID SC Last administered on 07/21/18 21:30; Admin Dose 5,000 UNIT; Start 07/09/18 at 21:00 Diphenhydramine HCl (Benadryl) 25 mg Q8H PRN PO ITCHING Last administered on 07/09/18 17:11; Admin Dose 25 MG; Start 07/09/18 at 16:30 Lansoprazole (Prevacid) 30 mg DAILY@06 NGT Last administered on 07/22/18 05:55; Admin Dose 30 MG; Start 07/12/18 at 06:00 Fluconazole/ Sodium Chloride 50 ml @ 50 mls/hr Q24H IVPB Last administered on 07/21/18 13:31; Admin Dose 50 MLS/HR; Start 07/13/18 at 11:00 Furosemide (Lasix) 40 mg DAILY IV Last administered on 07/16/18 08:47; Admin Dose 40 MG; Start 07/15/18 at 09:00; Status Hold Meropenem/Sodium Chloride 50 ml @ 100 mls/hr Q12 IVPB Last administered on 07/21/18 21:30; Admin Dose 100 MLS/HR; Start 07/19/18 at 21:00 Trazodone HCl (Desyrel) 50 mg HS PO Last administered on 07/21/18 21:05; Admin Dose 50 MG; Start 07/19/18 at 11:00 Linezolid (Zyvox) 600 mg BID PO Last administered on 07/21/18 21:05; Admin Dose 600 MG; Start 07/19/18 at 21:00 Acetaminophen/ Hydrocodone Bitart ([place] (5/325)) 1 tab Q12H PRN PO MODERATE PAIN LEVEL 4-6 Last administered on 07/22/18 03:31; Admin Dose 1 TAB; Start 07/19/18 at 17:30 KATHI MCKEON Jul 22, 2018 08:59
--- NOTE | 2018-07-22 09:37 | PN ---
DATE: 07/22/2018 SUBJECTIVE: The patient is in serious but stable condition. The patient remains anuric and is pendi ng Marshall catheter placement and initiation of hemodialysis. No other events noted. No hemoptysis, hematemesis or hematochezia. OBJECTIVE: VITAL SIGNS: Blood pressure is 132/95, respiration 31, pulse 98, temperature 98.9. HEENT: Head is normocephalic. NECK: Supple. HEART: Regular rate. LUNGS: Show diminished breath sounds at the base. ABDOMEN: Soft, nontender to palpation without rebound or guarding. EXTREMITIES: Negative for clubbing, cyanosis, no edema. DERMATOLOGIC: No rashes. MUSCULOSKELETAL: No joint effusion. NEUROLOGIC: No change in exam. MEDICATIONS: Reviewed. LABORATORY DATA: Shows sodium 140, potassium 5.7, a BUN of 147, creatinine 6.49, phosphorus 7.0, mag nesium 3.3. White count 12.9, hemoglobin 7.9, platelet count is 352. IMAGING STUDIES: Reviewed. ASSESSMENT AND PLAN: 1. Oligoanuric acute kidney injury on top of CKD with a previous baseline creatinine of 1.3 mg/dL. Etiology of acute kidney injury is secondary to acute tubular necrosis, with underlying cardiorenal s yndrome. The patient continues to be in injury phase of acute tubular necrosis/acute kidney injury. The patient's family has agreed to start hemodialysis. A consult has been placed with Dr. Navarro to place a Marshall catheter. Once the catheter is placed, the patient will be initiated on hemodial ysis. 2. Hyperkalemia secondary to acute kidney injury. The patient will be dialyzed on a 2 potassium bat h. 3. Hypernatremia, improved. Continue free water flushes. 4. Acute heart failure with ischemic cardiomyopathy. The patient has ejection fraction 25%. Contin ue medical management. 5. Anemia. Monitor hemoglobin and hematocrit levels. 6. Mineral bone disorder, monitor calcium and phosphorus levels. 7. Ventilatory dependent respiratory failure. Vent settings and arterial blood gas was reviewed. C ontinue to monitor. 8. Sepsis secondary to bilateral pneumonia. Continue current antibiotic regimen. 9. History of coronary artery disease. 10. Metastatic adenocarcinoma of the colon. Continue to monitor. 11. Dysphagia. Continue tube feeding. 12. Dyslipidemia. Continue statin therapy. 13. Restless leg syndrome. 14. Acute cerebrovascular accident. Continue medical management. 15. Acute encephalopathy. Etiology is toxic metabolic, uremic. 16. History of gastrointestinal bleed. Please note I spent over 30 minutes of critical care time with this patient. Dictated By: BROOK DEGROOT DO NR/NTS Conf#: [id number] DID#: [id number] CC: ASIA LORA MD;*EndCC*
[2018-07-22] MEDS: ZYVOX 600 MG TAB PO SCH ×2 (10:02→20:34)
[2018-07-22] MEDS: CLOPIDOGREL 75 MG TAB PO SCH (10:02)
[2018-07-22] MEDS: SUCRALFATE (100 MG/ML) 10ML CUP PO SCH ×4 (10:02→20:33)
[2018-07-22] MEDS: HEPARIN 5,000 UNIT/1 ML VIAL SC SCH ×2 (10:05→20:55)
[2018-07-22] MEDS: MEROPENEM 500MG/50 ML (PMX) 50 ML IVPB SCH ×2 (10:24→20:33)
--- NOTE | 2018-07-22 11:34 | NUR ---
orders received for hemodialysis today. Neyda notified via telephone, spoke to Imelda confirmation #: [id number]
[2018-07-22] MEDS: FLUCONAZOLE 100 MG/50 ML (PMX) 50 ML IVPB SCH (11:41)
--- NOTE | 2018-07-22 11:54 | NUR ---
update on pt's medical doctors update from , Natalie: oncologist: Dr. Connor Garrido ([place]) AICD inserted May 2018 wool classer: Dr. Cem Hodges
--- NOTE | 2018-07-22 12:02 | CONS ---
Date/Time of Note Date/Time of Note DATE: 07/22/18 TIME: 12:01 Consult Date/Type/Reason Admit Date/Time Jul 08, 2018 at 19:53 Initial Consult Date 07/10/18 Type of Consultation: cv Objective Vital Signs Date Temp Pulse Resp B/P (MAP) Pulse Ox O2 O2 Flow FiO2 Time Delivery Rate 07/22/18 83 19 88/52 (64) 11:30 07/22/18 96 Mechanical 11:00 Ventilator 07/22/18 98.7 08:00 07/22/18 30 08:00 Intake and Output 07/21/18 07/21/18 07/22/18 1515:00 23:00 07:00 IntakeIntake Total 900 ml 600 ml 200 ml OutputOutput Total 40 ml 10 ml 85 ml BalanceBalance 860 ml 590 ml 115 ml Results/Medications Result Diagram: 07/22/18 0400 07/22/18 0400 Results 24 hrs Laboratory Tests Test 07/22/18 04:00 White Blood Count 12.9 H Red Blood Count 3.51 L Hemoglobin 7.9 L Hematocrit 26.2 L Mean Corpuscular Volume 74.6 L Mean Corpuscular Hemoglobin 22.5 L Mean Corpuscular Hemoglobin Concent 30.2 L Red Cell Distribution Width 24.2 H Platelet Count 352 Mean Platelet Volume 11.4 H Immature Granulocytes % 0.600 H Neutrophils % 81.5 H Lymphocytes % 8.4 L Monocytes % 8.0 Eosinophils % 1.2 Basophils % 0.3 Nucleated Red Blood Cells % 0.0 Immature Granulocytes # 0.080 H Neutrophils # 10.6 H Lymphocytes # 1.1 Monocytes # 1.0 H Eosinophils # 0.2 Basophils # 0.0 Nucleated Red Blood Cells # 0.0 Sodium Level 140 Potassium Level 5.7 H Chloride Level 100 Carbon Dioxide Level 25 Anion Gap 15 H Blood Urea Nitrogen 147 H Creatinine 6.19 H Est Glomerular Filtrat Rate mL/min 11 L Glucose Level 129 Calcium Level 8.9 Phosphorus Level 7.0 H Magnesium Level 3.3 H Medications Current Medications IV Flush (NS 3 ml) 3 ml PER PROTOCOL IV ; Start 07/08/18 at 21:00 Ondansetron HCl (Zofran Inj) 4 mg Q6H PRN IV NAUSEA AND/OR VOMITING; Start 07/08/18 at 21:00 Acetaminophen (Tylenol Tab) 650 mg Q6H PRN PO PAIN LEVEL 1-3 OR FEVER Last administered on 07/20/18 03:17; Admin Dose 650 MG; Start 07/08/18 at 21:00 Docusate Sodium (Colace) 100 mg Q12H PRN PO CONSTIPATION; Start 07/08/18 at 21:00 Atorvastatin Calcium (Lipitor) 80 mg QHS PO Last administered on 07/21/18 21:05; Admin Dose 80 MG; Start 07/09/18 at 21:00 Capecitabine (Xeloda) 1,500 mg BID PO Last administered on 07/13/18 09:05; Admin Dose 1,500 MG; Start 07/09/18 at 09:00; Status Hold Carvedilol (Coreg) 3.125 mg BID PO Last administered on 07/21/18 21:05; Admin Dose 3.125 MG; Start 07/09/18 at 09:00 Clopidogrel Bisulfate (plaVIX) 75 mg DAILY PO Last administered on 07/22/18at 10:02; Admin Dose 75 MG; Start 07/09/18 at 09:00 Sucralfate (Carafate Susp) 1 gm QID PO Last administered on 07/22/18 10:02; Admin Dose 1 GM; Start 07/09/18 at 09:00 Levalbuterol (Xopenex Neb) 1.25 mg Q4H RESP THERAPY PRN HHN SHORTNESS OF BREATH Last administered on 07/09/18at 03:59; Admin Dose 1.25 MG; Start 07/09/18 at 03:45 Heparin Sodium (Porcine) (Heparin (5000 Units/1ml)) 5,000 unit BID SC Last administered on 07/22/18at 10:05; Admin Dose 5,000 UNIT; Start 07/09/18 at 21:00 Diphenhydramine HCl (Benadryl) 25 mg Q8H PRN PO ITCHING Last administered on 07/09/18at 17:11; Admin Dose 25 MG; Start 07/09/18 at 16:30 Lansoprazole (Prevacid) 30 mg DAILY@06 NGT Last administered on 07/22/18at 05:55; Admin Dose 30 MG; Start 07/12/18 at 06:00 Fluconazole/ Sodium Chloride 50 ml @ 50 mls/hr Q24H IVPB Last administered on 07/22/18at 11:41; Admin Dose 50 MLS/HR; Start 07/13/18 at 11:00 Furosemide (Lasix) 40 mg DAILY IV Last administered on 07/16/18at 08:47; Admin Dose 40 MG; Start 07/15/18 at 09:00; Status Hold Meropenem/Sodium Chloride 50 ml @ 100 mls/hr Q12 IVPB Last administered on 07/22/18at 10:24; Admin Dose 100 MLS/HR; Start 07/19/18 at 21:00 Trazodone HCl (Desyrel) 50 mg HS PO Last administered on 07/21/18at 21:05; Admin Dose 50 MG; Start 07/19/18 at 11:00 Linezolid (Zyvox) 600 mg BID PO Last administered on 07/22/18at 10:02; Admin Dose 600 MG; Start 07/19/18 at 21:00 Acetaminophen/ Hydrocodone Bitart ([place] (5/325)) 1 tab Q12H PRN PO MODERATE PAIN LEVEL 4-6 Last administered on 07/22/18at 03:31; Admin Dose 1 TAB; Start 07/19/18 at 17:30 Norepinephrine 16 mg/Dextrose 500 ml @ 1.88 mls/hr TITRATE IV ; Start 07/22/18 at 12:00; Status JOHNNA ADLER Jul 22, 2018 12:02
--- NOTE | 2018-07-22 12:11 | CONS ---
Date/Time of Note Date/Time of Note DATE: 07/22/18 TIME: 12:10 Assessment/Plan Assessment/Plan Hospital Course No acute events overnight patient looks comfortable on vent status post right femoral Marshall catheter placement today. T-max 99.82 current 98.7 pulse 85 respirations 19 blood pressure 95/61 saturation 96% on vent WBC 12.9 H&H 7.9 and 26.2 platelets 352 neutrophils 81.5 Microbiology: Endotracheal aspirate growing Rosalina albicans, bld cx negative, urine cx pending Antimicrobials: Meropenem fluconazole Zyvox Indwelling: Endotracheal tube NG tube cardiac pacemaker, [place] catheter, right chest Port-A-Cath, R fem marshall Physical examination: This is an obese well-developed middle-aged man who is in tubated in no distress. Head atraumatic normocephalic sclera nonicteric. Neck is supple. Chest rise symmetrical breath sounds diminished bases. Heart: S1- S2. Abdomen soft bowel sounds present. Extremities with trace edema. Assessment: 1. Severe sepsis with resolving fevers 2. Healthcare associated pneumonia 3. Acute kidney failure 4. Metastatic colon cancer 5. Severe cardiomyopathy 6. Acute encephalopathy Plan: Remains hemodynamically stable, continue antibiotics, plan for hemodia lysis JOSE RN Result Diagram: 07/22/18 0400 07/22/18 0400 Results 24hrs Laboratory Tests Test 07/22/18 04:00 White Blood Count 12.9 H Red Blood Count 3.51 L Hemoglobin 7.9 L Hematocrit 26.2 L Mean Corpuscular Volume 74.6 L Mean Corpuscular Hemoglobin 22.5 L Mean Corpuscular Hemoglobin Concent 30.2 L Red Cell Distribution Width 24.2 H Platelet Count 352 Mean Platelet Volume 11.4 H Immature Granulocytes % 0.600 H Neutrophils % 81.5 H Lymphocytes % 8.4 L Monocytes % 8.0 Eosinophils % 1.2 Basophils % 0.3 Nucleated Red Blood Cells % 0.0 Immature Granulocytes # 0.080 H Neutrophils # 10.6 H Lymphocytes # 1.1 Monocytes # 1.0 H Eosinophils # 0.2 Basophils # 0.0 Nucleated Red Blood Cells # 0.0 Sodium Level 140 Potassium Level 5.7 H Chloride Level 100 Carbon Dioxide Level 25 Anion Gap 15 H Blood Urea Nitrogen 147 H Creatinine 6.19 H Est Glomerular Filtrat Rate mL/min 11 L Glucose Level 129 Calcium Level 8.9 Phosphorus Level 7.0 H Magnesium Level 3.3 H Consultation Date/Type/Reason Admit Date/Time Jul 08, 2018 at 19:53 Initial Consult Date 07/10/18 Type of Consult ID Exam/Review of Systems Vital Signs Vitals Vital Signs Date Temp Pulse Resp B/P (MAP) Pulse Ox O2 O2 Flow FiO2 Time Delivery Rate 07/22/18 83 19 88/52 (64) 11:30 07/22/18 96 Mechanical 11:00 Ventilator 07/22/18 98.7 08:00 07/22/18 30 08:00 Intake and Output 07/21/18 07/21/18 07/22/18 1515:00 23:00 07:00 IntakeIntake Total 900 ml 600 ml 200 ml OutputOutput Total 40 ml 10 ml 85 ml BalanceBalance 860 ml 590 ml 115 ml Medications Medications Current Medications IV Flush (NS 3 ml) 3 ml PER PROTOCOL IV ; Start 07/08/18 at 21:00 Ondansetron HCl (Zofran Inj) 4 mg Q6H PRN IV NAUSEA AND/OR VOMITING; Start 07/08/18 at 21:00 Acetaminophen (Tylenol Tab) 650 mg Q6H PRN PO PAIN LEVEL 1-3 OR FEVER Last administered on 07/20/18at 03:17; Admin Dose 650 MG; Start 07/08/18 at 21:00 Docusate Sodium (Colace) 100 mg Q12H PRN PO CONSTIPATION; Start 07/08/18 at 21:00 Atorvastatin Calcium (Lipitor) 80 mg QHS PO Last administered on 07/21/18at 21:05; Admin Dose 80 MG; Start 07/09/18 at 21:00 Capecitabine (Xeloda) 1,500 mg BID PO Last administered on 07/13/18at 09:05; Admin Dose 1,500 MG; Start 07/09/18 at 09:00; Status Hold Carvedilol (Coreg) 3.125 mg BID PO Last administered on 07/21/18at 21:05; Admin Dose 3.125 MG; Start 07/09/18 at 09:00 Clopidogrel Bisulfate (plaVIX) 75 mg DAILY PO Last administered on 07/22/18at 10:02; Admin Dose 75 MG; Start 07/09/18 at 09:00 Sucralfate (Carafate Susp) 1 gm QID PO Last administered on 07/22/18 10:02; Admin Dose 1 GM; Start 07/09/18 at 09:00 Levalbuterol (Xopenex Neb) 1.25 mg Q4H RESP THERAPY PRN HHN SHORTNESS OF BREATH Last administered on 07/09/18 03:59; Admin Dose 1.25 MG; Start 07/09/18 at 03:45 Heparin Sodium (Porcine) (Heparin (5000 Units/1ml)) 5,000 unit BID SC Last administered on 07/22/18 10:05; Admin Dose 5,000 UNIT; Start 07/09/18 at 21:00 Diphenhydramine HCl (Benadryl) 25 mg Q8H PRN PO ITCHING Last administered on 07/09/18 17:11; Admin Dose 25 MG; Start 07/09/18 at 16:30 Lansoprazole (Prevacid) 30 mg DAILY@06 NGT Last administered on 07/22/18 05:55; Admin Dose 30 MG; Start 07/12/18 at 06:00 Fluconazole/ Sodium Chloride 50 ml @ 50 mls/hr Q24H IVPB Last administered on 07/22/18 11:41; Admin Dose 50 MLS/HR; Start 07/13/18 at 11:00 Furosemide (Lasix) 40 mg DAILY IV Last administered on 07/16/18 08:47; Admin Dose 40 MG; Start 07/15/18 at 09:00; Status Hold Meropenem/Sodium Chloride 50 ml @ 100 mls/hr Q12 IVPB Last administered on 07/22/18 10:24; Admin Dose 100 MLS/HR; Start 07/19/18 at 21:00 Trazodone HCl (Desyrel) 50 mg HS PO Last administered on 07/21/18 21:05; Admin Dose 50 MG; Start 07/19/18 at 11:00 Linezolid (Zyvox) 600 mg BID PO Last administered on 07/22/18 10:02; Admin Dose 600 MG; Start 07/19/18 at 21:00 Acetaminophen/ Hydrocodone Bitart ([place] (5/325)) 1 tab Q12H PRN PO MODERATE PAIN LEVEL 4-6 Last administered on 07/22/18 03:31; Admin Dose 1 TAB; Start 07/19/18 at 17:30 Norepinephrine 16 mg/Dextrose 500 ml @ 1.88 mls/hr TITRATE IV ; Start 07/22/18 at 22:00 Norepinephrine 250 ml @ 0 mls/hr TITRATE IV ; Start 07/22/18 at 12:30; Stop 07/22/18 at 22:00 ELIDA SUNG NP Jul 22, 2018 12:11
[2018-07-22] MEDS ORDERED: NORepinephrine 8MG/250 ML (PMX 250 ML IV SCH (12:30)
--- NOTE | 2018-07-22 12:35 | NUR ---
SS NOTE: F/U RECEIVED CALL FROM [facility] VICENTE SEVERINO WHO STATED THAT SHE WAS FOLLOWING UP FOR PT'S WHO HAD CONTACTED HER THIS MORNING STATING THAT A FAMILY CONFERENCE WILL BE ARRANGED FOR TODAY. TALI EXPLAINED TO VICENTE THAT YESTERDAY THIS SW ARRANGED A CONFERENCE FOR TODAY BUT PT'S HAD DECLINED IT, STATING THAT SHE HAS AGREED TO PROCEED WITH DIALYSIS AND WANTED TO HOLD OFF ON THE CONFERENCE UNTIL AFTER A FEW DAYS OF DIALYSIS TO SEE HOW PT RESPONDS TO IT. TALI ALSO INFORMED VICENTE THAT DR. VALERA DID MEET WITH PT'S YESTERDAY FOR AN EXTENDED PERIOD OF TIME TO CLARIFY THE PLAN OF CARE AND DID CONFIRM TO TALI AND THAT AT THIS TIME PT WILL START DIALYSIS AND PLAN WOULD BE TO TRY TO WEAN HIM OFF THE VENT IF PT IS ABLE TO TOLERATE IT. TALI EXPLAINED TO VICENTE THAT IT SEEMS THAT THERE IS MISCOMMUNICATION OR MISUNDERSTANDING ABOUT PLANS AND REQUESTED THAT PT'S BE REFERRED TO THIS SW TO CONFIRM PLANS FOR FAMILY CONFERENCES OR ISSUES WITH COMMUNICATIONS NEEDED.
--- NOTE | 2018-07-22 13:15 | CONS ---
DATE OF ADMISSION: 07/08/2018 DATE OF CONSULTATION: REASON FOR CONSULTATION: Surgical. HISTORY OF PRESENT ILLNESS: This is an unfortunate 57-year-old male with a history of colon cancer m etastatic to the lung. The patient is being admitted with respiratory failure, renal failure. Patie nt will need long-term hemodialysis access. I have been asked to evaluate the patient for the placem ent of a dialysis catheter. BUN is 147, creatinine 6.9. PAST MEDICAL HISTORY: Hypertension, hyperlipidemia, colon cancer, ischemic cardiomyopathy, chronic k idney disease. PAST SURGICAL HISTORY: Colectomy. ALLERGIES: None. SOCIAL HISTORY: No smoking, no drug use. MEDICATIONS: List reviewed. PHYSICAL EXAMINATION: GENERAL: The patient is intubated, unresponsive. VITAL SIGNS: Blood pressure is 96/65, pulse is 77, respirations 18. HEENT: Normocephalic, atraumatic. PERRLA. NECK: Supple. No JVD, no carotid bruits. CARDIOVASCULAR: Regular rate and rhythm. LUNGS: Clear. ABDOMEN: Soft. EXTREMITIES: Warm. IMPRESSION: Renal failure. RECOMMENDATIONS: We will proceed with the placement of a dialysis catheter. Risks, benefits, compli cations, alternative therapies explained to the patient's family. All questions answered. Dictated By: REJI FORD MD FM/TOR Conf#: [id number] DID#: [id number] CC: ASIA LORA MD;*EndCC*
--- NOTE | 2018-07-22 13:17 | OPR ---
DATE OF OPERATION: PREOPERATIVE DIAGNOSIS: Renal failure. POSTOPERATIVE DIAGNOSIS: Renal failure. OPERATION PERFORMED: Right femoral hemodialysis catheter placement. SURGEON: Reji Navarro MD ANESTHESIA: Local. INFORMED CONSENT: Risks, benefits, complication, alternative therapies explained to the patient's f amily, consent obtained. OPERATIVE TECHNIQUE: The patient was placed in supine position, prepped and draped in usual sterile fashion, 1% lidocaine was used throughout the operation for local anesthesia. Access was gained in t he right femoral vein. Guidewire was advanced through without any difficulty. Subcutaneous tissues were dilated. A 25 cm dialysis catheter advanced over guidewire, secured to skin using silk sutures. Both ports of the catheter were aspirated and injected using saline solution. Patient tolerated pr ocedure well. Dictated By: REJI NAVARRO MD FM/NTS Conf#: [id number] DID#: [id number] CC: ASIA LORA MD;*EndCC*
[2018-07-22] MEDS ORDERED: MANNITOL 25% 50 ML INJ IV* ONE ×2 (15:00→17:00)
--- NOTE | 2018-07-22 15:00 | NUR ---
Called Dr Turpin to clarify Mannitol order.
[2018-07-22] MEDS ORDERED: MANNITOL 20% 125 ML IV SCH (17:00)
--- NOTE | 2018-07-22 17:11 | CONS ---
Date/Time of Note Date/Time of Note DATE: 07/22/18 TIME: 17:10 Assessment/Plan Assessment/Plan Hospital Course Assessment: Acute hypoxic respiratory failure - intubated and on mechanical ventilation Pneumonia Acute on chronic systolic heart failure Ischemic cardiomyopathy, LVEF 25-30% Severe multi-vessel coronary artery disease, status post recent PCI to right coronary artery (April 2018) Hypertension Dyslipidemia Sick sinus syndrome, status post permanent pacemaker - currently not pacer dependent History of stroke Stage IV colon cancer History of gastrointestinal bleeding Acute kidney injury - started on hemodialysis Recommendations: -continue clopidogrel 75mg daily as able given recent PCI -continue atorvastatin 80mg daily -continue carvedilol 3.125mg BID Result Diagram: 07/22/18 0400 07/22/18 0400 Results 24hrs Laboratory Tests Test 07/22/18 04:00 07/22/18 04:51 07/22/18 05:51 White Blood Count 12.9 H Red Blood Count 3.51 L Hemoglobin 7.9 L Hematocrit 26.2 L Mean Corpuscular Volume 74.6 L Mean Corpuscular Hemoglobin 22.5 L Mean Corpuscular 30.2 L Hemoglobin Concent Red Cell Distribution Width 24.2 H Platelet Count 352 Mean Platelet Volume 11.4 H Immature Granulocytes % 0.600 H Neutrophils % 81.5 H Lymphocytes % 8.4 L Monocytes % 8.0 Eosinophils % 1.2 Basophils % 0.3 Nucleated Red Blood Cells % 0.0 Immature Granulocytes # 0.080 H Neutrophils # 10.6 H Lymphocytes # 1.1 Monocytes # 1.0 H Eosinophils # 0.2 Basophils # 0.0 Nucleated Red Blood Cells # 0.0 Sodium Level 140 Potassium Level 5.7 H Chloride Level 100 Carbon Dioxide Level 25 Anion Gap 15 H Blood Urea Nitrogen 147 H Creatinine 6.19 H Est Glomerular Filtrat 11 L Rate mL/min Glucose Level 129 Calcium Level 8.9 Phosphorus Level 7.0 H Magnesium Level 3.3 H Hepatitis B Surface Antibody NEGATIVE Hepatitis B Surface Antigen NEGATIVE Hepatitis B Core Total Antibody NEGATIVE Hepatitis C Antibody NEGATIVE Consultation Date/Type/Reason Admit Date/Time Jul 08, 2018 at 19:53 Initial Consult Date 07/10/18 Type of Consult Cardiology 24 HR Interval Summary Free Text/Dictation Remains intubated and on mechanical ventilation. Hemodialysis catheter placed and started on hemodialysis. Detailed Summary Additional Comments Unable to obtain review of systems, patient is intubated. Exam/Review of Systems Vital Signs Vitals Vital Signs Date Temp Pulse Resp B/P (MAP) Pulse Ox O2 O2 Flow FiO2 Time Delivery Rate 07/22/18 88 16:45 07/22/18 21 100 30 15:40 07/22/18 88/52 (64) 11:30 07/22/18 Mechanical 11:00 Ventilator 07/22/18 98.7 08:00 Intake and Output 07/21/18 07/21/18 07/22/18 1515:00 23:00 07:00 IntakeIntake Total 900 ml 600 ml 200 ml OutputOutput Total 40 ml 10 ml 85 ml BalanceBalance 860 ml 590 ml 115 ml Exam Constitutional: other (intubated); No alert, No oriented Psych: confusion Head: normocephalic, atraumatic ENMT: nl external ears & nose, nl nasal mucosa & septum Neck: supple, non-tender Respiratory: crackles/rales Cardiovascular: regular rate and rhythm Gastrointestinal: soft, distended Musculoskeletal: swelling Extremities: edema; No cyanosis, No clubbing Neurological: No nl mental status, No nl speech Medications Medications Current Medications IV Flush (NS 3 ml) 3 ml PER PROTOCOL IV ; Start 07/08/18 at 21:00 Ondansetron HCl (Zofran Inj) 4 mg Q6H PRN IV NAUSEA AND/OR VOMITING; Start 07/08/18 at 21:00 Acetaminophen (Tylenol Tab) 650 mg Q6H PRN PO PAIN LEVEL 1-3 OR FEVER Last administered on 07/20/18at 03:17; Admin Dose 650 MG; Start 07/08/18 at 21:00 Docusate Sodium (Colace) 100 mg Q12H PRN PO CONSTIPATION; Start 07/08/18 at 21:00 Atorvastatin Calcium (Lipitor) 80 mg QHS PO Last administered on 07/21/18at 21:05; Admin Dose 80 MG; Start 07/09/18 at 21:00 Capecitabine (Xeloda) 1,500 mg BID PO Last administered on 07/13/18at 09:05; Admin Dose 1,500 MG; Start 07/09/18 at 09:00; Status Hold Carvedilol (Coreg) 3.125 mg BID PO Last administered on 07/21/18at 21:05; Admin Dose 3.125 MG; Start 07/09/18 at 09:00 Clopidogrel Bisulfate (plaVIX) 75 mg DAILY PO Last administered on 07/22/18 10:02; Admin Dose 75 MG; Start 07/09/18 at 09:00 Sucralfate (Carafate Susp) 1 gm QID PO Last administered on 07/22/18 10:02; Admin Dose 1 GM; Start 07/09/18 at 09:00 Levalbuterol (Xopenex Neb) 1.25 mg Q4H RESP THERAPY PRN HHN SHORTNESS OF BREATH Last administered on 07/09/18 03:59; Admin Dose 1.25 MG; Start 07/09/18 at 03:45 Heparin Sodium (Porcine) (Heparin (5000 Units/1ml)) 5,000 unit BID SC Last administered on 07/22/18 10:05; Admin Dose 5,000 UNIT; Start 07/09/18 at 21:00 Diphenhydramine HCl (Benadryl) 25 mg Q8H PRN PO ITCHING Last administered on 07/09/18 17:11; Admin Dose 25 MG; Start 07/09/18 at 16:30 Lansoprazole (Prevacid) 30 mg DAILY@06 NGT Last administered on 07/22/18 05:55; Admin Dose 30 MG; Start 07/12/18 at 06:00 Fluconazole/ Sodium Chloride 50 ml @ 50 mls/hr Q24H IVPB Last administered on 07/22/18 11:41; Admin Dose 50 MLS/HR; Start 07/13/18 at 11:00 Furosemide (Lasix) 40 mg DAILY IV Last administered on 07/16/18 08:47; Admin Dose 40 MG; Start 07/15/18 at 09:00; Status Hold Meropenem/Sodium Chloride 50 ml @ 100 mls/hr Q12 IVPB Last administered on 07/22/18 10:24; Admin Dose 100 MLS/HR; Start 07/19/18 at 21:00 Trazodone HCl (Desyrel) 50 mg HS PO Last administered on 07/21/18 21:05; Admin Dose 50 MG; Start 07/19/18 at 11:00 Linezolid (Zyvox) 600 mg BID PO Last administered on 07/22/18 10:02; Admin Dose 600 MG; Start 07/19/18 at 21:00 Acetaminophen/ Hydrocodone Bitart ([place] (5/325)) 1 tab Q12H PRN PO MODERATE PAIN LEVEL 4-6 Last administered on 07/22/18at 03:31; Admin Dose 1 TAB; Start 07/19/18 at 17:30 Norepinephrine 16 mg/Dextrose 500 ml @ 1.88 mls/hr TITRATE IV ; Start 07/22/18 at 22:00 Norepinephrine 250 ml @ 0 mls/hr TITRATE IV Last administered on 07/22/18at 12:10; Admin Dose 7.5 MLS/HR; Start 07/22/18 at 12:30; Stop 07/22/18 at 22:00 Mannitol 125 ml @ 125 mls/hr ONCE IV Last administered on 07/22/18at 16:47; Admin Dose 125 MLS/HR; Start 07/22/18 at 17:00; Stop 07/22/18 at 17:59 HALEY BOSWELL MD Jul 22, 2018 17:11
[2018-07-22] MEDS ORDERED: HEPARIN 1000 UNITS/ML 10 ML INJ ONE (17:30)
--- NOTE | 2018-07-22 17:30 | NUR ---
Pt completed hemodialysis well. total uf removal [address] Turpin aware pt running fever Pt endorsed to primary Rn Anna Neville .
--- NOTE | 2018-07-22 17:42 | PN ---
Date/Time of Note Date/Time of Note DATE: 07/22/18 TIME: 17:40 Assessment/Plan VTE Prophylaxis Risk score (from Nsg)>0 risk: 10 SCD applied (from Nsg): Yes Pharmacological prophylaxis: heparin Lines/Catheters IV Catheter Type (from Nrsg): Marshall Catheter Urinary Cath still in place: Yes Reason Cath still needed: other (indicate) (anuric IESHA) Assessment/Plan Assessment/Plan 57 yo M with history of metastatic stage IV colon cancer admitted for SOB and hypoxemia, intubated. # Acute hypoxemic hypercapnic respiratory failure - failed bipap, now intubated (07/09) and vent dependent. - Secondary to CHF also with signs of bilateral pneumonia on admission with probable underlying pulmonary nodules. - Continue vent management and weaning per pulmonary - Continue broad-spectrum antibiotics for now, including meropenem, now vancomycin, fluconazole given Rosalina growth findings in the respiratory culture, follow-up repeat culture test results - Follow-up recommendations from ID consult as well. - If not able to be extubated in the next few days, tracheostomy placement needs to be considered - Previously, CPAP trials have failed with patient too heavily sedated even with 1 mg Ativan. Will hold all sedatives. #Anuric IESHA - Rising Cr. May have been due to hypotensive episode a few days ago. - Plan for hemodialysis per 's decision. Dr. Navarro consulted for catheter placement. # Congestive heart failure acute on chronic secondary systolic and diastolic heart failure - patient has history of AICD - Currently on low-dose BB, holding ACEi due to IESHA. # H/o Severe coronary artery disease with multivessel coronary artery disease, ACS ruled out - Continue Plavix, statin, coreg - Had PCI of coronary artery in April 2018 secondary to LAD stenosis, per family # History of metastatic adeno CA of the colon s/p resection - has been on Xeloda (palliative chemo?), possible liver mets - For now holding Xeloda as the med is not crushable. - Follow up hematology oncology recommendations, holding off on chemotherapy for now # History of hypertension - Currently on low dose BB and aldactone # History of GI bleed - hemoglobin stable, no present signs of any upper or lower GI bleeding. # Dyslipidemia - Continue statin # History of sick sinus syndrome - s/p pacemaker-pace maker interrogated 07/08/18 at [facility] # Recent acute occipital CVA on chronic CVA - Plavix, statin. # PreDM - hba1C 6.0, not requiring insulin. # Acute confusion / delirium with reports of hallucinations - likely effect of recent CVA and chronic disease - per discussion with patient's , will likely obtain psychiatry eval if patient is extubated for further evaluation of this - We will start trazodone 50 mg as well, patient history of depression Dispo: Very poor prognosis. Respiratory failure requiring ventilator, not weanable from vent after 1 week. Now with new anuric renal failure. Patient's says tracheostomy is against patient's wishes and would prefer extubation. But she is not ready for the patient to pass away. Will continue to address a plan about the airway every day. Result Diagram: 07/22/18 0400 07/22/18 0400 Results 24hrs Laboratory Tests Test 07/22/18 04:00 07/22/18 04:51 07/22/18 05:51 White Blood Count 12.9 H Red Blood Count 3.51 L Hemoglobin 7.9 L Hematocrit 26.2 L Mean Corpuscular Volume 74.6 L Mean Corpuscular Hemoglobin 22.5 L Mean Corpuscular 30.2 L Hemoglobin Concent Red Cell Distribution Width 24.2 H Platelet Count 352 Mean Platelet Volume 11.4 H Immature Granulocytes % 0.600 H Neutrophils % 81.5 H Lymphocytes % 8.4 L Monocytes % 8.0 Eosinophils % 1.2 Basophils % 0.3 Nucleated Red Blood Cells % 0.0 Immature Granulocytes # 0.080 H Neutrophils # 10.6 H Lymphocytes # 1.1 Monocytes # 1.0 H Eosinophils # 0.2 Basophils # 0.0 Nucleated Red Blood Cells # 0.0 Sodium Level 140 Potassium Level 5.7 H Chloride Level 100 Carbon Dioxide Level 25 Anion Gap 15 H Blood Urea Nitrogen 147 H Creatinine 6.19 H Est Glomerular Filtrat 11 L Rate mL/min Glucose Level 129 Calcium Level 8.9 Phosphorus Level 7.0 H Magnesium Level 3.3 H Hepatitis B Surface Antibody NEGATIVE Hepatitis B Surface Antigen NEGATIVE Hepatitis B Core Total Antibody NEGATIVE Hepatitis C Antibody NEGATIVE Subjective 24 Hr Interval Summary Free Text/Dictation Got morphine early this morning. No CPAP trial today. On exam patient is opening eyes to voice, not following commands. Got marshall cath and dialysis today. I did not see his today. Exam/Review of Systems Vital Signs Vitals Vital Signs Date Temp Pulse Resp B/P (MAP) Pulse Ox O2 O2 Flow FiO2 Time Delivery Rate 07/22/18 88 16:45 07/22/18 21 100 30 15:40 07/22/18 113/68 Mechanical 14:55 (83) Ventilator T Tube 07/22/18 98.7 08:00 Intake and Output 07/21/18 07/21/18 07/22/18 1414:59 22:59 06:59 IntakeIntake Total 850 ml 550 ml 270 ml OutputOutput Total 35 ml 15 ml 85 ml BalanceBalance 815 ml 535 ml 185 ml Exam GENERAL: Obese man intubated, somnolent but arousable. HEENT: BRITTNI, Intubated, ET tube in place LUNGS: Some diminished and coarse BS HEART: S1, S2. No murmur, gallops or rubs. ABDOMEN: Soft, non distended, Normoactive bowel sounds. EXTREMITIES: Mild 1+ nonpitting edema bilaterally, also some hand edema bilaterally NEUROLOGIC: Off sedation; opens eyes to voice. Opens mouth on command. SKIN: Otherwise, unremarkable Medications Medications Current Medications IV Flush (NS 3 ml) 3 ml PER PROTOCOL IV ; Start 07/08/18 at 21:00 Ondansetron HCl (Zofran Inj) 4 mg Q6H PRN IV NAUSEA AND/OR VOMITING; Start 07/08/18 at 21:00 Acetaminophen (Tylenol Tab) 650 mg Q6H PRN PO PAIN LEVEL 1-3 OR FEVER Last administered on 07/20/18at 03:17; Admin Dose 650 MG; Start 07/08/18 at 21:00 Docusate Sodium (Colace) 100 mg Q12H PRN PO CONSTIPATION; Start 07/08/18 at 21:00 Atorvastatin Calcium (Lipitor) 80 mg QHS PO Last administered on 07/21/18at 21:05; Admin Dose 80 MG; Start 07/09/18 at 21:00 Capecitabine (Xeloda) 1,500 mg BID PO Last administered on 07/13/18at 09:05; Admin Dose 1,500 MG; Start 07/09/18 at 09:00; Status Hold Carvedilol (Coreg) 3.125 mg BID PO Last administered on 07/21/18at 21:05; Admin Dose 3.125 MG; Start 07/09/18 at 09:00 Clopidogrel Bisulfate (plaVIX) 75 mg DAILY PO Last administered on 07/22/18 10:02; Admin Dose 75 MG; Start 07/09/18 at 09:00 Sucralfate (Carafate Susp) 1 gm QID PO Last administered on 07/22/18 10:02; Admin Dose 1 GM; Start 07/09/18 at 09:00 Levalbuterol (Xopenex Neb) 1.25 mg Q4H RESP THERAPY PRN HHN SHORTNESS OF BREATH Last administered on 07/09/18 03:59; Admin Dose 1.25 MG; Start 07/09/18 at 03:45 Heparin Sodium (Porcine) (Heparin (5000 Units/1ml)) 5,000 unit BID SC Last administered on 07/22/18 10:05; Admin Dose 5,000 UNIT; Start 07/09/18 at 21:00 Diphenhydramine HCl (Benadryl) 25 mg Q8H PRN PO ITCHING Last administered on 07/09/18 17:11; Admin Dose 25 MG; Start 07/09/18 at 16:30 Lansoprazole (Prevacid) 30 mg DAILY@06 NGT Last administered on 07/22/18 05:55; Admin Dose 30 MG; Start 07/12/18 at 06:00 Fluconazole/ Sodium Chloride 50 ml @ 50 mls/hr Q24H IVPB Last administered on 07/22/18 11:41; Admin Dose 50 MLS/HR; Start 07/13/18 at 11:00 Furosemide (Lasix) 40 mg DAILY IV Last administered on 07/16/18 08:47; Admin Dose 40 MG; Start 07/15/18 at 09:00; Status Hold Meropenem/Sodium Chloride 50 ml @ 100 mls/hr Q12 IVPB Last administered on 07/22/18 10:24; Admin Dose 100 MLS/HR; Start 07/19/18 at 21:00 Trazodone HCl (Desyrel) 50 mg HS PO Last administered on 07/21/18 21:05; Admin Dose 50 MG; Start 07/19/18 at 11:00 Linezolid (Zyvox) 600 mg BID PO Last administered on 07/22/18 10:02; Admin Dose 600 MG; Start 07/19/18 at 21:00 Acetaminophen/ Hydrocodone Bitart ([place] (5/325)) 1 tab Q12H PRN PO MODERATE PAIN LEVEL 4-6 Last administered on 07/22/18at 03:31; Admin Dose 1 TAB; Start 07/19/18 at 17:30 Norepinephrine 16 mg/Dextrose 500 ml @ 1.88 mls/hr TITRATE IV ; Start 07/22/18 at 22:00 Norepinephrine 250 ml @ 0 mls/hr TITRATE IV Last administered on 07/22/18at 12:10; Admin Dose 7.5 MLS/HR; Start 07/22/18 at 12:30; Stop 07/22/18 at 22:00 Mannitol 125 ml @ 125 mls/hr ONCE IV Last administered on 07/22/18at 16:47; Admin Dose 125 MLS/HR; Start 07/22/18 at 17:00; Stop 07/22/18 at 17:59 KARI VALERA MD Jul 22, 2018 17:42
[2018-07-22] MEDS ORDERED: HEPARIN 1000 UNITS/ML 10 ML INJ CATHETER ONE (18:00)
[2018-07-22] MEDS: ACETAMINOPHEN 325 MG TAB PO PRN (18:59)
[2018-07-22] MEDS: ATORVASTATIN 80 MG TAB PO SCH (20:34)
[2018-07-22] MEDS: traZODone 50 MG TAB PO SCH (21:00)
[2018-07-23] VITALS (47 sets, daily range): BP systolic 103–151; BP diastolic 58–84; PULSE 85–111; RESP 12–26
[2018-07-23] MEDS: ACETAMINOPHEN 325 MG TAB PO PRN ×2 (05:11→20:45)
[2018-07-23] MEDS: LANSOPRAZOLE 30 MG CAP NGT SCH (05:12)
--- NOTE | 2018-07-23 05:49 | NUR ---
EOSS: pt. lethargic , open eyes at time, move bilateral hands. febrile temp. 100.7 around 0420 tylenol administered via po as ordered. latest temp checked around 0600 T-100.7. cooling measures provided. off Levophed since 2100 last night. no s/s of pain , no facial grimaces noted. continue on mechanical ventilator setting tolerating well. turned and repositioned [id number]. all needs attended.
--- NOTE | 2018-07-23 08:17 | PN ---
DATE: 07/23/2018 SUBJECTIVE: The patient is critically ill. The patient was initiated on hemodialysis yesterday. Th e patient's dialysis was difficult; complicated with significant hemodynamic fluctuations. I spoke w ith the dialysis nurse twice during the course. Overnight, the patient had no other events. No hemo ptysis, hematemesis or hematochezia. OBJECTIVE: VITAL SIGNS: Blood pressure is 119/71, respiration 26, pulse 102, temperature 100.2. HEENT: Head is normocephalic. NECK: Supple. HEART: Regular rate. LUNGS: Show diminished breath sounds at the base. ABDOMEN: Soft, nontender to palpation without rebound or guarding. EXTREMITIES: Negative for clubbing, cyanosis. Positive edema. DERMATOLOGIC: No rashes. MUSCULOSKELETAL: No joint effusion. NEUROLOGIC: No change in exam. MEDICATIONS: Reviewed. LABORATORY DATA: Shows sodium 139, potassium 5.1, BUN 111, creatinine 5.13, phosphorus 5.6, magnesiu m 2.7. White count 11.9, hemoglobin 8.1, platelet count is 337. ASSESSMENT AND PLAN: 1. Oligoanuric acute kidney injury on top of chronic kidney disease with previous baseline creatinin e 1.3 mg/dL. Etiology of acute kidney injury secondary to acute tubular necrosis with underlying car diorenal syndrome. The patient was initiated on hemodialysis yesterday. Will anticipate dialysis ag ain daily for solute clearance and volume removal. Will continue to monitor for any signs of renal r ecovery. 2. Hyperkalemia secondary to acute kidney injury, resolved. Continue dialysis on low-potassium bath . 3. Hypernatremia, improved. Continue free water flushes. 4. Acute systolic heart failure/cardiomyopathy. Continue current medical management. 5. Anemia. Monitor hemoglobin and hematocrit. 6. Mineral bone disorder. Monitor calcium and phosphorus levels. 7. Ventilator-dependent respiratory failure. Vent settings and arterial blood gas was reviewed. Co ntinue to monitor. 8. Sepsis secondary to bilateral pneumonia. Continue current antibiotic regimen. 9. History of coronary artery disease. 10. Metastatic adenocarcinoma of the colon. Continue to monitor. 11. Dysphagia. Continue tube feeding. 12. Dyslipidemia. Continue statin therapy. 13. Acute cerebrovascular accident. Continue medical management. 14. Acute encephalopathy; continue current treatment plan. 15. History of gastrointestinal bleed. Please note I spent over 30 minutes of critical care time with this patient. Dictated By: BROOK MEDRANO/TOR Conf#: [id number] DID#: [id number]
--- NOTE | 2018-07-23 09:03 | CONS ---
Date/Time of Note Date/Time of Note DATE: 07/23/18 TIME: 09:00 Assessment/Plan Assessment/Plan Assessment/Plan Ventilator setting; AC of 14, tidal volume 500, PEEP of 5, 30% FiO2. Assessment and recommendations; 1. Patient with history of stage IV colon cancer admitted for respiratory failure due to sepsis. Currently on appropriate empiric antimicrobial regimen. 2. History of chronic renal insufficiency with acute renal failure now requiring hemodialysis. 3. Severe encephalopathy. Likely toxic in etiology. 4. 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 5. History of cardiac arrhythmia. 6. Underlying cardiomyopathy. 7. Anemia. 8. History of hypertension. Continue current supportive care. Obtain follow-up chest x-ray. Prognosis is poor. The patient's is apparently against a tracheostomy. 35 minutes of critical care time was spent evaluating the patient. Result Diagram: 07/23/18 0500 07/23/18 0500 Results 24hrs Laboratory Tests Test 07/22/18 16:37 07/23/18 05:00 Hepatitis A IgM Antibody NON-REACTIVE White Blood Count 11.9 H Red Blood Count 3.59 L Hemoglobin 8.1 L Hematocrit 26.4 L Mean Corpuscular Volume 73.5 L Mean Corpuscular Hemoglobin 22.6 L Mean Corpuscular Hemoglobin Concent 30.7 L Red Cell Distribution Width 23.6 H Platelet Count 377 Mean Platelet Volume 11.2 H Immature Granulocytes % 1.400 H Neutrophils % 80.3 H Lymphocytes % 6.9 L Monocytes % 10.4 Eosinophils % 0.8 Basophils % 0.2 Nucleated Red Blood Cells % 0.0 Immature Granulocytes # 0.160 H Neutrophils # 9.5 H Lymphocytes # 0.8 Monocytes # 1.2 H Eosinophils # 0.1 Basophils # 0.0 Nucleated Red Blood Cells # 0.0 Sodium Level 139 Potassium Level 5.1 Chloride Level 100 Carbon Dioxide Level 29 Anion Gap 10 # Blood Urea Nitrogen 111 #H Creatinine 5.13 H Est Glomerular Filtrat Rate mL/min 14 L Glucose Level 128 Calcium Level 8.7 Phosphorus Level 5.6 H Magnesium Level 2.7 H Consultation Date/Type/Reason Admit Date/Time Jul 08, 2018 at 19:53 Initial Consult Date 07/09/18 Type of Consult Pulmonary/critical care 24 HR Interval Summary Free Text/Dictation Patient's condition remains critical. Underwent hemodialysis yesterday. Sche duled for another session today. Patient has remained hemodynamically stable. General exam; middle-aged male, orally intubated, arousable but appearing lethargic. Not following commands. Exam/Review of Systems Vital Signs Vitals Vital Signs Date Temp Pulse Resp B/P (MAP) Pulse Ox O2 O2 Flow FiO2 Time Delivery Rate 07/23/18 89 23 99 30 07:20 07/23/18 119/71 Mechanica 06:00 (87) l Ventilato r 07/23/18 100.2 05:56 Intake and Output 07/22/18 07/22/18 07/23/18 1515:00 23:00 07:00 IntakeIntake Total 482.5 ml 432.5 ml 430 ml OutputOutput Total 232 ml 396 ml 14 ml BalanceBalance 250.5 ml 36.5 ml 416 ml Exam HEENT exam; supple neck, no JVD. No lymphadenopathy. Midline trachea. No thyromegaly. Orally intubated. Patient has fair dentition. No neck masses. Chest exam; diminished but clear breath sounds. S1-S2 audible, no murmurs. Regular rhythm. Pacemaker in left chest wall. Abdomen exam; soft, no organomegaly. Bowel sounds audible. Extremity exam; trace edema. APPLIED STATISTICIAN exam; patient is arousable. Medications Medications Current Medications IV Flush (NS 3 ml) 3 ml PER PROTOCOL IV ; Start 07/08/18 at 21:00 Ondansetron HCl (Zofran Inj) 4 mg Q6H PRN IV NAUSEA AND/OR VOMITING; Start 07/08/18 at 21:00 Acetaminophen (Tylenol Tab) 650 mg Q6H PRN PO PAIN LEVEL 1-3 OR FEVER Last administered on 07/23/18at 05:11; Admin Dose 650 MG; Start 07/08/18 at 21:00 Docusate Sodium (Colace) 100 mg Q12H PRN PO CONSTIPATION; Start 07/08/18 at 21:00 Atorvastatin Calcium (Lipitor) 80 mg QHS PO Last administered on 07/22/18at 20:34; Admin Dose 80 MG; Start 07/09/18 at 21:00 Capecitabine (Xeloda) 1,500 mg BID PO Last administered on 07/13/18at 09:05; Admin Dose 1,500 MG; Start 07/09/18 at 09:00; Status Hold Carvedilol (Coreg) 3.125 mg BID PO Last administered on 07/21/18 21:05; Admin Dose 3.125 MG; Start 07/09/18 at 09:00 Clopidogrel Bisulfate (plaVIX) 75 mg DAILY PO Last administered on 07/22/18 10:02; Admin Dose 75 MG; Start 07/09/18 at 09:00 Sucralfate (Carafate Susp) 1 gm QID PO Last administered on 07/22/18 20:33; Admin Dose 1 GM; Start 07/09/18 at 09:00 Levalbuterol (Xopenex Neb) 1.25 mg Q4H RESP THERAPY PRN HHN SHORTNESS OF BREATH Last administered on 07/09/18 03:59; Admin Dose 1.25 MG; Start 07/09/18 at 03:45 Heparin Sodium (Porcine) (Heparin (5000 Units/1ml)) 5,000 unit BID SC Last administered on 07/22/18 20:55; Admin Dose 5,000 UNIT; Start 07/09/18 at 21:00 Diphenhydramine HCl (Benadryl) 25 mg Q8H PRN PO ITCHING Last administered on 07/09/18 17:11; Admin Dose 25 MG; Start 07/09/18 at 16:30 Lansoprazole (Prevacid) 30 mg DAILY@06 NGT Last administered on 07/23/18 05:12; Admin Dose 30 MG; Start 07/12/18 at 06:00 Fluconazole/ Sodium Chloride 50 ml @ 50 mls/hr Q24H IVPB Last administered on 07/22/18 11:41; Admin Dose 50 MLS/HR; Start 07/13/18 at 11:00 Furosemide (Lasix) 40 mg DAILY IV Last administered on 07/16/18 08:47; Admin Dose 40 MG; Start 07/15/18 at 09:00; Status Hold Meropenem/Sodium Chloride 50 ml @ 100 mls/hr Q12 IVPB Last administered on 07/22/18 20:33; Admin Dose 100 MLS/HR; Start 07/19/18 at 21:00 Trazodone HCl (Desyrel) 50 mg HS PO Last administered on 07/22/18 21:00; Admin Dose 50 MG; Start 07/19/18 at 11:00 Linezolid (Zyvox) 600 mg BID PO Last administered on 07/22/18at 20:34; Admin Dose 600 MG; Start 07/19/18 at 21:00 Acetaminophen/ Hydrocodone Bitart ([place] (5/325)) 1 tab Q12H PRN PO MODERATE PAIN LEVEL 4-6 Last administered on 07/22/18at 03:31; Admin Dose 1 TAB; Start 07/19/18 at 17:30 Norepinephrine 16 mg/Dextrose 500 ml @ 1.88 mls/hr TITRATE IV ; Start 07/22/18 at 22:00 KTAHI MCKEON Jul 23, 2018 09:03
[2018-07-23] MEDS: CLOPIDOGREL 75 MG TAB PO SCH (09:38)
[2018-07-23] MEDS: ZYVOX 600 MG TAB PO SCH (09:38)
[2018-07-23] MEDS: SUCRALFATE (100 MG/ML) 10ML CUP PO SCH ×4 (09:38→20:23)
[2018-07-23] MEDS: HEPARIN 5,000 UNIT/1 ML VIAL SC SCH ×2 (09:40→20:26)
--- NOTE | 2018-07-23 09:48 | NUR ---
RN NOTES FOR HD CONFIRMATION CALLED AT 09 AM: [id number] CONFIRMATION NUMBER
[2018-07-23] MEDS: FLUCONAZOLE 100 MG/50 ML (PMX) 50 ML IVPB SCH (13:29)
--- NOTE | 2018-07-23 14:05 | CONS ---
Date/Time of Note Date/Time of Note DATE: 07/23/18 TIME: 14:03 Assessment/Plan Assessment/Plan Hospital Course Patient remains unchanged still with low-grade fevers, T-max 100.6. He looks comfortable on vent, he is off pressors. Pulse 88 respirations 20 blood pressure 111/68 saturation 100 on vent. WBC 11.9 H&H 8.1 and 26.4 platelets 377 neutrophils 80.3 Chest x-ray this morning revealed no evidence of acute pulmonary abnormality Microbiology: Endotracheal aspirate growing Rosalina albicans, bld cx negative, u rine cx pending Antimicrobials: Meropenem fluconazole Zyvox Indwelling: Endotracheal tube NG tube cardiac pacemaker, Winters catheter, right chest Port-A-Cath, R fem brendan Physical examination: This is an obese well-developed middle-aged man who is intubated in no distress. Head atraumatic normocephalic sclera nonicteric. Neck is supple. Chest rise symmetrical breath sounds diminished bases. Heart: S1-S2. Abdomen soft bowel sounds present. Extremities with trace edema. Assessment: 1. Severe sepsis 2. Status post healthcare associated pneumonia 3. Acute kidney failure 4. Metastatic colon cancer 5. Severe cardiomyopathy 6. Acute encephalopathy Plan: Patient remains unchanged, still with ongoing fevers, chest x-ray without pneumonia, cultures had been negative, will discontinue antibiotics and reculture him if he spikes fever of 101 and above DW RN Discussed with Dr. Eaton Result Diagram: 07/23/18 0500 07/23/18 0500 Results 24hrs Laboratory Tests Test 07/22/18 16:37 07/23/18 05:00 Hepatitis A IgM Antibody NON-REACTIVE White Blood Count 11.9 H Red Blood Count 3.59 L Hemoglobin 8.1 L Hematocrit 26.4 L Mean Corpuscular Volume 73.5 L Mean Corpuscular Hemoglobin 22.6 L Mean Corpuscular Hemoglobin Concent 30.7 L Red Cell Distribution Width 23.6 H Platelet Count 377 Mean Platelet Volume 11.2 H Immature Granulocytes % 1.400 H Neutrophils % 80.3 H Lymphocytes % 6.9 L Monocytes % 10.4 Eosinophils % 0.8 Basophils % 0.2 Nucleated Red Blood Cells % 0.0 Immature Granulocytes # 0.160 H Neutrophils # 9.5 H Lymphocytes # 0.8 Monocytes # 1.2 H Eosinophils # 0.1 Basophils # 0.0 Nucleated Red Blood Cells # 0.0 Sodium Level 139 Potassium Level 5.1 Chloride Level 100 Carbon Dioxide Level 29 Anion Gap 10 # Blood Urea Nitrogen 111 #H Creatinine 5.13 H Est Glomerular Filtrat Rate mL/min 14 L Glucose Level 128 Calcium Level 8.7 Phosphorus Level 5.6 H Magnesium Level 2.7 H Consultation Date/Type/Reason Admit Date/Time Jul 08, 2018 at 19:53 Initial Consult Date 07/10/18 Type of Consult ID Exam/Review of Systems Vital Signs Vitals Vital Signs Date Temp Pulse Resp B/P (MAP) Pulse Ox O2 O2 Flow FiO2 Time Delivery Rate 07/23/18 99 18 100 30 13:10 07/23/18 111/68 Mechanical 11:00 (82) Ventilator 07/23/18 99.5 08:00 Intake and Output 07/22/18 07/22/18 07/23/18 1515:00 23:00 07:00 IntakeIntake Total 482.5 ml 432.5 ml 470 ml OutputOutput Total 232 ml 396 ml 19 ml BalanceBalance 250.5 ml 36.5 ml 451 ml Medications Medications Current Medications IV Flush (NS 3 ml) 3 ml PER PROTOCOL IV ; Start 07/08/18 at 21:00 Ondansetron HCl (Zofran Inj) 4 mg Q6H PRN IV NAUSEA AND/OR VOMITING; Start 07/08/18 at 21:00 Acetaminophen (Tylenol Tab) 650 mg Q6H PRN PO PAIN LEVEL 1-3 OR FEVER Last administered on 07/23/18at 05:11; Admin Dose 650 MG; Start 07/08/18 at 21:00 Docusate Sodium (Colace) 100 mg Q12H PRN PO CONSTIPATION; Start 07/08/18 at 21:00 Atorvastatin Calcium (Lipitor) 80 mg QHS PO Last administered on 07/22/18at 20:34; Admin Dose 80 MG; Start 07/09/18 at 21:00 Capecitabine (Xeloda) 1,500 mg BID PO Last administered on 07/13/18at 09:05; Admin Dose 1,500 MG; Start 07/09/18 at 09:00; Status Hold Carvedilol (Coreg) 3.125 mg BID PO Last administered on 07/21/18at 21:05; Admin Dose 3.125 MG; Start 07/09/18 at 09:00 Clopidogrel Bisulfate (plaVIX) 75 mg DAILY PO Last administered on 07/23/18 09:38; Admin Dose 75 MG; Start 07/09/18 at 09:00 Sucralfate (Carafate Susp) 1 gm QID PO Last administered on 07/23/18 13:29; Admin Dose 1 GM; Start 07/09/18 at 09:00 Levalbuterol (Xopenex Neb) 1.25 mg Q4H RESP THERAPY PRN HHN SHORTNESS OF BREATH Last administered on 07/09/18 03:59; Admin Dose 1.25 MG; Start 07/09/18 at 03:45 Heparin Sodium (Porcine) (Heparin (5000 Units/1ml)) 5,000 unit BID SC Last administered on 07/23/18 09:40; Admin Dose 5,000 UNIT; Start 07/09/18 at 21 :00 Diphenhydramine HCl (Benadryl) 25 mg Q8H PRN PO ITCHING Last administered on 07/09/18 17:11; Admin Dose 25 MG; Start 07/09/18 at 16:30 Lansoprazole (Prevacid) 30 mg DAILY@06 NGT Last administered on 07/23/18 05:12; Admin Dose 30 MG; Start 07/12/18 at 06:00 Fluconazole/ Sodium Chloride 50 ml @ 50 mls/hr Q24H IVPB Last administered on 07/23/18 13:29; Admin Dose 50 MLS/HR; Start 07/13/18 at 11:00 Furosemide (Lasix) 40 mg DAILY IV Last administered on 07/16/18 08:47; Admin Dose 40 MG; Start 07/15/18 at 09:00; Status Hold Trazodone HCl (Desyrel) 50 mg HS PO Last administered on 07/22/18 21:00; Admin Dose 50 MG; Start 07/19/18 at 11:00 Linezolid (Zyvox) 600 mg BID PO Last administered on 07/23/18 09:38; Admin Dose 600 MG; Start 07/19/18 at 21:00 Acetaminophen/ Hydrocodone Bitart ([place] (5/325)) 1 tab Q12H PRN PO MODERATE PAIN LEVEL 4-6 Last administered on 07/22/18 03:31; Admin Dose 1 TAB; Start 07/19/18 at 17:30 Norepinephrine 16 mg/Dextrose 500 ml @ 1.88 mls/hr TITRATE IV ; Start 07/22/18 at 22:00 Meropenem/Sodium Chloride 50 ml @ 100 mls/hr Q24H IVPB ; Start 07/23/18 at 21:00 ELIDA SUNG NP Jul 23, 2018 14:05
--- NOTE | 2018-07-23 15:39 | CONS ---
Date/Time of Note Date/Time of Note DATE: 07/23/18 TIME: 15:38 Assessment/Plan Assessment/Plan Hospital Course Assessment: Acute hypoxic respiratory failure - intubated and on mechanical ventilation Pneumonia Acute on chronic systolic heart failure Ischemic cardiomyopathy, LVEF 25-30% Severe multi-vessel coronary artery disease, status post recent PCI to right coronary artery (April 2018) Hypertension Dyslipidemia Sick sinus syndrome, status post permanent pacemaker - currently not pacer dependent History of stroke Stage IV colon cancer History of gastrointestinal bleeding Acute kidney injury - started on hemodialysis Recommendations: -continue clopidogrel 75mg daily as able given recent PCI -continue atorvastatin 80mg daily -continue carvedilol 3.125mg BID Result Diagram: 07/23/18 0500 07/23/18 0500 Results 24hrs Laboratory Tests Test 07/22/18 16:37 07/23/18 05:00 Hepatitis A IgM Antibody NON-REACTIVE White Blood Count 11.9 H Red Blood Count 3.59 L Hemoglobin 8.1 L Hematocrit 26.4 L Mean Corpuscular Volume 73.5 L Mean Corpuscular Hemoglobin 22.6 L Mean Corpuscular Hemoglobin Concent 30.7 L Red Cell Distribution Width 23.6 H Platelet Count 377 Mean Platelet Volume 11.2 H Immature Granulocytes % 1.400 H Neutrophils % 80.3 H Lymphocytes % 6.9 L Monocytes % 10.4 Eosinophils % 0.8 Basophils % 0.2 Nucleated Red Blood Cells % 0.0 Immature Granulocytes # 0.160 H Neutrophils # 9.5 H Lymphocytes # 0.8 Monocytes # 1.2 H Eosinophils # 0.1 Basophils # 0.0 Nucleated Red Blood Cells # 0.0 Sodium Level 139 Potassium Level 5.1 Chloride Level 100 Carbon Dioxide Level 29 Anion Gap 10 # Blood Urea Nitrogen 111 #H Creatinine 5.13 H Est Glomerular Filtrat Rate mL/min 14 L Glucose Level 128 Calcium Level 8.7 Phosphorus Level 5.6 H Magnesium Level 2.7 H Consultation Date/Type/Reason Admit Date/Time Jul 08, 2018 at 19:53 Initial Consult Date 07/10/18 Type of Consult Cardiology 24 HR Interval Summary Free Text/Dictation Remains intubated and on mechanical ventilation. Planning for hemodialysis again today. Detailed Summary Additional Comments Unable to obtain review of systems, patient is intubated. Exam/Review of Systems Vital Signs Vitals Vital Signs Date Temp Pulse Resp B/P (MAP) Pulse Ox O2 O2 Flow FiO2 Time Delivery Rate 07/23/18 94 19 111/66 99 Mechanica 14:00 (81) l Ventilato r 07/23/18 30 13:10 07/23/18 100.0 12:00 Intake and Output 07/22/18 07/22/18 07/23/18 1515:00 23:00 07:00 IntakeIntake Total 482.5 ml 432.5 ml 470 ml OutputOutput Total 232 ml 396 ml 19 ml BalanceBalance 250.5 ml 36.5 ml 451 ml Exam Constitutional: other (intubated); No alert, No oriented Psych: confusion Head: normocephalic, atraumatic ENMT: nl external ears & nose, nl nasal mucosa & septum Neck: supple, non-tender Respiratory: crackles/rales Cardiovascular: regular rate and rhythm Gastrointestinal: soft, distended Musculoskeletal: swelling Extremities: edema; No cyanosis, No clubbing Neurological: No nl mental status, No nl speech Medications Medications Current Medications IV Flush (NS 3 ml) 3 ml PER PROTOCOL IV ; Start 07/08/18 at 21:00 Ondansetron HCl (Zofran Inj) 4 mg Q6H PRN IV NAUSEA AND/OR VOMITING; Start 07/08/18 at 21:00 Acetaminophen (Tylenol Tab) 650 mg Q6H PRN PO PAIN LEVEL 1-3 OR FEVER Last administered on 07/23/18at 05:11; Admin Dose 650 MG; Start 07/08/18 at 21:00 Docusate Sodium (Colace) 100 mg Q12H PRN PO CONSTIPATION; Start 07/08/18 at 21:00 Atorvastatin Calcium (Lipitor) 80 mg QHS PO Last administered on 07/22/18at 20:34; Admin Dose 80 MG; Start 07/09/18 at 21:00 Capecitabine (Xeloda) 1,500 mg BID PO Last administered on 07/13/18at 09:05; Admin Dose 1,500 MG; Start 07/09/18 at 09:00; Status Hold Carvedilol (Coreg) 3.125 mg BID PO Last administered on 07/21/18at 21:05; Admin Dose 3.125 MG; Start 07/09/18 at 09:00 Clopidogrel Bisulfate (plaVIX) 75 mg DAILY PO Last administered on 07/23/18at 09:38; Admin Dose 75 MG; Start 07/09/18 at 09:00 Sucralfate (Carafate Susp) 1 gm QID PO Last administered on 07/23/18 13:29; Admin Dose 1 GM; Start 07/09/18 at 09:00 Levalbuterol (Xopenex Neb) 1.25 mg Q4H RESP THERAPY PRN HHN SHORTNESS OF BREATH Last administered on 07/09/18 03:59; Admin Dose 1.25 MG; Start 07/09/18 at 03:45 Heparin Sodium (Porcine) (Heparin (5000 Units/1ml)) 5,000 unit BID SC Last administered on 07/23/18 09:40; Admin Dose 5,000 UNIT; Start 07/09/18 at 21:00 Diphenhydramine HCl (Benadryl) 25 mg Q8H PRN PO ITCHING Last administered on 07/09/18 17:11; Admin Dose 25 MG; Start 07/09/18 at 16:30 Lansoprazole (Prevacid) 30 mg DAILY@06 NGT Last administered on 07/23/18at 05:12; Admin Dose 30 MG; Start 07/12/18 at 06:00 Furosemide (Lasix) 40 mg DAILY IV Last administered on 07/16/18at 08:47; Admin Dose 40 MG; Start 07/15/18 at 09:00; Status Hold Trazodone HCl (Desyrel) 50 mg HS PO Last administered on 07/22/18 21:00; Admin Dose 50 MG; Start 07/19/18 at 11:00 Acetaminophen/ Hydrocodone Bitart ([place] (5/325)) 1 tab Q12H PRN PO MODERATE PAIN LEVEL 4-6 Last administered on 07/22/18at 03:31; Admin Dose 1 TAB; Start 07/19/18 at 17:30 Norepinephrine 16 mg/Dextrose 500 ml @ 1.88 mls/hr TITRATE IV ; Start 07/22/18 at 22:00 HALEY BOSWELL MD Jul 23, 2018 15:39
[2018-07-23] MEDS: LEVALBUTEROL (NEB) 1.25 MG/0.5 ML AMP HHN PRN (15:56)
--- NOTE | 2018-07-23 16:05 | PN ---
Date/Time of Note Date/Time of Note DATE: 07/23/18 TIME: 16:03 Assessment/Plan VTE Prophylaxis Risk score (from Ns)>0 risk: 10 SCD applied (from Ns): Yes Pharmacological prophylaxis: heparin Lines/Catheters IV Catheter Type (from [facility]): ARLETTE CATHETER Urinary Cath still in place: Yes Reason Cath still needed: other (indicate) (coma) Assessment/Plan Hospital Course 57 yo man with Stage IV colon cancer who is admitted for ischemic heart disease and CHF. There may be an element of pneumonitis as well. His says that the tumors have shrunk and that the CEA has come down modestly as well. However, his heart failure has been a serious problem and he goes to the ER about twice a week. Unfortunately the cardiac issues have been difficult to treat and are unlikely to improve significantly. We discussed that if any family wants to see him alive, they should come soon. She relates that he has been progressively more depressed since the cardiac problems occured and he realized that he was not going to get back to being the same as before the illness. I have told her that his prognosis is very poor and that she should talk to the cmo. However, I would consider a NO CODE status. No treatment for the colon cancer is suggested since this issue is not the significant problem now. Assessment/Plan No change in his clinical status and it seems very unlikely that he will improve unfortunately. No new suggestions. I will see intermittently. No chemotherapy unless he becomes ambulatory. Result Diagram: 07/23/18 0500 07/23/18 0500 Results 24hrs Laboratory Tests Test 07/22/18 16:37 07/23/18 05:00 Hepatitis A IgM Antibody NON-REACTIVE White Blood Count 11.9 H Red Blood Count 3.59 L Hemoglobin 8.1 L Hematocrit 26.4 L Mean Corpuscular Volume 73.5 L Mean Corpuscular Hemoglobin 22.6 L Mean Corpuscular Hemoglobin Concent 30.7 L Red Cell Distribution Width 23.6 H Platelet Count 377 Mean Platelet Volume 11.2 H Immature Granulocytes % 1.400 H Neutrophils % 80.3 H Lymphocytes % 6.9 L Monocytes % 10.4 Eosinophils % 0.8 Basophils % 0.2 Nucleated Red Blood Cells % 0.0 Immature Granulocytes # 0.160 H Neutrophils # 9.5 H Lymphocytes # 0.8 Monocytes # 1.2 H Eosinophils # 0.1 Basophils # 0.0 Nucleated Red Blood Cells # 0.0 Sodium Level 139 Potassium Level 5.1 Chloride Level 100 Carbon Dioxide Level 29 Anion Gap 10 # Blood Urea Nitrogen 111 #H Creatinine 5.13 H Est Glomerular Filtrat Rate mL/min 14 L Glucose Level 128 Calcium Level 8.7 Phosphorus Level 5.6 H Magnesium Level 2.7 H Subjective 24 Hr Interval Summary Free Text/Dictation Pt remains intubated and unresponsive. Exam/Review of Systems Vital Signs Vitals Vital Signs Date Temp Pulse Resp B/P (MAP) Pulse Ox O2 O2 Flow FiO2 Time Delivery Rate 07/23/18 94 19 111/66 99 Mechanica 14:00 (81) l Ventilato r 07/23/18 30 13:10 07/23/18 100.0 12:00 Intake and Output 07/22/18 07/22/18 07/23/18 1515:00 23:00 07:00 IntakeIntake Total 482.5 ml 432.5 ml 470 ml OutputOutput Total 232 ml 396 ml 19 ml BalanceBalance 250.5 ml 36.5 ml 451 ml Exam Head: normocephalic Eyes: other (pallor) ENMT: intubated Respiratory: clear to auscultation Cardiovascular: regular rate and rhythm (tachycardic) Gastrointestinal: soft, non-tender Medications Medications Current Medications IV Flush (NS 3 ml) 3 ml PER PROTOCOL IV ; Start 07/08/18 at 21:00 Ondansetron HCl (Zofran Inj) 4 mg Q6H PRN IV NAUSEA AND/OR VOMITING; Start 07/08/18 at 21:00 Acetaminophen (Tylenol Tab) 650 mg Q6H PRN PO PAIN LEVEL 1-3 OR FEVER Last administered on 07/23/18at 05:11; Admin Dose 650 MG; Start 07/08/18 at 21:00 Docusate Sodium (Colace) 100 mg Q12H PRN PO CONSTIPATION; Start 07/08/18 at 21:00 Atorvastatin Calcium (Lipitor) 80 mg QHS PO Last administered on 07/22/18at 20:34; Admin Dose 80 MG; Start 07/09/18 at 21:00 Capecitabine (Xeloda) 1,500 mg BID PO Last administered on 07/13/18at 09:05; Admin Dose 1,500 MG; Start 07/09/18 at 09:00; Status Hold Carvedilol (Coreg) 3.125 mg BID PO Last administered on 07/21/18 21:05; Admin Dose 3.125 MG; Start 07/09/18 at 09:00 Clopidogrel Bisulfate (plaVIX) 75 mg DAILY PO Last administered on 07/23/18 09:38; Admin Dose 75 MG; Start 07/09/18 at 09:00 Sucralfate (Carafate Susp) 1 gm QID PO Last administered on 07/23/18 13:29; Admin Dose 1 GM; Start 07/09/18 at 09:00 Levalbuterol (Xopenex Neb) 1.25 mg Q4H RESP THERAPY PRN HHN SHORTNESS OF BREATH Last administered on 07/23/18 15:56; Admin Dose 1.25 MG; Start 07/09/18 at 03:45 Heparin Sodium (Porcine) (Heparin (5000 Units/1ml)) 5,000 unit BID SC Last administered on 07/23/18 09:40; Admin Dose 5,000 UNIT; Start 07/09/18 at 21:00 Diphenhydramine HCl (Benadryl) 25 mg Q8H PRN PO ITCHING Last administered on 07/09/18 17:11; Admin Dose 25 MG; Start 07/09/18 at 16:30 Lansoprazole (Prevacid) 30 mg DAILY@06 NGT Last administered on 07/23/18 05:12; Admin Dose 30 MG; Start 07/12/18 at 06:00 Furosemide (Lasix) 40 mg DAILY IV Last administered on 07/16/18at 08:47; Admin Dose 40 MG; Start 07/15/18 at 09:00; Status Hold Trazodone HCl (Desyrel) 50 mg HS PO Last administered on 07/22/18 21:00; Admin Dose 50 MG; Start 07/19/18 at 11:00 Acetaminophen/ Hydrocodone Bitart ([place] (5/325)) 1 tab Q12H PRN PO MODERATE PAIN LEVEL 4-6 Last administered on 07/22/18 03:31; Admin Dose 1 TAB; Start 07/19/18 at 17:30 Norepinephrine 16 mg/Dextrose 500 ml @ 1.88 mls/hr TITRATE IV ; Start 07/22/18 at 22:00 MARIA INES GOLDSTEIN MD Jul 23, 2018 16:05
--- NOTE | 2018-07-23 16:58 | PN ---
Date/Time of Note Date/Time of Note DATE: 07/23/18 TIME: 16:52 Assessment/Plan VTE Prophylaxis Risk score (from Nsg)>0 risk: 10 SCD applied (from Nsg): Yes Pharmacological prophylaxis: heparin Lines/Catheters IV Catheter Type (from Nrsg): ARLETTE CATHETER Urinary Cath still in place: Yes Reason Cath still needed: other (indicate) (intubated) Assessment/Plan Assessment/Plan 57 yo M with history of metastatic stage IV colon cancer admitted for SOB and hypoxemia, intubated. # Acute hypoxemic hypercapnic respiratory failure - failed bipap, now intubated (07/09) and vent dependent. - Secondary to CHF also with signs of bilateral pneumonia on admission with probable underlying pulmonary nodules. - Continue vent management and weaning per pulmonary - Continue broad-spectrum antibiotics for now, including meropenem, now vancomycin, fluconazole given Rosalina growth findings in the respiratory culture, follow-up repeat culture test results - Follow-up recommendations from ID consult as well. - If not able to be extubated in the next few days, tracheostomy placement needs to be considered - Previously, CPAP trials have failed with patient too heavily sedated even with 1 mg Ativan. Will hold all sedatives. #Anuric IESHA - Rising Cr. May have been due to hypotensive episode a few days ago. - Continue with dialysis per renal. # Congestive heart failure acute on chronic secondary systolic and diastolic heart failure - patient has history of AICD - Currently on low-dose BB, holding ACEi due to IESHA. # H/o Severe coronary artery disease with multivessel coronary artery disease, ACS ruled out - Continue Plavix, statin, coreg - Had PCI of coronary artery in April 2018 secondary to LAD stenosis, per family # History of metastatic adeno CA of the colon s/p resection - has been on Xeloda (palliative chemo?), possible liver mets - For now holding Xeloda as the med is not crushable. - Follow up hematology oncology recommendations, holding off on chemotherapy for now # History of hypertension - Currently on low dose BB and aldactone # History of GI bleed - hemoglobin stable, no present signs of any upper or lower GI bleeding. # Dyslipidemia - Continue statin # History of sick sinus syndrome - s/p pacemaker-pace maker interrogated 07/08/18 at [facility] # Recent acute occipital CVA on chronic CVA - Plavix, statin. # PreDM - hba1C 6.0, not requiring insulin. # Acute confusion / delirium with reports of hallucinations - likely effect of recent CVA and chronic disease - per discussion with patient's , will likely obtain psychiatry eval if patient is extubated for further evaluation of this - trazodone 50 mg daily Dispo: Very poor prognosis. Respiratory failure requiring ventilator, not weanable from vent after 1 week. Now with new anuric renal failure. Patient's says tracheostomy is against patient's wishes and would prefer extubation. But she is not ready for the patient to pass away. Will continue to address a plan about the airway. Result Diagram: 07/23/18 0500 07/23/18 0500 Results 24hrs Laboratory Tests Test 07/23/18 05:00 White Blood Count 11.9 H Red Blood Count 3.59 L Hemoglobin 8.1 L Hematocrit 26.4 L Mean Corpuscular Volume 73.5 L Mean Corpuscular Hemoglobin 22.6 L Mean Corpuscular Hemoglobin Concent 30.7 L Red Cell Distribution Width 23.6 H Platelet Count 377 Mean Platelet Volume 11.2 H Immature Granulocytes % 1.400 H Neutrophils % 80.3 H Lymphocytes % 6.9 L Monocytes % 10.4 Eosinophils % 0.8 Basophils % 0.2 Nucleated Red Blood Cells % 0.0 Immature Granulocytes # 0.160 H Neutrophils # 9.5 H Lymphocytes # 0.8 Monocytes # 1.2 H Eosinophils # 0.1 Basophils # 0.0 Nucleated Red Blood Cells # 0.0 Sodium Level 139 Potassium Level 5.1 Chloride Level 100 Carbon Dioxide Level 29 Anion Gap 10 # Blood Urea Nitrogen 111 #H Creatinine 5.13 H Est Glomerular Filtrat Rate mL/min 14 L Glucose Level 128 Calcium Level 8.7 Phosphorus Level 5.6 H Magnesium Level 2.7 H Subjective 24 Hr Interval Summary Free Text/Dictation came in late last night, I didn't talk to her. Today she called saying she may come in after dialysis. Otherwise no acute events. This morning patient very somnolent, eyes open but not tracking, not following commands. Exam/Review of Systems Vital Signs Vitals Vital Signs Date Temp Pulse Resp B/P (MAP) Pulse Ox O2 O2 Flow FiO2 Time Delivery Rate 07/23/18 99.1 111 12 135/84 99 Mechanical 16:00 (101) Ventilator 07/23/18 30 15:15 Intake and Output 07/22/18 07/22/18 07/23/18 1515:00 23:00 07:00 IntakeIntake Total 482.5 ml 432.5 ml 470 ml OutputOutput Total 232 ml 396 ml 19 ml BalanceBalance 250.5 ml 36.5 ml 451 ml Exam GENERAL: Obese man intubated, somnolent HEENT: PERRL, Intubated, ET tube in place LUNGS: Some diminished and coarse BS HEART: S1, S2. No murmur, gallops or rubs. ABDOMEN: Soft, non distended, Normoactive bowel sounds. EXTREMITIES: Mild 1+ nonpitting edema bilaterally, also some hand edema bilaterally NEUROLOGIC: Eyes open not tracking not following commands. Medications Medications Current Medications IV Flush (NS 3 ml) 3 ml PER PROTOCOL IV ; Start 07/08/18 at 21:00 Ondansetron HCl (Zofran Inj) 4 mg Q6H PRN IV NAUSEA AND/OR VOMITING; Start 07/08/18 at 21:00 Acetaminophen (Tylenol Tab) 650 mg Q6H PRN PO PAIN LEVEL 1-3 OR FEVER Last administered on 07/23/18at 05:11; Admin Dose 650 MG; Start 07/08/18 at 21:00 Docusate Sodium (Colace) 100 mg Q12H PRN PO CONSTIPATION; Start 07/08/18 at 21:00 Atorvastatin Calcium (Lipitor) 80 mg QHS PO Last administered on 07/22/18at 20:34; Admin Dose 80 MG; Start 07/09/18 at 21:00 Capecitabine (Xeloda) 1,500 mg BID PO Last administered on 07/13/18at 09:05; Admin Dose 1,500 MG; Start 07/09/18 at 09:00; Status Hold Carvedilol (Coreg) 3.125 mg BID PO Last administered on 07/21/18at 21:05; Admin Dose 3.125 MG; Start 07/09/18 at 09:00 Clopidogrel Bisulfate (plaVIX) 75 mg DAILY PO Last administered on 07/23/18at 09:38; Admin Dose 75 MG; Start 07/09/18 at 09:00 Sucralfate (Carafate Susp) 1 gm QID PO Last administered on 07/23/18at 13:29; Admin Dose 1 GM; Start 07/09/18 at 09:00 Levalbuterol (Xopenex Neb) 1.25 mg Q4H RESP THERAPY PRN HHN SHORTNESS OF BREATH Last administered on 07/23/18at 15:56; Admin Dose 1.25 MG; Start 07/09/18 at 03:45 Heparin Sodium (Porcine) (Heparin (5000 Units/1ml)) 5,000 unit BID SC Last administered on 07/23/18at 09:40; Admin Dose 5,000 UNIT; Start 07/09/18 at 21:00 Diphenhydramine HCl (Benadryl) 25 mg Q8H PRN PO ITCHING Last administered on 07/09/18at 17:11; Admin Dose 25 MG; Start 07/09/18 at 16:30 Lansoprazole (Prevacid) 30 mg DAILY@06 NGT Last administered on 07/23/18at 05:12; Admin Dose 30 MG; Start 07/12/18 at 06:00 Furosemide (Lasix) 40 mg DAILY IV Last administered on 07/16/18at 08:47; Admin Dose 40 MG; Start 07/15/18 at 09:00; Status Hold Trazodone HCl (Desyrel) 50 mg HS PO Last administered on 07/22/18at 21:00; Admin Dose 50 MG; Start 07/19/18 at 11:00 Acetaminophen/ Hydrocodone Bitart ([place] (5/325)) 1 tab Q12H PRN PO MODERATE PAIN LEVEL 4-6 Last administered on 07/22/18at 03:31; Admin Dose 1 TAB; Start 07/19/18 at 17:30 Norepinephrine 16 mg/Dextrose 500 ml @ 1.88 mls/hr TITRATE IV ; Start 07/22/18 at 22:00 KARI VALERA MD Jul 23, 2018 16:58
--- NOTE | 2018-07-23 18:45 | NUR ---
ERWINS PT STABLE IN VENT ON ASSIST CONTROL, PENDING HD TODAY, WAITING FOR THE HD NURSE, PT'S CALLED, WILL COME AFTER THE HD.
--- NOTE | 2018-07-23 19:34 | NUR ---
nurses notes: FOLLOWED UP [facility] AND SPOKE WITH JEANNETTE FROM [facility] , ACCORDING TO HER THEY ARE WORKING ON IT NOW. THEY SAID PT. WILL BE DIALIZED ANYTIME BETWEEN THIS TIME AND 6 AM.
--- NOTE | 2018-07-23 19:50 | PN ---
Date/Time of Note Date/Time of Note DATE: 07/23/18 TIME: 19:49 Assessment/Plan Lines/Catheters IV Catheter Type (from Nrsg): ARLETTE CATHETER [place] in Place (from Nrsg): Yes Assessment/Plan Assessment/Plan SP Dialysis cath placement will conute dialysis Subjective 24 Hr Interval Summary Constitutional: improved Pain Control: mild Exam/Review of Systems Vital Signs Vitals Vital Signs Date Temp Pulse Resp B/P (MAP) Pulse Ox O2 O2 Flow FiO2 Time Delivery Rate 07/23/18 101 23 124/75 96 Mechanical 18:00 (91) Ventilator 07/23/18 30 17:41 07/23/18 99.1 16:00 Intake and Output 07/22/18 07/22/18 07/23/18 1515:00 23:00 07:00 IntakeIntake Total 482.5 ml 432.5 ml 470 ml OutputOutput Total 232 ml 396 ml 19 ml BalanceBalance 250.5 ml 36.5 ml 451 ml Exam Eyes: nl conjunctiva, EOMI, nl lids, nl sclera ENMT: nl external ears & nose, nl lips & teeth, nl nasal mucosa & septum, mucosa pink and moist Neck: supple, non-tender Respiratory: clear to auscultation, normal air movement; No congested cough, No crackles/rales, No diminished breath sounds, No intercostal retraction, No labored breathing, No respirations, No tactile fremitus, No wheezing, No other Gastrointestinal: soft, nl liver, spleen, non-tender Results Result Diagram: 07/23/18 0500 07/23/18 0500 REJI FORD MD Jul 23, 2018 19:50
--- NOTE | 2018-07-23 19:57 | NUR ---
NURSES NOTES: SPOKE WITH DR. DEGROOT VIA TELEPHONE AND MADE AWARE OF THE DELAY IN THE HEMODIALYSIS OF THE PT. WITH NO NEW ORDER, SPOKE AGAIN WITH SARAH FROM [facility] AND ACCORDING TO HER,THERE'S A NURSE THEY ASSIGN ALREADY FOR THIS PT. BUT THEY CAN'T GIVE THE ETA FOR NOW. AT BEDSIDE WAS INFORMED.
[2018-07-23] MEDS: ATORVASTATIN 80 MG TAB PO SCH (20:26)
[2018-07-23] MEDS: traZODone 50 MG TAB PO SCH (20:37)
[2018-07-23] MEDS ORDERED: MEROPENEM 500MG/50 ML (PMX) 50 ML IVPB SCH (21:00)
--- NOTE | 2018-07-23 21:20 | NUR ---
nurses notes: Received a call from [facility] and they said ETA of Hemodialysis nurse will be 2200 to 2300. at bedside made aware.
--- NOTE | 2018-07-23 22:48 | NUR ---
nurses notes: collected urine for urinalysis and culture, specimen sent to labs.
--- NOTE | 2018-07-23 23:30 | NUR ---
nurses notes: followed up again [facility] and spoke to HD nurse who will take care of the pt. as per nurse he will be here around 0200 since he has to do pt. with STAT order.
[2018-07-24] VITALS (57 sets, daily range): BP systolic 108–153; BP diastolic 57–103; PULSE 85–110; RESP 16–40
--- NOTE | 2018-07-24 03:00 | NUR ---
nurses notes: with ongoing hemodialysis , v/s monitored, v/s within normal limits.
[2018-07-24] MEDS: HEPARIN 1000 UNITS/ML 10 ML INJ CATHETER SCH ×2 (05:03→17:59)
[2018-07-24] MEDS: LANSOPRAZOLE 30 MG CAP NGT SCH (06:20)
--- NOTE | 2018-07-24 07:14 | NUR ---
EOSS: no significant change of condition , pt. febrile T-100.7 Tylenol PO administered x 1 and cooling measures provided. latest Temp.-99.2. Hemodialysis started around 0240 and ended around 0530 today with 300ml out. right femoral brendan cath , no bleeding noted. with right chest wall deepika cath asymptomatic. all needs attended, turned and repositioned [id number]. properly endorsed to next RN using SBAR.
[2018-07-24] MEDS: CLOPIDOGREL 75 MG TAB PO SCH (08:14)
[2018-07-24] MEDS: SUCRALFATE (100 MG/ML) 10ML CUP PO SCH ×4 (08:14→20:52)
[2018-07-24] MEDS: HEPARIN 5,000 UNIT/1 ML VIAL SC SCH ×2 (08:21→20:54)
--- NOTE | 2018-07-24 09:42 | PN ---
DATE: 07/24/2018 SUBJECTIVE: The patient had hemodialysis yesterday, tolerated well. The patient remains critically ill on full ventilatory support. The patient is also febrile; continues to have low grade fever. No other acute events noted. OBJECTIVE: VITAL SIGNS: Blood pressure is 130/81, respiratory 20, pulse 98, temperature 98.9. HEENT: Head is normocephalic. NECK: Supple. HEART: Regular rate. LUNGS: Show diminished breath sounds at base. ABDOMEN: Soft, nontender to palpation. No rebound or guarding. EXTREMITIES: Negative for clubbing, cyanosis, no edema. DERMATOLOGIC: No rashes. MUSCULOSKELETAL: No joint effusion. NEUROLOGIC: No change in exam. MEDICATIONS: Reviewed. LABORATORY DATA: Shows sodium 141, potassium 4.6, BUN 92, creatinine 4.20, phosphorus 5.1, magnesium 2.7. White count 12.8, hemoglobin 8.5, platelet count is 404. IMAGING STUDIES: Reviewed. ASSESSMENT AND PLAN: 1. Oliguric acute kidney injury on top of chronic kidney disease with previous baseline creatinine o f 1.3 mg/dL. Etiology of acute kidney injury is secondary to acute tubular necrosis with underlying cardiorenal syndrome. Patient is currently on hemodialysis. Plan for dialysis again today; third se ssion. We will monitor for any signs of renal recovery. 2. Acute systolic heart failure and cardiomyopathy. Continue current medical management. Continue ultrafiltration dialysis. 3. Anemia. Monitor hemoglobin and hematocrit levels. 4. Mineral bone disorder, monitor calcium and phosphorus levels. 5. Ventilatory-dependent respiratory failure. Vent settings and arterial blood gas was reviewed. C ontinue to monitor. Follow up with pulmonary. 6. Sepsis secondary to pneumonia. Continue current antibiotic regimen. 7. History of coronary artery disease. Continue medical management. 8. Metastatic adenocarcinoma of the colon. Continue to monitor. Follow up with oncology. 9. Dysphagia, G-tube feeding. 10. Dyslipidemia, continue statin therapy. 11. Acute cerebrovascular accident. Continue medical management. 12. Acute encephalopathy. Continue current treatment plan. 13. History of gastrointestinal bleed. 14. Fever, low grade, may be secondary to sepsis. Will check blood culture from Marshall catheter, r ule out line infection. Please note I spent over 30 minutes of critical care time with this patient. Dictated By: BROOK MEDRANO/TOR Conf#: [id number] DID#: [id number] CC: ASIA LORA MD;*End*
--- NOTE | 2018-07-24 10:39 | QN ---
Documentation Comment Pt continues on dialysis and ventilator support. No sign of improvement so far. No new suggestions. Will f/u intermittently. MARIA INES GOLDSTEIN MD Jul 24, 2018 10:39
--- NOTE | 2018-07-24 10:48 | NUR ---
rt: vent changed to cpap ps 10 peep 5 30 % abg pending
--- NOTE | 2018-07-24 10:50 | NUR ---
PT PLACED ON CPAP AT [address] BUTLER ORDER. WILL CONTINUE TO MONITOR.
--- NOTE | 2018-07-24 11:15 | NUR ---
rt: pt changed to previous settings per order , pt didnt lauren cpap trial rr [id number]
[2018-07-24] MEDS ORDERED: DOCUSATE SODIUM 10 MG/ML (10ML CUP) GTB PRN (11:30)
--- NOTE | 2018-07-24 12:05 | CONS ---
Date/Time of Note Date/Time of Note DATE: 07/24/18 TIME: 12:02 Consult Date/Type/Reason Admit Date/Time Jul 08, 2018 at 19:53 Initial Consult Date 07/10/18 Type of Consultation: Pulmonary ICU Subjective Patient continues mechanical ventilation failed CPAP trial with increased work of breathing this morning. Chest x-ray shows resolved infiltrates but low lung volumes. Upon further discussion patient had not had a bowel movement for 3-4 days. Objective Vital Signs Date Temp Pulse Resp B/P (MAP) Pulse Ox O2 O2 Flow FiO2 Time Delivery Rate 07/24/18 109 21 100 30 11:11 07/24/18 130/81 Mechanical 07:00 (97) Ventilator 07/24/18 98.9 07:00 Intake and Output 07/23/18 07/23/18 07/24/18 1515:00 23:00 07:00 IntakeIntake Total 710 ml 630 ml 800 ml OutputOutput Total 60 ml 65 ml 1260 ml BalanceBalance 650 ml 565 ml -460 ml Exam GENERAL: VITAL SIGNS: moderately obese gentleman orally intubated on mechanical ventilation lethargic but arousable NECK: Supple. No JVD or lymphadenopathy. CARDIAC EXAM: S1, S2. No added sounds or murmurs. CHEST: Diminished air entry bilaterally ABDOMEN: Soft, nontender. No guarding or rebound. Mild distention EXTREMITIES: No cyanosis, clubbing or edema. Bilateral heel wounds. NEUROLOGIC: Generalized weakness. No focal deficits. Results/Medications Result Diagram: 07/24/18 0500 07/24/18 0500 Results 24 hrs Laboratory Tests Test 07/23/18 16:00 07/24/18 05:00 Urine Color LIVIA Urine Clarity CLOUDY A Urine pH 5.0 Urine Specific [place] 1.027 Urine Ketones NEGATIVE Urine Nitrite NEGATIVE Urine Bilirubin NEGATIVE Urine Urobilinogen 1+ H Urine Leukocyte Esterase TRACE A Urine Microscopic RBC 105 H Urine Microscopic WBC 66 H Urine Squamous Epithelial Cells FEW Urine Bacteria FEW A Urine Granular Casts FEW A Urine Mucus FEW A Urine Hemoglobin 3+ H Urine Glucose 1+ H Urine Total Protein 2+ H White Blood Count 12.8 H Red Blood Count 3.79 L Hemoglobin 8.5 L Hematocrit 27.4 L Mean Corpuscular Volume 72.3 L Mean Corpuscular Hemoglobin 22.4 L Mean Corpuscular Hemoglobin Concent 31.0 L Red Cell Distribution Width 24.1 H Platelet Count 404 Mean Platelet Volume 10.6 H Immature Granulocytes % 0.900 H Neutrophils % 80.3 H Lymphocytes % 7.2 L Monocytes % 10.1 Eosinophils % 1.3 Basophils % 0.2 Nucleated Red Blood Cells % 0.0 Immature Granulocytes # 0.120 H Neutrophils # 10.3 H Lymphocytes # 0.9 Monocytes # 1.3 H Eosinophils # 0.2 Basophils # 0.0 Nucleated Red Blood Cells # 0.0 Sodium Level 141 Potassium Level 4.6 Chloride Level 98 Carbon Dioxide Level 31 Anion Gap 12 Blood Urea Nitrogen 92 H Creatinine 4.20 H Est Glomerular Filtrat Rate mL/min 18 L Glucose Level 133 Calcium Level 9.0 Phosphorus Level 5.1 H Magnesium Level 2.7 H Medications Current Medications IV Flush (NS 3 ml) 3 ml PER PROTOCOL IV ; Start 07/08/18 at 21:00 Ondansetron HCl (Zofran Inj) 4 mg Q6H PRN IV NAUSEA AND/OR VOMITING; Start 07/08/18 at 21:00 Acetaminophen (Tylenol Tab) 650 mg Q6H PRN PO PAIN LEVEL 1-3 OR FEVER Last administered on 07/23/18at 20:45; Admin Dose 650 MG; Start 07/08/18 at 21:00 Atorvastatin Calcium (Lipitor) 80 mg QHS PO Last administered on 07/23/18 20:26; Admin Dose 80 MG; Start 07/09/18 at 21:00 Capecitabine (Xeloda) 1,500 mg BID PO Last administered on 07/13/18at 09:05; Admin Dose 1,500 MG; Start 07/09/18 at 09:00; Status Hold Carvedilol (Coreg) 3.125 mg BID PO Last administered on 07/24/18 08:15; Admin Dose 3.125 MG; Start 07/09/18 at 09:00 Clopidogrel Bisulfate (plaVIX) 75 mg DAILY PO Last administered on 07/24/18 08:14; Admin Dose 75 MG; Start 07/09/18 at 09:00 Sucralfate (Carafate Susp) 1 gm QID PO Last administered on 07/24/18 08:14; Admin Dose 1 GM; Start 07/09/18 at 09:00 Levalbuterol (Xopenex Neb) 1.25 mg Q4H RESP THERAPY PRN HHN SHORTNESS OF BREATH Last administered on 07/23/18at 15:56; Admin Dose 1.25 MG; Start 07/09/18 at 03:45 Heparin Sodium (Porcine) (Heparin (5000 Units/1ml)) 5,000 unit BID SC Last administered on 07/24/18at 08:21; Admin Dose 5,000 UNIT; Start 07/09/18 at 21:00 Diphenhydramine HCl (Benadryl) 25 mg Q8H PRN PO ITCHING Last administered on 07/09/18at 17:11; Admin Dose 25 MG; Start 07/09/18 at 16:30 Lansoprazole (Prevacid) 30 mg DAILY@06 NGT Last administered on 07/24/18at 06:20; Admin Dose 30 MG; Start 07/12/18 at 06:00 Furosemide (Lasix) 40 mg DAILY IV Last administered on 07/16/18at 08:47; Admin Dose 40 MG; Start 07/15/18 at 09:00; Status Hold Trazodone HCl (Desyrel) 50 mg HS PO Last administered on 07/22/18at 21:00; Admin Dose 50 MG; Start 07/19/18 at 11:00 Acetaminophen/ Hydrocodone Bitart ([place] (5/325)) 1 tab Q12H PRN PO MODERATE PAIN LEVEL 4-6 Last administered on 07/22/18at 03:31; Admin Dose 1 TAB; Start 07/19/18 at 17:30 Norepinephrine 16 mg/Dextrose 500 ml @ 1.88 mls/hr TITRATE IV ; Start 07/22/18 at 22:00 Heparin Sodium (Porcine) (Heparin (1000 Units/ml)) 3,000 unit AFTER DIALYSIS CATHETER Last administered on 07/24/18at 05:03; Admin Dose 3,000 UNIT; Start 07/24/18 at 03:00 Docusate Sodium (Colace Liquid Cup) 100 mg BID PRN GTB CONSTIPATION; Start 07/24/18 at 11:30 Assessment/Plan Chief Complaint/Hosp Course Assessment 1. Acute hypoxemic respiratory failure with resolved pneumonia radiographically 2. End-stage renal failure on hemodialysis 3. Encephalopathy toxic metabolic 4. Failed weaning trials likely now secondary to alveolar hypoventilation. Possibly secondary to distended abdomen low lung volumes. Plan 1. Stool softeners to encourage bowel movement and decrease abdominal distention increased lung volumes 2. Continue mechanical ventilation 3. Wound care 4. Tube feeding as tolerated Critical care time 40 minutes SELVIN ESPINOZA MD, [facility] Jul 24, 2018 12:05
[2018-07-24] MEDS: ACETAMINOPHEN 325 MG TAB PO PRN ×2 (12:28→14:07)
--- NOTE | 2018-07-24 13:24 | CONS ---
Date/Time of Note Date/Time of Note DATE: 07/24/18 TIME: 13:23 Assessment/Plan Assessment/Plan Hospital Course Assessment: Acute hypoxic respiratory failure - intubated and on mechanical ventilation Pneumonia Acute on chronic systolic heart failure Ischemic cardiomyopathy, LVEF 25-30% Severe multi-vessel coronary artery disease, status post recent PCI to right coronary artery (April 2018) Hypertension Dyslipidemia Sick sinus syndrome, status post permanent pacemaker - currently not pacer dependent History of stroke Stage IV colon cancer History of gastrointestinal bleeding Acute kidney injury - started on hemodialysis Recommendations: -continue clopidogrel 75mg daily as able given recent PCI -continue atorvastatin 80mg daily -continue carvedilol 3.125mg BID Remains critically ill and with poor prognosis. Discussed with patient's mother and brother at beside. Result Diagram: 07/24/18 0500 07/24/18 0500 Results 24hrs Laboratory Tests Test 07/23/18 16:00 07/24/18 05:00 Urine Color LIVIA Urine Clarity CLOUDY A Urine pH 5.0 Urine Specific [place] 1.027 Urine Ketones NEGATIVE Urine Nitrite NEGATIVE Urine Bilirubin NEGATIVE Urine Urobilinogen 1+ H Urine Leukocyte Esterase TRACE A Urine Microscopic RBC 105 H Urine Microscopic WBC 66 H Urine Squamous Epithelial Cells FEW Urine Bacteria FEW A Urine Granular Casts FEW A Urine Mucus FEW A Urine Hemoglobin 3+ H Urine Glucose 1+ H Urine Total Protein 2+ H White Blood Count 12.8 H Red Blood Count 3.79 L Hemoglobin 8.5 L Hematocrit 27.4 L Mean Corpuscular Volume 72.3 L Mean Corpuscular Hemoglobin 22.4 L Mean Corpuscular Hemoglobin Concent 31.0 L Red Cell Distribution Width 24.1 H Platelet Count 404 Mean Platelet Volume 10.6 H Immature Granulocytes % 0.900 H Neutrophils % 80.3 H Lymphocytes % 7.2 L Monocytes % 10.1 Eosinophils % 1.3 Basophils % 0.2 Nucleated Red Blood Cells % 0.0 Immature Granulocytes # 0.120 H Neutrophils # 10.3 H Lymphocytes # 0.9 Monocytes # 1.3 H Eosinophils # 0.2 Basophils # 0.0 Nucleated Red Blood Cells # 0.0 Sodium Level 141 Potassium Level 4.6 Chloride Level 98 Carbon Dioxide Level 31 Anion Gap 12 Blood Urea Nitrogen 92 H Creatinine 4.20 H Est Glomerular Filtrat Rate mL/min 18 L Glucose Level 133 Calcium Level 9.0 Phosphorus Level 5.1 H Magnesium Level 2.7 H Consultation Date/Type/Reason Admit Date/Time Jul 08, 2018 at 19:53 Initial Consult Date 07/10/18 Type of Consult Cardiology 24 HR Interval Summary Free Text/Dictation Fever to 101.3 F. Remains intubated and on mechanical ventilation. Detailed Summary Additional Comments Unable to obtain review of systems, patient is intubated. Exam/Review of Systems Vital Signs Vitals Vital Signs Date Temp Pulse Resp B/P (MAP) Pulse Ox O2 O2 Flow FiO2 Time Delivery Rate 07/24/18 101.3 12:28 07/24/18 30 12:00 07/24/18 104 29 120/71 94 [place] 12:00 (87) l Ventilato r Intake and Output 07/23/18 07/23/18 07/24/18 1515:00 23:00 07:00 IntakeIntake Total 710 ml 630 ml 800 ml OutputOutput Total 60 ml 65 ml 1260 ml BalanceBalance 650 ml 565 ml -460 ml Exam Constitutional: other (intubated); No alert, No oriented Psych: confusion Head: normocephalic, atraumatic ENMT: nl external ears & nose, nl nasal mucosa & septum Neck: supple, non-tender Respiratory: crackles/rales Cardiovascular: regular rate and rhythm Gastrointestinal: soft, distended Musculoskeletal: swelling Extremities: edema; No cyanosis, No clubbing Neurological: No nl mental status, No nl speech Medications Medications Current Medications IV Flush (NS 3 ml) 3 ml PER PROTOCOL IV ; Start 07/08/18 at 21:00 Ondansetron HCl (Zofran Inj) 4 mg Q6H PRN IV NAUSEA AND/OR VOMITING; Start 07/08/18 at 21:00 Acetaminophen (Tylenol Tab) 650 mg Q6H PRN PO PAIN LEVEL 1-3 OR FEVER Last administered on 07/24/18at 12:28; Admin Dose 650 MG; Start 07/08/18 at 21:00 Atorvastatin Calcium (Lipitor) 80 mg QHS PO Last administered on 07/23/18at 20:26; Admin Dose 80 MG; Start 07/09/18 at 21:00 Capecitabine (Xeloda) 1,500 mg BID PO Last administered on 07/13/18at 09:05; Admin Dose 1,500 MG; Start 07/09/18 at 09:00; Status Hold Carvedilol (Coreg) 3.125 mg BID PO Last administered on 07/24/18 08:15; Admin Dose 3.125 MG; Start 07/09/18 at 09:00 Clopidogrel Bisulfate (plaVIX) 75 mg DAILY PO Last administered on 07/24/18 08:14; Admin Dose 75 MG; Start 07/09/18 at 09:00 Sucralfate (Carafate Susp) 1 gm QID PO Last administered on 07/24/18 12:28; Admin Dose 1 GM; Start 07/09/18 at 09:00 Levalbuterol (Xopenex Neb) 1.25 mg Q4H RESP THERAPY PRN HHN SHORTNESS OF BREATH Last administered on 07/23/18 15:56; Admin Dose 1.25 MG; Start 07/09/18 at 03:45 Heparin Sodium (Porcine) (Heparin (5000 Units/1ml)) 5,000 unit BID SC Last administered on 07/24/18 08:21; Admin Dose 5,000 UNIT; Start 07/09/18 at 21:00 Diphenhydramine HCl (Benadryl) 25 mg Q8H PRN PO ITCHING Last administered on 07/09/18 17:11; Admin Dose 25 MG; Start 07/09/18 at 16:30 Lansoprazole (Prevacid) 30 mg DAILY@06 NGT Last administered on 07/24/18 06:20; Admin Dose 30 MG; Start 07/12/18 at 06:00 Furosemide (Lasix) 40 mg DAILY IV Last administered on 07/16/18at 08:47; Admin Dose 40 MG; Start 07/15/18 at 09:00; Status Hold Trazodone HCl (Desyrel) 50 mg HS PO Last administered on 07/22/18 21:00; Admin Dose 50 MG; Start 07/19/18 at 11:00 Acetaminophen/ Hydrocodone Bitart ([employer] (5/325)) 1 tab Q12H PRN PO MODERATE P AIN LEVEL 4-6 Last administered on 07/22/18 03:31; Admin Dose 1 TAB; Start 07/19/18 at 17:30 Norepinephrine 16 mg/Dextrose 500 ml @ 1.88 mls/hr TITRATE IV ; Start 07/22/18 at 22:00 Heparin Sodium (Porcine) (Heparin (1000 Units/ml)) 3,000 unit AFTER DIALYSIS CATHETER Last administered on 07/24/18at 05:03; Admin Dose 3,000 UNIT; Start 07/24/18 at 03:00 Docusate Sodium (Colace Liquid Cup) 100 mg BID PRN GTB CONSTIPATION; Start 07/24/18 at 11:30 HAELY BOSWELL MD Jul 24, 2018 13:24
--- NOTE | 2018-07-24 13:38 | CONS ---
Date/Time of Note Date/Time of Note DATE: 07/24/18 TIME: 13:36 Assessment/Plan Assessment/Plan Hospital Course No acute events overnight patient looks comfortable he is spiking fevers with a temperature of 101.3 he is in no distress WBC 12.8 H&H 8.5 and 27.4 platelets 404 neutrophils 80.3 BUN 92 creatinine 4.20 Microbiology: Endotracheal aspirate grew Rosalina albicans, bld cx negative, urine cx pending Antimicrobials: none Indwelling: Endotracheal tube NG tube cardiac pacemaker, [place] catheter, right chest Port-A-Cath, R fem brendan Physical examination: This is an obese well-developed middle-aged man who is intubated in no distress. Head atraumatic normocephalic sclera nonicteric. Neck is supple. Chest rise symmetrical breath sounds diminished bases. Heart: S1-S2. Abdomen soft bowel sounds present. Extremities with trace edema. Assessment: 1. Ongoing fevers possibly secondary to metastatic disease 2. Status post healthcare associated pneumonia 3. Acute kidney failure 4. Metastatic colon cancer 5. Severe cardiomyopathy 6. Acute encephalopathy Plan: Patient remains unchanged, antibiotics were discontinued yesterday, we will will repeat cultures DW RN Result Diagram: 07/24/18 0500 07/24/18 0500 Results 24hrs Laboratory Tests Test 07/23/18 16:00 07/24/18 05:00 Urine Color LIVIA Urine Clarity CLOUDY A Urine pH 5.0 Urine Specific [place] 1.027 Urine Ketones NEGATIVE Urine Nitrite NEGATIVE Urine Bilirubin NEGATIVE Urine Urobilinogen 1+ H Urine Leukocyte Esterase TRACE A Urine Microscopic RBC 105 H Urine Microscopic WBC 66 H Urine Squamous Epithelial Cells FEW Urine Bacteria FEW A Urine Granular Casts FEW A Urine Mucus FEW A Urine Hemoglobin 3+ H Urine Glucose 1+ H Urine Total Protein 2+ H White Blood Count 12.8 H Red Blood Count 3.79 L Hemoglobin 8.5 L Hematocrit 27.4 L Mean Corpuscular Volume 72.3 L Mean Corpuscular Hemoglobin 22.4 L Mean Corpuscular Hemoglobin Concent 31.0 L Red Cell Distribution Width 24.1 H Platelet Count 404 Mean Platelet Volume 10.6 H Immature Granulocytes % 0.900 H Neutrophils % 80.3 H Lymphocytes % 7.2 L Monocytes % 10.1 Eosinophils % 1.3 Basophils % 0.2 Nucleated Red Blood Cells % 0.0 Immature Granulocytes # 0.120 H Neutrophils # 10.3 H Lymphocytes # 0.9 Monocytes # 1.3 H Eosinophils # 0.2 Basophils # 0.0 Nucleated Red Blood Cells # 0.0 Sodium Level 141 Potassium Level 4.6 Chloride Level 98 Carbon Dioxide Level 31 Anion Gap 12 Blood Urea Nitrogen 92 H Creatinine 4.20 H Est Glomerular Filtrat Rate mL/min 18 L Glucose Level 133 Calcium Level 9.0 Phosphorus Level 5.1 H Magnesium Level 2.7 H Consultation Date/Type/Reason Admit Date/Time Jul 08, 2018 at 19:53 Initial Consult Date 07/10/18 Type of Consult ID Exam/Review of Systems Vital Signs Vitals Vital Signs Date Temp Pulse Resp B/P (MAP) Pulse Ox O2 O2 Flow FiO2 Time Delivery Rate 07/24/18 101.3 12:28 07/24/18 30 12:00 07/24/18 104 29 120/71 94 [place] 12:00 (87) l Ventilato r Intake and Output 07/23/18 07/23/18 07/24/18 1515:00 23:00 07:00 IntakeIntake Total 710 ml 630 ml 800 ml OutputOutput Total 60 ml 65 ml 1260 ml BalanceBalance 650 ml 565 ml -460 ml Medications Medications Current Medications IV Flush (NS 3 ml) 3 ml PER PROTOCOL IV ; Start 07/08/18 at 21:00 Ondansetron HCl (Zofran Inj) 4 mg Q6H PRN IV NAUSEA AND/OR VOMITING; Start 07/08/18 at 21:00 Acetaminophen (Tylenol Tab) 650 mg Q6H PRN PO PAIN LEVEL 1-3 OR FEVER Last administered on 07/24/18at 12:28; Admin Dose 650 MG; Start 07/08/18 at 21:00 Atorvastatin Calcium (Lipitor) 80 mg QHS PO Last administered on 07/23/18at 20:26; Admin Dose 80 MG; Start 07/09/18 at 21:00 Capecitabine (Xeloda) 1,500 mg BID PO Last administered on 07/13/18at 09:05; Admin Dose 1,500 MG; Start 07/09/18 at 09:00; Status Hold Carvedilol (Coreg) 3.125 mg BID PO Last administered on 07/24/18at 08:15; Admin Dose 3.125 MG; Start 07/09/18 at 09:00 Clopidogrel Bisulfate (plaVIX) 75 mg DAILY PO Last administered on 07/24/18 08:14; Admin Dose 75 MG; Start 07/09/18 at 09:00 Sucralfate (Carafate Susp) 1 gm QID PO Last administered on 07/24/18 12:28; Admin Dose 1 GM; Start 07/09/18 at 09:00 Levalbuterol (Xopenex Neb) 1.25 mg Q4H RESP THERAPY PRN HHN SHORTNESS OF BREATH Last administered on 07/23/18 15:56; Admin Dose 1.25 MG; Start 07/09/18 at 03:45 Heparin Sodium (Porcine) (Heparin (5000 Units/1ml)) 5,000 unit BID SC Last administered on 07/24/18 08:21; Admin Dose 5,000 UNIT; Start 07/09/18 at 21:00 Diphenhydramine HCl (Benadryl) 25 mg Q8H PRN PO ITCHING Last administered on 07/09/18 17:11; Admin Dose 25 MG; Start 07/09/18 at 16:30 Lansoprazole (Prevacid) 30 mg DAILY@06 NGT Last administered on 07/24/18 06:20; Admin Dose 30 MG; Start 07/12/18 at 06:00 Furosemide (Lasix) 40 mg DAILY IV Last administered on 07/16/18 08:47; Admin Dose 40 MG; Start 07/15/18 at 09:00; Status Hold Trazodone HCl (Desyrel) 50 mg HS PO Last administered on 07/22/18 21:00; Admin Dose 50 MG; Start 07/19/18 at 11:00 Acetaminophen/ Hydrocodone Bitart ([place] (5/325)) 1 tab Q12H PRN PO MODERATE PAIN LEVEL 4-6 Last administered on 07/22/18 03:31; Admin Dose 1 TAB; Start 07/19/18 at 17:30 Norepinephrine 16 mg/Dextrose 500 ml @ 1.88 mls/hr TITRATE IV ; Start 07/22/18 at 22:00 Heparin Sodium (Porcine) (Heparin (1000 Units/ml)) 3,000 unit AFTER DIALYSIS CATHETER Last administered on 07/24/18 05:03; Admin Dose 3,000 UNIT; Start 07/24/18 at 03:00 Docusate Sodium (Colace Liquid Cup) 100 mg BID PRN GTB CONSTIPATION; Start 07/24/18 at 11:30 ELIDA SUNG NP Jul 24, 2018 13:38
--- NOTE | 2018-07-24 13:50 | PN ---
Date/Time of Note Date/Time of Note DATE: 07/24/18 TIME: 13:43 Assessment/Plan VTE Prophylaxis Risk score (from Nsg)>0 risk: 11 SCD applied (from Nsg): Yes Pharmacological prophylaxis: heparin Lines/Catheters IV Catheter Type (from Nrsg): ARLETTE CATH Urinary Cath still in place: Yes Reason Cath still needed: other (indicate) (intuabted) Assessment/Plan Assessment/Plan 57 yo M with history of metastatic stage IV colon cancer admitted for SOB and hypoxemia, intubated. # Acute hypoxemic hypercapnic respiratory failure - failed bipap, now intubated (07/09) and vent dependent. - Secondary to CHF also with signs of bilateral pneumonia on admission with pr obable underlying pulmonary nodules. - Continue vent management and weaning per pulmonary - Continue broad-spectrum antibiotics for now, including meropenem, now vancomycin, fluconazole given Rosalina growth findings in the respiratory culture, follow-up repeat culture test results - Follow-up recommendations from ID consult as well. - Patient's does not want a tracheostomy. #Anuric IESHA - Rising Cr. May have been due to hypotensive episode a few days ago. - Continue with dialysis per renal. # Congestive heart failure acute on chronic secondary systolic and diastolic heart failure - patient has history of AICD - Currently on low-dose BB, holding ACEi due to IESHA. # H/o Severe coronary artery disease with multivessel coronary artery disease, ACS ruled out - Continue Plavix, statin, coreg - Had PCI of coronary artery in April 2018 secondary to LAD stenosis, per family # History of metastatic adeno CA of the colon s/p resection - has been on Xeloda (palliative chemo?), possible liver mets - For now holding Xeloda as the med is not crushable. - Follow up hematology oncology recommendations, holding off on chemotherapy for now # History of hypertension - Currently on low dose BB and aldactone # History of GI bleed - hemoglobin stable, no present signs of any upper or lower GI bleeding. # Dyslipidemia - Continue statin # History of sick sinus syndrome - s/p pacemaker-pace maker interrogated 07/08/18 at [facility] # Recent acute occipital CVA on chronic CVA - Plavix, statin. # PreDM - hba1C 6.0, not requiring insulin. # Acute confusion / delirium with reports of hallucinations - likely effect of recent CVA and chronic disease - per discussion with patient's , will likely obtain psychiatry eval if patient is extubated for further evaluation of this - trazodone 50 mg daily Dispo: Very poor prognosis. Respiratory failure requiring ventilator, not weanable from vent after 1 week. Now with new anuric renal failure requiring dialysis. Patient's says tracheostomy is against patient's wishes and would prefer extubation. But she is not ready for the patient to pass away. Will continue to address a plan about the airway. Result Diagram: 07/24/18 0500 07/24/18 0500 Results 24hrs Laboratory Tests Test 07/23/18 16:00 07/24/18 05:00 Urine Color LIVIA Urine Clarity CLOUDY A Urine pH 5.0 Urine Specific [place] 1.027 Urine Ketones NEGATIVE Urine Nitrite NEGATIVE Urine Bilirubin NEGATIVE Urine Urobilinogen 1+ H Urine Leukocyte Esterase TRACE A Urine Microscopic RBC 105 H Urine Microscopic WBC 66 H Urine Squamous Epithelial Cells FEW Urine Bacteria FEW A Urine Granular Casts FEW A Urine Mucus FEW A Urine Hemoglobin 3+ H Urine Glucose 1+ H Urine Total Protein 2+ H White Blood Count 12.8 H Red Blood Count 3.79 L Hemoglobin 8.5 L Hematocrit 27.4 L Mean Corpuscular Volume 72.3 L Mean Corpuscular Hemoglobin 22.4 L Mean Corpuscular Hemoglobin Concent 31.0 L Red Cell Distribution Width 24.1 H Platelet Count 404 Mean Platelet Volume 10.6 H Immature Granulocytes % 0.900 H Neutrophils % 80.3 H Lymphocytes % 7.2 L Monocytes % 10.1 Eosinophils % 1.3 Basophils % 0.2 Nucleated Red Blood Cells % 0.0 Immature Granulocytes # 0.120 H Neutrophils # 10.3 H Lymphocytes # 0.9 Monocytes # 1.3 H Eosinophils # 0.2 Basophils # 0.0 Nucleated Red Blood Cells # 0.0 Sodium Level 141 Potassium Level 4.6 Chloride Level 98 Carbon Dioxide Level 31 Anion Gap 12 Blood Urea Nitrogen 92 H Creatinine 4.20 H Est Glomerular Filtrat Rate mL/min 18 L Glucose Level 133 Calcium Level 9.0 Phosphorus Level 5.1 H Magnesium Level 2.7 H Subjective 24 Hr Interval Summary Free Text/Dictation Febrile >101 last night. Urine culture no growth. Blood cultures drawn. CXR with no evidence of new infiltrate. Also no increasing oxygen requirements. Spoke to this afternoon on the phone. She plans to visit today after d ialysis. She does want to continue to leave the endotracheal tube in and will not consider tracheostomy. I explained that at this point it's unlikely he'll be able to breathe after extubation because he's been intubated for 16 days and he would have vocal cord dysfunction and edema. She was not pleased to hear this. Exam/Review of Systems Vital Signs Vitals Vital Signs Date Temp Pulse Resp B/P (MAP) Pulse Ox O2 O2 Flow FiO2 Time Delivery Rate 07/24/18 101.3 12:28 07/24/18 30 12:00 07/24/18 104 29 120/71 94 Mechanica 12:00 (87) l Ventilato r Intake and Output 07/23/18 07/23/18 07/24/18 1515:00 23:00 07:00 IntakeIntake Total 710 ml 630 ml 800 ml OutputOutput Total 60 ml 65 ml 1260 ml BalanceBalance 650 ml 565 ml -460 ml Exam GENERAL: Obese man intubated, somnolent HEENT: PERRL, Intubated, ET tube in place LUNGS: Some diminished and coarse BS HEART: S1, S2. No murmur, gallops or rubs. ABDOMEN: Soft, non distended, Normoactive bowel sounds. EXTREMITIES: Mild 1+ nonpitting edema bilaterally, also some hand edema bilatera lly NEUROLOGIC: Eyes open not tracking not following commands. Medications Medications Current Medications IV Flush (NS 3 ml) 3 ml PER PROTOCOL IV ; Start 07/08/18 at 21:00 Ondansetron HCl (Zofran Inj) 4 mg Q6H PRN IV NAUSEA AND/OR VOMITING; Start 07/08/18 at 21:00 Acetaminophen (Tylenol Tab) 650 mg Q6H PRN PO PAIN LEVEL 1-3 OR FEVER Last administered on 07/24/18at 12:28; Admin Dose 650 MG; Start 07/08/18 at 21:00 Atorvastatin Calcium (Lipitor) 80 mg QHS PO Last administered on 07/23/18at 20:26; Admin Dose 80 MG; Start 07/09/18 at 21:00 Capecitabine (Xeloda) 1,500 mg BID PO Last administered on 07/13/18at 09:05; Admin Dose 1,500 MG; Start 07/09/18 at 09:00; Status Hold Carvedilol (Coreg) 3.125 mg BID PO Last administered on 07/24/18 08:15; Admin Dose 3.125 MG; Start 07/09/18 at 09:00 Clopidogrel Bisulfate (plaVIX) 75 mg DAILY PO Last administered on 07/24/18 08:14; Admin Dose 75 MG; Start 07/09/18 at 09:00 Sucralfate (Carafate Susp) 1 gm QID PO Last administered on 07/24/18 12:28; Admin Dose 1 GM; Start 07/09/18 at 09:00 Levalbuterol (Xopenex Neb) 1.25 mg Q4H RESP THERAPY PRN HHN SHORTNESS OF BREATH Last administered on 07/23/18 15:56; Admin Dose 1.25 MG; Start 07/09/18 at 03:45 Heparin Sodium (Porcine) (Heparin (5000 Units/1ml)) 5,000 unit BID SC Last administered on 07/24/18 08:21; Admin Dose 5,000 UNIT; Start 07/09/18 at 21:00 Diphenhydramine HCl (Benadryl) 25 mg Q8H PRN PO ITCHING Last administered on 07/09/18 17:11; Admin Dose 25 MG; Start 07/09/18 at 16:30 Lansoprazole (Prevacid) 30 mg DAILY@06 NGT Last administered on 07/24/18 06:20; Admin Dose 30 MG; Start 07/12/18 at 06:00 Furosemide (Lasix) 40 mg DAILY IV Last administered on 07/16/18 08:47; Admin Dose 40 MG; Start 07/15/18 at 09:00; Status Hold Trazodone HCl (Desyrel) 50 mg HS PO Last administered on 07/22/18 21:00; Admin Dose 50 MG; Start 07/19/18 at 11:00 Acetaminophen/ Hydrocodone Bitart ([place] (5/325)) 1 tab Q12H PRN PO MODERATE PAIN LEVEL 4-6 Last administered on 07/22/18 03:31; Admin Dose 1 TAB; Start 07/19/18 at 17:30 Norepinephrine 16 mg/Dextrose 500 ml @ 1.88 mls/hr TITRATE IV ; Start 07/22/18 at 22:00 Heparin Sodium (Porcine) (Heparin (1000 Units/ml)) 3,000 unit AFTER DIALYSIS CATHETER Last administered on 07/24/18at 05:03; Admin Dose 3,000 UNIT; Start 07/24/18 at 03:00 Docusate Sodium (Colace Liquid Cup) 100 mg BID PRN GTB CONSTIPATION; Start 07/24/18 at 11:30 KARI VALERA MD Jul 24, 2018 13:50
--- NOTE | 2018-07-24 14:22 | PN ---
Date/Time of Note Date/Time of Note DATE: 07/24/18 TIME: 14:21 Assessment/Plan Lines/Catheters IV Catheter Type (from Nrsg): ARLETTE CATH Winters in Place (from Nrsg): Yes Assessment/Plan Assessment/Plan Assessment/Plan SP Dialysis cath placement will conute dialysis Subjective 24 Hr Interval Summary Constitutional: improved Pain Control: mild Exam/Review of Systems Vital Signs Vitals Vital Signs Date Temp Pulse Resp B/P (MAP) Pulse Ox O2 O2 Flow FiO2 Time Delivery Rate 07/24/18 99.6 14:07 07/24/18 30 12:00 07/24/18 104 29 120/71 94 Mechanical 12:00 (87) Ventilator Intake and Output 07/23/18 07/23/18 07/24/18 1515:00 23:00 07:00 IntakeIntake Total 710 ml 630 ml 800 ml OutputOutput Total 60 ml 65 ml 1260 ml BalanceBalance 650 ml 565 ml -460 ml Exam Eyes: nl conjunctiva, EOMI, nl lids, nl sclera ENMT: nl external ears & nose, nl lips & teeth, nl nasal mucosa & septum, mucosa pink and moist Neck: supple, non-tender Respiratory: clear to auscultation, normal air movement Cardiovascular: regular rate and rhythm, nl pulses Gastrointestinal: soft, nl liver, spleen, non-tender Musculoskeletal: nl extremities to inspection, nl gait and stance Results Result Diagram: 07/24/18 0500 07/24/18 0500 REJI FORD MD Jul 24, 2018 14:22
--- NOTE | 2018-07-24 18:41 | NUR ---
EOSS PT REMAINED STABLE WITH NO ACUTE CHANGES. DIALYSIS WAS DONE AND 2L WAS PULLED OUT PT HAS HAD FEVERS THROUGHOUT THE DAY. ID IS AWARE AND BLOOD CULTURES WERE SENT ORDERED. CPAP TRIAL WAS PERFORMED BUT PATIENT FAILED ONCE AGAIN SPOKE WITH AND SHE WAS VERY UPSET. SHE STATED THAT WE HAVENT TREATED ANYTHING THAT HE ORIGINALLY CAME IN FOR AND THAT HE WAS SUPPOSED TO BE TERMINALLY EXTUBATED ON FRIDAY, BUT IT WAS HELD OFF DUE TO THE PT GETTING DIALYSIS. SHE STATED SHE IS UNHAPPY WITH THE HOSPITALIST [facility] PATH[facility]ORATORY AIDE. I CALLED DR VALERA AND RECOMMENDED DR HURT BE CONSULTED ON THE CASE. DR HURT HAS BEEN CONSULTED ON THE CASE. ALSO DR ORTIZ FROM [facility] (ONCOLOGIST) CALLED IN REGARDS TO PT AND PT'S . WILL CONTINUE TO MONITOR PT WAS TURNED Q 2 HOURS AND REMAINED FREE FROM INJURY. ALL NEEDS WERE MET
[2018-07-24] MEDS: ATORVASTATIN 80 MG TAB PO SCH (20:52)
[2018-07-24] MEDS: traZODone 50 MG TAB PO SCH (20:52)
[2018-07-25] VITALS (25 sets, daily range): BP systolic 77–137; BP diastolic 45–92; PULSE 85–163; RESP 17–32
[2018-07-25] MEDS: LANSOPRAZOLE 30 MG CAP NGT SCH (05:56)
--- NOTE | 2018-07-25 07:35 | PN ---
Date/Time of Note Date/Time of Note DATE: 07/25/18 TIME: 07:34 Assessment/Plan VTE Prophylaxis Risk score (from Nsg)>0 risk: 10 SCD applied (from Nsg): Yes Pharmacological prophylaxis: other Lines/Catheters IV Catheter Type (from Nrsg): ARLETTE Urinary Cath still in place: Yes Reason Cath still needed: urinary retention Assessment/Plan Hospital Course SUBJECTIVE: The patient had hemodialysis yesterday, tolerated well. The patient remains critically ill on full ventilatory support. The patient is also febrile; continues to have low grade fever. No other acute events noted. OBJECTIVE: VITAL SIGNS: Blood pressure is 130/81, respiratory 20, pulse 98, temperature 98.9. HEENT: Head is normocephalic. NECK: Supple. HEART: Regular rate. LUNGS: Show diminished breath sounds at base. ABDOMEN: Soft, nontender to palpation. No rebound or guarding. EXTREMITIES: Negative for clubbing, cyanosis, no edema. DERMATOLOGIC: No rashes. MUSCULOSKELETAL: No joint effusion. NEUROLOGIC: No change in exam. MEDICATIONS: Reviewed. LABORATORY DATA: Shows sodium 141, potassium 4.6, BUN 92, creatinine 4.20, phosphorus 5.1, magnesium 2.7. White count 12.8, hemoglobin 8.5, platelet count is 404. IMAGING STUDIES: Reviewed. ASSESSMENT AND PLAN: 1. Oliguric acute kidney injury on top of chronic kidney disease with previous baseline creatinine of 1.3 mg/dL. Etiology of acute kidney injury is secondary to acute tubular necrosis with underlying cardiorenal syndrome. Patient is currently dialysis dependent. Plan for dialysis in am. We will monitor for any signs of renal recovery. 2. Acute systolic heart failure and cardiomyopathy. Continue current medical management. Continue ultrafiltration dialysis. 3. Anemia. Monitor hemoglobin and hematocrit levels. 4. Mineral bone disorder, monitor calcium and phosphorus levels. 5. Ventilatory-dependent respiratory failure. Vent settings and arterial blood gas was reviewed. Continue to monitor. Follow up with pulmonary. 6. Sepsis secondary to pneumonia. Continue current antibiotic regimen. 7. History of coronary artery disease. Continue medical management. 8. Metastatic adenocarcinoma of the colon. Continue to monitor. Follow up with oncology. 9. Dysphagia, G-tube feeding. 10. Dyslipidemia, continue statin therapy. 11. Acute cerebrovascular accident. Continue medical management. 12. Acute encephalopathy. Continue current treatment plan. 13. History of gastrointestinal bleed. 14. Fever, low grade, may be secondary to sepsis. check blood cx Result Diagram: 07/25/18 0415 07/25/18 0424 Results 24hrs Laboratory Tests Test 07/25/18 04:15 07/25/18 04:24 White Blood Count 12.2 H Red Blood Count 4.00 L Hemoglobin 9.0 L Hematocrit 29.6 L Mean Corpuscular Volume 74.0 L Mean Corpuscular Hemoglobin 22.5 L Mean Corpuscular Hemoglobin Concent 30.4 L Red Cell Distribution Width 23.7 H Platelet Count 441 H Mean Platelet Volume 11.2 H Immature Granulocytes % 1.000 H Neutrophils % 79.3 H Lymphocytes % 7.9 L Monocytes % 10.6 Eosinophils % 1.0 Basophils % 0.2 Nucleated Red Blood Cells % 0.0 Immature Granulocytes # 0.120 H Neutrophils # 9.7 H Lymphocytes # 1.0 Monocytes # 1.3 H Eosinophils # 0.1 Basophils # 0.0 Nucleated Red Blood Cells # 0.0 Sodium Level 139 Potassium Level 5.3 H Chloride Level 100 Carbon Dioxide Level 29 Anion Gap 10 Blood Urea Nitrogen 84 H Creatinine 4.22 H Est Glomerular Filtrat Rate mL/min 18 L Glucose Level 131 Calcium Level 9.0 Phosphorus Level 5.9 H Magnesium Level 2.6 H Exam/Review of Systems Vital Signs Vitals Vital Signs Date Temp Pulse Resp B/P (MAP) Pulse Ox O2 O2 Flow FiO2 Time Delivery Rate 07/25/18 98 25 116/72 94 Mechanical 06:00 (87) Ventilator 07/25/18 30 05:30 07/25/18 97.8 04:00 Intake and Output 07/24/18 07/24/18 07/25/18 1515:00 23:00 07:00 IntakeIntake Total 600 ml 800 ml 100 ml OutputOutput Total 23 ml 2820 ml 20 ml BalanceBalance 577 ml -2020 ml 80 ml Medications Medications Current Medications IV Flush (NS 3 ml) 3 ml PER PROTOCOL IV ; Start 07/08/18 at 21:00 Ondansetron HCl (Zofran Inj) 4 mg Q6H PRN IV NAUSEA AND/OR VOMITING; Start 07/08/18 at 21:00 Acetaminophen (Tylenol Tab) 650 mg Q6H PRN PO PAIN LEVEL 1-3 OR FEVER Last administered on 07/24/18at 12:28; Admin Dose 650 MG; Start 07/08/18 at 21:00 Atorvastatin Calcium (Lipitor) 80 mg QHS PO Last administered on 07/24/18 20:52; Admin Dose 80 MG; Start 07/09/18 at 21:00 Capecitabine (Xeloda) 1,500 mg BID PO Last administered on 07/13/18 09:05; Admin Dose 1,500 MG; Start 07/09/18 at 09:00; Status Hold Carvedilol (Coreg) 3.125 mg BID PO Last administered on 07/24/18 20:52; Admin Dose 3.125 MG; Start 07/09/18 at 09:00 Clopidogrel Bisulfate (plaVIX) 75 mg DAILY PO Last administered on 07/24/18 08:14; Admin Dose 75 MG; Start 07/09/18 at 09:00 Sucralfate (Carafate Susp) 1 gm QID PO Last administered on 07/24/18 20:52; Admin Dose 1 GM; Start 07/09/18 at 09:00 Levalbuterol (Xopenex Neb) 1.25 mg Q4H RESP THERAPY PRN HHN SHORTNESS OF BREATH Last administered on 07/23/18 15:56; Admin Dose 1.25 MG; Start 07/09/18 at 03:45 Heparin Sodium (Porcine) (Heparin (5000 Units/1ml)) 5,000 unit BID SC Last administered on 07/24/18 20:54; Admin Dose 5,000 UNIT; Start 07/09/18 at 21:00 Diphenhydramine HCl (Benadryl) 25 mg Q8H PRN PO ITCHING Last administered on 07/09/18 17:11; Admin Dose 25 MG; Start 07/09/18 at 16:30 Lansoprazole (Prevacid) 30 mg DAILY@06 NGT Last administered on 07/25/18 05:56; Admin Dose 30 MG; Start 07/12/18 at 06:00 Furosemide (Lasix) 40 mg DAILY IV Last administered on 07/16/18 08:47; Admin Dose 40 MG; Start 07/15/18 at 09:00; Status Hold Trazodone HCl (Desyrel) 50 mg HS PO Last administered on 07/24/18 20:52; Admin Dose 50 MG; Start 07/19/18 at 11:00 Acetaminophen/ Hydrocodone Bitart ([place] (5/325)) 1 tab Q12H PRN PO MODERATE PAIN LEVEL 4-6 Last administered on 07/22/18at 03:31; Admin Dose 1 TAB; Start 07/19/18 at 17:30 Norepinephrine 16 mg/Dextrose 500 ml @ 1.88 mls/hr TITRATE IV ; Start 07/22/18 at 22:00 Heparin Sodium (Porcine) (Heparin (1000 Units/ml)) 3,000 unit AFTER DIALYSIS CATHETER Last administered on 07/24/18at 17:59; Admin Dose 3,000 UNIT; Start 07/24/18 at 03:00 Docusate Sodium (Colace Liquid Cup) 100 mg BID PRN GTB CONSTIPATION; Start 07/24/18 at 11:30 RUSS CAMPBELL DO Jul 25, 2018 07:35
[2018-07-25] MEDS: SUCRALFATE (100 MG/ML) 10ML CUP PO SCH ×4 (08:35→21:00)
[2018-07-25] MEDS: HEPARIN 5,000 UNIT/1 ML VIAL SC SCH (08:35)
[2018-07-25] MEDS: CLOPIDOGREL 75 MG TAB PO SCH (08:36)
[2018-07-25] MEDS: ACETAMINOPHEN 325 MG TAB PO PRN (08:42)
--- NOTE | 2018-07-25 09:48 | CONS ---
Date/Time of Note Date/Time of Note DATE: 07/25/18 TIME: 09:47 Assessment/Plan Assessment/Plan Hospital Course ID PROGRESS NOTE CURRENT ABX: DAY # => OFF ABX DAY #2 s/p Vanco IV + Merrem + Diflucan = LAST DAY 07/23/18 07/25/1841407/25/18423 24H INTERVAL SUMMARY * Orally intubated, non-communicative, encephalopathic, VSS on the Vent, looks comfortable * Low grade TMAX today 100.0 * Microbiology: Endotracheal aspirate grew Nahid albicans, bld cx negative, urine cx pending * Indwelling: Endotracheal tube NG tube cardiac pacemaker, Winters catheter, right chest Port-A-Cath, R fem brendan * 07/25/18 CXR: IMPRESSION:Endotracheal tube in satisfactory position. Support lines as detailed above. Mild subsegmental atelectasis in the left lung base. MICRO * 07/23/18 Urine Cx (-) * 07/17/18 BCX (-) * 07/16/18 BCX (-) * 07/10/18 RESPIRATORY CULTURE Final Organism 1 NAHID ALBICANS QUANTITY RARE PHYSICAL EXAMINATION: GENERAL: Afebrile, VSS, HEENT: AT, NC, anicteric =ETT secure to patient and Vent NECK: Supple, trach-midline CHEST: Equal chest rise bilaterally, without dyspnea on observation HEART: Pulse RRR - HR 91 RRR on tele ABDOMEN: Soft / NT : FC intact GROIN, R-FEM line is clean, dry, intact EXTREMITIES: Warm, dry, SKIN: No rash, no diaphoresis ID ASSESSMENT 57 yo M admit with: 1. SIRS w/mild leukocytosis, intermittent fevers possibly secondary to metastatic disease 2. Status post healthcare associated pneumonia 3. Acute kidney failure 4. Metastatic colon cancer 5. Severe cardiomyopathy 6. Acute encephalopathy (-)MRSA Nares ABX ALLERGIES: NKDA INVASIVES: Pacemaker, FC, ETT, NGT, right chest Port-A-Cath, R fem brendan CURRENT ABX: DAY = OFF ABX DAY #2 s/p Vanco IV + Merrem + Diflucan = LAST DAY 07/23/18 ID RECOMMENDATIONS/PLAN: Continue to monitor OFF ABX -- he has completed empiric course of ABX . Result Diagram: 12/29/18 0415 12/29/18 0424 Results 24hrs Laboratory Tests Test 07/25/18 04:15 07/25/18 04:24 White Blood Count 12.2 H Red Blood Count 4.00 L Hemoglobin 9.0 L Hematocrit 29.6 L Mean Corpuscular Volume 74.0 L Mean Corpuscular Hemoglobin 22.5 L Mean Corpuscular Hemoglobin Concent 30.4 L Red Cell Distribution Width 23.7 H Platelet Count 441 H Mean Platelet Volume 11.2 H Immature Granulocytes % 1.000 H Neutrophils % 79.3 H Lymphocytes % 7.9 L Monocytes % 10.6 Eosinophils % 1.0 Basophils % 0.2 Nucleated Red Blood Cells % 0.0 Immature Granulocytes # 0.120 H Neutrophils # 9.7 H Lymphocytes # 1.0 Monocytes # 1.3 H Eosinophils # 0.1 Basophils # 0.0 Nucleated Red Blood Cells # 0.0 Sodium Level 139 Potassium Level 5.3 H Chloride Level 100 Carbon Dioxide Level 29 Anion Gap 10 Blood Urea Nitrogen 84 H Creatinine 4.22 H Est Glomerular Filtrat Rate mL/min 18 L Glucose Level 131 Calcium Level 9.0 Phosphorus Level 5.9 H Magnesium Level 2.6 H Consultation Date/Type/Reason Admit Date/Time Jul 08, 2018 at 19:53 Initial Consult Date 07/10/18 Exam/Review of Systems Vital Signs Vitals Vital Signs Date Temp Pulse Resp B/P (MAP) Pulse Ox O2 O2 Flow FiO2 Time Delivery Rate 07/25/18 100.0 08:42 07/25/18 95 08:00 07/25/18 24 137/92 95 Mechanica 07:00 (107) l Ventilato r 07/25/18 30 05:30 Intake and Output 07/24/18 07/24/18 07/25/18 1515:00 23:00 07:00 IntakeIntake Total 600 ml 800 ml 100 ml OutputOutput Total 23 ml 2820 ml 20 ml BalanceBalance 577 ml -2020 ml 80 ml Medications Medications Current Medications IV Flush (NS 3 ml) 3 ml PER PROTOCOL IV ; Start 07/08/18 at 21:00 Ondansetron HCl (Zofran Inj) 4 mg Q6H PRN IV NAUSEA AND/OR VOMITING; Start 07/08/18 at 21:00 Acetaminophen (Tylenol Tab) 650 mg Q6H PRN PO PAIN LEVEL 1-3 OR FEVER Last administered on 07/25/18 08:42; Admin Dose 650 MG; Start 07/08/18 at 21:00 Atorvastatin Calcium (Lipitor) 80 mg QHS PO Last administered on 07/24/18 20:52; Admin Dose 80 MG; Start 07/09/18 at 21:00 Capecitabine (Xeloda) 1,500 mg BID PO Last administered on 07/13/18 09:05; Admin Dose 1,500 MG; Start 07/09/18 at 09:00; Status Hold Carvedilol (Coreg) 3.125 mg BID PO Last administered on 07/25/18 08:36; Admin Dose 3.125 MG; Start 07/09/18 at 09:00 Clopidogrel Bisulfate (plaVIX) 75 mg DAILY PO Last administered on 07/25/18 08:36; Admin Dose 75 MG; Start 07/09/18 at 09:00 Sucralfate (Carafate Susp) 1 gm QID PO Last administered on 07/25/18 08:35; Admin Dose 1 GM; Start 07/09/18 at 09:00 Levalbuterol (Xopenex Neb) 1.25 mg Q4H RESP THERAPY PRN HHN SHORTNESS OF BREATH Last administered on 07/23/18 15:56; Admin Dose 1.25 MG; Start 07/09/18 at 03:45 Heparin Sodium (Porcine) (Heparin (5000 Units/1ml)) 5,000 unit BID SC Last administered on 07/25/18 08:35; Admin Dose 5,000 UNIT; Start 07/09/18 at 21:00 Diphenhydramine HCl (Benadryl) 25 mg Q8H PRN PO ITCHING Last administered on 07/09/18 17:11; Admin Dose 25 MG; Start 07/09/18 at 16:30 Lansoprazole (Prevacid) 30 mg DAILY@06 NGT Last administered on 07/25/18 05:56; Admin Dose 30 MG; Start 07/12/18 at 06:00 Furosemide (Lasix) 40 mg DAILY IV Last administered on 07/16/18 08:47; Admin Dose 40 MG; Start 07/15/18 at 09:00; Status Hold Trazodone HCl (Desyrel) 50 mg HS PO Last administered on 07/24/18 20:52; Admin Dose 50 MG; Start 07/19/18 at 11:00 Acetaminophen/ Hydrocodone Bitart ([place] (5/325)) 1 tab Q12H PRN PO MODERATE PAIN LEVEL 4-6 Last administered on 07/22/18at 03:31; Admin Dose 1 TAB; Start 07/19/18 at 17:30 Norepinephrine 16 mg/Dextrose 500 ml @ 1.88 mls/hr TITRATE IV ; Start 07/22/18 at 22:00 Heparin Sodium (Porcine) (Heparin (1000 Units/ml)) 3,000 unit AFTER DIALYSIS CATHETER Last administered on 07/24/18at 17:59; Admin Dose 3,000 UNIT; Start 07/24/18 at 03:00 Docusate Sodium (Colace Liquid Cup) 100 mg BID PRN GTB CONSTIPATION; Start 07/24/18 at 11:30 PARAS PRECIADO NP Jul 25, 2018 09:48
[2018-07-25] MEDS ORDERED: HYDROmorphONE 50 MG in DEXTROSE 5% 45 ML IV SCH (11:30)
--- NOTE | 2018-07-25 12:23 | CONS ---
Date/Time of Note Date/Time of Note DATE: 07/25/18 TIME: 12:20 Consult Date/Type/Reason Admit Date/Time Jul 08, 2018 at 19:53 Initial Consult Date 07/10/18 Type of Consultation: Pulmonary ICU Subjective No events. Remains on mechanical ventilation. Objective Vital Signs Date Temp Pulse Resp B/P (MAP) Pulse Ox O2 O2 Flow FiO2 Time Delivery Rate 07/25/18 92 25 119/75 96 Mechanica 11:00 (90) l Ventilato r 07/25/18 30 11:00 07/25/18 100.0 08:42 Intake and Output 07/24/18 07/24/18 07/25/18 1515:00 23:00 07:00 IntakeIntake Total 600 ml 800 ml 100 ml OutputOutput Total 23 ml 2820 ml 20 ml BalanceBalance 577 ml -2020 ml 80 ml Exam HEENT: Neck supple; no JVD; no LAD CVS: RRR, S1 and S2 CHEST: Coarse BS b/l ABD: Soft, NT, + BS EXT: No c/c/e Results/Medications Result Diagram: 07/25/18 0415 07/25/18 0424 Results 24 hrs Laboratory Tests Test 07/25/18 04:15 07/25/18 04:24 White Blood Count 12.2 H Red Blood Count 4.00 L Hemoglobin 9.0 L Hematocrit 29.6 L Mean Corpuscular Volume 74.0 L Mean Corpuscular Hemoglobin 22.5 L Mean Corpuscular Hemoglobin Concent 30.4 L Red Cell Distribution Width 23.7 H Platelet Count 441 H Mean Platelet Volume 11.2 H Immature Granulocytes % 1.000 H Neutrophils % 79.3 H Lymphocytes % 7.9 L Monocytes % 10.6 Eosinophils % 1.0 Basophils % 0.2 Nucleated Red Blood Cells % 0.0 Immature Granulocytes # 0.120 H Neutrophils # 9.7 H Lymphocytes # 1.0 Monocytes # 1.3 H Eosinophils # 0.1 Basophils # 0.0 Nucleated Red Blood Cells # 0.0 Sodium Level 139 Potassium Level 5.3 H Chloride Level 100 Carbon Dioxide Level 29 Anion Gap 10 Blood Urea Nitrogen 84 H Creatinine 4.22 H Est Glomerular Filtrat Rate mL/min 18 L Glucose Level 131 Calcium Level 9.0 Phosphorus Level 5.9 H Magnesium Level 2.6 H Medications Current Medications IV Flush (NS 3 ml) 3 ml PER PROTOCOL IV ; Start 07/08/18 at 21:00 Ondansetron HCl (Zofran Inj) 4 mg Q6H PRN IV NAUSEA AND/OR VOMITING; Start 07/08/18 at 21:00 Sucralfate (Carafate Susp) 1 gm QID PO Last administered on 07/25/18at 08:35; Admin Dose 1 GM; Start 07/09/18 at 09:00 Levalbuterol (Xopenex Neb) 1.25 mg Q4H RESP THERAPY PRN HHN SHORTNESS OF BREATH Last administered on 07/23/18at 15:56; Admin Dose 1.25 MG; Start 07/09/18 at 03:45 Lansoprazole (Prevacid) 30 mg DAILY@06 NGT Last administered on 07/25/18at 05:56; Admin Dose 30 MG; Start 07/12/18 at 06:00 Trazodone HCl (Desyrel) 50 mg HS PO Last administered on 07/24/18at 20:52; Admin Dose 50 MG; Start 07/19/18 at 11:00 Acetaminophen/ Hydrocodone Bitart ([place] (5/325)) 1 tab Q12H PRN PO MODERATE PAIN LEVEL 4-6 Last administered on 07/22/18at 03:31; Admin Dose 1 TAB; Start 07/19/18 at 17:30 Docusate Sodium (Colace Liquid Cup) 100 mg BID PRN GTB CONSTIPATION; Start 07/24/18 at 11:30 Hydromorphone HCl 50 mg/Dextrose 50 ml @ 0 mls/hr TITRATE IV ; Start 07/25/18 at 11:30 Assessment/Plan Additional Assessment/Plan IMP: 1. Acute hypoxemic respiratory failure with resolved pneumonia radiographically 2. End-stage renal failure on hemodialysis 3. Encephalopathy toxic metabolic 4. Cardiomyopathy 5. CAD 6. Anemia 7. Metastatic Colon Ca RECS: 1. Continue vent support 2. Agree with family meeting discussions and plans to transition to comfort measures Critical care time 40 minutes EMA KNIGHT MD Jul 25, 2018 12:23
--- NOTE | 2018-07-25 15:09 | PN ---
Date/Time of Note Date/Time of Note DATE: 07/25/18 TIME: 15:08 Assessment/Plan Lines/Catheters IV Catheter Type (from Nrsg): Central Line Win[place] in Place (from Nrsg): Yes Assessment/Plan Assessment/Plan Assessment/Plan SP Dialysis cath placement will continue dialysis He needs a permacath if patient stabilizes Subjective 24 Hr Interval Summary Constitutional: improved Pain Control: mild Exam/Review of Systems Vital Signs Vitals Vital Signs Date Temp Pulse Resp B/P (MAP) Pulse Ox O2 O2 Flow FiO2 Time Delivery Rate 07/25/18 90 23 77/53 (61) 64 Mechanica 14:00 l Ventilato r 07/25/18 2.0 13:10 07/25/18 30 11:00 07/25/18 100.0 08:42 Intake and Output 07/24/18 07/24/18 07/25/18 1515:00 23:00 07:00 IntakeIntake Total 600 ml 800 ml 150 ml OutputOutput Total 23 ml 2820 ml 20 ml BalanceBalance 577 ml -2020 ml 130 ml Exam Eyes: nl conjunctiva, EOMI, nl lids, nl sclera ENMT: nl external ears & nose, nl lips & teeth, nl nasal mucosa & septum, mucosa pink and moist Neck: supple, non-tender Respiratory: clear to auscultation, normal air movement Cardiovascular: regular rate and rhythm, nl pulses Gastrointestinal: soft, nl liver, spleen, non-tender Musculoskeletal: nl extremities to inspection, nl gait and stance Results Result Diagram: 07/25/18 0415 07/25/18 0424 REJI FORD MD Jul 25, 2018 15:09
[2018-07-25] MEDS: HYDROMORPHONE IV SCH ×2 (16:19→19:31)
[2018-07-25] MEDS: DEXTROSE 5% IV SCH ×2 (16:19→19:31)
--- NOTE | 2018-07-25 16:57 | PN ---
Date/Time of Note Date/Time of Note DATE: 07/25/18 TIME: 16:49 Assessment/Plan VTE Prophylaxis Risk score (from Ns)>0 risk: 10 SCD applied (from Ns): Yes Pharmacological prophylaxis: NA/contraindicated Pharm contraindication: other ([employer]ITION WORK[employer]) Lines/Catheters IV Catheter Type (from Nrsg): Central Line Central line still needed: Yes Urinary Cath still in place: Yes Reason Cath still needed: terminal illness/intractable pain Assessment/Plan Assessment/Plan 57 yo M with history of metastatic stage IV colon cancer admitted for SOB and hypoxemia # Acute hypoxemic hypercapnic respiratory failure #Anuric IESHA # History of metastatic adeno CA of the colon # History of sick sinus syndrome and advanced CHF with reduced EF. # Recent acute occipital CVA on chronic CVA # Acute confusion / delirium with reports of hallucinations - failed bipap, now intubated (07/09) and vent dependent. - Secondary to CHF also with signs of bilateral pneumonia on admission with probable underlying pulmonary nodules. - Family agreed to terminal extubation, patient extubated 07/25 afternoon. - No more dialysis - Tape magnet on top of AICD to prevent inappropriate firing. Return magnet to ICU after patient passes. - Holding antibiotics and other medications except those for comfort. Dispo: Comfort measures only on dilaudid gtt. Result Diagram: 07/25/18 0415 07/25/18 0424 Subjective 24 Hr Interval Summary Free Text/Dictation I sat down with the and mother today and explained that the patient will be unlikely to breathe without mechanical ventilation for the rest of his life. They agreed to terminal extubation. They both understand that the patient will be expected to pass away after extubation. They agreed to a opioid gtt to prevent pain or dyspnea. They agreed to DNR/DNI and comfort care status. Patient extubated this afternoon around 14:00 and is maintaining saturation. If vitals stable after a few hours will transfer to med/surg. Exam/Review of Systems Vital Signs Vitals Vital Signs Date Temp Pulse Resp B/P (MAP) Pulse Ox O2 O2 Flow FiO2 Time Delivery Rate 07/25/18 90 23 77/53 (61) 64 Mechanica 14:00 l Ventilato r 07/25/18 2.0 13:10 07/25/18 30 11:00 07/25/18 100.0 08:42 Intake and Output 07/24/18 07/24/18 07/25/18 1515:00 23:00 07:00 IntakeIntake Total 600 ml 800 ml 150 ml OutputOutput Total 23 ml 2820 ml 20 ml BalanceBalance 577 ml -2020 ml 130 ml Exam GENERAL: Obese man intubated, somnolent HEENT: PERRL, Intubated, ET tube in place LUNGS: Some diminished and coarse BS HEART: S1, S2. No murmur, gallops or rubs. ABDOMEN: Soft, non distended, Normoactive bowel sounds. EXTREMITIES: Mild 1+ nonpitting edema bilaterally, also some hand edema bilaterally NEUROLOGIC: Eyes open not tracking not following commands. Medications Medications Current Medications IV Flush (NS 3 ml) 3 ml PER PROTOCOL IV ; Start 07/08/18 at 21:00 Ondansetron HCl (Zofran Inj) 4 mg Q6H PRN IV NAUSEA AND/OR VOMITING; Start 07/08/18 at 21:00 Sucralfate (Carafate Susp) 1 gm QID PO Last administered on 07/25/18at 08:35; Admin Dose 1 GM; Start 07/09/18 at 09:00 Levalbuterol (Xopenex Neb) 1.25 mg Q4H RESP THERAPY PRN HHN SHORTNESS OF BREATH Last administered on 07/23/18at 15:56; Admin Dose 1.25 MG; Start 07/09/18 at 03:45 Lansoprazole (Prevacid) 30 mg DAILY@06 NGT Last administered on 07/25/18at 05:56; Admin Dose 30 MG; Start 07/12/18 at 06:00 Trazodone HCl (Desyrel) 50 mg HS PO Last administered on 07/24/18at 20:52; Ad min Dose 50 MG; Start 07/19/18 at 11:00 Acetaminophen/ Hydrocodone Bitart ([place] (5/325)) 1 tab Q12H PRN PO MODERATE PAIN LEVEL 4-6 Last administered on 07/22/18at 03:31; Admin Dose 1 TAB; Start 07/19/18 at 17:30 Docusate Sodium (Colace Liquid Cup) 100 mg BID PRN GTB CONSTIPATION; Start 07/24/18 at 11:30 Hydromorphone HCl 100 mg/Dextrose 100 ml @ 0 mls/hr TITRATE IV Last administered on 07/25/18at 16:19; Admin Dose 15 MLS/HR; Start 07/25/18 at 14:00 KARI VALERA MD Jul 25, 2018 16:56
--- NOTE | 2018-07-25 17:49 | NUR ---
[facility] PT WAS PLACED ON COMFORT CARE AND TERMINALLY EXTUBATED AT [address] VALERA'S ORDERS. DILAUDID DRIP WAS ORDERED AND IS RUNNING TO KEEP PT COMFORTABLE. , DAUGHTER, MOTHER, BROTHER AND SISTER IN LAW HAVE BEEN AT BEDSIDE. TRANSFER ORDERS HAVE BEEN PLACED FOR PT TO BE MOVED TO [facility]. CURRENTLY WAITING FOR A BED TO OPEN. MORTUARY INFORMATION AND RELEASE AUTHORIZATION HAS BEEN STARTED AND IS IN PATIENTS CHART. HAS ALREADY SIGNED THE RELEASE AUTHORIZATION. BODY IS TO BE RELEASED TO [employer] [phone] AND THE CONTRACTOR FROM [employer] # IS [phone]
--- NOTE | 2018-07-25 20:36 | NUR ---
Patient received from ICU in no apparent distress. Dilaudid drip started at 15mg/h Respirations 20 bpm
[2018-07-25] MEDS: traZODone 50 MG TAB PO SCH (21:00)
--- NOTE | 2018-07-26 02:31 | NUR ---
PATIENT AND PRONOUNCED BY DR. GEORGIE ORTIZ. FAMILY AT BEDSIDE. NO BELONGINGS NOTED. CALLED [facility] @ 0250 WITH REFERRAL # [id number]. [facility] CALLED BACK WITH MORE QUESTIONS WITH REFERRAL # [id number]. TRANSPORT CALLED BY THE NURSE. [employer] CALLED BY THE NURSE TOO.
--- NOTE | 2018-07-26 02:40 | EN ---
Date/Time of Note Date/Time of Note DATE: 07/26/18 TIME: 02:39 Event Note Medicine Medicine Event Note Pronouncement note Patient seen and examined at the bedside. Patient nonresponsive to vigorous sternal rub. Patient nonresponsive to verbal commands. No heart sounds appreciated on auscultation. Pupils fixed and nonreactive to light bilaterally. Patient pronounced at approximately 2:31 AM. Family present at the bedside. Primary team aware. GEORGIE ORTIZ Jul 26, 2018 02:40
--- NOTE | 2018-07-26 03:36 | NUR ---
Time of pronounced 02:[address] Yeung. Family at bedside. Postmortem care provided. edge bander operator Tresa Pina contacted [facility]. This Nurse contacted transport to take the to the [facility] [place]. Also contacted [facility] [employer] for mortuary services
--- NOTE | 2018-07-26 16:35 | DES ---
Date/Time of Note Date/Time of Note DATE: 07/26/18 TIME: 16:26 Discharge/ Summary Admission/Discharge Info Admit Date/Time Jul 08, 2018 at 19:53 Date/Time Jul 26, 2018 at 2:31 Final Diagnosis Metastatic colon adenocarcinoma Preliminary Cause of Cardiac arrest (instantly) Acute respiratory failure (weeks) Congestive heart failure (months) Metastatic colon carcinoma (months) Admit History Chief complaint: Shortness of breath This is a 57-year-old male with a past medical history of CAD s/p PCI, HTN, ischemic CM, colon ca on PO chemo, h/o GI bleed, morbid obesity, and anemia, Acute left occipital lobe infarct who presented to [facility] with complaints of shortness of breath on 07/06/2018. Patient had reported at that time that he was having shortness of breath times 1 day and palpitations and some possible chest pain. He had been on lower doses of Lasix according to him prior. He was reporting chest pressure and orthopnea but denied any fevers or cough, he did state that he was only able to walk approximately 30 feet before getting shortness of breath. 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 rodrigo lynn. He was admitted in the hospital and started on diuresis and given daily potassium and Spironolactone. He was continued on his home medications. Patient also had his pacemaker interrogated and there was no reported dysfunction. Patient was subsequently transferred to [facility] for insurance purposes. Currently at the bedside the patient is reporting hearing voices in his head. His is with him at the bedside who states that approximately 1 week ago he started reporting that he was noises in his head. His denies that this has occurred before. He does have a history of stage IV cancer which is being treated for. He has a history of general anxiety as well and was on home temazepam Xanax and trazodone. Pertinent laboratory findings from the transfer facility please see chart for full details Hemoglobin 10.7 Magnesium 1.6 Potassium 3.7 Creatinine 1.3 is 9 next INR 1.93 platelets 294 next Chest x-ray: Enlarged cardiac silhouette, vascular prominence consistent with mild pulmonary venous hypertension Bilateral lower extremity ultrasound no evidence of DVT Hospital Course The day after admission, patient went into acute respiratory failure. Trial of noninvasive BiPAP was unsuccessful and he was intubated. He was started on broad spectrum antibiotics for community-acquired pneumonia including antifungals, because marvel was found in the respiratory culture. He was aggressively diuresed. Despite this, he was unable to be weaned from the ventilator. The patient's mental status declined and he was minimally responsive off all sedation. Renal function progressively worsened and around 07/20 patient became anuric. On 07/22 hemodialysis was started. The afternoon of 07/25 family decided on terminal extubation and comfort care. The patient was extubated around 14:00 and started on dilaudid gtt. He was transferred to med/surg where he on 07/26 at 2:31. KARI VALERA MD Jul 26, 2018 16:35
== END 2018-07-26 02:31 | disposition expired | DRG 870 ==
LOC: 6WM 19:53 → ICU 07-09 04:31 → 2NE 07-25 18:58
PROVIDERS: ADMIT Family Medicine; ATTEND Internal Medicine
PROC: 5A1955Z Respiratory Ventilation, Greater than 96 Consecutive Hours (ICD-10-PCS; principal; 2018-07-09)
PROC: 0BH17EZ Insertion of Endotracheal Airway into Trachea, Via Natural or Artificial Opening (ICD-10-PCS; 2018-07-09)
PROC: 06HM33Z Insertion of Infusion Device into Right Femoral Vein, Percutaneous Approach (ICD-10-PCS; 2018-07-22)
PROC: 5A1D70Z Performance of Urinary Filtration, Intermittent, Less than 6 Hours Per Day (ICD-10-PCS; 2018-07-22)
DX: A41.9 Sepsis, unspecified organism (principal); I50.43 Acute on chronic combined systolic (congestive) and diastolic (congestive) heart failure; J96.01 Acute respiratory failure with hypoxia; J96.02 Acute respiratory failure with hypercapnia; J18.9 Pneumonia, unspecified organism; G92 Toxic encephalopathy; I13.0 Hypertensive heart and chronic kidney disease with heart failure and stage 1 through stage 4 chronic kidney disease, or unspecified chronic kidney disease; Z68.41 Body mass index [BMI] 40.0-44.9, adult; R44.3 Hallucinations, unspecified; C18.9 Malignant neoplasm of colon, unspecified; C78.7 Secondary malignant neoplasm of liver and intrahepatic bile duct; R44.2 Other hallucinations; N17.9 Acute kidney failure, unspecified; E87.0 Hyperosmolality and hypernatremia; R34 Anuria and oliguria; R65.20 Severe sepsis without septic shock; E87.5 Hyperkalemia; I25.5 Ischemic cardiomyopathy; I48.2 Chronic atrial fibrillation; N18.3 Chronic kidney disease, stage 3 (moderate); E83.9 Disorder of mineral metabolism, unspecified; E66.01 Morbid (severe) obesity due to excess calories; G72.89 Other specified myopathies; R13.10 Dysphagia, unspecified; Z95.810 Presence of automatic (implantable) cardiac defibrillator; D64.9 Anemia, unspecified; I25.10 Atherosclerotic heart disease of native coronary artery without angina pectoris; E78.5 Hyperlipidemia, unspecified; R41.0 Disorientation, unspecified; I69.398 Other sequelae of cerebral infarction; Z92.21 Personal history of antineoplastic chemotherapy; R73.03 Prediabetes; Y95 Nosocomial condition; I46.9 Cardiac arrest, cause unspecified
CPT/HCPCS: 36600; 71045; 71250; 74176; 76775; 80048; 80053; 80061; 80202; 81001; 81003; 82043; 82247; 82248; 82550; 82553; 82565; 82728; 82803; 82962; 83010; 83036; 83540; 83735; 83880; 84100; 84145; 84155; 84300; 84443; 84484; 84520; 85025; 86704; 86706; 86709; 86803; 87040; 87070; 87081; 87086; 87340; 89220; 90935; 93005; 93306; 94002; 94003; 94640; 94660; 94664; 94770; C9113; J0692; J1200; J1450; J1630; J1644; J1940; J2060; J2150; J2185; J2250; J2274; J2543; J3370; J7040; J7050; P9047